=== PATIENT | female | born 1940 | race Caucasian/White ===

== ENCOUNTER 2018-05-13 11:35 | Inpatient (IN) ==
[2018-05-13] MEDS ORDERED: dilTIAZem HCl 5 MG/ML 5 ML VIAL IV STA (12:03)
[2018-05-13] MEDS ORDERED: dilTIAZem HCl 125 MG in DEXTROSE 5% 100 ML IV STA (12:03)
--- NOTE | 2018-05-13 12:14 | Emergency Department Note ---
Entered by Rica Villalpando acting as a scribe for History of Present Illness General Chief complaint: Shortness of Breath/Dyspnea Stated complaint: SOB Time Seen by Provider: 05/13/18 11:58 Source: patient History of Present Illness Onset (ago): day(s) 4 Location: chest Pain Consistency: + other (worsening) Quality: + other (shortness of breath ) Exacerbated By: + movement Associated symptoms: + chest pain and + cough The patient is a 77 year old female who presents to the Emergency Room with complaints of worsening shortness of breath that started 4 days ago. The patient states it is worse with exertion. She also complains of a dry cough that has been ongoing for a month. The patient reports she has also had intermittent chest pain for the past month, but it has not gotten worse since the shortness of breath started. She states she has never been diagnosed with COPD. Home Medications Home Medications Medication Instructions Recorded Confirmed Type albuterol sulfate [ProAir HFA] 2 puff INHALATION Q6H PRN 05/13/18 05/13/18 History aspirin [Aspirin Low Dose] 81 mg PO DAILY 05/13/18 05/13/18 History fluticasone-salmeterol [Advair 1 inh INHALATION BID 05/13/18 05/13/18 History Diskus] fosinopril 40 mg PO DAILY 05/13/18 05/13/18 History hydroxyzine HCl 25 mg PO QID PRN 05/13/18 05/13/18 History ibuprofen 200 mg PO TID PRN 05/13/18 05/13/18 History insulin glargine [Lantus Solostar 30 units SUBCUT QAM 05/13/18 05/13/18 History U-100 Insulin] metformin 1,000 mg PO BID 05/13/18 05/13/18 History sertraline 25 mg PO DAILY 05/13/18 05/13/18 History tramadol 50 mg PO TID PRN 05/13/18 05/13/18 History Allergies Allergy/AdvReac Type Severity Reaction Status Date / Time No Known Allergies Allergy Unverified 05/13/18 11:57 Past Med/Surg History Medical History Pneumonia Bronchitis Hypertension Heart disease Diabetes Social History Current Living Situation: Alone Other Information That Helps Us Care for You: No Feels Safe at Home: Yes Safety Concerns: Feels Safe At This Time Smoking Status: Never smoker Do You Dip or Chew Tobacco: No Second Hand Exposure: No Tobacco Cessation Education Requested by Patient: No Hx Alcohol Use: Yes Alcohol Intake Frequency: holidays/special occasions only Hx Substance Use: No Beliefs That Will Affect Care: None Preferred Language: Romansh Communication Ability: Effective Contact Agent Required: No Review of Systems See HPI for pertinent positives & negatives. and A total of 10 systems reviewed and were otherwise negative Physical Exam Vital Signs Vital Signs - 24 hr 05/13/18 11:36 05/13/18 11:40 05/13/18 11:54 Temperature 37 C Temperature Source Oral Sepsis Recent Fever Within 48 Hours No Sepsis New/Unexplained Change in Mental Status No Sepsis Action Taken by Nursing No Action Required Pulse Rate 141 H 127 H Pulse Rate [Left Finger] Pulse Rhythm Pulse Rhythm [Left Finger] Pulse Strength [Left Finger] Respiratory Rate 20 25 H Respiratory Effort / Characteristics Non-Labored Spontaneous Respiratory Depth Normal Normal Respiratory Pattern Regular Blood Pressure 123/73 127/88 Blood Pressure [Right Arm] Blood Pressure Mean 89 101 Blood Pressure Mean [Right Arm] Blood Pressure Position Blood Pressure Position [Right Arm] Pulse Oximetry 94 94 Oxygen Delivery Method Room Air Oxygen Flow Rate 05/13/18 11:58 05/13/18 12:00 05/13/18 12:01 Temperature Temperature Source Sepsis Recent Fever Within 48 Hours Sepsis New/Unexplained Change in Mental Status Sepsis Action Taken by Nursing Pulse Rate 139 H 142 H 146 H Pulse Rate [Left Finger] Pulse Rhythm Pulse Rhythm [Left Finger] Pulse Strength [Left Finger] Respiratory Rate 22 31 H 26 H Respiratory Effort / Characteristics Respiratory Depth Respiratory Pattern Blood Pressure 136/99 Blood Pressure [Right Arm] Blood Pressure Mean 111 Blood Pressure Mean [Right Arm] Blood Pressure Position Blood Pressure Position [Right Arm] Pulse Oximetry 96 96 98 Oxygen Delivery Method Oxygen Flow Rate 05/13/18 12:06 05/13/18 12:10 05/13/18 12:14 Temperature Temperature Source Sepsis Recent Fever Within 48 Hours Sepsis New/Unexplained Change in Mental Status Sepsis Action Taken by Nursing Pulse Rate 130 H 138 H 106 H Pulse Rate [Left Finger] Pulse Rhythm Irregular Pulse Rhythm [Left Finger] Pulse Strength [Left Finger] Respiratory Rate 18 23 25 H Respiratory Effort / Characteristics Respiratory Depth Respiratory Pattern Blood Pressure 97/62 L Blood Pressure [Right Arm] Blood Pressure Mean 73 Blood Pressure Mean [Right Arm] Blood Pressure Position Blood Pressure Position [Right Arm] Pulse Oximetry 95 92 96 Oxygen Delivery Method Room Air Oxygen Flow Rate 05/13/18 12:17 05/13/18 12:18 05/13/18 12:20 Temperature Temperature Source Sepsis Recent Fever Within 48 Hours Sepsis New/Unexplained Change in Mental Status Sepsis Action Taken by Nursing Pulse Rate 135 H 108 H 108 H Pulse Rate [Left Finger] Pulse Rhythm Pulse Rhythm [Left Finger] Pulse Strength [Left Finger] Respiratory Rate 20 26 H 21 Respiratory Effort / Characteristics Respiratory Depth Respiratory Pattern Blood Pressure 87/69 L Blood Pressure [Right Arm] Blood Pressure Mean 75 Blood Pressure Mean [Right Arm] Blood Pressure Position Blood Pressure Position [Right Arm] Pulse Oximetry 94 95 95 Oxygen Delivery Method Oxygen Flow Rate 05/13/18 12:21 05/13/18 12:22 05/13/18 12:26 Temperature Temperature Source Sepsis Recent Fever Within 48 Hours Sepsis New/Unexplained Change in Mental Status Sepsis Action Taken by Nursing Pulse Rate 104 H 116 H Pulse Rate [Left Finger] 106 H Pulse Rhythm Pulse Rhythm [Left Finger] Regular Pulse Strength [Left Finger] Normal Respiratory Rate 20 20 21 Respiratory Effort / Characteristics Non-Labored Spontaneous Respiratory Depth Normal Respiratory Pattern Regular Blood Pressure 104/69 102/67 Blood Pressure [Right Arm] 87/69 L Blood Pressure Mean 80 78 Blood Pressure Mean [Right Arm] 75 Blood Pressure Position Blood Pressure Position [Right Arm] Sitting Pulse Oximetry 95 95 94 Oxygen Delivery Method Room Air Oxygen Flow Rate 05/13/18 12:30 05/13/18 12:32 05/13/18 12:36 Temperature Temperature Source Sepsis Recent Fever Within 48 Hours Sepsis New/Unexplained Change in Mental Status Sepsis Action Taken by Nursing Pulse Rate 163 H 125 H 130 H Pulse Rate [Left Finger] 137 H Pulse Rhythm Pulse Rhythm [Left Finger] Irregular Pulse Strength [Left Finger] Normal Respiratory Rate 33 H 30 H 23 Respiratory Effort / Characteristics Non-Labored Spontaneous Respiratory Depth Normal Respiratory Pattern Blood Pressure 106/79 138/67 Blood Pressure [Right Arm] 106/79 Blood Pressure Mean 88 90 Blood Pressure Mean [Right Arm] 88 Blood Pressure Position Blood Pressure Position [Right Arm] Sitting Pulse Oximetry 98 97 96 Oxygen Delivery Method Room Air Oxygen Flow Rate 05/13/18 12:40 05/13/18 12:41 05/13/18 12:43 Temperature Temperature Source Sepsis Recent Fever Within 48 Hours Sepsis New/Unexplained Change in Mental Status Sepsis Action Taken by Nursing Pulse Rate 105 H 122 H Pulse Rate [Left Finger] 118 H Pulse Rhythm Pulse Rhythm [Left Finger] Regular Pulse Strength [Left Finger] Normal Respiratory Rate 16 24 20 Respiratory Effort / Characteristics Non-Labored Spontaneous Respiratory Depth Normal Respiratory Pattern Blood Pressure 133/88 Blood Pressure [Right Arm] 133/88 Blood Pressure Mean 103 Blood Pressure Mean [Right Arm] 103 Blood Pressure Position Blood Pressure Position [Right Arm] Sitting Pulse Oximetry 92 91 93 Oxygen Delivery Method Room Air Oxygen Flow Rate 05/13/18 12:46 05/13/18 12:50 05/13/18 12:59 Temperature Temperature Source Sepsis Recent Fever Within 48 Hours Sepsis New/Unexplained Change in Mental Status Sepsis Action Taken by Nursing Pulse Rate 117 H 108 H 104 H Pulse Rate [Left Finger] Pulse Rhythm Pulse Rhythm [Left Finger] Pulse Strength [Left Finger] Respiratory Rate 22 22 23 Respiratory Effort / Characteristics Respiratory Depth Respiratory Pattern Blood Pressure 121/75 116/95 Blood Pressure [Right Arm] Blood Pressure Mean 90 102 Blood Pressure Mean [Right Arm] Blood Pressure Position Blood Pressure Position [Right Arm] Pulse Oximetry 99 96 Oxygen Delivery Method Oxygen Flow Rate 05/13/18 13:00 05/13/18 13:06 05/13/18 13:10 Temperature Temperature Source Sepsis Recent Fever Within 48 Hours Sepsis New/Unexplained Change in Mental Status Sepsis Action Taken by Nursing Pulse Rate 111 H 127 H 115 H Pulse Rate [Left Finger] Pulse Rhythm Pulse Rhythm [Left Finger] Pulse Strength [Left Finger] Respiratory Rate 21 26 H 20 Respiratory Effort / Characteristics Respiratory Depth Respiratory Pattern Blood Pressure 104/41 L Blood Pressure [Right Arm] Blood Pressure Mean 62 Blood Pressure Mean [Right Arm] Blood Pressure Position Blood Pressure Position [Right Arm] Pulse Oximetry 99 97 98 Oxygen Delivery Method Oxygen Flow Rate 05/13/18 13:11 05/13/18 13:16 05/13/18 13:18 Temperature Temperature Source Sepsis Recent Fever Within 48 Hours Sepsis New/Unexplained Change in Mental Status Sepsis Action Taken by Nursing Pulse Rate 116 H 106 H Pulse Rate [Left Finger] Pulse Rhythm Pulse Rhythm [Left Finger] Pulse Strength [Left Finger] Respiratory Rate 19 28 H Respiratory Effort / Characteristics Non-Labored Spontaneous Respiratory Depth Normal Respiratory Pattern Regular Blood Pressure 132/82 121/89 Blood Pressure [Right Arm] Blood Pressure Mean 98 99 Blood Pressure Mean [Right Arm] Blood Pressure Position Blood Pressure Position [Right Arm] Pulse Oximetry 98 98 Oxygen Delivery Method Room Air Oxygen Flow Rate 05/13/18 13:20 05/13/18 13:21 05/13/18 13:26 Temperature Temperature Source Sepsis Recent Fever Within 48 Hours Sepsis New/Unexplained Change in Mental Status Sepsis Action Taken by Nursing Pulse Rate 109 H 120 H 107 H Pulse Rate [Left Finger] Pulse Rhythm Pulse Rhythm [Left Finger] Pulse Strength [Left Finger] Respiratory Rate 24 23 24 Respiratory Effort / Characteristics Respiratory Depth Respiratory Pattern Blood Pressure 120/84 127/82 Blood Pressure [Right Arm] Blood Pressure Mean 96 97 Blood Pressure Mean [Right Arm] Blood Pressure Position Blood Pressure Position [Right Arm] Pulse Oximetry 99 98 96 Oxygen Delivery Method Oxygen Flow Rate 05/13/18 13:30 05/13/18 13:31 05/13/18 13:40 Temperature Temperature Source Sepsis Recent Fever Within 48 Hours Sepsis New/Unexplained Change in Mental Status Sepsis Action Taken by Nursing Pulse Rate 108 H 109 H 109 H Pulse Rate [Left Finger] Pulse Rhythm Pulse Rhythm [Left Finger] Pulse Strength [Left Finger] Respiratory Rate 27 H 26 H 23 Respiratory Effort / Characteristics Respiratory Depth Respiratory Pattern Blood Pressure 112/80 Blood Pressure [Right Arm] Blood Pressure Mean 90 Blood Pressure Mean [Right Arm] Blood Pressure Position Blood Pressure Position [Right Arm] Pulse Oximetry 95 95 95 Oxygen Delivery Method Oxygen Flow Rate 05/13/18 13:50 05/13/18 13:52 05/13/18 13:53 Temperature Temperature Source Sepsis Recent Fever Within 48 Hours Sepsis New/Unexplained Change in Mental Status Sepsis Action Taken by Nursing Pulse Rate 114 H 98 H 106 H Pulse Rate [Left Finger] Pulse Rhythm Pulse Rhythm [Left Finger] Pulse Strength [Left Finger] Respiratory Rate 23 25 H 26 H Respiratory Effort / Characteristics Respiratory Depth Respiratory Pattern Blood Pressure 118/54 L Blood Pressure [Right Arm] Blood Pressure Mean 75 Blood Pressure Mean [Right Arm] Blood Pressure Position Blood Pressure Position [Right Arm] Pulse Oximetry 96 96 96 Oxygen Delivery Method Oxygen Flow Rate 05/13/18 14:00 05/13/18 14:01 05/13/18 14:10 Temperature Temperature Source Sepsis Recent Fever Within 48 Hours Sepsis New/Unexplained Change in Mental Status Sepsis Action Taken by Nursing Pulse Rate 97 H 109 H 89 Pulse Rate [Left Finger] Pulse Rhythm Pulse Rhythm [Left Finger] Pulse Strength [Left Finger] Respiratory Rate 24 18 23 Respiratory Effort / Characteristics Respiratory Depth Respiratory Pattern Blood Pressure 129/68 Blood Pressure [Right Arm] Blood Pressure Mean 88 Blood Pressure Mean [Right Arm] Blood Pressure Position Blood Pressure Position [Right Arm] Pulse Oximetry 97 98 96 Oxygen Delivery Method Oxygen Flow Rate 05/13/18 14:16 05/13/18 14:20 05/13/18 14:30 Temperature Temperature Source Sepsis Recent Fever Within 48 Hours Sepsis New/Unexplained Change in Mental Status Sepsis Action Taken by Nursing Pulse Rate 104 H 100 H 98 H Pulse Rate [Left Finger] Pulse Rhythm Pulse Rhythm [Left Finger] Pulse Strength [Left Finger] Respiratory Rate 23 20 28 H Respiratory Effort / Characteristics Respiratory Depth Respiratory Pattern Blood Pressure 98/69 L 101/74 Blood Pressure [Right Arm] Blood Pressure Mean 78 83 Blood Pressure Mean [Right Arm] Blood Pressure Position Blood Pressure Position [Right Arm] Pulse Oximetry 98 95 99 Oxygen Delivery Method Oxygen Flow Rate 05/13/18 14:31 05/13/18 14:32 05/13/18 14:40 Temperature Temperature Source Sepsis Recent Fever Within 48 Hours Sepsis New/Unexplained Change in Mental Status Sepsis Action Taken by Nursing Pulse Rate 103 H 105 H 99 H Pulse Rate [Left Finger] Pulse Rhythm Pulse Rhythm [Left Finger] Pulse Strength [Left Finger] Respiratory Rate 19 19 21 Respiratory Effort / Characteristics Respiratory Depth Respiratory Pattern Blood Pressure 120/72 Blood Pressure [Right Arm] Blood Pressure Mean 88 Blood Pressure Mean [Right Arm] Blood Pressure Position Blood Pressure Position [Right Arm] Pulse Oximetry 98 98 98 Oxygen Delivery Method Oxygen Flow Rate 05/13/18 15:00 05/13/18 15:05 05/13/18 15:37 Temperature 36.8 C Temperature Source Oral Sepsis Recent Fever Within 48 Hours Sepsis New/Unexplained Change in Mental Status Sepsis Action Taken by Nursing Pulse Rate Pulse Rate [Left Finger] 95 H 95 H Pulse Rhythm Pulse Rhythm [Left Finger] Pulse Strength [Left Finger] Respiratory Rate 24 18 Respiratory Effort / Characteristics Short of Breath SOB on Exertion Non-Labored Spontaneous Respiratory Depth Normal Respiratory Pattern Blood Pressure Blood Pressure [Right Arm] 110/57 L Blood Pressure Mean Blood Pressure Mean [Right Arm] 74 Blood Pressure Position Blood Pressure Position [Right Arm] Pulse Oximetry 97 98 Oxygen Delivery Method Nasal Cannula Nasal Cannula Nasal Cannula Oxygen Flow Rate 2 2 2 05/13/18 16:43 05/13/18 16:50 05/13/18 16:59 Temperature 36.8 C 36.8 C Temperature Source Oral Oral Sepsis Recent Fever Within 48 Hours Sepsis New/Unexplained Change in Mental Status Sepsis Action Taken by Nursing Pulse Rate 84 85 98 H Pulse Rate [Left Finger] Pulse Rhythm Pulse Rhythm [Left Finger] Pulse Strength [Left Finger] Respiratory Rate 20 20 20 Respiratory Effort / Characteristics Respiratory Depth Respiratory Pattern Blood Pressure 99/43 L 105/61 100/62 Blood Pressure [Right Arm] Blood Pressure Mean 61 75 74 Blood Pressure Mean [Right Arm] Blood Pressure Position Lying Blood Pressure Position [Right Arm] Pulse Oximetry 97 95 95 Oxygen Delivery Method Oxygen Flow Rate 2 2 05/13/18 17:14 Temperature 36.8 C Temperature Source Oral Sepsis Recent Fever Within 48 Hours Sepsis New/Unexplained Change in Mental Status Sepsis Action Taken by Nursing Pulse Rate 90 Pulse Rate [Left Finger] Pulse Rhythm Pulse Rhythm [Left Finger] Pulse Strength [Left Finger] Respiratory Rate 20 Respiratory Effort / Characteristics Respiratory Depth Respiratory Pattern Blood Pressure 105/57 L Blood Pressure [Right Arm] Blood Pressure Mean 73 Blood Pressure Mean [Right Arm] Blood Pressure Position Blood Pressure Position [Right Arm] Pulse Oximetry 95 Oxygen Delivery Method Oxygen Flow Rate GENERAL: Patient is in no acute distress. HEENT: No acute trauma, normocephalic atraumatic, mucous membranes moist, no nasal congestion, no scleral icterus. NECK: No stridor, no adenopathy, no meningismus, trachea is midline. LUNGS: Scattered wheezes, breath sounds equal, no respiratory distress, no crackles. HEART: Irregular and tachycardic, no murmurs. ABDOMEN: Soft, nontender, bowel sounds positive, no hernias, no peritonitis. EXTREMITIES: No cyanosis, full range of motion of all the joints without pain or difficulty, no signs for acute trauma. Mild bilateral pedal edema. NEUROLOGIC: Oriented x 3, no acute motor or sensory deficits, no focal weakness. SKIN: No rash, no jaundice, no diaphoresis. RECTAL: Brown stool, hem negative. Course 1158: Past medical records reviewed. The patient was evaluated in room C4, and a complete history and physical examination were performed. 1220: I rechecked the patient and she is feeling okay. Her blood pressure is lower from the medications, I will administer more fluids. 1240: I rechecked the patient and talked with her about her findings. 1255: I reviewed the patient's case with Nithya Singletary Lito PONCE [facility]. She will evaluate the patient for further management. Consultations Consultation #1: I reviewed the patient's [facility] She will evaluate the patient for further management. Time: 12:55 Administered Medications Albuterol (Duoneb) 3 ml NEB Q4H PRN PRN Reason: Dyspnea Stop: 06/12/18 15:04 Last Admin: 05/13/18 15:36 Dose: 3 ml Insulin Aspart (Novolog Flexpen) 0 units SC ACHS MAGGIE; Protocol Stop: 06/12/18 17:29 Last Admin: 05/13/18 17:57 Dose: 7 units Discontinued Medications Diltiazem HCl (Cardizem) 15 mg IV NOW STA Stop: 05/13/18 12:04 Last Admin: 05/13/18 12:10 Dose: 15 mg Diltiazem HCl 125 mg/ Dextrose 125 mls @ 0 mls/hr IV .Q0M STA; Protocol Stop: 05/13/18 12:04 Last Titration: 05/13/18 13:53 Dose: 15 mg/hr, 15 mls/hr Titration: 05/13/18 13:05 Dose: 10 mg/hr, 10 mls/hr Admin: 05/13/18 12:33 Dose: 5 mg/hr, 5 mls/hr Sodium Chloride (Nss) 500 mls @ 999 mls/hr IV .Q31M STA Stop: 05/13/18 12:48 Last Infusion: 05/13/18 12:56 Dose: Admin: 05/13/18 12:23 Dose: 999 mls/hr Magnesium Sulfate/Dextrose (Magnesium Sulfate / D5w) 1 gm in 100 mls @ 100 mls/ hr IV ONE ONE Stop: 05/13/18 13:38 Last Infusion: 05/13/18 14:06 Dose: 0 mls/hr Admin: 05/13/18 13:06 Dose: 100 mls/hr Medical Decision Making Differential Diagnosis Differential includes: rapid A-fib, dysrhythmia, [place], CHF, pneumonia, anemia, electrolyte imbalance, PE. Medical Records Attestation: I reviewed the patient's medical records. Home Medications Current Medication List: was personally reviewed by me Laboratory Data Attestation: I reviewed the patient's lab results. Result diagrams: 05/13/18 11:55 05/13/18 11:55 Lab Results 05/13/18 05/13/18 05/13/18 Range/Units 11:55 11:55 11:55 WBC 9.51 (4.8-10.8) K/uL RBC 3.32 L (4.2-5.4) M/uL Hgb 5.9 L* (12.0-16.0) g/dL Hct 20.9 L* (37-47) % MCV 63.0 L (80-100) fL MCH 17.8 L (25-34) pg MCHC 28.2 L (32-36) g/dL RDW Std Deviation 42.0 (36.4-46.3) fL RDW Coeff of Zaria 18.1 H (11.5-14.5) % Plt Count 429 H (130-400) K/uL MPV 9.6 (7.4-10.4) fL Immature Gran % (Auto) 0.5 % Neut % (Auto) 76.6 % Lymph % (Auto) 11.6 % [place] % (Auto) 10.2 % Eos % (Auto) 0.7 % Baso % (Auto) 0.4 % Immature Gran # (Auto) 0.05 H (0.00-0.02) K/uL Neut # (Auto) 7.28 H (1.4-6.5) K/uL Lymph # (Auto) 1.10 L (1.2-3.4) K/uL [place] # (Auto) 0.97 H (0.11-0.59) K/uL Eos # (Auto) 0.07 (0-0.5) K/uL Baso # (Auto) 0.04 (0-0.2) K/uL Absolute Nucleated RBC 0.05 H (0-0) K/uL Nucleated RBC % (auto) 0.5 % Hypochromasia Present Anisocytosis Present Microcytosis Present PT 11.8 (9.0-12.0) Seconds INR 1.2 H (0.9-1.1) APTT 25.9 (21.0-31.0) Seconds PTT Ratio 1.0 Sodium 137 (136-145) mmol/L Potassium 3.6 (3.5-5.1) mmol/L Chloride 105 (98-107) mmol/L Carbon Dioxide 20 L (21-32) mmol/L Anion Gap 12.0 H (3-11) BUN 23 H (7-18) mg/dl Creatinine 1.11 (0.6-1.2) mg/dl Est Cr Clr Drug Dosing Not Reportable Est GFR ( Amer) 54.7 Est GFR (Non-Af Amer) 47.2 BUN/Creatinine Ratio 20.7 H (10-20) Glucose 260 H (70-99) mg/dl POC Glucose (70-99) Calcium 8.7 (8.5-10.1) mg/dl Magnesium 1.4 L (1.8-2.4) mg/dl Iron (35-150) mcg/dl TIBC (250-450) mcg/dl Ferritin (8-388) ng/ml Total Bilirubin 0.7 (0.2-1) mg/dl AST 23 (15-37) U/L ALT 22 (12-78) U/L Alkaline Phosphatase 89 (45-117) U/L Troponin I 0.017 (0-0.045) ng/ml Total Protein 7.1 (6.4-8.2) gm/dl Albumin 3.3 L (3.4-5.0) gm/dl Globulin 3.8 (2.5-4.0) gm/dl Albumin/Globulin Ratio 0.9 (0.9-2) Vitamin B12 (211-911) pg/ml TSH 1.820 (0.300-4.500) uIu/ml Blood Type Blood Type Recheck Antibody Screen Antibody Identification Antigen Identification Crossmatch 05/13/18 05/13/18 05/13/18 Range/Units 12:58 13:54 15:11 WBC (4.8-10.8) K/uL RBC (4.2-5.4) M/uL Hgb (12.0-16.0) g/dL Hct (37-47) % MCV (80-100) fL MCH (25-34) pg MCHC (32-36) g/dL RDW Std Deviation (36.4-46.3) fL RDW Coeff of Zaria (11.5-14.5) % Plt Count (130-400) K/uL MPV (7.4-10.4) fL Immature Gran % (Auto) % Neut % (Auto) % Lymph % (Auto) % [place] % (Auto) % Eos % (Auto) % Baso % (Auto) % Immature Gran # (Auto) (0.00-0.02) K/uL Neut # (Auto) (1.4-6.5) K/uL Lymph # (Auto) (1.2-3.4) K/uL [place] # (Auto) (0.11-0.59) K/uL Eos # (Auto) (0-0.5) K/uL Baso # (Auto) (0-0.2) K/uL Absolute Nucleated RBC (0-0) K/uL Nucleated RBC % (auto) % Hypochromasia Anisocytosis Microcytosis PT (9.0-12.0) Seconds INR (0.9-1.1) APTT (21.0-31.0) Seconds PTT Ratio Sodium (136-145) mmol/L Potassium (3.5-5.1) mmol/L Chloride (98-107) mmol/L Carbon Dioxide (21-32) mmol/L Anion Gap (3-11) BUN (7-18) mg/dl Creatinine (0.6-1.2) mg/dl Est Cr Clr Drug Dosing Est GFR ( Amer) Est GFR (Non-Af Amer) BUN/Creatinine Ratio (10-20) Glucose (70-99) mg/dl POC Glucose (70-99) Calcium (8.5-10.1) mg/dl Magnesium (1.8-2.4) mg/dl Iron 10 L (35-150) mcg/dl TIBC 348 (250-450) mcg/dl Ferritin 7.6 L (8-388) ng/ml Total Bilirubin (0.2-1) mg/dl AST (15-37) U/L ALT (12-78) U/L Alkaline Phosphatase (45-117) U/L Troponin I (0-0.045) ng/ml Total Protein (6.4-8.2) gm/dl Albumin (3.4-5.0) gm/dl Globulin (2.5-4.0) gm/dl Albumin/Globulin Ratio (0.9-2) Vitamin B12 (211-911) pg/ml TSH (0.300-4.500) uIu/ml Blood Type O Positive Blood Type Recheck O Positive Antibody Screen POSITIVE A Antibody Identification Anti-K Antigen Identification K Antigen - NEGATIVE Crossmatch See Detail 05/13/18 05/13/18 05/13/18 Range/Units 15:11 16:17 16:19 WBC (4.8-10.8) K/uL RBC (4.2-5.4) M/uL Hgb (12.0-16.0) g/dL Hct (37-47) % MCV (80-100) fL MCH (25-34) pg MCHC (32-36) g/dL RDW Std Deviation (36.4-46.3) fL RDW Coeff of Zaria (11.5-14.5) % Plt Count (130-400) K/uL MPV (7.4-10.4) fL Immature Gran % (Auto) % Neut % (Auto) % Lymph % (Auto) % [place] % (Auto) % Eos % (Auto) % Baso % (Auto) % Immature Gran # (Auto) (0.00-0.02) K/uL Neut # (Auto) (1.4-6.5) K/uL Lymph # (Auto) (1.2-3.4) K/uL [place] # (Auto) (0.11-0.59) K/uL Eos # (Auto) (0-0.5) K/uL Baso # (Auto) (0-0.2) K/uL Absolute Nucleated RBC (0-0) K/uL Nucleated RBC % (auto) % Hypochromasia Anisocytosis Microcytosis PT (9.0-12.0) Seconds INR (0.9-1.1) APTT (21.0-31.0) Seconds PTT Ratio Sodium (136-145) mmol/L Potassium (3.5-5.1) mmol/L Chloride (98-107) mmol/L Carbon Dioxide (21-32) mmol/L Anion Gap (3-11) BUN (7-18) mg/dl Creatinine (0.6-1.2) mg/dl Est Cr Clr Drug Dosing Est GFR ( Amer) Est GFR (Non-Af Amer) BUN/Creatinine Ratio (10-20) Glucose (70-99) mg/dl POC Glucose 409 H* 193 H (70-99) Calcium (8.5-10.1) mg/dl Magnesium (1.8-2.4) mg/dl Iron (35-150) mcg/dl TIBC (250-450) mcg/dl Ferritin (8-388) ng/ml Total Bilirubin (0.2-1) mg/dl AST (15-37) U/L ALT (12-78) U/L Alkaline Phosphatase (45-117) U/L Troponin I (0-0.045) ng/ml Total Protein (6.4-8.2) gm/dl Albumin (3.4-5.0) gm/dl Globulin (2.5-4.0) gm/dl Albumin/Globulin Ratio (0.9-2) Vitamin B12 372 (211-911) pg/ml TSH (0.300-4.500) uIu/ml Blood Type Blood Type Recheck Antibody Screen Antibody Identification Antigen Identification Crossmatch 05/13/18 Range/Units 16:21 WBC (4.8-10.8) K/uL RBC (4.2-5.4) M/uL Hgb (12.0-16.0) g/dL Hct (37-47) % MCV (80-100) fL MCH (25-34) pg MCHC (32-36) g/dL RDW Std Deviation (36.4-46.3) fL RDW Coeff of Zaria (11.5-14.5) % Plt Count (130-400) K/uL MPV (7.4-10.4) fL Immature Gran % (Auto) % Neut % (Auto) % Lymph % (Auto) % [place] % (Auto) % Eos % (Auto) % Baso % (Auto) % Immature Gran # (Auto) (0.00-0.02) K/uL Neut # (Auto) (1.4-6.5) K/uL Lymph # (Auto) (1.2-3.4) K/uL [place] # (Auto) (0.11-0.59) K/uL Eos # (Auto) (0-0.5) K/uL Baso # (Auto) (0-0.2) K/uL Absolute Nucleated RBC (0-0) K/uL Nucleated RBC % (auto) % Hypochromasia Anisocytosis Microcytosis PT (9.0-12.0) Seconds INR (0.9-1.1) APTT (21.0-31.0) Seconds PTT Ratio Sodium (136-145) mmol/L Potassium (3.5-5.1) mmol/L Chloride (98-107) mmol/L Carbon Dioxide (21-32) mmol/L Anion Gap (3-11) BUN (7-18) mg/dl Creatinine (0.6-1.2) mg/dl Est Cr Clr Drug Dosing Est GFR ( Amer) Est GFR (Non-Af Amer) BUN/Creatinine Ratio (10-20) Glucose (70-99) mg/dl POC Glucose 193 H (70-99) Calcium (8.5-10.1) mg/dl Magnesium (1.8-2.4) mg/dl Iron (35-150) mcg/dl TIBC (250-450) mcg/dl Ferritin (8-388) ng/ml Total Bilirubin (0.2-1) mg/dl AST (15-37) U/L ALT (12-78) U/L Alkaline Phosphatase (45-117) U/L Troponin I (0-0.045) ng/ml Total Protein (6.4-8.2) gm/dl Albumin (3.4-5.0) gm/dl Globulin (2.5-4.0) gm/dl Albumin/Globulin Ratio (0.9-2) Vitamin B12 (211-911) pg/ml TSH (0.300-4.500) uIu/ml Blood Type Blood Type Recheck Antibody Screen Antibody Identification Antigen Identification Crossmatch Imaging Data Radiologist's Impression: Radiology results as stated below per my review and the radiologist's interpretation: SINGLE VIEW CHEST CLINICAL HISTORY: Generalized weakness. FINDINGS: An AP, portable, upright chest radiograph is obtained. No prior studies are available for comparison at the time of dictation. The examination is degraded by portable technique and patient rotation. The heart is enlarged and there is atherosclerotic calcification of the thoracic aorta. There is prominence of the central pulmonary vessels. A large hiatal hernia is noted. Nonspecific interstitial thickening is likely chronic. There is bibasilar atelectasis. No airspace consolidation or large pleural effusion is identified. No pneumothorax is seen. The skeletal structures are osteopenic. The bony thorax is grossly intact. IMPRESSION: 1. Cardiomegaly with prominence of the central pulmonary vessels. Correlate clinically for evidence of mild congestive failure. 2. No airspace consolidation or large pleural effusion is identified. 3. Large hiatal hernia. Electronically signed by: Nate Ramos M.D. 05/13/2018 12:40 PM ECG Data Attestation: I personally reviewed and interpreted this ECG as follows: Indication: SOB/dyspnea Rate (beats per minute): 141 Rhythm: atrial fibrillation Findings: no PVC and no ST elevation Blood Pressure Blood Pressure Findings: Normal blood pressure Blood Pressure Disposition: further management by hospitalist MDM Narrative There is no leukocytosis. The patient is quite anemic though with a hemoglobin of 5.9. A rectal exam was done, the stool was brown and heme-negative. Platelet count slightly elevated at 429. Renal panel testing shows a low magnesium,. No worrisome coagulopathy. No evidence for hepatitis by our testing. EKG shows A. fib with a rapid rate at about 140, no acute ischemia. Cardiac enzyme testing x1 is not consistent with acute cardiac injury. Chest film does not show pneumonia or worrisome CHF, some mild pulmonary congestion was noted. The patient was aggressively managed given her findings. She had multiple IV sites initiated. She received a bolus of IV diltiazem and was placed on an IV diltiazem drip. This did help control the heart rate but her blood pressure dropped slightly. She received a bolus of IV saline. She was given IV magnesium for the lower magnesium value. She was ordered for 2 units of packed red blood cells. She did sign consent for the blood transfusion. The patient presents with dyspnea. She is wheezing on exam. She is quite anemic. She presents in a rapid A. fib. Hospitalization is warranted. I spoke to the patient and the test case developer. The on-call hospitalist was consulted. The patient is aware of all her findings. Impression & Plan Rapid atrial fibrillation, Shortness of breath, Anemia, Hypomagnesemia Critical Care Time I have personally spent greater than 35 minutes of critical care time in the direct management of this patient. This includes bedside care, interpretation of diagnostic studies, and testing, discussion with consultants, patient, and family members, and other required patient management activities. This 35 minutes is in excess of all separately billable procedures. Critical Care Time: Yes Total Critical Care Time: 35 Discharge Plan Visit Data *Final* Discharge Date/Time: 05/13/18 14:46 Chief Complaint: Shortness of Breath/Dyspnea Stated Complaint: SOB ED Provider: Nate Cabrales Discharge Problem: Rapid atrial fibrillation, Shortness of breath, Anemia, Hypomagnesemia Patient Disposition: Admitted As Inpatient Discharge Instructions Interventions: ED Discharge Assessment Last Done: 05/13/18 14:46 The scribe's documentation has been prepared under my direction and personally reviewed by me in its entirety. I confirm that the note above accurately reflects all work, treatment, procedures, and medical decision making performed by me.
[2018-05-13] MEDS ORDERED: SODIUM CHLORIDE 0.9% 500 ML IV STA (12:18)
[2018-05-13 12:24] LABS: Alanine Aminotransferase 22 U/L (12-78); Albumin Level 3.3 gm/dl (3.4-5.0); Aspartate Aminotransferase 23 U/L (15-37); BUN Creatinine Ratio 20.7 (10-20); Blood Urea Nitrogen 23 mg/dl (7-18); Calcium 8.7 mg/dl (8.5-10.1); Carbon Dioxide 20 mmol/L (21-32); Chloride 105 mmol/L (98-107); Est GFR (African American) 54.7; Est GFR (Non-African American) 47.2; Glucose 260 mg/dl (70-99); INR 1.2 (0.9-1.1); Magnesium 1.4 mg/dl (1.8-2.4); Partial Thromboplastin Time 25.9 Seconds (21.0-31.0); Potassium 3.6 mmol/L (3.5-5.1); Prothrombin Time 11.8 Seconds (9.0-12.0); Sodium 137 mmol/L (136-145)
[2018-05-13 12:31] LABS: Hematocrit (blood only) 20.9 % (37-47); Hemoglobin 5.9 g/dL (12.0-16.0); Mean Corpuscular Hgb Conc 28.2 g/dL (32-36); Mean Platelet Volume 9.6 fL (7.4-10.4); Nucleated RBC # (auto) 0.05 K/uL (0-0); Nucleated RBC % (auto) 0.5 %; Platelet Count 429 K/uL (130-400); RDW Coefficient of Variation 18.1 % (11.5-14.5); Red Blood Count 3.32 M/uL (4.2-5.4); White Blood Count 9.51 K/uL (4.8-10.8)
[2018-05-13 12:35] LABS: Albumin Globulin Ratio 0.9 (0.9-2); Alkaline Phosphatase 89 U/L (45-117); Bilirubin,Total 0.7 mg/dl (0.2-1); Globulin 3.8 gm/dl (2.5-4.0); Total Protein 7.1 gm/dl (6.4-8.2); Troponin I 0.017 ng/ml (0-0.045)
[2018-05-13] MEDS ORDERED: MAGNESIUM SULFATE / D5W 1 GM/100 ML BAG IV ONE (12:39)
--- NOTE | 2018-05-13 12:42 | XRay Report ---
SINGLE VIEW CHEST CLINICAL HISTORY: Generalized weakness. FINDINGS: An AP, portable, upright chest radiograph is obtained. No prior studies are available for c omparison at the time of dictation. The examination is degraded by portable technique and patient rot ation. The heart is enlarged and there is atherosclerotic calcification of the thoracic aorta. There is prominence of the central pulmonary vessels. A large hiatal hernia is noted. Nonspecific intersti tial thickening is likely chronic. There is bibasilar atelectasis. No airspace consolidation or large pleural effusion is identified. No pneumothorax is seen. The skeletal structures are osteopenic. The bony thorax is grossly intact. IMPRESSION: 1. Cardiomegaly with prominence of the central pulmonary vessels. Correlate clinically for evidence o f mild congestive failure. 2. No airspace consolidation or large pleural effusion is identified. 3. Large hiatal hernia. Electronically signed by: Nate Ramos M.D. 05/13/2018 12:40 PM
[2018-05-13 12:43] LABS: Anisocytosis Present; Basophils # (auto) 0.04 K/uL (0-0.2); Basophils % (auto) 0.4 %; Eosinophils # (auto) 0.07 K/uL (0-0.5); Eosinophils % (auto) 0.7 %; Hypochromasia Present; Immature Granulocytes # (auto) 0.05 K/uL (0.00-0.02); Immature Granulocytes % (auto) 0.5 %; Lymphocytes % (auto) 11.6 %; Microcytosis Present; Monocytes # (auto) 0.97 K/uL (0.11-0.59); Monocytes % (auto) 10.2 %; Neutrophils # (auto) 7.28 K/uL (1.4-6.5); Neutrophils % (auto) 76.6 %
--- NOTE | 2018-05-13 14:46 | History & Physical Report ---
Date of Service May 13, 2018 Assessment & Plan (1) Rapid atrial fibrillation: Diltiazem drip, will hold off on heparin drip until we know the source of anemia, cardiology evaluation (2) Shortness of breath: Multifactorial with chronic asthma, atrial fibrillation with a rapid ventricular response and anemia with hemoglobin of 5.9 (3) Anemia: Iron studies, ferritin, TIBC, B12, folic acid, hematology evaluation, guaiac stoolnegative in the ER will continue to guaiac. (4) Hypomagnesemia: We will monitor and replete (5) Hypertension: Currently on a Cardizem drip will hold GAGE inhibitor with parameters (6) Diabetes: Lantus, sliding scale, carb consistent diet Patient is inpatient status likely to be here more than 2 midnights, will get hematology oncology to see the patient as well as cardiology, insulin sliding scale with Lantus and carb consistent diet, guaiac stool, hold metformin, continue sertraline for depression and tramadol for pain control, GAGE inhibitor with parameters, will order DuoNeb as needed. History of Present Illness Chief Complaint: Shortness of breath Primary Care Provider: NO PCP 77-year-old female with past medical history of diabetes, obesity, hypertension , rheumatic fever at age 4, asthma, both pemphigoid and osteoarthritis presents with shortness of breath that started yesterday. She lives by herself but her family says she is going to start living with her son and [id number]. They noticed that she was pale and short of breath last night they brought her in today she was found to have a hemoglobin of 5.9 however she was guaiac negative in the ER. She denies any blood in her stool denies any blood in her urine or any trauma. She said when she sitting around she is fine but when she gets up the least amount of exertion causes her to be short of breath. She was also found to be in atrial fibrillation with rapid ventricular response was started on Cardizem drip in the emergency room. ROS-No Headache, No Visual Changes, No Fever, No Chills, No Neck Pain or Stiffness, No Chest Pain, No Palpitations, positive SOB, positive ABAD, No Cough , No Sputum, No Wheezing, No Abdominal Pain, No Diarrhea, No Hematemesis, No Hemoptysis, No Unexpected Weight Loss, No Flank pain, No Melena, No Hematochezia , No Frequency, No Urgency, No Burning, No Hematuria, No Rashes, No Diaphoresis. Appetite is Normal Physical Exam Gen-AAO x 3, NAD, Afebrile, obese Head-NCAT, EOMI, PERRLA, Anicteric Sclera, No Posterior Pharyngeal Erythema Neck-Supple, No JVD, No Thyromegaly, No Masses, No LAD, No Bruits Lungs-Clear to Auscultation Bilaterally, No Rales, No Rhonchi, No Wheezing, No Crepitus Chest-irregularly irregular, no S4, +S1, +S2, No S3, No Murmurs, No Rubs, No Gallops Abdomen-Soft, Bowel Sounds Present, Non Tender, Non Distended, No Hepatomegaly, No Splenomegaly, No Palpable Masses, No Rebound, No Rigidity, No Guarding Musculoskeletal-Full Range of Motion Bilaterally, No CVAT Extremities-No Cyanosis, No Clubbing, No Edema Nuero-Cranial Nerves II-XII grossly intact, Motor WNL, DTRs WNL, Strength WNL, No Focal Psych-Normal Mood PMH-diabetes, obesity, rheumatic fever, bullous pemphigoid, osteoporosis, asthma , hypertension PSH-hysterectomy, bladder suspension, bilateral great toe bunion surgery, esophageal dilatation, bilateral TKA, lap jona, umbilical hernia repair, tonsil and adenoids been removed, cataract removal. FH-Father at 28 of heart issues, mother of old age, she had a brother and sister both of cancer, she has a healthy son and 2 healthy daughters. 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 Meds reviewed and Reconciled Labs Reviewed Allergies Allergy/AdvReac Type Severity Reaction Status Date / Time No Known Allergies Allergy Unverified 05/13/18 11:57 Home Medications Home Medications Medication Instructions Recorded Confirmed Type albuterol sulfate [ProAir HFA] 2 puff INHALATION Q6H PRN 05/13/18 05/13/18 History aspirin [Aspirin Low Dose] 81 mg PO DAILY 05/13/18 05/13/18 History fluticasone-salmeterol [Advair 1 inh INHALATION BID 05/13/18 05/13/18 History Diskus] fosinopril 40 mg PO DAILY 05/13/18 05/13/18 History hydroxyzine HCl 25 mg PO QID PRN 05/13/18 05/13/18 History ibuprofen 200 mg PO TID PRN 05/13/18 05/13/18 History insulin glargine [Lantus Solostar 30 units SUBCUT QAM 05/13/18 05/13/18 History U-100 Insulin] metformin 1,000 mg PO BID 05/13/18 05/13/18 History sertraline 25 mg PO DAILY 05/13/18 05/13/18 History tramadol 50 mg PO TID PRN 05/13/18 05/13/18 History Past Med/Surg History Medical History Pneumonia Bronchitis Hypertension Heart disease Diabetes Social History Current Living Situation: Alone Other Information That Helps Us Care for You: No Feels Safe at Home: Yes Safety Concerns: Feels Safe At This Time Smoking Status: Never smoker Do You Dip or Chew Tobacco: No Second Hand Exposure: No Tobacco Cessation Education Requested by Patient: No Hx Alcohol Use: Yes Alcohol Intake Frequency: holidays/special occasions only Hx Substance Use: No Beliefs That Will Affect Care: None Preferred Language: Nepali Communication Ability: Effective Communications Equipment Installer Required: No Physical Exam 2 Vital Signs (Past 24 Hours): Last Vital Signs Temp 37 C 05/13/18 11:40 Pulse 98 H 05/13/18 13:52 Resp 25 H 05/13/18 13:52 BP 118/54 L 05/13/18 13:52 Pulse Ox 96 05/13/18 13:52 Results & Data Laboratory Results Allergies No Known Allergies Allergy (Unverified 05/13/18 11:57) CBC 05/13/18 05/13/18 05/13/18 11:55 11:55 11:55 WBC 9.51 RBC 3.32 L Hgb 5.9 L* Hct 20.9 L* MCV 63.0 L MCH 17.8 L MCHC 28.2 L RDW Std Deviation 42.0 RDW Coeff of Zaria 18.1 H Plt Count 429 H MPV 9.6 Immature Gran % (Auto) 0.5 Neut % (Auto) 76.6 Lymph % (Auto) 11.6 Runnels % (Auto) 10.2 Eos % (Auto) 0.7 Baso % (Auto) 0.4 Immature Gran # (Auto) 0.05 H Neut # (Auto) 7.28 H Lymph # (Auto) 1.10 L Runnels # (Auto) 0.97 H Eos # (Auto) 0.07 Baso # (Auto) 0.04 Absolute Nucleated RBC 0.05 H Nucleated RBC % (auto) 0.5 Hypochromasia Present Anisocytosis Present Microcytosis Present PT 11.8 INR 1.2 H APTT 25.9 PTT Ratio 1.0 Sodium 137 Potassium 3.6 Chloride 105 Carbon Dioxide 20 L Anion Gap 12.0 H BUN 23 H Creatinine 1.11 Est Cr Clr Drug Dosing Not Reportable Est GFR ( Amer) 54.7 Est GFR (Non-Af Amer) 47.2 BUN/Creatinine Ratio 20.7 H Glucose 260 H Calcium 8.7 Magnesium 1.4 L Total Bilirubin 0.7 AST 23 ALT 22 Alkaline Phosphatase 89 Troponin I 0.017 Total Protein 7.1 Albumin 3.3 L Globulin 3.8 Albumin/Globulin Ratio 0.9 TSH 1.820 Blood Type Antibody Screen Crossmatch 05/13/18 12:58 WBC RBC Hgb Hct MCV MCH MCHC RDW Std Deviation RDW Coeff of Zaria Plt Count MPV Immature Gran % (Auto) Neut % (Auto) Lymph % (Auto) Runnels % (Auto) Eos % (Auto) Baso % (Auto) Immature Gran # (Auto) Neut # (Auto) Lymph # (Auto) Runnels # (Auto) Eos # (Auto) Baso # (Auto) Absolute Nucleated RBC Nucleated RBC % (auto) Hypochromasia Anisocytosis Microcytosis PT INR APTT PTT Ratio Sodium Potassium Chloride Carbon Dioxide Anion Gap BUN Creatinine Est Cr Clr Drug Dosing Est GFR ( Amer) Est GFR (Non-Af Amer) BUN/Creatinine Ratio Glucose Calcium Magnesium Total Bilirubin AST ALT Alkaline Phosphatase Troponin I Total Protein Albumin Globulin Albumin/Globulin Ratio TSH Blood Type O Positive Antibody Screen POSITIVE A Crossmatch See Detail Chemistry 05/13/18 11:55 Sodium 137 Potassium 3.6 Chloride 105 Carbon Dioxide 20 L Anion Gap 12.0 H BUN 23 H Creatinine 1.11 Glucose 260 H Diagnostic Findings CXR IMPRESSION: 1. Cardiomegaly with prominence of the central pulmonary vessels. Correlate clinically for evidence of mild congestive failure. 2. No airspace consolidation or large pleural effusion is identified. 3. Large hiatal hernia. _ (1) Anemia Anemia type: unspecified type Bone marrow failure anemia type: Chronic kidney disease stage: Folate deficiency anemia type: Hemolytic anemia type: Iron deficiency anemia type: Other causes of anemia: Vitamin B12 deficiency anemia type: Qualified Code(s): D64.9 - Anemia, unspecified
[2018-05-13] MEDS ORDERED: GLUCOSE 40% GEL 15 GM TUBE PO PRN (15:05)
[2018-05-13] MEDS ORDERED: ONDANSETRON INJ 2 MG/ML 2 ML VIAL IV PRN (15:05)
[2018-05-13] MEDS ORDERED: GLUCAGON FOR INJ 1 MG VIAL SQ PRN (15:05)
[2018-05-13] MEDS ORDERED: TRAMADOL HCL 50 MG TABLET PO PRN (15:05)
[2018-05-13] MEDS ORDERED: GLUCOSE 10 TABS/TUBE PO PRN (15:05)
[2018-05-13] MEDS ORDERED: DEXTROSE 50% 50 ML SYRINGE IV PRN (15:05)
[2018-05-13] MEDS ORDERED: ACETAMINOPHEN 325 MG TAB PO PRN (15:05)
[2018-05-13] MEDS ORDERED: PHARMACY GLYCEMIC MGMT CONSULT PRN (15:26)
[2018-05-13] MEDS ORDERED: Nursing to Pharmacy Communication ONE (15:27)
[2018-05-13] MEDS: ALBUT/IPRATROP 3MG/0.5MG NEB 3 ML VIAL NEB PRN (15:36)
[2018-05-13 16:02] LABS: Ferritin 7.6 ng/ml (8-388)
[2018-05-13] MEDS: INSULIN ASPART 100 UNITS/ML 3 ML PEN SC SCH ×2 (17:57→20:15)
[2018-05-13] MEDS: dilTIAZem HCl 125 MG in DEXTROSE 5% 100 ML IV SCH (19:57)
[2018-05-13] MEDS: FLUTICASONE/SALMETEROL 250/50 (ADVAIR) 14 PUFF/1 INHALER INH SCH (20:16)
[2018-05-13] MEDS: MAGNESIUM OXIDE 400 MG TAB PO SCH (20:17)
[2018-05-13] MEDS ORDERED: INSULIN GLARGINE SOLOSTAR 100 UNITS/ML 3 ML PEN SQ SCH (21:00)
[2018-05-13] MEDS ORDERED: PNEUMOCOCCAL POLYSACCHARIDES 25 MCG/0.5 ML VIAL/SYR IM ONE (21:30)
[2018-05-13] MEDS ORDERED: PNEUMOCOCCAL ADMINISTRATION CHARGE ONE (21:30)
[2018-05-14 00:28] LABS: Hemoglobin 7.8 g/dL (12.0-16.0)
[2018-05-14] MEDS: INSULIN ASPART 100 UNITS/ML 3 ML PEN SC SCH ×6 (03:40→21:01)
[2018-05-14 06:47] LABS: Hematocrit (blood only) 25.9 % (37-47); Hemoglobin 7.7 g/dL (12.0-16.0); Mean Corpuscular Hgb Conc 29.7 g/dL (32-36); Mean Corpuscular Volume 68.5 fL (80-100); Mean Platelet Volume 9.6 fL (7.4-10.4); Platelet Count 340 K/uL (130-400); RDW Coefficient of Variation 21.9 % (11.5-14.5); RDW Standard Deviation 53.9 fL (36.4-46.3); Red Blood Count 3.78 M/uL (4.2-5.4); White Blood Count 9.91 K/uL (4.8-10.8)
[2018-05-14 06:59] LABS: Estimated Average Glucose 171 mg/dl
[2018-05-14 07:10] LABS: INR 1.1 (0.9-1.1); Prothrombin Time 11.3 Seconds (9.0-12.0)
[2018-05-14] MEDS: ALBUT/IPRATROP 3MG/0.5MG NEB 3 ML VIAL NEB PRN ×2 (07:32→12:30)
[2018-05-14 07:44] LABS: Calcium 8.7 mg/dl (8.5-10.1); Creatinine Clr Calc Pharmacy 37.2 ml/min; Est GFR (African American) 51.9; Est GFR (Non-African American) 44.7; Magnesium 1.8 mg/dl (1.8-2.4); Potassium 3.5 mmol/L (3.5-5.1)
[2018-05-14] MEDS: MAGNESIUM OXIDE 400 MG TAB PO SCH ×2 (07:59→21:03)
[2018-05-14] MEDS: FLUTICASONE/SALMETEROL 250/50 (ADVAIR) 14 PUFF/1 INHALER INH SCH ×2 (07:59→21:02)
[2018-05-14] MEDS: SERTRALINE HCL 50 MG TABLET PO SCH (07:59)
[2018-05-14] MEDS ORDERED: INSULIN GLARGINE SOLOSTAR 100 UNITS/ML 3 ML PEN SQ SCH ×4 (09:00→21:00)
[2018-05-14] MEDS ORDERED: ASPIRIN 81 MG ECTAB PO SCH (09:00)
[2018-05-14] MEDS: dilTIAZem HCl 125 MG in DEXTROSE 5% 100 ML IV SCH ×2 (09:38→21:39)
[2018-05-14] MEDS ORDERED: FUROSEMIDE 40 MG in SYRINGE 0 ML IV ONE (10:20)
--- NOTE | 2018-05-14 10:28 | Cardiology Consultation ---
Date of Consultation May 14, 2018 Assessment & Plan (1) Rapid atrial fibrillation: The patient's atrial fibrillation is better controlled on the diltiazem drip and after her blood transfusions. I agree not starting anticoagulation until we have a source of bleeding. (2) Shortness of breath: The patient has multifactorial shortness of breath with activity including anemia, atrial fibrillation and heart failure. The patient is currently wheezing and I will give her 40 of Lasix IV now. (3) Anemia: Iron studies, ferritin, TIBC, B12, folic acid, hematology evaluation, guaiac stoolnegative in the ER will continue to guaiac. (4) Hypomagnesemia: We will monitor and replete (5) Hypertension: Currently on a Cardizem drip will hold GAGE inhibitor with parameters (6) Diabetes: Lantus, sliding scale, carb consistent diet Patient is inpatient status likely to be here more than 2 midnights, will get hematology oncology to see the patient as well as cardiology, insulin sliding scale with Lantus and carb consistent diet, guaiac stool, hold metformin, continue sertraline for depression and tramadol for pain control, GAGE inhibitor with parameters, will order DuoNeb as needed. History of Present Illness Reason for Consultation: Heart failure Attending Physician: Luis E Villa MD History of Present Illness This is a pleasant 77-year-old female with no significant cardiac history. She does have a history of rheumatic fever as a child but no serious cardiac sequela. There is a past several weeks to months she has had aggressive shortness of breath. She recently relocated to [place] to be closer to her family. The last 2-3 days she has had severe dyspnea with activity such as walking up steps and presented to the emergency department where she was found to be profoundly anemic with a hemoglobin of 5.6, atrial fibrillation with RVR and heart failure on the basis of diastolic dysfunction. She has been given 2 units of packed red blood cells and feels improved. She denies chest pain. She has had no dizziness or lightheadedness. No evidence of active bleeding. Her last colonoscopy was 10 years ago. Lab is indicating possible iron deficiency anemia. Workup is in progress. Allergies Allergy/AdvReac Type Severity Reaction Status Date / Time No Known Allergies Allergy Unverified 05/13/18 11:57 Home Medications Home Medications Medication Instructions Recorded Confirmed Type albuterol sulfate [ProAir HFA] 2 puff INHALATION Q6H PRN 05/13/18 05/13/18 History aspirin [Aspirin Low Dose] 81 mg PO DAILY 05/13/18 05/13/18 History fluticasone-salmeterol [Advair 1 inh INHALATION BID 05/13/18 05/13/18 History Diskus] fosinopril 40 mg PO DAILY 05/13/18 05/13/18 History hydroxyzine HCl 25 mg PO QID PRN 05/13/18 05/13/18 History ibuprofen 200 mg PO TID PRN 05/13/18 05/13/18 History insulin glargine [Lantus Solostar 30 units SUBCUT QAM 05/13/18 05/13/18 History U-100 Insulin] metformin 1,000 mg PO BID 05/13/18 05/13/18 History sertraline 25 mg PO DAILY 05/13/18 05/13/18 History tramadol 50 mg PO TID PRN 05/13/18 05/13/18 History Patient History Medical History Pneumonia Bronchitis Hypertension Heart disease Diabetes Social History Current Living Situation: Alone Other Information That Helps Us Care for You: No Feels Safe at Home: Yes Safety Concerns: Feels Safe At This Time Smoking Status: Never smoker Do You Dip or Chew Tobacco: No Second Hand Exposure: No Tobacco Cessation Education Requested by Patient: No Hx Alcohol Use: Yes Alcohol Intake Frequency: holidays/special occasions only Hx Substance Use: No Beliefs That Will Affect Care: None Preferred Language: Nicaraguan Communication Ability: Effective Child And Family Therapist Required: No Review of Systems Review of Systems: See HPI for pertinent positives. All other 10 point review of systems are negative. Physical Exam 2 Vital Signs (Past 24 Hours): Last Vital Signs Temp 36.7 C 05/14/18 07:50 Pulse 76 05/14/18 07:50 Resp 20 05/14/18 07:50 BP 103/69 05/14/18 07:50 Pulse Ox 100 05/14/18 07:50 Physical Exam: General: no acute distress and stated age Head: normocephalic, no masses, lesions, tenderness or abnormalities Eyes: conjunctiva are pink and non-injected, sclera clear Neck: supple, no adenopathy, no bruits, normal jugular venous pulse, no hepatojugular reflux Chest: normal shape and normal respiratory effort Lungs: Wheezing and rhonchi throughout lung rodriguez Cardiac Exam: - irregular rate & rhythm, no murmurs gallops or rubs - normal S1 , normal S2 Pulses: 2(+) throughout Abdomen: abdomen soft, non-tender, no abnormal masses and no hepatosplenomegaly Musculoskeletal: no gait disturbance, no joint inflammation, no deforming arthritis Extremities: no edema and no cyanosis Neuro: grossly normal exam Results & Data Laboratory Results Laboratory Results - last 24 hr 05/13/18 05/13/18 05/13/18 11:55 11:55 11:55 WBC 9.51 RBC 3.32 L Hgb 5.9 L* Hct 20.9 L* MCV 63.0 L MCH 17.8 L MCHC 28.2 L RDW Std Deviation 42.0 RDW Coeff of Zaria 18.1 H Plt Count 429 H MPV 9.6 Immature Gran % (Auto) 0.5 Neut % (Auto) 76.6 Lymph % (Auto) 11.6 Fajardo % (Auto) 10.2 Eos % (Auto) 0.7 Baso % (Auto) 0.4 Immature Gran # (Auto) 0.05 H Neut # (Auto) 7.28 H Lymph # (Auto) 1.10 L Fajardo # (Auto) 0.97 H Eos # (Auto) 0.07 Baso # (Auto) 0.04 Absolute Nucleated RBC 0.05 H Nucleated RBC % (auto) 0.5 Hypochromasia Present Anisocytosis Present Microcytosis Present PT 11.8 INR 1.2 H APTT 25.9 PTT Ratio 1.0 Sodium 137 Potassium 3.6 Chloride 105 Carbon Dioxide 20 L Anion Gap 12.0 H BUN 23 H Creatinine 1.11 Est Cr Clr Drug Dosing Not Reportable Est GFR ( Amer) 54.7 Est GFR (Non-Af Amer) 47.2 BUN/Creatinine Ratio 20.7 H Glucose 260 H POC Glucose Estimat Average Glucose Hemoglobin A1c Calcium 8.7 Magnesium 1.4 L Iron TIBC Ferritin Total Bilirubin 0.7 AST 23 ALT 22 Alkaline Phosphatase 89 Troponin I 0.017 Total Protein 7.1 Albumin 3.3 L Globulin 3.8 Albumin/Globulin Ratio 0.9 Vitamin B12 TSH 1.820 Blood Type Blood Type Recheck Antibody Screen Antibody Identification Antigen Identification Crossmatch 05/13/18 05/13/18 05/13/18 12:58 13:54 15:11 WBC RBC Hgb Hct MCV MCH MCHC RDW Std Deviation RDW Coeff of Zaria Plt Count MPV Immature Gran % (Auto) Neut % (Auto) Lymph % (Auto) Fajardo % (Auto) Eos % (Auto) Baso % (Auto) Immature Gran # (Auto) Neut # (Auto) Lymph # (Auto) Fajardo # (Auto) Eos # (Auto) Baso # (Auto) Absolute Nucleated RBC Nucleated RBC % (auto) Hypochromasia Anisocytosis Microcytosis PT INR APTT PTT Ratio Sodium Potassium Chloride Carbon Dioxide Anion Gap BUN Creatinine Est Cr Clr Drug Dosing Est GFR ( Amer) Est GFR (Non-Af Amer) BUN/Creatinine Ratio Glucose POC Glucose Estimat Average Glucose Hemoglobin A1c Calcium Magnesium Iron 10 L TIBC 348 Ferritin 7.6 L Total Bilirubin AST ALT Alkaline Phosphatase Troponin I Total Protein Albumin Globulin Albumin/Globulin Ratio Vitamin B12 TSH Blood Type O Positive Blood Type Recheck O Positive Antibody Screen POSITIVE A Antibody Identification Anti-K Antigen Identification K Antigen - NEGATIVE Crossmatch See Detail 05/13/18 05/13/18 05/13/18 15:11 16:17 16:19 WBC RBC Hgb Hct MCV MCH MCHC RDW Std Deviation RDW Coeff of Zaria Plt Count MPV Immature Gran % (Auto) Neut % (Auto) Lymph % (Auto) Fajardo % (Auto) Eos % (Auto) Baso % (Auto) Immature Gran # (Auto) Neut # (Auto) Lymph # (Auto) Fajardo # (Auto) Eos # (Auto) Baso # (Auto) Absolute Nucleated RBC Nucleated RBC % (auto) Hypochromasia Anisocytosis Microcytosis PT INR APTT PTT Ratio Sodium Potassium Chloride Carbon Dioxide Anion Gap BUN Creatinine Est Cr Clr Drug Dosing Est GFR ( Amer) Est GFR (Non-Af Amer) BUN/Creatinine Ratio Glucose POC Glucose 409 H* 193 H Estimat Average Glucose Hemoglobin A1c Calcium Magnesium Iron TIBC Ferritin Total Bilirubin AST ALT Alkaline Phosphatase Troponin I Total Protein Albumin Globulin Albumin/Globulin Ratio Vitamin B12 372 TSH Blood Type Blood Type Recheck Antibody Screen Antibody Identification Antigen Identification Crossmatch 05/13/18 05/13/18 05/14/18 16:21 20:13 00:02 WBC RBC Hgb Hct MCV MCH MCHC RDW Std Deviation RDW Coeff of Zaria Plt Count MPV Immature Gran % (Auto) Neut % (Auto) Lymph % (Auto) Fajardo % (Auto) Eos % (Auto) Baso % (Auto) Immature Gran # (Auto) Neut # (Auto) Lymph # (Auto) Fajardo # (Auto) Eos # (Auto) Baso # (Auto) Absolute Nucleated RBC Nucleated RBC % (auto) Hypochromasia Anisocytosis Microcytosis PT INR APTT PTT Ratio Sodium Potassium Chloride Carbon Dioxide Anion Gap BUN Creatinine Est Cr Clr Drug Dosing Est GFR ( Amer) Est GFR (Non-Af Amer) BUN/Creatinine Ratio Glucose POC Glucose 193 H 207 H 160 H Estimat Average Glucose Hemoglobin A1c Calcium Magnesium Iron TIBC Ferritin Total Bilirubin AST ALT Alkaline Phosphatase Troponin I Total Protein Albumin Globulin Albumin/Globulin Ratio Vitamin B12 [facility] Blood Type Blood Type Recheck Antibody Screen Antibody Identification Antigen Identification Crossmatch 05/14/18 05/14/18 05/14/18 00:13 04:25 04:28 WBC RBC Hgb 7.8 L Hct 26.0 L MCV MCH MCHC RDW Std Deviation RDW Coeff of Zaria Plt Count MPV Immature Gran % (Auto) Neut % (Auto) Lymph % (Auto) Fajardo % (Auto) Eos % (Auto) Baso % (Auto) Immature Gran # (Auto) Neut # (Auto) Lymph # (Auto) Fajardo # (Auto) Eos # (Auto) Baso # (Auto) Absolute Nucleated RBC Nucleated RBC % (auto) Hypochromasia Anisocytosis Microcytosis PT INR APTT PTT Ratio Sodium Potassium Chloride Carbon Dioxide Anion Gap BUN Creatinine Est Cr Clr Drug Dosing Est GFR ( Amer) Est GFR (Non-Af Amer) BUN/Creatinine Ratio Glucose POC Glucose 69 L* 81 Estimat Average Glucose Hemoglobin A1c Calcium Magnesium Iron TIBC Ferritin Total Bilirubin AST ALT Alkaline Phosphatase Troponin I Total Protein Albumin Globulin Albumin/Globulin Ratio Vitamin B12 TSH Blood Type Blood Type Recheck Antibody Screen Antibody Identification Antigen Identification Crossmatch 05/14/18 05/14/18 05/14/18 06:11 06:12 06:12 WBC 9.91 RBC 3.78 L Hgb 7.7 L Hct 25.9 L MCV 68.5 L D MCH 20.4 L MCHC 29.7 L RDW Std Deviation 53.9 H RDW Coeff of Zaria 21.9 H Plt Count 340 MPV 9.6 Immature Gran % (Auto) Neut % (Auto) Lymph % (Auto) Fajardo % (Auto) Eos % (Auto) Baso % (Auto) Immature Gran # (Auto) Neut # (Auto) Lymph # (Auto) Fajardo # (Auto) Eos # (Auto) Baso # (Auto) Absolute Nucleated RBC Nucleated RBC % (auto) Hypochromasia Anisocytosis Microcytosis PT 11.3 INR 1.1 APTT PTT Ratio Sodium 141 Potassium 3.5 Chloride 108 H Carbon Dioxide 24 Anion Gap 8.0 BUN 27 H Creatinine 1.16 Est Cr Clr Drug Dosing 37.2 Est GFR ( Amer) 51.9 Est GFR (Non-Af Amer) 44.7 BUN/Creatinine Ratio 23.0 H Glucose 119 H POC Glucose Estimat Average Glucose Hemoglobin A1c Calcium 8.7 Magnesium 1.8 Iron TIBC Ferritin Total Bilirubin AST ALT Alkaline Phosphatase Troponin I Total Protein Albumin Globulin Albumin/Globulin Ratio Vitamin B12 TSH Blood Type Blood Type Recheck Antibody Screen Antibody Identification Antigen Identification Crossmatch 05/14/18 05/14/18 06:12 07:25 WBC RBC Hgb Hct MCV MCH MCHC RDW Std Deviation RDW Coeff of Zaria Plt Count MPV Immature Gran % (Auto) Neut % (Auto) Lymph % (Auto) Fajardo % (Auto) Eos % (Auto) Baso % (Auto) Immature Gran # (Auto) Neut # (Auto) Lymph # (Auto) Fajardo # (Auto) Eos # (Auto) Baso # (Auto) Absolute Nucleated RBC Nucleated RBC % (auto) Hypochromasia Anisocytosis Microcytosis PT INR APTT PTT Ratio Sodium Potassium Chloride Carbon Dioxide Anion Gap BUN Creatinine Est Cr Clr Drug Dosing Est GFR ( Amer) Est GFR (Non-Af Amer) BUN/Creatinine Ratio Glucose POC Glucose 127 H Estimat Average Glucose 171 Hemoglobin A1c 7.6 H Calcium Magnesium Iron TIBC Ferritin Total Bilirubin AST ALT Alkaline Phosphatase Troponin I Total Protein Albumin Globulin Albumin/Globulin Ratio Vitamin B12 TSH Blood Type Blood Type Recheck Antibody Screen Antibody Identification Antigen Identification Crossmatch Medications Administered Current Inpatient Medications Acetaminophen (Tylenol) 650 mg PO Q4H PRN PRN Reason: Pain or Fever Stop: 06/12/18 15:04 Albuterol (Duoneb) 3 ml NEB Q4H PRN PRN Reason: Dyspnea Stop: 06/12/18 15:04 Last Admin: 05/14/18 07:32 Dose: 3 ml Aspirin (Ecotrin Ectab) 81 mg PO DAILY MAGGIE Stop: 06/13/18 08:59 Last Admin: 05/14/18 07:59 Dose: 81 mg Dextrose (Dextrose 50%) 25 - 50 ml IV UD PRN; Protocol PRN Reason: Hypoglycemia Protocol Stop: 06/12/18 15:04 Glucagon (Glucagen) 1 mg SQ UD PRN; Protocol PRN Reason: Hypoglycemia Protocol Stop: 06/12/18 15:04 Glucose (Glucose 40%) 15 - 30 gm PO UD PRN; Protocol PRN Reason: Hypoglycemia Protocol Stop: 06/12/18 15:04 Glucose (Dex4 Glucose) 4 - 8 tabs PO UD PRN; Protocol PRN Reason: Hypoglycemia Protocol Stop: 06/12/18 15:04 Hydroxyzine HCl (Vistaril) 25 mg PO QID PRN PRN Reason: Itching Stop: 06/12/18 15:04 Diltiazem HCl 125 mg/ Dextrose 125 mls @ 0 mls/hr IV .Q0M MAGGIE; Protocol Stop: 06/12/18 14:29 Last Admin: 05/14/18 09:38 Dose: 10 mg/hr, 10 mls/hr Insulin Aspart (Novolog Flexpen) 0 units SC ACHS [facility]; Protocol Stop: 06/12/18 17:29 Last Admin: 05/14/18 08:01 Dose: 5 units Insulin Glargine (Lantus Solostar Pen) 24 units SQ QAM MAGGIE Stop: 06/13/18 08:59 Last Admin: 05/14/18 08:00 Dose: 24 units Magnesium Oxide (Mag-Ox) 400 mg PO BID MAGGIE Stop: 06/12/18 20:59 Last Admin: 05/14/18 07:59 Dose: 400 mg Miscellaneous (Carbohydrates For Hypoglycemia) 15 - 30 gm PO UD PRN PRN Reason: Hypoglycemia Treatment Stop: 06/12/18 15:04 Miscellaneous Information (Consult Glycemic Management Pharmacy) 1 ea N/A UD PRN; Protocol PRN Reason: Consult Stop: 06/12/18 15:25 Miscellaneous Information (Consult Glycemic Management Pharmacy) 1 ea N/A NOW STA Stop: 05/14/18 10:26 Ondansetron HCl (Zofran) 4 mg IV Q6H PRN PRN Reason: Nausea Stop: 06/12/18 15:04 Fluticasone/Salmeterol (Advair Diskus 250/50) 1 puffs INH BID MAGGIE Stop: 06/12/18 20:59 Last Admin: 05/14/18 07:59 Dose: 1 puffs Sertraline HCl (Zoloft) 25 mg PO DAILY MAGGIE Stop: 06/13/18 08:59 Last Admin: 05/14/18 07:59 Dose: 25 mg Tramadol HCl (Ultram) 50 mg PO TID PRN PRN Reason: Pain Stop: 06/12/18 15:04 _ (1) Anemia Anemia type: unspecified type Bone marrow failure anemia type: Chronic kidney disease stage: Folate deficiency anemia type: Hemolytic anemia type: Iron deficiency anemia type: Other causes of anemia: Vitamin B12 deficiency anemia type: Qualified Code(s): D64.9 - Anemia, unspecified
[2018-05-14] MEDS ORDERED: PHARMACY GLYCEMIC MGMT CONSULT PRN (10:46)
[2018-05-14] MEDS ORDERED: IRON SUCROSE (VENOFER) 100 MG/5 ML VIAL IV ONE (10:53)
[2018-05-14] MEDS ORDERED: IRON SUCROSE 300 MG in SODIUM CHLORIDE 0.9% 250 ML IV SCH (11:00)
--- NOTE | 2018-05-14 11:14 | Pharmacy Report ---
Glycemic Control Consultation - Date of Service May 14, 2018 - Scope Scope: Glycemic Pharmacist consulted by Dr Garcia on 05/14/18 for glycemic control and to write orders per [facility] inpatient glycemic control protocol - Objective Weight: 85 kg Accuchecks BSG (last 24hrs): 05/13/18 05/13/18 05/13/18 11:55 16:17 16:19 Glucose 260 H POC Glucose 409 H* 193 H 05/13/18 05/13/18 05/14/18 16:21 20:13 00:02 Glucose POC Glucose 193 H 207 H 160 H 05/14/18 05/14/18 05/14/18 04:25 04:28 06:11 Glucose 119 H POC Glucose 69 L* 81 05/14/18 07:25 Glucose POC Glucose 127 H Laboratory Data (last 24hrs): 05/13/18 05/14/18 11:55 06:11 Potassium 3.6 3.5 Carbon Dioxide 20 L 24 Anion Gap 12.0 H 8.0 Creatinine 1.11 1.16 Est Cr Clr Drug Dosing Not Reportable 37.2 HbA1c: Hemoglobin A1c 7.6 % (4.5-5.6) H 05/14/18 06:12 - Recent Pertinent Medications Outpatient Anti-diabetic Regimen: * Lantus 30 units daily plus metformin 1 gm PO BID * A1c = 7.6 % 05/14/18 The patient is currently receiving: * Basal insulin: Lantus 30 units every 24 hours in the morning plus 10 units in the evening if over 180 mg/dL * Correctional Insulin: Novolog Correction per scale ACHS Goal Range: Low 120 mg/dL - High 150 mg/dL Correction Factor: 25 mg/dL/unit * Prandial insulin: Per carb ratio of 1 unit per 9 grams CHO consumed Risk Factors for Insulin Resistance: * IVF: diltiazem infusion * Diet: type 2 diabetic diet - Assessment & Plan Assessment & Plan: ASSESSMENT: * Mr Buckner is a 77 y/o F with a PMH of reasonably controlled type 2 diabetes who presents with anemia and Afib. When admitted, the patient's blood sugars were elevated in the 200s. She received a total of 50 units of insulin (40 units of basal) yesterday. Blood sugar at 0400 was 81 (on first check was 69 mg/ dL; asymptomatic. * For Lantus, the patient only takes basal insulin at home. Since will cover with Novolog, reasonable to reduce dose by 20%. Also wish to reduce today since patient received extra 10 units of Lantus last night. * For Novolog, BSG trended upwards at lunch. Tightened to weight-based stress of 3. * Pt is maintained on oral antidiabetic agents as an outpatient * Oral agents are not recommended for inpatient use d/t drug interactions, changing PO intake, and difficulty titrating for acute hyper/hypoglycemia. ADA recommends re-initiating outpatient oral agents 1-2 days prior to discharge if/ when appropriate if they were held on admission. * Will hold oral agents for admission and utilize SQ basal bolus insulin regimen which is the recommended regimen for inpatient glycemic control. * Will initiate weight based insulin dosing for insulin sangita patient and titrate based on BSG trends. PLAN FOR INPATIENT GLYCEMIC CONTROL: * Holding outpatient oral diabetes medications * Basal insulin * Lantus 24 units SQ x 1 then 24-30 units SQ qAM (24 units if blood sugar under 160 mg/dL; 30 units if blood sugar 160 mg/dL or greater) * Bolus insulin * NovoLog per scale ACHS or Q6hrs while NPO * Goal Range: Low 110 mg/dL - High 140 mg/dL * Correction Factor: 20 mg/dL/unit * Nutritional / Prandial insulin per carb ratio of 1 unit per 7 grams CHO consumed * Please note that the plan above was derived based on current level of insulin resistance and hospital stress. These recommendations are appropriate for inpatient admission only. Plan of care upon discharge will need to be reassessed to avoid potential outpatient hypo/hyperglycemia. Thank you.
[2018-05-14 11:15] LABS: Reticulocyte % 1.4 % (0.5-2.0); Reticulocytes # 0.05 10^6/uL (0.02-0.10)
--- NOTE | 2018-05-14 11:18 | Hospitalist Progress Note ---
Date of Service May 14, 2018 Assessment & Plan (1) Anemia: iron deficiency r/o Upper GI bleed FOBT pending 2 units given additional 1 unit ordered with lasix will give Venofer, may need weekly Protonix 40mg IV q12h (2) Rapid atrial fibrillation: likely secondary to severe anemia echo ordered on Diltiazem drip, rate controlled Dr. Noland consulted (3) Wheezing: possible pulmonary edema from a fib repeat cxr: pulmonary vascular congestion Lasix 40mg IV given possible Asthma exacerbation from URTI repeat CXR: no pneumonia Flu negative Solumedrol q6h Nebs q6h monitor (4) Hypertension: Currently on a Cardizem drip will hold GAGE inhibitor with parameters (5) Diabetes: Pharm glycemic control consulted (6) Discharge planning issues: pending (7) DVT prophylaxis: SCDs only in light of profound anemia, possible GI bled Subjective ff up for a fib, anemia states she feels improved compared to yesterday denies active chest pain, dyspnea, dizziness, palpitaitons, dizziness no abdominal pain , nausea/vomiting no melena/hematochezia denies other symptoms Physical Exam 2 Vital Signs (Past 24 Hours): Last Vital Signs Temp 36.7 C 05/14/18 07:50 Pulse 76 05/14/18 07:50 Resp 20 05/14/18 07:50 BP 103/69 05/14/18 07:50 Pulse Ox 100 05/14/18 07:50 Physical Exam: General- oriented x 3, not in distress, speaks in sentences with no effort or accessory muscle use Head- atraumatic Eyes- PERRL, EOMI, anicteric ENT- oropharynx clear Neck- supple, no JVD, no adenopathy, no thyromegaly; carotids +2/2, no bruits appreciated Lungs-mild wheeze bilaterally Heart- normal rate, irregularly irregular rhythm; no murmur, no gallop, no rub appreciated Abdomen- normal bowel sounds, nondistended, soft, nontender, no masses or hepatosplenomegaly Extremities- trace lower leg edema, no calf tenderness; peripheral pulses intact Neuro- alert, oriented x 3; CN 2-12 grossly intact; motor 5/5 bilaterally; sensation 100% on all extremities; no other gross focal neurologic deficits Skin- warm & dry Results & Data Laboratory Results Laboratory Results - last 24 hr 05/13/18 05/13/18 05/14/18 12:58 20:13 00:02 WBC RBC Hgb Hct MCV MCH MCHC RDW Std Deviation RDW Coeff of Zaria Plt Count MPV Reticulocyte % (Auto) Reticulocyte # PT INR Sodium Potassium Chloride Carbon Dioxide Anion Gap BUN Creatinine Est Cr Clr Drug Dosing Est GFR ( Amer) Est GFR (Non-Af Amer) BUN/Creatinine Ratio Glucose POC Glucose 207 H 160 H Estimat Average Glucose Hemoglobin A1c Calcium Magnesium Transferrin Influenza Type A (PCR) Influenza Type B (PCR) Blood Type O Positive Antibody Screen POSITIVE A Antibody Identification Anti-K Antigen Identification K Antigen - NEGATIVE Crossmatch See Detail 05/14/18 05/14/18 05/14/18 00:13 04:25 04:28 WBC RBC Hgb 7.8 L Hct 26.0 L MCV MCH MCHC RDW Std Deviation RDW Coeff of Zaria Plt Count MPV Reticulocyte % (Auto) Reticulocyte # PT INR Sodium Potassium Chloride Carbon Dioxide Anion Gap BUN Creatinine Est Cr Clr Drug Dosing Est GFR ( Amer) Est GFR (Non-Af Amer) BUN/Creatinine Ratio Glucose POC Glucose 69 L* 81 Estimat Average Glucose Hemoglobin A1c Calcium Magnesium Transferrin Influenza Type A (PCR) Influenza Type B (PCR) Blood Type Antibody Screen Antibody Identification Antigen Identification Crossmatch 05/14/18 05/14/18 05/14/18 06:11 06:11 06:12 WBC 9.91 RBC 3.78 L Hgb 7.7 L Hct 25.9 L MCV 68.5 L D MCH 20.4 L MCHC 29.7 L RDW Std Deviation 53.9 H RDW Coeff of Zaria 21.9 H Plt Count 340 MPV 9.6 Reticulocyte % (Auto) Reticulocyte # PT INR Sodium 141 Potassium 3.5 Chloride 108 H Carbon Dioxide 24 Anion Gap 8.0 BUN 27 H Creatinine 1.16 Est Cr Clr Drug Dosing 37.2 Est GFR ( Amer) 51.9 Est GFR (Non-Af Amer) 44.7 BUN/Creatinine Ratio 23.0 H Glucose 119 H POC Glucose Estimat Average Glucose Hemoglobin A1c Calcium 8.7 Magnesium 1.8 Transferrin 277 Influenza Type A (PCR) Influenza Type B (PCR) Blood Type Antibody Screen Antibody Identification Antigen Identification Crossmatch 05/14/18 05/14/18 05/14/18 06:12 06:12 06:12 WBC RBC Hgb Hct MCV MCH MCHC RDW Std Deviation RDW Coeff of Zaria Plt Count MPV Reticulocyte % (Auto) 1.4 Reticulocyte # 0.05 PT 11.3 INR 1.1 Sodium Potassium Chloride Carbon Dioxide Anion Gap BUN Creatinine Est Cr Clr Drug Dosing Est GFR ( Amer) Est GFR (Non-Af Amer) BUN/Creatinine Ratio Glucose POC Glucose Estimat Average Glucose 171 Hemoglobin A1c 7.6 H Calcium Magnesium Transferrin Influenza Type A (PCR) Influenza Type B (PCR) Blood Type Antibody Screen Antibody Identification Antigen Identification Crossmatch 05/14/18 05/14/18 05/14/18 07:25 11:50 15:25 WBC RBC Hgb Hct MCV MCH MCHC RDW Std Deviation RDW Coeff of Zaria Plt Count MPV Reticulocyte % (Auto) Reticulocyte # PT INR Sodium Potassium Chloride Carbon Dioxide Anion Gap BUN Creatinine Est Cr Clr Drug Dosing Est GFR ( Amer) Est GFR (Non-Af Amer) BUN/Creatinine Ratio Glucose POC Glucose 127 H 274 H Estimat Average Glucose Hemoglobin A1c Calcium Magnesium Transferrin Influenza Type A (PCR) Neg for Influ A Influenza Type B (PCR) Neg for Influ B Blood Type Antibody Screen Antibody Identification Antigen Identification Crossmatch 05/14/18 16:31 WBC RBC Hgb Hct MCV MCH MCHC RDW Std Deviation RDW Coeff of Zaria Plt Count MPV Reticulocyte % (Auto) Reticulocyte # PT INR Sodium Potassium Chloride Carbon Dioxide Anion Gap BUN Creatinine Est Cr Clr Drug Dosing Est GFR ( Amer) Est GFR (Non-Af Amer) BUN/Creatinine Ratio Glucose POC Glucose 72 Estimat Average Glucose Hemoglobin A1c Calcium Magnesium Transferrin Influenza Type A (PCR) Influenza Type B (PCR) Blood Type Antibody Screen Antibody Identification Antigen Identification Crossmatch _ (1) Anemia Anemia type: unspecified type Bone marrow failure anemia type: Chronic kidney disease stage: Folate deficiency anemia type: Hemolytic anemia type: Iron deficiency anemia type: Other causes of anemia: Vitamin B12 deficiency anemia type: Qualified Code(s): D64.9 - Anemia, unspecified
[2018-05-14] MEDS: PANTOprazole 40 MG in SYRINGE 0 ML IV SCH ×2 (11:54→21:02)
[2018-05-14] MEDS ORDERED: XOPENEX/ATROVENT 1.25mg/0.5MG NEB COMBO NEB STA (14:13)
[2018-05-14] MEDS ORDERED: LEVALBUTEROL 1.25MG/0.5ML NEB INH STA (14:21)
[2018-05-14] MEDS ORDERED: IPRATROPIUM BROMIDE NEB SOLN 0.02% 2.5 ML VIAL INH STA (14:21)
[2018-05-14] MEDS ORDERED: methylPREDNISolone 60 MG in SYRINGE 0 ML IV ONE (15:00)
--- NOTE | 2018-05-14 15:11 | XRay Report ---
XR chest 1V portable CLINICAL HISTORY: Respiratory difficulty COMPARISON STUDY: 05/13/2018 FINDINGS: The heart remains enlarged. There is a retrocardiac mass consistent with a hiatal hernia. T here is stable interstitial thickening. There is no lobar consolidation. There are no large pleural e ffusions.[ IMPRESSION: 1. Stable findings 2. Persistent cardiomegaly and moderate to large hiatal hernia 3. Persistent interstitial thickening, likely secondary to mild pulmonary vascular congestion Electronically signed by: El Damon M.D. 05/14/2018 3:10 PM
[2018-05-14] MEDS: LEVALBUTEROL HCL 0.63 MG/3 ML NEB NEB SCH ×3 (16:00→22:55)
[2018-05-14] MEDS: IPRATROPIUM BROMIDE NEB SOLN 0.02% 2.5 ML VIAL INH SCH ×3 (16:00→22:55)
--- NOTE | 2018-05-14 16:30 | Oncology Consultation ---
Date of Consultation May 14, 2018 Assessment & Plan (1) Anemia: 77-year-old the female: Hematological diagnosis: - Iron deficiency anemia with hemoglobin level around 5.9 g/dL with microcytosis, normal white blood cell count, had a slightly elevated platelet count but repeat platelet count is in normal range. - Received 2 units of PRBC, hemoglobin level improved to around 7.8 g/dL. - Earlier in the day I spoke with the hospitalist, would like to give her intravenous iron in the form of Venofer at 300 mg x 1 dose while she is in the hospital. - Would like to have GI consultation. She has hiatal hernia, she takes NSAID for the simple treatment of back pain. - Now started her on pentaprozole. - B12 level is close to the lower limit of normal. Will repeat B12 level as an outpatient. Planning for outpatient intravenous iron therapy to correct the iron storage. Thanks for the consultation. Curt Lilly MD Hem/Onc History of Present Illness Attending Physician: Luis E Villa MD 77-year-old the female, who has few comorbid conditions like diabetes mellitus, obesity, hypertension, history of rheumatic fever at the age of 4, asthma, non- smoker, osteoarthritis, noticed to have progressive shortness of breath, came to the ER, found to hemoglobin level 5.9 g/dL, she denied any obvious bleeding from any sites. She received 2 units of PRBC, improvement of the shortness of breath noted. When she was seen in the ER, stool quack was reported to be negative. Also found to have atrial fibrillation with rapid ventricular response, started on Cardizam treatment in the emergency room. Now started her on any anticoagulant treatment in the presence of significant anemia at this time. His son was also at bedside when I saw her, he says that the April 2015 she had evidence of anemia, received blood transfusion support. She says that she has hiatal hernia, she is not on any specific treatment at home like PPI or H2 hiwot treatment. She says that about a year back she had endoscopic checkup with some esophageal stretching. I do not have those records for the review. Also says that last colonoscopy was done about over 10 years back. Says that she had seen some black color stool few months back but not lately. She is not on any oral iron replacement therapy. She does, chronic back pain, she takes NSAID for the simple treatment, she did not specified about what medication that she takes it on a regular basis. Allergies Allergy/AdvReac Type Severity Reaction Status Date / Time No Known Allergies Allergy Unverified 05/13/18 11:57 Home Medications Home Medications Medication Instructions Recorded Confirmed Type albuterol sulfate [ProAir HFA] 2 puff INHALATION Q6H PRN 05/13/18 05/13/18 History aspirin [Aspirin Low Dose] 81 mg PO DAILY 05/13/18 05/13/18 History fluticasone-salmeterol [Advair 1 inh INHALATION BID 05/13/18 05/13/18 History Diskus] fosinopril 40 mg PO DAILY 05/13/18 05/13/18 History hydroxyzine HCl 25 mg PO QID PRN 05/13/18 05/13/18 History ibuprofen 200 mg PO TID PRN 05/13/18 05/13/18 History insulin glargine [Lantus Solostar 30 units SUBCUT QAM 05/13/18 05/13/18 History U-100 Insulin] metformin 1,000 mg PO BID 05/13/18 05/13/18 History sertraline 25 mg PO DAILY 05/13/18 05/13/18 History tramadol 50 mg PO TID PRN 05/13/18 05/13/18 History Patient History Medical History Pneumonia Bronchitis Hypertension Heart disease Diabetes Social History Current Living Situation: Alone Other Information That Helps Us Care for You: No Feels Safe at Home: Yes Safety Concerns: Feels Safe At This Time Smoking Status: Never smoker Do You Dip or Chew Tobacco: No Second Hand Exposure: No Tobacco Cessation Education Requested by Patient: No Hx Alcohol Use: Yes Alcohol Intake Frequency: holidays/special occasions only Hx Substance Use: No Beliefs That Will Affect Care: None Preferred Language: Italian Communication Ability: Effective Business Info Consultant Required: No Review of Systems GENERAL: No recent change in weight, feeling weak and tired, no fever, sweats or chills. SKIN: No skin rash, no bruising. HEAD: No increasing/new headache, no dizziness. EYES: No recent change in the vision, no diplopia, EARS: No earache ,no tinnitus, NOSE: No epistaxis, No nasal discharge or stuffiness, MOUTH: No sores, no dysphagia, no hoarseness of voice, NECK: No lumps, No swelling in thyroid area. No stiffness. PULMONARY: No cough, shortness of breath on minimal exertion present, no hemoptysis, no chest pain, No wheezing. CARDIOVASCULAR: No anginal chest pain, no PND, no orthopnea. No palpitation, no leg edema. No syncope. GASTRIINTESTINAL: upper abdominal discomfort present, some nausea present, vomited few times in the past. No diarrhea, No constipation. No blood in stool or black tarry stools at this time. No abdominal distention. UROLOGIC: No burning urination. No hematuria. MUSCULOSKELETAL: chronic back pain present, she takes NSAID for the symptomatic treatment.. HEMATOLOGIC: No anemia, no bleeding disorder, No bruising. No history of blood transfusion. NEUROLOGIC: No seizures, no focal weakness, no speech difficulty, No memory disturbances. No tingling or numbness of the extremities. PSYCHRIATRIC: No depression. Some more anxiety present. No psychosis. Physical Exam 2 Vital Signs (Past 24 Hours): Last Vital Signs Temp 36.6 C 05/14/18 16:00 Pulse 112 H 05/14/18 16:00 Resp 20 05/14/18 16:00 BP 124/83 05/14/18 16:00 Pulse Ox 96 05/14/18 16:00 On exam: - Alert and oriented x3, well built slightly obese woman, some more mild expeditious, she is receiving nasal cannula supplemental oxygen. - HEENT: no icterus, pallor noted, Throat: Normal. - Neck: No palpable cervical lymphadenopathy. - Chest: clear to auscultation. - Abdomen: soft, nontender, no hepatomegaly, no splenomegaly. - No focal neuro deficit. - Extremities: no finger clubbing, no leg edema. Results & Data Laboratory Results Blood workup done on 05/13/2018 (on admission) - WBC 9500, H&H of 5.9/20.9, MCV 63, Platelet count of 429,000 - After 2 units of PRBC, hemoglobin level increased to around 7.7 g/dL. Platelet count 240,000 - Normal PT and PTT. - BUN/creatinine: 20/1.1 - Normal liver function test. Vitamin B12 > 372 RBC folate > Pending. Ferritin level > 7.6 serum iron 10, TIBC 348, Diagnostic Findings Chest x-ray done on 05/13/2017: - Cardiomegaly - Large hiatal hernia. - No consolidation or large pleural effusion noted. _ (1) Anemia Anemia type: unspecified type Bone marrow failure anemia type: Chronic kidney disease stage: Folate deficiency anemia type: Hemolytic anemia type: Iron deficiency anemia type: Other causes of anemia: Vitamin B12 deficiency anemia type: Qualified Code(s): D64.9 - Anemia, unspecified
[2018-05-14 16:32] LABS: Influenza A virus by PCR Neg for Influ A (Neg); Influenza B virus by PCR Neg for Influ B (Neg)
[2018-05-14] MEDS ORDERED: XOPENEX/ATROVENT 0.63mg/0.5MG NEB COMBO NEB SCH (18:00)
[2018-05-14] MEDS ORDERED: FUROSEMIDE 20 MG in SYRINGE 0 ML IV SCH (18:15)
[2018-05-14 19:34] LABS: Appearance Urine Cloudy (Clear); Bacteria Urine Automated Negative (Negative); Bilirubin Urine Negative (Negative); Color Urine Yellow; Glucose Urine UA Negative (Negative); Ketones Urine Negative (Negative); Leukocyte Esterase Urine Negative (Negative); Nitrite Urine Negative (Negative); Protein Urine Negative (Negative); Specific Gravity Urine 1.011 (1.000-1.030); Urobilinogen Urine Negative (Negative)
[2018-05-14] MEDS: methylPREDNISolone 40 MG in SYRINGE 0 ML IV SCH (21:02)
[2018-05-15 00:35] LABS: Hematocrit (blood only) 29.9 % (37-47); Hemoglobin 9.2 g/dL (12.0-16.0)
[2018-05-15] MEDS ORDERED: INSULIN ASPART 100 UNITS/ML 3 ML PEN SC SCH ×2 (02:00→18:00)
[2018-05-15] MEDS: IPRATROPIUM BROMIDE NEB SOLN 0.02% 2.5 ML VIAL INH SCH ×6 (03:06→23:08)
[2018-05-15] MEDS: LEVALBUTEROL HCL 0.63 MG/3 ML NEB NEB SCH ×6 (03:06→23:07)
[2018-05-15] MEDS: dilTIAZem HCl 125 MG in DEXTROSE 5% 100 ML IV SCH ×5 (06:16→09:45)
[2018-05-15] MEDS: methylPREDNISolone 40 MG in SYRINGE 0 ML IV SCH ×3 (06:16→21:03)
[2018-05-15 07:31] LABS: Basophils # (auto) 0.01 K/uL (0-0.2); Basophils % (auto) 0.1 %; Hematocrit (blood only) 29.9 % (37-47); Hemoglobin 9.3 g/dL (12.0-16.0); Immature Granulocytes # (auto) 0.12 K/uL (0.00-0.02); Immature Granulocytes % (auto) 0.9 %; Lymphocytes # (auto) 0.93 K/uL (1.2-3.4); Mean Corpuscular Hgb Conc 31.1 g/dL (32-36); Mean Corpuscular Volume 69.5 fL (80-100); Mean Platelet Volume 9.7 fL (7.4-10.4); Monocytes # (auto) 0.31 K/uL (0.11-0.59); Monocytes % (auto) 2.3 %; Neutrophils # (auto) 11.99 K/uL (1.4-6.5); Neutrophils % (auto) 89.7 %; Nucleated RBC # (auto) 0.13 K/uL (0-0); Platelet Count 334 K/uL (130-400); RDW Standard Deviation 57.3 fL (36.4-46.3); White Blood Count 13.36 K/uL (4.8-10.8)
[2018-05-15] MEDS: PANTOprazole 40 MG in SYRINGE 0 ML IV SCH ×2 (07:43→21:02)
[2018-05-15] MEDS: FLUTICASONE/SALMETEROL 250/50 (ADVAIR) 14 PUFF/1 INHALER INH SCH ×2 (07:43→20:36)
[2018-05-15] MEDS: MAGNESIUM OXIDE 400 MG TAB PO SCH ×2 (07:44→20:44)
[2018-05-15] MEDS: SERTRALINE HCL 50 MG TABLET PO SCH (07:44)
[2018-05-15] MEDS: INSULIN ASPART 100 UNITS/ML 3 ML PEN SC SCH ×4 (07:49→20:58)
[2018-05-15 07:58] LABS: BUN Creatinine Ratio 18.6 (10-20); Calcium 8.7 mg/dl (8.5-10.1); Creatinine Clr Calc Pharmacy 29.3 ml/min; Est GFR (African American) 39.3; Est GFR (Non-African American) 33.9; Potassium 3.8 mmol/L (3.5-5.1)
[2018-05-15 08:19] LABS: Anisocytosis Present; Hypochromasia Present; Polychromasia 1+; Rouleaux 1+
[2018-05-15] MEDS: INSULIN GLARGINE SOLOSTAR 100 UNITS/ML 3 ML PEN SQ SCH ×2 (08:41→20:59)
[2018-05-15] MEDS ORDERED: XOPENEX/ATROVENT 1.25mg/0.5MG NEB COMBO NEB PRN (08:47)
[2018-05-15] MEDS ORDERED: LEVALBUTEROL 1.25MG/0.5ML NEB INH PRN (09:00)
[2018-05-15] MEDS ORDERED: INSULIN GLARGINE SOLOSTAR 100 UNITS/ML 3 ML PEN SQ SCH ×3 (09:00→11:30)
[2018-05-15] MEDS ORDERED: IPRATROPIUM BROMIDE NEB SOLN 0.02% 2.5 ML VIAL INH PRN (09:00)
--- NOTE | 2018-05-15 09:27 | XRay Report ---
XR chest 1V portable HISTORY: Short of breath. Congestive heart failure. Follow-up. COMPARISON: Chest 05/14/2018. FINDINGS: The heart remains mildly enlarged. No pneumothorax. Retrocardiac density consistent with a hiatus hernia remains unchanged. Left basilar linear densities favor atelectasis. This is also unchan ged. Mild central pulmonary vascular congestion without overt edema. No large pleural effusions. IMPRESSION: 1. No change compared to the prior study. 2. Mild central pulmonary vascular congestion without overt edema. Electronically signed by: Derek Whitley M.D. 05/15/2018 9:25 AM
[2018-05-15] MEDS ORDERED: methylPREDNISolone 80 MG in SYRINGE 0 ML IV STA (09:33)
[2018-05-15] MEDS ORDERED: methylPREDNISolone 60 MG in SYRINGE 0 ML IV SCH (09:44)
[2018-05-15] MEDS: LEVALBUTEROL 1.25MG/0.5ML NEB INH PRN (09:50)
--- NOTE | 2018-05-15 09:50 | Hospitalist Progress Note ---
Date of Service May 15, 2018 Assessment & Plan (1) Anemia: iron deficiency r/o Upper GI bleed: on ASA, Ibuprofen, (+) hiatal hernia FOBT pending 3 units pRBC given Hg improved from 5.9 to 9.3 no melena/hematochezia noted givenVenofer 300mg IV, may need weekly as per Dr. Lilly- [employer] Protonix 40mg IV q12h, consult GI once stable from cardio/respiratory standpoint for EGD (2) Rapid atrial fibrillation: likely secondary to severe anemia echo noted, (+) diastolic dysfunction on Diltiazem drip, rate controlled Dr. Noland consulted, appreciate the recommendations (3) Wheezing: possible Asthma exacerbation from URTI wheezing recurred this morning repeat CXR 05/15/18: no overt pulmomary edema Flu negative additiona Solumedrol 80mg IV give Solumedrol increased to 40mg q6h Nebs q4h monitor Lasix IV given yesterday, crea increased to 1.4 today hold off on Lasix, ,monitor response to Solumedrol (4) Hypertension: Currently on a Cardizem drip will hold GAGE inhibitor with parameters (5) Diabetes: on Solumedrol Pharm glycemic control consulted (6) Discharge planning issues: pending patient recently moved to [place] to live with her son will need to establish with local PCP (7) DVT prophylaxis: SCDs only in light of profound anemia, possible GI bled Subjective ff up for anemia, a fib seen resting in bed, on 3 L NC noted to have wheezing again this morning states she has mild dyspnea, occasional dry cough no chest pain , palpitations no abdominal pain, nausea, melena/hematochezia denies other symptoms Physical Exam 2 Vital Signs (Past 24 Hours): Last Vital Signs Temp 36.8 C 05/15/18 07:59 Pulse 89 05/15/18 07:59 Resp 22 05/15/18 07:59 BP 118/69 05/15/18 07:59 Pulse Ox 99 05/15/18 07:59 Physical Exam: General- oriented x 3, not in distress, speaks in sentences with no effort or accessory muscle use Eyes- anicteric Neck- no JVD Lungs- (+) moderate wheeze bilaterally, no rales/rhonchi Heart- normal rate, irregularly irregular rhythm; no murmurs Abdomen- normal bowel sounds, nondistended, soft, nontender Extremities- no pretibial edema, no calf tenderness Neuro- alert, oriented x 3; no gross focal neurologic deficits Skin- warm & dry Results & Data Laboratory Results Laboratory Results - last 24 hr 05/13/18 05/14/18 05/14/18 12:58 06:11 06:12 WBC RBC Hgb Hct MCV MCH MCHC RDW Std Deviation RDW Coeff of Zaria Plt Count MPV Immature Gran % (Auto) Neut % (Auto) Lymph % (Auto) [place] % (Auto) Eos % (Auto) Baso % (Auto) Reticulocyte % (Auto) 1.4 Immature Gran # (Auto) Neut # (Auto) Lymph # (Auto) Karnes # (Auto) Eos # (Auto) Baso # (Auto) Reticulocyte # 0.05 Absolute Nucleated RBC Nucleated RBC % (auto) Polychromasia Hypochromasia Anisocytosis Rouleaux Sodium Potassium Chloride Carbon Dioxide Anion Gap BUN Creatinine Est Cr Clr Drug Dosing Est GFR ( Amer) Est GFR (Non-Af Amer) BUN/Creatinine Ratio Glucose POC Glucose Calcium Transferrin 277 Folate Urine Color Urine Appearance Urine pH Ur Specific [place] Urine Protein Urine Glucose (UA) Urine Ketones Urine Blood Urine Nitrite Urine Bilirubin Urine Urobilinogen Ur Leukocyte Esterase Urine WBC (Auto) Urine RBC (Auto) U Hyaline Cast (Auto) U Epithel Cells (Auto) Urine Bacteria (Auto) Influenza Type A (PCR) Influenza Type B (PCR) Blood Type O Positive Antibody Screen POSITIVE A Antibody Identification Anti-K Antigen Identification K Antigen - NEGATIVE Crossmatch See Detail 05/14/18 05/14/18 05/14/18 11:50 15:25 16:31 WBC RBC Hgb Hct MCV MCH MCHC RDW Std Deviation RDW Coeff of Zaria Plt Count MPV Immature Gran % (Auto) Neut % (Auto) Lymph % (Auto) Karn[place] % (Auto) Eos % (Auto) Baso % (Auto) Reticulocyte % (Auto) Immature Gran # (Auto) Neut # (Auto) Lymph # (Auto) Karnes # (Auto) Eos # (Auto) Baso # (Auto) Reticulocyte # Absolute Nucleated RBC Nucleated RBC % (auto) Polychromasia Hypochromasia Anisocytosis Rouleaux Sodium Potassium Chloride Carbon Dioxide Anion Gap BUN Creatinine Est Cr Clr Drug Dosing Est GFR ( Amer) Est GFR (Non-Af Amer) BUN/Creatinine Ratio Glucose POC Glucose 274 H 72 Calcium Transferrin Folate Urine Color Urine Appearance Urine pH Ur Specific [place] Urine Protein Urine Glucose (UA) Urine Ketones Urine Blood Urine Nitrite Urine Bilirubin Urine Urobilinogen Ur Leukocyte Esterase Urine WBC (Auto) Urine RBC (Auto) U Hyaline Cast (Auto) U Epithel Cells (Auto) Urine Bacteria (Auto) Influenza Type A (PCR) Neg for Influ A Influenza Type B (PCR) Neg for Influ B Blood Type Antibody Screen Antibody Identification Antigen Identification Crossmatch 05/14/18 05/14/18 05/15/18 19:00 20:36 00:09 WBC RBC Hgb 9.2 L Hct 29.9 L MCV MCH MCHC RDW Std Deviation RDW Coeff of Zaria Plt Count MPV Immature Gran % (Auto) Neut % (Auto) Lymph % (Auto) Karnes % (Auto) Eos % (Auto) Baso % (Auto) Reticulocyte % (Auto) Immature Gran # (Auto) Neut # (Auto) Lymph # (Auto) Karnes # (Auto) Eos # (Auto) Baso # (Auto) Reticulocyte # Absolute Nucleated RBC Nucleated RBC % (auto) Polychromasia Hypochromasia Anisocytosis Rouleaux Sodium Potassium Chloride Carbon Dioxide Anion Gap BUN Creatinine Est Cr Clr Drug Dosing Est GFR ( Amer) Est GFR (Non-Af Amer) BUN/Creatinine Ratio Glucose POC Glucose 190 H Calcium Transferrin Folate Urine Color Yellow Urine Appearance Cloudy H Urine pH 5.0 Ur Specific [place] 1.011 Urine Protein Negative Urine Glucose (UA) Negative Urine Ketones Negative Urine Blood Negative Urine Nitrite Negative Urine Bilirubin Negative Urine Urobilinogen Negative Ur Leukocyte Esterase Negative Urine WBC (Auto) 1-5 Urine RBC (Auto) 0-4 U Hyaline Cast (Auto) 1-5 U Epithel Cells (Auto) 10-20 H Urine Bacteria (Auto) Negative Influenza Type A (PCR) Influenza Type B (PCR) Blood Type Antibody Screen Antibody Identification Antigen Identification Crossmatch 05/15/18 05/15/18 05/15/18 01:45 07:19 07:19 WBC 13.36 H RBC 4.30 Hgb 9.3 L Hct 29.9 L MCV 69.5 L MCH 21.6 L MCHC 31.1 L RDW Std Deviation 57.3 H RDW Coeff of Zaria 23.0 H Plt Count 334 MPV 9.7 Immature Gran % (Auto) 0.9 Neut % (Auto) 89.7 Lymph % (Auto) 7.0 Karnes % (Auto) 2.3 Eos % (Auto) 0.0 Baso % (Auto) 0.1 Reticulocyte % (Auto) Immature Gran # (Auto) 0.12 H Neut # (Auto) 11.99 H Lymph # (Auto) 0.93 L Karnes # (Auto) 0.31 Eos # (Auto) 0.00 Baso # (Auto) 0.01 Reticulocyte # Absolute Nucleated RBC 0.13 H Nucleated RBC % (auto) 1.0 Polychromasia 1+ Hypochromasia Present Anisocytosis Present Rouleaux 1+ Sodium Potassium Chloride Carbon Dioxide Anion Gap BUN Creatinine Est Cr Clr Drug Dosing Est GFR ( Amer) Est GFR (Non-Af Amer) BUN/Creatinine Ratio Glucose POC Glucose 265 H Calcium Transferrin Folate 20.66 Urine Color Urine Appearance Urine pH Ur Specific [place] Urine Protein Urine Glucose (UA) Urine Ketones Urine Blood Urine Nitrite Urine Bilirubin Urine Urobilinogen Ur Leukocyte Esterase Urine WBC (Auto) Urine RBC (Auto) U Hyaline Cast (Auto) U Epithel Cells (Auto) Urine Bacteria (Auto) Influenza Type A (PCR) Influenza Type B (PCR) Blood Type Antibody Screen Antibody Identification Antigen Identification Crossmatch 05/15/18 05/15/18 07:19 07:23 WBC RBC Hgb Hct MCV MCH MCHC RDW Std Deviation RDW Coeff of Zaria Plt Count MPV Immature Gran % (Auto) Neut % (Auto) Lymph % (Auto) Karn[place] % (Auto) Eos % (Auto) Baso % (Auto) Reticulocyte % (Auto) Immature Gran # (Auto) Neut # (Auto) Lymph # (Auto) Karnes # (Auto) Eos # (Auto) Baso # (Auto) Reticulocyte # Absolute Nucleated RBC Nucleated RBC % (auto) Polychromasia Hypochromasia Anisocytosis Rouleaux Sodium 135 L Potassium 3.8 Chloride 103 Carbon Dioxide 22 Anion Gap 10.0 BUN 27 H Creatinine 1.46 H D Est Cr Clr Drug Dosing 29.3 Est GFR ( Amer) 39.3 Est GFR (Non-Af Amer) 33.9 BUN/Creatinine Ratio 18.6 Glucose 261 H POC Glucose 271 H Calcium 8.7 Transferrin Folate Urine Color Urine Appearance Urine pH Ur Specific [place] Urine Protein Urine Glucose (UA) Urine Ketones Urine Blood Urine Nitrite Urine Bilirubin Urine Urobilinogen Ur Leukocyte Esterase Urine WBC (Auto) Urine RBC (Auto) U Hyaline Cast (Auto) U Epithel Cells (Auto) Urine Bacteria (Auto) Influenza Type A (PCR) Influenza Type B (PCR) Blood Type Antibody Screen Antibody Identification Antigen Identification Crossmatch _ (1) Anemia Anemia type: unspecified type Bone marrow failure anemia type: Chronic kidney disease stage: Folate deficiency anemia type: Hemolytic anemia type: Iron deficiency anemia type: Other causes of anemia: Vitamin B12 deficiency anemia type: Qualified Code(s): D64.9 - Anemia, unspecified
--- NOTE | 2018-05-15 11:28 | Cardiology Progress Note ---
Date of Service May 15, 2018 Assessment & Plan (1) Rapid atrial fibrillation: I am going to try to switch the patient to oral diltiazem discontinue her IV infusion. She may require intermittent bolus of IV diltiazem until we adjust her oral dose. I do not believe a beta-hiwot is a good choice for her because of the history of asthma. Also, I am going to hold off on anticoagulation until we have a better idea of where her source of bleeding is from. (2) Shortness of breath: The patient has multifactorial shortness of breath with activity including anemia, atrial fibrillation and heart failure. I think the patient needs additional diuretics and I will give her 40 mg IV again today. "All that wheezes is not asthma" (3) Anemia: Iron studies, ferritin, TIBC, B12, folic acid, hematology evaluation, guaiac stoolnegative in the ER will continue to guaiac. GI consult is pending. (4) Hypomagnesemia: We will monitor and replete (5) Hypertension: Would consider restarting her home antihypertensives. (6) Diabetes: Lantus, sliding scale, carb consistent diet Patient is inpatient status likely to be here more than 2 midnights, will get hematology oncology to see the patient as well as cardiology, insulin sliding scale with Lantus and carb consistent diet, guaiac stool, hold metformin, continue sertraline for depression and tramadol for pain control, GAGE inhibitor with parameters, will order DuoNeb as needed. Subjective This is a 77-year-old female who presented profoundly anemic due to an iron deficiency anemia. She has been transfused and is hemodynamically stable. She was given additional diuretics yesterday which have improved her shortness of breath. I think she had a high output heart failure. And diuretic should be continued. She was diagnosed approximately 3 years ago with asthma and started on Spiriva. She is currently on high-dose steroids and bronchodilators. She remains in atrial fibrillation with heart rates in the 90s. Physical Exam 2 Vital Signs (Past 24 Hours): Last Vital Signs Temp 36.8 C 05/15/18 07:59 Pulse 112 H 05/15/18 09:51 Resp 20 05/15/18 09:51 BP 118/69 05/15/18 07:59 Pulse Ox 95 05/15/18 09:51 Physical Exam: General: no acute distress and stated age Head: normocephalic, no masses, lesions, tenderness or abnormalities Eyes: conjunctiva are pink and non-injected, sclera clear Neck: supple, no adenopathy, no bruits, normal jugular venous pulse, no hepatojugular reflux Chest: normal shape and normal respiratory effort Lungs: clear to auscultation and percussion Cardiac Exam: - irregular rate & rhythm, no murmurs gallops or rubs - normal S1 , normal S2 Pulses: 2(+) throughout Abdomen: abdomen soft, non-tender, no abnormal masses and no hepatosplenomegaly Musculoskeletal: no gait disturbance, no joint inflammation, no deforming arthritis Extremities: no edema and no cyanosis Neuro: grossly normal exam Results & Data Laboratory Results Laboratory Results - last 24 hr 05/13/18 05/14/18 05/14/18 12:58 06:11 11:50 WBC RBC Hgb Hct MCV MCH MCHC RDW Std Deviation RDW Coeff of Zaria Plt Count MPV Immature Gran % (Auto) Neut % (Auto) Lymph % (Auto) [place] % (Auto) Eos % (Auto) Baso % (Auto) Immature Gran # (Auto) Neut # (Auto) Lymph # (Auto) [place] # (Auto) Eos # (Auto) Baso # (Auto) Absolute Nucleated RBC Nucleated RBC % (auto) Polychromasia Hypochromasia Anisocytosis Rouleaux Sodium Potassium Chloride Carbon Dioxide Anion Gap BUN Creatinine Est Cr Clr Drug Dosing Est GFR ( Amer) Est GFR (Non-Af Amer) BUN/Creatinine Ratio Glucose POC Glucose 274 H Calcium Transferrin 277 Folate Urine Color Urine Appearance Urine pH Ur Specific [place] Urine Protein Urine Glucose (UA) Urine Ketones Urine Blood Urine Nitrite Urine Bilirubin Urine Urobilinogen Ur Leukocyte Esterase Urine WBC (Auto) Urine RBC (Auto) U Hyaline Cast (Auto) U Epithel Cells (Auto) Urine Bacteria (Auto) Influenza Type A (PCR) Influenza Type B (PCR) Blood Type O Positive Antibody Screen POSITIVE A Antibody Identification Anti-K Antigen Identification K Antigen - NEGATIVE Crossmatch See Detail 05/14/18 05/14/18 05/14/18 15:25 16:31 19:00 WBC RBC Hgb Hct MCV MCH MCHC RDW Std Deviation RDW Coeff of Zaria Plt Count MPV Immature Gran % (Auto) Neut % (Auto) Lymph % (Auto) [place] % (Auto) Eos % (Auto) Baso % (Auto) Immature Gran # (Auto) Neut # (Auto) Lymph # (Auto) [place] # (Auto) Eos # (Auto) Baso # (Auto) Absolute Nucleated RBC Nucleated RBC % (auto) Polychromasia Hypochromasia Anisocytosis Rouleaux Sodium Potassium Chloride Carbon Dioxide Anion Gap BUN Creatinine Est Cr Clr Drug Dosing Est GFR ( Amer) Est GFR (Non-Af Amer) BUN/Creatinine Ratio Glucose POC Glucose 72 Calcium Transferrin Folate Urine Color Yellow Urine Appearance Cloudy H Urine pH 5.0 Ur Specific [place] 1.011 Urine Protein Negative Urine Glucose (UA) Negative Urine Ketones Negative Urine Blood Negative Urine Nitrite Negative Urine Bilirubin Negative Urine Urobilinogen Negative Ur Leukocyte Esterase Negative Urine WBC (Auto) 1-5 Urine RBC (Auto) 0-4 U Hyaline Cast (Auto) 1-5 U Epithel Cells (Auto) 10-20 H Urine Bacteria (Auto) Negative Influenza Type A (PCR) Neg for Influ A Influenza Type B (PCR) Neg for Influ B Blood Type Antibody Screen Antibody Identification Antigen Identification Crossmatch 05/14/18 05/15/18 05/15/18 20:36 00:09 01:45 WBC RBC Hgb 9.2 L Hct 29.9 L MCV MCH MCHC RDW Std Deviation RDW Coeff of Zaria Plt Count MPV Immature Gran % (Auto) Neut % (Auto) Lymph % (Auto) [place] % (Auto) Eos % (Auto) Baso % (Auto) Immature Gran # (Auto) Neut # (Auto) Lymph # (Auto) [place] # (Auto) Eos # (Auto) Baso # (Auto) Absolute Nucleated RBC Nucleated RBC % (auto) Polychromasia Hypochromasia Anisocytosis Rouleaux Sodium Potassium Chloride Carbon Dioxide Anion Gap BUN Creatinine Est Cr Clr Drug Dosing Est GFR ( Amer) Est GFR (Non-Af Amer) BUN/Creatinine Ratio Glucose POC Glucose 190 H 265 H Calcium Transferrin Folate Urine Color Urine Appearance Urine pH Ur Specific [place] Urine Protein Urine Glucose (UA) Urine Ketones Urine Blood Urine Nitrite Urine Bilirubin Urine Urobilinogen Ur Leukocyte Esterase Urine WBC (Auto) Urine RBC (Auto) U Hyaline Cast (Auto) U Epithel Cells (Auto) Urine Bacteria (Auto) Influenza Type A (PCR) Influenza Type B (PCR) Blood Type Antibody Screen Antibody Identification Antigen Identification Crossmatch 05/15/18 05/15/18 05/15/18 07:19 07:19 07:19 WBC 13.36 H RBC 4.30 Hgb 9.3 L Hct 29.9 L MCV 69.5 L MCH 21.6 L MCHC 31.1 L RDW Std Deviation 57.3 H RDW Coeff of Zaria 23.0 H Plt Count 334 MPV 9.7 Immature Gran % (Auto) 0.9 Neut % (Auto) 89.7 Lymph % (Auto) 7.0 [place] % (Auto) 2.3 Eos % (Auto) 0.0 Baso % (Auto) 0.1 Immature Gran # (Auto) 0.12 H Neut # (Auto) 11.99 H Lymph # (Auto) 0.93 L [place] # (Auto) 0.31 Eos # (Auto) 0.00 Baso # (Auto) 0.01 Absolute Nucleated RBC 0.13 H Nucleated RBC % (auto) 1.0 Polychromasia 1+ Hypochromasia Present Anisocytosis Present Rouleaux 1+ Sodium 135 L Potassium 3.8 Chloride 103 Carbon Dioxide 22 Anion Gap 10.0 BUN 27 H Creatinine 1.46 H D Est Cr Clr Drug Dosing 29.3 Est GFR ( Amer) 39.3 Est GFR (Non-Af Amer) 33.9 BUN/Creatinine Ratio 18.6 Glucose 261 H POC Glucose Calcium 8.7 Transferrin Folate 20.66 Urine Color Urine Appearance Urine pH Ur Specific [place] Urine Protein Urine Glucose (UA) Urine Ketones Urine Blood Urine Nitrite Urine Bilirubin Urine Urobilinogen Ur Leukocyte Esterase Urine WBC (Auto) Urine RBC (Auto) U Hyaline Cast (Auto) U Epithel Cells (Auto) Urine Bacteria (Auto) Influenza Type A (PCR) Influenza Type B (PCR) Blood Type Antibody Screen Antibody Identification Antigen Identification Crossmatch 05/15/18 07:23 WBC RBC Hgb Hct MCV MCH MCHC RDW Std Deviation RDW Coeff of Zaria Plt Count MPV Immature Gran % (Auto) Neut % (Auto) Lymph % (Auto) [place] % (Auto) Eos % (Auto) Baso % (Auto) Immature Gran # (Auto) Neut # (Auto) Lymph # (Auto) [place] # (Auto) Eos # (Auto) Baso # (Auto) Absolute Nucleated RBC Nucleated RBC % (auto) Polychromasia Hypochromasia Anisocytosis Rouleaux Sodium Potassium Chloride Carbon Dioxide Anion Gap BUN Creatinine Est Cr Clr Drug Dosing Est GFR ( Amer) Est GFR (Non-Af Amer) BUN/Creatinine Ratio Glucose POC Glucose 271 H Calcium Transferrin Folate Urine Color Urine Appearance Urine pH Ur Specific [place] Urine Protein Urine Glucose (UA) Urine Ketones Urine Blood Urine Nitrite Urine Bilirubin Urine Urobilinogen Ur Leukocyte Esterase Urine WBC (Auto) Urine RBC (Auto) U Hyaline Cast (Auto) U Epithel Cells (Auto) Urine Bacteria (Auto) Influenza Type A (PCR) Influenza Type B (PCR) Blood Type Antibody Screen Antibody Identification Antigen Identification Crossmatch Medications Administered Current Inpatient Medications Acetaminophen (Tylenol) 650 mg PO Q4H PRN PRN Reason: Pain or Fever Stop: 06/12/18 15:04 Albuterol (Duoneb) 3 ml NEB Q4H PRN PRN Reason: Dyspnea Stop: 06/12/18 15:04 Last Admin: 05/14/18 12:30 Dose: 3 ml Aspirin (Ecotrin Ectab) 81 mg PO DAILY [facility] Stop: 06/13/18 08:59 Last Admin: 05/14/18 07:59 Dose: 81 mg Dextrose (Dextrose 50%) 25 - 50 ml IV UD PRN; Protocol PRN Reason: Hypoglycemia Protocol Stop: 06/12/18 15:04 Glucagon (Glucagen) 1 mg SQ UD PRN; Protocol PRN Reason: Hypoglycemia Protocol Stop: 06/12/18 15:04 Glucose (Glucose 40%) 15 - 30 gm PO UD PRN; Protocol PRN Reason: Hypoglycemia Protocol Stop: 06/12/18 15:04 Glucose (Dex4 Glucose) 4 - 8 tabs PO UD PRN; Protocol PRN Reason: Hypoglycemia Protocol Stop: 06/12/18 15:04 Hydroxyzine HCl (Vistaril) 25 mg PO QID PRN PRN Reason: Itching Stop: 06/12/18 15:04 Last Admin: 05/15/18 07:44 Dose: 25 mg Diltiazem HCl 125 mg/ Dextrose 125 mls @ 15 mls/hr IV .Q8H20M [facility]; Protocol Stop: 06/12/18 14:29 Last Admin: 05/15/18 09:45 Dose: Not Given Pantoprazole Sodium 40 mg/ (Syringe) 10 mls @ 5 mls/min IV BID [facility] Stop: 06/13/18 11:29 Last Admin: 05/15/18 07:43 Dose: 5 mls/min Methylprednisolone 40 mg/ (Syringe) 0.64 mls @ 1.5 mls/min IV Q6H [facility] Stop: 06/14/18 15:59 Insulin Aspart (Novolog Flexpen) 0 units SC ACHS [facility]; Protocol Stop: 06/12/18 17:29 Last Admin: 05/15/18 07:49 Dose: 21 units Insulin Aspart (Novolog Flexpen) 0 units SC TODAY@0000,0400 [facility]; Protocol Stop: 05/16/18 04:01 Insulin Glargine (Lantus Solostar Pen) 0 units SQ BID [facility]; Protocol Stop: 06/14/18 08:59 Last Admin: 05/15/18 08:41 Dose: 30 units Ipratropium [place] (Atrovent 0.02% 0.5mg/2.5ml) 0.5 mg INH Q4R [facility] Stop: 06/13/18 15:59 Last Admin: 05/15/18 07:02 Dose: 0.5 mg Ipratropium [place] (Atrovent 0.02% 0.5mg/2.5ml) 0.5 mg INH Q4H PRN PRN Reason: SOB/WHEEZING Stop: 06/14/18 08:59 Levalbuterol HCl (Xopenex 0.63 Mg/3 Ml Neb) 0.63 mg NEB Q4R [facility] Stop: 06/13/18 15:59 Last Admin: 05/15/18 07:02 Dose: 0.63 mg Levalbuterol HCl (Xopenex 1.25mg/0.5ml Neb) 1.25 mg INH Q2H PRN PRN Reason: SOB/WHEEZING Stop: 06/14/18 08:59 Last Admin: 05/15/18 09:50 Dose: 1.25 mg Magnesium Oxide (Mag-Ox) 400 mg PO BID [facility] Stop: 06/12/18 20:59 Last Admin: 05/15/18 07:44 Dose: 400 mg Miscellaneous (Carbohydrates For Hypoglycemia) 15 - 30 gm PO UD PRN PRN Reason: Hypoglycemia Treatment Stop: 06/12/18 15:04 Miscellaneous Information (Consult Glycemic Management Pharmacy) 1 ea N/A UD PRN; Protocol PRN Reason: Consult Stop: 06/12/18 15:25 Ondansetron HCl (Zofran) 4 mg IV Q6H PRN PRN Reason: Nausea Stop: 06/12/18 15:04 Fluticasone/Salmeterol (Advair Diskus 250/50) 1 puffs INH BID [facility] Stop: 06/12/18 20:59 Last Admin: 05/15/18 07:43 Dose: 1 puffs Sertraline HCl (Zoloft) 25 mg PO DAILY [facility] Stop: 06/13/18 08:59 Last Admin: 05/15/18 07:44 Dose: 25 mg Tramadol HCl (Ultram) 50 mg PO TID PRN PRN Reason: Pain Stop: 06/12/18 15:04 _ (1) Anemia Anemia type: unspecified type Bone marrow failure anemia type: Chronic kidney disease stage: Folate deficiency anemia type: Hemolytic anemia type: Iron deficiency anemia type: Other causes of anemia: Vitamin B12 deficiency anemia type: Qualified Code(s): D64.9 - Anemia, unspecified
[2018-05-15] MEDS ORDERED: FUROSEMIDE 40 MG in SYRINGE 0 ML IV ONE (11:35)
[2018-05-15] MEDS ORDERED: FUROSEMIDE 40 MG/4 ML VIAL IV ONE (11:48)
[2018-05-15] MEDS ORDERED: INSULIN HUMAN REGULAR PER UNIT 8 UNITS in SYRINGE 7.92 ML IV SCH (12:15)
--- NOTE | 2018-05-15 13:17 | Pharmacy Report ---
Pharmacy Glycemic Short Note 2 - Date of Service May 15, 2018 - Glycemic Short BSG Results (Last 24 hours): 05/14/18 05/14/18 05/15/18 16:31 20:36 01:45 Glucose POC Glucose 72 190 H 265 H 05/15/18 05/15/18 05/15/18 07:19 07:23 11:49 Glucose 261 H POC Glucose 271 H 414 H* OUTPATIENT ANTIDIABETIC REGIMEN: * Lantus 30 units SQ Q AM * Metformin 1gm PO BID * A1c = 7.6% 05/14/18 ASSESSMENT: * 77 yo female admit for anemia, a fib w/ RVR and URTI symptoms aggravating asthma * Glycemic control deteriorated precipitously with the addition of IV steroids yesterday * Fasting BSG elevated this AM (271) with 34 units of Lantus on board. Planned to give additional Lantus w/ lunch to catchup on deficit. Will also add HS Lantus dosing (will be BID rather than AM only to allow for ease of titration with changing steroid doses) * CF and CR may need to be made more aggressive as pree-lunch BSG climbed >400. * Severe hyperglycemia will be treated with IV insulin bolus, additional Lantus , and Novolog correction. Will repeat BSG 1 hr after Novolog and if no improvement consult provider to recommend insulin drip. PLAN FOR INPATIENT GLYCEMIC CONTROL: * Hold outpatient oral diabetes medications * Basal insulin (increase dose) * Lantus 30 units SQ this AM * Give additional 15 units with lunch * HS dose per scale: 10 units if less than 180, 20 units if 180 or greater * Bolus insulin * NovoLog per scale ACHS or Q6hrs while NPO; also check at 0000 + 0400 given difficulty controlling BSGs thus far * Goal Range: Low 110mg/dL - High 140 mg/dL * Correction Factor: 12 mg/dL/unit * Nutritional / Prandial insulin per carb ratio of 1 unit per 4 grams CHO consumed * Begin insulin drip per moderate stress protocol, goal range 120-180, if BSGs not less than 250 by dinner-time
[2018-05-15] MEDS: dilTIAZem HCl 60 MG TAB PO SCH ×2 (13:36→20:37)
[2018-05-15] MEDS ORDERED: MICONAZOLE NITRATE POWDER 43 GM EXT PRN (16:20)
--- NOTE | 2018-05-15 16:21 | Hematology/Oncology Prog Note ---
Date of Service May 15, 2018 Assessment & Plan (1) Anemia: 77-year-old the female, A case of iron deficiency anemia with the hemoglobin level of 5.9 which is significant microcytosis, has hiatal hernia, she was taking NSAID for the symptom treatment of back pain, may be the cause of upper GI bleed causing iron deficiency in her case, received 3 units of PRBC, also received 1 dose of Venofer yesterday, also has worsening pulmonary symptoms, she is on oxygen treatment, also required BiPAP earlier today, I saw her bedside, she is sitting comfortably, few family members were also at bedside, no nausea or vomiting, no new bleeding from any sites, she is receiving IV methylprednisolone, also receiving IV pentaprozole. I reviewed her blood workup done today: - WBC 13,300 (leukocytosis related the steroid treatment) - H&H of 9.3/29.9, MCV 69.5, Platelet count of 334,000.- BUN/creatinine: 27/ 1.4. - Folic acid > 20.6. She will have GI endoscopic evaluation once she is better from the cardiac and pulmonary point of view. I would consider for intravenous iron therapy as an outpatient. They would like to have it done at [facility] [place]. Will follow-up. Curt Lilly MD Hem/Onc Physical Exam 2 Vital Signs (Past 24 Hours): Last Vital Signs Temp 36.8 C 05/15/18 16:16 Pulse 94 H 05/15/18 16:16 Resp 16 05/15/18 16:16 BP 101/64 05/15/18 16:16 Pulse Ox 95 05/15/18 16:16 _ (1) Anemia Anemia type: unspecified type Bone marrow failure anemia type: Chronic kidney disease stage: Folate deficiency anemia type: Hemolytic anemia type: Iron deficiency anemia type: Other causes of anemia: Vitamin B12 deficiency anemia type: Qualified Code(s): D64.9 - Anemia, unspecified
[2018-05-15] MEDS ORDERED: MODERATE STRESS LEVEL ONE (17:26)
[2018-05-15] MEDS ORDERED: INSULIN PROTOCOL GOAL RANGE ONE (17:26)
--- NOTE | 2018-05-15 17:27 | Hospitalist Progress Note ---
Date of Service May 15, 2018 Assessment & Plan (1) Anemia: iron deficiency r/o Upper GI bleed: on ASA, Ibuprofen, (+) hiatal hernia FOBT pending 3 units pRBC given Hg improved from 5.9 to 9.3 no melena/hematochezia noted givenVenofer 300mg IV, may need weekly as per Dr. Lilly- Manager Radiation Protonix 40mg IV q12h, consult GI once stable from cardio/respiratory standpoint for EGD (2) Rapid atrial fibrillation: likely secondary to severe anemia echo noted, (+) diastolic dysfunction on Diltiazem drip, rate controlled Dr. Noland consulted, appreciate the recommendations (3) Wheezing: possible Asthma exacerbation from URTI wheezing recurred this morning repeat CXR 05/15/18: no overt pulmomary edema Flu negative additiona Solumedrol 80mg IV give Solumedrol increased to 40mg q6h Nebs q4h monitor Lasix IV given yesterday, crea increased to 1.4 today hold off on Lasix, ,monitor response to Solumedrol (4) Hypertension: Currently on a Cardizem drip will hold GAGE inhibitor with parameters (5) Diabetes: on Solumedrol Pharm glycemic control consulted (6) Discharge planning issues: pending patient recently moved to [place] to live with her son will need to establish with local PCP (7) DVT prophylaxis: SCDs only in light of profound anemia, possible GI bled Subjective ff up for anemia, a fib noted to denies other symptoms Physical Exam 2 Vital Signs (Past 24 Hours): Last Vital Signs Temp 36.8 C 05/15/18 16:16 Pulse 94 H 05/15/18 16:16 Resp 16 05/15/18 16:16 BP 101/64 05/15/18 16:16 Pulse Ox 95 05/15/18 16:16 _ (1) Anemia Anemia type: unspecified type Bone marrow failure anemia type: Chronic kidney disease stage: Folate deficiency anemia type: Hemolytic anemia type: Iron deficiency anemia type: Other causes of anemia: Vitamin B12 deficiency anemia type: Qualified Code(s): D64.9 - Anemia, unspecified
[2018-05-15] MEDS ORDERED: INSULIN REGULAR 250 UNITS in SODIUM CHLORIDE 0.9% 247.5 ML IV SCH (18:15)
[2018-05-15] MEDS ORDERED: INSULIN HUMAN REGULAR IV BOLUS 2 UNITS in SYRINGE 0 ML IV ONE (18:15)
[2018-05-16] MEDS: INSULIN ASPART 100 UNITS/ML 3 ML PEN SC SCH ×6 (00:20→20:17)
[2018-05-16] MEDS: LEVALBUTEROL HCL 0.63 MG/3 ML NEB NEB SCH ×4 (03:36→23:26)
[2018-05-16] MEDS: IPRATROPIUM BROMIDE NEB SOLN 0.02% 2.5 ML VIAL INH SCH ×5 (03:36→23:26)
[2018-05-16] MEDS: methylPREDNISolone 40 MG in SYRINGE 0 ML IV SCH ×3 (04:22→23:33)
[2018-05-16] MEDS: MAGNESIUM OXIDE 400 MG TAB PO SCH ×2 (08:45→20:11)
[2018-05-16] MEDS: FLUTICASONE/SALMETEROL 250/50 (ADVAIR) 14 PUFF/1 INHALER INH SCH ×2 (08:45→20:11)
[2018-05-16] MEDS: dilTIAZem HCl 60 MG TAB PO SCH ×3 (08:45→20:11)
[2018-05-16] MEDS: SERTRALINE HCL 50 MG TABLET PO SCH (08:45)
[2018-05-16] MEDS: PANTOprazole 40 MG in SYRINGE 0 ML IV SCH ×2 (08:46→20:08)
[2018-05-16] MEDS ORDERED: INSULIN GLARGINE SOLOSTAR 100 UNITS/ML 3 ML PEN SQ SCH (09:00)
[2018-05-16 09:14] LABS: BUN Creatinine Ratio 26.2 (10-20); Est GFR (African American) 29.3; Est GFR (Non-African American) 25.3; Potassium 3.9 mmol/L (3.5-5.1)
[2018-05-16] MEDS ORDERED: SODIUM CHLORIDE 0.9% 1000ML 1,000 ML IV SCH (09:45)
[2018-05-16] MEDS: LEVALBUTEROL 1.25MG/0.5ML NEB INH PRN ×2 (10:47→19:51)
[2018-05-16] MEDS ORDERED: INSULIN HUMAN REGULAR PER UNIT 8 UNITS in SYRINGE 7.92 ML IV SCH (12:15)
--- NOTE | 2018-05-16 12:58 | Cardiology Progress Note ---
Date of Service May 16, 2018 Assessment & Plan (1) Rapid atrial fibrillation: I would continue the oral diltiazem. Her heart rates on telemetry are between 90 and low 100s. I would not recommend anticoagulation until the GI service has seen her. (2) Shortness of breath: Patient still has some wheezing but overall there has been improvement. (3) Anemia: Blood counts have improved. (4) Hypomagnesemia: We will monitor and replete (5) Hypertension: Would consider restarting her home antihypertensives. (6) Diabetes: Lantus, sliding scale, carb consistent diet Patient is inpatient status likely to be here more than 2 midnights, will get hematology oncology to see the patient as well as cardiology, insulin sliding scale with Lantus and carb consistent diet, guaiac stool, hold metformin, continue sertraline for depression and tramadol for pain control, GAGE inhibitor with parameters, will order DuoNeb as needed. Subjective The patient seems to be doing better each day. She has no new complaints. Her heart rates are controlled on the oral diltiazem. Her blood counts are up. It may be a good time to have the GI service see her for possible endoscopy. Physical Exam 2 Vital Signs (Past 24 Hours): Last Vital Signs Temp 36.9 C 05/16/18 12:19 Pulse 78 05/16/18 12:19 Resp 16 05/16/18 12:19 BP 122/60 05/16/18 12:19 Pulse Ox 99 05/16/18 12:19 Physical Exam: General: no acute distress and stated age Head: normocephalic, no masses, lesions, tenderness or abnormalities Eyes: conjunctiva are pink and non-injected, sclera clear Neck: supple, no adenopathy, no bruits, normal jugular venous pulse, no hepatojugular reflux Chest: normal shape and normal respiratory effort Lungs: clear to auscultation and percussion Cardiac Exam: - irregular rate & rhythm, no murmurs gallops or rubs - normal S1 , normal S2 Pulses: 2(+) throughout Abdomen: abdomen soft, non-tender, no abnormal masses and no hepatosplenomegaly Musculoskeletal: no gait disturbance, no joint inflammation, no deforming arthritis Extremities: no edema and no cyanosis Neuro: grossly normal exam Results & Data Laboratory Results Laboratory Results - last 24 hr 01/10/2405/15/18 05/15/18 15:11 13:35 16:30 Sodium Potassium Chloride Carbon Dioxide Anion Gap BUN Creatinine Est Cr Clr Drug Dosing Est GFR ( Amer) Est GFR (Non-Af Amer) BUN/Creatinine Ratio Glucose POC Glucose 321 H 285 H Calcium RBC Folate >1000 05/15/18 05/16/18 05/16/18 20:33 00:14 00:16 Sodium Potassium Chloride Carbon Dioxide Anion Gap BUN Creatinine Est Cr Clr Drug Dosing Est GFR ( Amer) Est GFR (Non-Af Amer) BUN/Creatinine Ratio Glucose POC Glucose 229 H 69 L* 73 Calcium RBC Folate 05/16/18 05/16/18 05/16/18 03:09 07:31 08:43 Sodium 136 Potassium 3.9 Chloride 103 Carbon Dioxide 23 Anion Gap 10.0 BUN 49 H D Creatinine 1.86 H D Est Cr Clr Drug Dosing 23.0 Est GFR ( Amer) 29.3 Est GFR (Non-Af Amer) 25.3 BUN/Creatinine Ratio 26.2 H Glucose 132 H POC Glucose 105 H 146 H Calcium 9.0 RBC Folate 05/16/18 11:34 Sodium Potassium Chloride Carbon Dioxide Anion Gap BUN Creatinine Est Cr Clr Drug Dosing Est GFR ( Amer) Est GFR (Non-Af Amer) BUN/Creatinine Ratio Glucose POC Glucose 346 H Calcium RBC Folate Medications Administered Current Inpatient Medications Acetaminophen (Tylenol) 650 mg PO Q4H PRN PRN Reason: Pain or Fever Stop: 06/12/18 15:04 Albuterol (Duoneb) 3 ml NEB Q4H PRN PRN Reason: Dyspnea Stop: 06/12/18 15:04 Last Admin: 05/14/18 12:30 Dose: 3 ml Aspirin (Ecotrin Ectab) 81 mg PO DAILY [facility] Stop: 06/13/18 08:59 Last Admin: 05/14/18 07:59 Dose: 81 mg Dextrose (Dextrose 50%) 25 - 50 ml IV UD PRN; Protocol PRN Reason: Hypoglycemia Protocol Stop: 06/12/18 15:04 Diltiazem HCl (Cardizem) 60 mg PO TID [facility] Stop: 06/14/18 13:59 Last Admin: 05/16/18 08:45 Dose: 60 mg Glucagon (Glucagen) 1 mg SQ UD PRN; Protocol PRN Reason: Hypoglycemia Protocol Stop: 06/12/18 15:04 Glucose (Glucose 40%) 15 - 30 gm PO UD PRN; Protocol PRN Reason: Hypoglycemia Protocol Stop: 06/12/18 15:04 Glucose (Dex4 Glucose) 4 - 8 tabs PO UD PRN; Protocol PRN Reason: Hypoglycemia Protocol Stop: 06/12/18 15:04 Hydroxyzine HCl (Vistaril) 25 mg PO QID PRN PRN Reason: Itching Stop: 06/12/18 15:04 Last Admin: 05/15/18 07:44 Dose: 25 mg Pantoprazole Sodium 40 mg/ (Syringe) 10 mls @ 5 mls/min IV BID [facility] Stop: 06/13/18 11:29 Last Admin: 05/16/18 08:46 Dose: 5 mls/min Insulin Human Regular 8 units/ (Syringe) 8 mls @ 16 mls/min IV TODAY@1215 [facility] Stop: 06/15/18 12:14 Last Admin: 05/16/18 12:40 Dose: 16 mls/min Insulin Aspart (Novolog Flexpen) 0 units SC ACHS [facility]; Protocol Stop: 06/12/18 17:29 Last Admin: 05/16/18 12:41 Dose: 22 units Insulin Glargine (Lantus Solostar Pen) 25 units SQ BID [facility]; Protocol Stop: 06/15/18 08:59 Last Admin: 05/16/18 09:13 Dose: 25 units Ipratropium [place] (Atrovent 0.02% 0.5mg/2.5ml) 0.5 mg INH Q4H PRN PRN Reason: SOB/WHEEZING Stop: 06/14/18 08:59 Ipratropium [place] (Atrovent 0.02% 0.5mg/2.5ml) 0.5 mg INH Q8R [facility] Stop: 06/15/18 15:59 Levalbuterol HCl (Xopenex 1.25mg/0.5ml Neb) 1.25 mg INH Q2H PRN PRN Reason: SOB/WHEEZING Stop: 06/14/18 08:59 Last Admin: 05/16/18 10:47 Dose: 1.25 mg Levalbuterol HCl (Xopenex 0.63 Mg/3 Ml Neb) 0.63 mg NEB Q8R [facility] Stop: 06/15/18 15:59 Magnesium Oxide (Mag-Ox) 400 mg PO BID [facility] Stop: 06/12/18 20:59 Last Admin: 05/16/18 08:45 Dose: 400 mg Miconazole Nitrate (Desenex) 1 appln EXT PRN PRN PRN Reason: prn Stop: 06/14/18 16:19 Miscellaneous (Carbohydrates For Hypoglycemia) 15 - 30 gm PO UD PRN PRN Reason: Hypoglycemia Treatment Stop: 06/12/18 15:04 Miscellaneous Information (Consult Glycemic Management Pharmacy) 1 ea N/A UD PRN; Protocol PRN Reason: Consult Stop: 06/12/18 15:25 Ondansetron HCl (Zofran) 4 mg IV Q6H PRN PRN Reason: Nausea Stop: 06/12/18 15:04 Prednisone (Prednisone) 40 mg PO DAILY [facility] Stop: 06/16/18 08:59 Fluticasone/Salmeterol (Advair Diskus 250/50) 1 puffs INH BID [facility] Stop: 06/12/18 20:59 Last Admin: 05/16/18 08:45 Dose: 1 puffs Sertraline HCl (Zoloft) 25 mg PO DAILY [facility] Stop: 06/13/18 08:59 Last Admin: 05/16/18 08:45 Dose: 25 mg Tramadol HCl (Ultram) 50 mg PO TID PRN PRN Reason: Pain Stop: 06/12/18 15:04 _ (1) Anemia Anemia type: unspecified type Bone marrow failure anemia type: Chronic kidney disease stage: Folate deficiency anemia type: Hemolytic anemia type: Iron deficiency anemia type: Other causes of anemia: Vitamin B12 deficiency anemia type: Qualified Code(s): D64.9 - Anemia, unspecified
--- NOTE | 2018-05-16 13:15 | Pharmacy Report ---
Pharmacy Glycemic Short Note 2 - Date of Service May 16, 2018 - Glycemic Short BSG Results (Last 24 hours): 05/15/18 05/15/18 05/15/18 13:35 16:30 20:33 Glucose POC Glucose 321 H 285 H 229 H 05/16/18 05/16/18 05/16/18 00:14 00:16 03:09 Glucose POC Glucose 69 L* 73 105 H 05/16/18 05/16/18 05/16/18 07:31 08:43 11:34 Glucose 132 H POC Glucose 146 H 346 H OUTPATIENT ANTIDIABETIC REGIMEN: * Lantus 30 units SQ Q AM * Metformin 1gm PO BID * A1c = 7.6% 05/14/18 ASSESSMENT: 05/16/18 * BSGs climbed to 414 yesterday at lunch time but did drop with the changes to SQ regimen made yesterday * Mild hypoglycemia seen last night as BSG dropped to 69 * Pt was going to be initiated on IV insulin infusion last evening however this was dc'd due to concerns of fluid overload and same SQ regimen resumed * New changes this AM: Steroid dose reduced greatly (Solu-medrol 40mg IV Q 6 hrs --> Prednisone 40mg daily) - insulin sensitivity should improve in next 24 hrs * Pt is VERY sensitive to carb intake and needs an aggressive carb ratio. Will adjust carb ratio only slightly given reduced steroid dose * Pt is basal heavy at this time given yesterday's doses needed to quickly gain control. Will hold HS Lantus dosing as BSGs may fall quickly with steroid change. Will resume home Lantus dose tomorrow AM. 05/15/18 * 77 yo female admit for anemia, a fib w/ RVR and URTI symptoms aggravating asthma * Glycemic control deteriorated precipitously with the addition of IV steroids yesterday * Fasting BSG elevated this AM (271) with 34 units of Lantus on board. Planned to give additional Lantus w/ lunch to catchup on deficit. Will also add HS Lantus dosing (will be BID rather than AM only to allow for ease of titration with changing steroid doses) * CF and CR may need to be made more aggressive as pree-lunch BSG climbed >400. * Severe hyperglycemia will be treated with IV insulin bolus, additional Lantus , and Novolog correction. Will repeat BSG 1 hr after Novolog and if no improvement consult provider to recommend insulin drip. PLAN FOR INPATIENT GLYCEMIC CONTROL: * Hold outpatient oral diabetes medications * Basal insulin * Lantus 30 units SQ Q AM (home dose) * Bolus insulin * NovoLog per scale ACHS or Q6hrs while NPO; also check at 0000 + 0400 to screen for hyper- / hypo- glycemia * Goal Range: Low 110mg/dL - High 140 mg/dL * Correction Factor: 20 mg/dL/unit * Nutritional / Prandial insulin per carb ratio of 1 unit per 4 grams CHO consumed Discharge recommendations: * May resume home medication regimen, A1c 7.6 near goal for age / comorbidities
--- NOTE | 2018-05-16 14:08 | Gastrointestinal Consultation ---
Date of Consultation May 16, 2018 Assessment & Plan (1) Rapid atrial fibrillation: Present on Admission?: Yes (2) Iron deficiency anemia: Pt is a 77 y/o female currently admitted for asthma exacerbation and new Afib; also found to have iron deficiency anemia during her workup. Hx of GERD, hiatal hernia and hx of esophagitis per her report but no PUD or colorectal ca. She was on low dose Ibuprofen 200mg daily for low back pain but no tobacco or ETOH products. She denies overt s/s of GI bleed, stool was heme negative in ED. Abd exam benign otherwise. Previous EGD and colonoscopies at [facility] per pt - we don;t have records but she denies PUD, celiac, colorectal polyps or malignancy. - Would check celiac ab panel - Monitor H/H and transfuse prn - Continue Protonix 40mg BID - Discussed case w Dr. Zapata - will defer endoscopic workup (EGD/ colonoscopy) until pt's respiratory status is improved and her Afib is controlled. Please re-call GI once she's stable before her DC so we can re- evaluate her to decide timing of her EGD/Colonoscopy workup. - F/U w Heme/Onc upon DC for possible continuation of iron infusion. Present on Admission?: Yes Supervising Physician Co-Signing Physician Notes I have performed a history and physical examination of this patient and reviewed the electronic medical record. Specifically, on physical examination there is no abdominal tenderness or sign of active bleeding. I have discussed the case with ROSARIO Nguyễn. The above note reflects my findings, conclusions, and recommendations. Brad Zapata MD History of Present Illness Reason for Consultation: Iron deficiency anemia ; GERD Requesting Physician: Dr. Sammy Jacobsen ; Dr. Randal Noland Attending Physician: Dr. Brad Zapata History of Present Illness Pt is a 77 y/o female w PMHx of DM II, obesity, HTN, asthma, rheumatic fever, OA who presented to ED 05/13/18 for c/o SOB. Upon evaluation she was noted to have asthma exacerbation and new Afib, previously on Diltiazem gtt but now transitioned to PO form. HR currently still fluctuates between 90s-130s. She was also noted to have microcytic anemia w Hgb 5 on admission. She's been given 3U PRBC and Venofer infusion x 1 dose, now H/H improved to 9/29.9. In her workup , FA and B12 levels are normal. Iron and ferritin levels are low. Stool tested negative for occult blood. Pt has a known large hiatal hernia but for the most part been quite asymptomatic from it. Denies dysphagia, odynophagia, CP, or abd pain, heartburn/ reflux symptoms. She does take an antiacid at home but not sure what's the name. She denies any N/V, or dark/tarry stools, rectal bleeding. She reported hx of EGD and Colonoscopies at [facility] - told at one point had hx of esophagitis but denies hx of PUD or celiac disease. Denies hx of colon polyps or colorectal ca. Denies family hx of GI malignancies, IBD, or autoimmune disorders as well. She doesn't have underlying kidney disease, Cr normal on admission but now up to 1.8 She admits to be taking Ibuprofen 200mg daily along w her Tramadol for low back pain. Denies ETOH or tobacco products. Allergies Allergy/AdvReac Type Severity Reaction Status Date / Time No Known Allergies Allergy Unverified 05/13/18 11:57 Home Medications Home Medications Medication Instructions Recorded Confirmed Type albuterol sulfate [ProAir HFA] 2 puff INHALATION Q6H PRN 05/13/18 05/13/18 History aspirin [Aspirin Low Dose] 81 mg PO DAILY 05/13/18 05/13/18 History fluticasone-salmeterol [Advair 1 inh INHALATION BID 05/13/18 05/13/18 History Diskus] fosinopril 40 mg PO DAILY 05/13/18 05/13/18 History hydroxyzine HCl 25 mg PO QID PRN 05/13/18 05/13/18 History ibuprofen 200 mg PO TID PRN 05/13/18 05/13/18 History insulin glargine [Lantus Solostar 30 units SUBCUT QAM 05/13/18 05/13/18 History U-100 Insulin] metformin 1,000 mg PO BID 05/13/18 05/13/18 History sertraline 25 mg PO DAILY 05/13/18 05/13/18 History tramadol 50 mg PO TID PRN 05/13/18 05/13/18 History Patient History Medical History Pneumonia Bronchitis Hypertension Heart disease Diabetes Social History marital status: / Current Living Situation: Alone Other Information That Helps Us Care for You: No Feels Safe at Home: Yes Safety Concerns: Feels Safe At This Time Smoking Status: Never smoker Do You Dip or Chew Tobacco: No Second Hand Exposure: No Tobacco Cessation Education Requested by Patient: No Hx Alcohol Use: Yes Alcohol Intake Frequency: holidays/special occasions only Hx Substance Use: No Beliefs That Will Affect Care: None Communication Ability: Effective Review of Systems Constitutional: as per Subjective / HPI Respiratory: + cough and + dyspnea on exertion Cardiovascular: as per Subjective / HPI; no chest pain Gastrointestinal: as per Subjective / HPI Physical Exam 2 Vital Signs (Past 24 Hours): Last Vital Signs Temp 36.9 C 05/16/18 12:19 Pulse 78 05/16/18 12:19 Resp 16 05/16/18 12:19 BP 122/60 05/16/18 12:19 Pulse Ox 99 05/16/18 12:19 Constitutional: WD/WN, vitals as above well groomed, cooperative and comfortable Eyes: PERRL, conjunctivae normal, anicteric sclerae ENMT: external ear and nose normal, oropharynx normal Respiratory: + labored breathing Auscultation: + diminished lung sounds and + wheezes Cardiovascular: Heart Sounds: no murmur Extremities: no edema irregular rate and rhythm Gastrointestinal (Abdomen): normal bowel sounds, soft, nontender, no hepatosplenomegaly Skin: no rashes, warm and dry no jaundice Neurologic: Motor/Sensory: no asterixis Psychiatric: A+Ox3, euthymic affect Lymphatic: no lymphedema Results & Data Laboratory Results Laboratory Results - last 72 hr 05/13/18 05/13/18 05/13/18 12:58 13:54 15:11 WBC RBC Hgb Hct MCV MCH MCHC RDW Std Deviation RDW Coeff of Zaria Plt Count MPV Immature Gran % (Auto) Neut % (Auto) Lymph % (Auto) [place] % (Auto) Eos % (Auto) Baso % (Auto) Reticulocyte % (Auto) Immature Gran # (Auto) Neut # (Auto) Lymph # (Auto) [place] # (Auto) Eos # (Auto) Baso # (Auto) Reticulocyte # Absolute Nucleated RBC Nucleated RBC % (auto) Polychromasia Hypochromasia Anisocytosis Rouleaux PT INR Sodium Potassium Chloride Carbon Dioxide Anion Gap BUN Creatinine Est Cr Clr Drug Dosing Est GFR ( Amer) Est GFR (Non-Af Amer) BUN/Creatinine Ratio Glucose POC Glucose Estimat Average Glucose Hemoglobin A1c Calcium Magnesium Iron 10 L TIBC 348 Transferrin Ferritin 7.6 L Vitamin B12 Folate RBC Folate Urine Color Urine Appearance Urine pH Ur Specific [place] Urine Protein Urine Glucose (UA) Urine Ketones Urine Blood Urine Nitrite Urine Bilirubin Urine Urobilinogen Ur Leukocyte Esterase Urine WBC (Auto) Urine RBC (Auto) U Hyaline Cast (Auto) U Epithel Cells (Auto) Urine Bacteria (Auto) Influenza Type A (PCR) Influenza Type B (PCR) Blood Type O Positive Blood Type Recheck O Positive Antibody Screen POSITIVE A Antibody Identification Anti-K Antigen Identification K Antigen - NEGATIVE Crossmatch See Detail 05/13/18 05/13/18 05/13/18 15:11 15:11 16:17 WBC RBC Hgb Hct MCV MCH MCHC RDW Std Deviation RDW Coeff of Zaria Plt Count MPV Immature Gran % (Auto) Neut % (Auto) Lymph % (Auto) [place] % (Auto) Eos % (Auto) Baso % (Auto) Reticulocyte % (Auto) Immature Gran # (Auto) Neut # (Auto) Lymph # (Auto) [place] # (Auto) Eos # (Auto) Baso # (Auto) Reticulocyte # Absolute Nucleated RBC Nucleated RBC % (auto) Polychromasia Hypochromasia Anisocytosis Rouleaux PT INR Sodium Potassium Chloride Carbon Dioxide Anion Gap BUN Creatinine Est Cr Clr Drug Dosing Est GFR ( Amer) Est GFR (Non-Af Amer) BUN/Creatinine Ratio Glucose POC Glucose 409 H* Estimat Average Glucose Hemoglobin A1c Calcium Magnesium Iron TIBC Transferrin Ferritin Vitamin B12 372 Folate RBC Folate >1000 Urine Color Urine Appearance Urine pH Ur Specific [place] Urine Protein Urine Glucose (UA) Urine Ketones Urine Blood Urine Nitrite Urine Bilirubin Urine Urobilinogen Ur Leukocyte Esterase Urine WBC (Auto) Urine RBC (Auto) U Hyaline Cast (Auto) U Epithel Cells (Auto) Urine Bacteria (Auto) Influenza Type A (PCR) Influenza Type B (PCR) Blood Type Blood Type Recheck Antibody Screen Antibody Identification Antigen Identification Crossmatch 05/13/18 05/13/18 05/13/18 16:19 16:21 20:13 WBC RBC Hgb Hct MCV MCH MCHC RDW Std Deviation RDW Coeff of Zaria Plt Count MPV Immature Gran % (Auto) Neut % (Auto) Lymph % (Auto) [place] % (Auto) Eos % (Auto) Baso % (Auto) Reticulocyte % (Auto) Immature Gran # (Auto) Neut # (Auto) Lymph # (Auto) [place] # (Auto) Eos # (Auto) Baso # (Auto) Reticulocyte # Absolute Nucleated RBC Nucleated RBC % (auto) Polychromasia Hypochromasia Anisocytosis Rouleaux PT INR Sodium Potassium Chloride Carbon Dioxide Anion Gap BUN Creatinine Est Cr Clr Drug Dosing Est GFR ( Amer) Est GFR (Non-Af Amer) BUN/Creatinine Ratio Glucose POC Glucose 193 H 193 H 207 H Estimat Average Glucose Hemoglobin A1c Calcium Magnesium Iron TIBC Transferrin Ferritin Vitamin B12 Folate RBC Folate Urine Color Urine Appearance Urine pH Ur Specific [place] Urine Protein Urine Glucose (UA) Urine Ketones Urine Blood Urine Nitrite Urine Bilirubin Urine Urobilinogen Ur Leukocyte Esterase Urine WBC (Auto) Urine RBC (Auto) U Hyaline Cast (Auto) U Epithel Cells (Auto) Urine Bacteria (Auto) Influenza Type A (PCR) Influenza Type B (PCR) Blood Type Blood Type Recheck Antibody Screen Antibody Identification Antigen Identification Crossmatch 05/14/18 05/14/18 05/14/18 00:02 00:13 04:25 WBC RBC Hgb 7.8 L Hct 26.0 L MCV MCH MCHC RDW Std Deviation RDW Coeff of Zaria Plt Count MPV Immature Gran % (Auto) Neut % (Auto) Lymph % (Auto) [place] % (Auto) Eos % (Auto) Baso % (Auto) Reticulocyte % (Auto) Immature Gran # (Auto) Neut # (Auto) Lymph # (Auto) [place] # (Auto) Eos # (Auto) Baso # (Auto) Reticulocyte # Absolute Nucleated RBC Nucleated RBC % (auto) Polychromasia Hypochromasia Anisocytosis Rouleaux PT INR Sodium Potassium Chloride Carbon Dioxide Anion Gap BUN Creatinine Est Cr Clr Drug Dosing Est GFR ( Amer) Est GFR (Non-Af Amer) BUN/Creatinine Ratio Glucose POC Glucose 160 H 69 L* Estimat Average Glucose Hemoglobin A1c Calcium Magnesium Iron TIBC Transferrin Ferritin Vitamin B12 Folate RBC Folate Urine Color Urine Appearance Urine pH Ur Specific [place] Urine Protein Urine Glucose (UA) Urine Ketones Urine Blood Urine Nitrite Urine Bilirubin Urine Urobilinogen Ur Leukocyte Esterase Urine WBC (Auto) Urine RBC (Auto) U Hyaline Cast (Auto) U Epithel Cells (Auto) Urine Bacteria (Auto) Influenza Type A (PCR) Influenza Type B (PCR) Blood Type Blood Type Recheck Antibody Screen Antibody Identification Antigen Identification Crossmatch 05/14/18 05/14/18 05/14/18 04:28 06:11 06:11 WBC RBC Hgb Hct MCV MCH MCHC RDW Std Deviation RDW Coeff of Zaria Plt Count MPV Immature Gran % (Auto) Neut % (Auto) Lymph % (Auto) [place] % (Auto) Eos % (Auto) Baso % (Auto) Reticulocyte % (Auto) Immature Gran # (Auto) Neut # (Auto) Lymph # (Auto) [place] # (Auto) Eos # (Auto) Baso # (Auto) Reticulocyte # Absolute Nucleated RBC Nucleated RBC % (auto) Polychromasia Hypochromasia Anisocytosis Rouleaux PT INR Sodium 141 Potassium 3.5 Chloride 108 H Carbon Dioxide 24 Anion Gap 8.0 BUN 27 H Creatinine 1.16 Est Cr Clr Drug Dosing 37.2 Est GFR ( Amer) 51.9 Est GFR (Non-Af Amer) 44.7 BUN/Creatinine Ratio 23.0 H Glucose 119 H POC Glucose 81 Estimat Average Glucose Hemoglobin A1c Calcium 8.7 Magnesium 1.8 Iron TIBC Transferrin 277 Ferritin Vitamin B12 Folate RBC Folate Urine Color Urine Appearance Urine pH Ur Specific [place] Urine Protein Urine Glucose (UA) Urine Ketones Urine Blood Urine Nitrite Urine Bilirubin Urine Urobilinogen Ur Leukocyte Esterase Urine WBC (Auto) Urine RBC (Auto) U Hyaline Cast (Auto) U Epithel Cells (Auto) Urine Bacteria (Auto) Influenza Type A (PCR) Influenza Type B (PCR) Blood Type Blood Type Recheck Antibody Screen Antibody Identification Antigen Identification Crossmatch 05/14/18 05/14/18 05/14/18 06:12 06:12 06:12 WBC 9.91 RBC 3.78 L Hgb 7.7 L Hct 25.9 L MCV 68.5 L D MCH 20.4 L MCHC 29.7 L RDW Std Deviation 53.9 H RDW Coeff of Zaria 21.9 H Plt Count 340 MPV 9.6 Immature Gran % (Auto) Neut % (Auto) Lymph % (Auto) [place] % (Auto) Eos % (Auto) Baso % (Auto) Reticulocyte % (Auto) Immature Gran # (Auto) Neut # (Auto) Lymph # (Auto) [place] # (Auto) Eos # (Auto) Baso # (Auto) Reticulocyte # Absolute Nucleated RBC Nucleated RBC % (auto) Polychromasia Hypochromasia Anisocytosis Rouleaux PT 11.3 INR 1.1 Sodium Potassium Chloride Carbon Dioxide Anion Gap BUN Creatinine Est Cr Clr Drug Dosing Est GFR ( Amer) Est GFR (Non-Af Amer) BUN/Creatinine Ratio Glucose POC Glucose Estimat Average Glucose 171 Hemoglobin A1c 7.6 H Calcium Magnesium Iron TIBC Transferrin Ferritin Vitamin B12 Folate RBC Folate Urine Color Urine Appearance Urine pH Ur Specific [place] Urine Protein Urine Glucose (UA) Urine Ketones Urine Blood Urine Nitrite Urine Bilirubin Urine Urobilinogen Ur Leukocyte Esterase Urine WBC (Auto) Urine RBC (Auto) U Hyaline Cast (Auto) U Epithel Cells (Auto) Urine Bacteria (Auto) Influenza Type A (PCR) Influenza Type B (PCR) Blood Type Blood Type Recheck Antibody Screen Antibody Identification Antigen Identification Crossmatch 05/14/18 05/14/18 05/14/18 06:12 07:25 11:50 WBC RBC Hgb Hct MCV MCH MCHC RDW Std Deviation RDW Coeff of Zaria Plt Count MPV Immature Gran % (Auto) Neut % (Auto) Lymph % (Auto) [place] % (Auto) Eos % (Auto) Baso % (Auto) Reticulocyte % (Auto) 1.4 Immature Gran # (Auto) Neut # (Auto) Lymph # (Auto) [place] # (Auto) Eos # (Auto) Baso # (Auto) Reticulocyte # 0.05 Absolute Nucleated RBC Nucleated RBC % (auto) Polychromasia Hypochromasia Anisocytosis Rouleaux PT INR Sodium Potassium Chloride Carbon Dioxide Anion Gap BUN Creatinine Est Cr Clr Drug Dosing Est GFR ( Amer) Est GFR (Non-Af Amer) BUN/Creatinine Ratio Glucose POC Glucose 127 H 274 H Estimat Average Glucose Hemoglobin A1c Calcium Magnesium Iron TIBC Transferrin Ferritin Vitamin B12 Folate RBC Folate Urine Color Urine Appearance Urine pH Ur Specific [place] Urine Protein Urine Glucose (UA) Urine Ketones Urine Blood Urine Nitrite Urine Bilirubin Urine Urobilinogen Ur Leukocyte Esterase Urine WBC (Auto) Urine RBC (Auto) U Hyaline Cast (Auto) U Epithel Cells (Auto) Urine Bacteria (Auto) Influenza Type A (PCR) Influenza Type B (PCR) Blood Type Blood Type Recheck Antibody Screen Antibody Identification Antigen Identification Crossmatch 05/14/18 05/14/18 05/14/18 15:25 16:31 19:00 WBC RBC Hgb Hct MCV MCH MCHC RDW Std Deviation RDW Coeff of Zaria Plt Count MPV Immature Gran % (Auto) Neut % (Auto) Lymph % (Auto) [place] % (Auto) Eos % (Auto) Baso % (Auto) Reticulocyte % (Auto) Immature Gran # (Auto) Neut # (Auto) Lymph # (Auto) [place] # (Auto) Eos # (Auto) Baso # (Auto) Reticulocyte # Absolute Nucleated RBC Nucleated RBC % (auto) Polychromasia Hypochromasia Anisocytosis Rouleaux PT INR Sodium Potassium Chloride Carbon Dioxide Anion Gap BUN Creatinine Est Cr Clr Drug Dosing Est GFR ( Amer) Est GFR (Non-Af Amer) BUN/Creatinine Ratio Glucose POC Glucose 72 Estimat Average Glucose Hemoglobin A1c Calcium Magnesium Iron TIBC Transferrin Ferritin Vitamin B12 Folate RBC Folate Urine Color Yellow Urine Appearance Cloudy H Urine pH 5.0 Ur Specific [place] 1.011 Urine Protein Negative Urine Glucose (UA) Negative Urine Ketones Negative Urine Blood Negative Urine Nitrite Negative Urine Bilirubin Negative Urine Urobilinogen Negative Ur Leukocyte Esterase Negative Urine WBC (Auto) 1-5 Urine RBC (Auto) 0-4 U Hyaline Cast (Auto) 1-5 U Epithel Cells (Auto) 10-20 H Urine Bacteria (Auto) Negative Influenza Type A (PCR) Neg for Influ A Influenza Type B (PCR) Neg for Influ B Blood Type Blood Type Recheck Antibody Screen Antibody Identification Antigen Identification Crossmatch 05/14/18 05/15/18 05/15/18 20:36 00:09 01:45 WBC RBC Hgb 9.2 L Hct 29.9 L MCV MCH MCHC RDW Std Deviation RDW Coeff of Zaria Plt Count MPV Immature Gran % (Auto) Neut % (Auto) Lymph % (Auto) [place] % (Auto) Eos % (Auto) Baso % (Auto) Reticulocyte % (Auto) Immature Gran # (Auto) Neut # (Auto) Lymph # (Auto) [place] # (Auto) Eos # (Auto) Baso # (Auto) Reticulocyte # Absolute Nucleated RBC Nucleated RBC % (auto) Polychromasia Hypochromasia Anisocytosis Rouleaux PT INR Sodium Potassium Chloride Carbon Dioxide Anion Gap BUN Creatinine Est Cr Clr Drug Dosing Est GFR ( Amer) Est GFR (Non-Af Amer) BUN/Creatinine Ratio Glucose POC Glucose 190 H 265 H Estimat Average Glucose Hemoglobin A1c Calcium Magnesium Iron TIBC Transferrin Ferritin Vitamin B12 Folate RBC Folate Urine Color Urine Appearance Urine pH Ur Specific [place] Urine Protein Urine Glucose (UA) Urine Ketones Urine Blood Urine Nitrite Urine Bilirubin Urine Urobilinogen Ur Leukocyte Esterase Urine WBC (Auto) Urine RBC (Auto) U Hyaline Cast (Auto) U Epithel Cells (Auto) Urine Bacteria (Auto) Influenza Type A (PCR) Influenza Type B (PCR) Blood Type Blood Type Recheck Antibody Screen Antibody Identification Antigen Identification Crossmatch 05/15/18 05/15/18 05/15/18 07:19 07:19 07:19 WBC 13.36 H RBC 4.30 Hgb 9.3 L Hct 29.9 L MCV 69.5 L MCH 21.6 L MCHC 31.1 L RDW Std Deviation 57.3 H RDW Coeff of Zaria 23.0 H Plt Count 334 MPV 9.7 Immature Gran % (Auto) 0.9 Neut % (Auto) 89.7 Lymph % (Auto) 7.0 [place] % (Auto) 2.3 Eos % (Auto) 0.0 Baso % (Auto) 0.1 Reticulocyte % (Auto) Immature Gran # (Auto) 0.12 H Neut # (Auto) 11.99 H Lymph # (Auto) 0.93 L [place] # (Auto) 0.31 Eos # (Auto) 0.00 Baso # (Auto) 0.01 Reticulocyte # Absolute Nucleated RBC 0.13 H Nucleated RBC % (auto) 1.0 Polychromasia 1+ Hypochromasia Present Anisocytosis Present Rouleaux 1+ PT INR Sodium 135 L Potassium 3.8 Chloride 103 Carbon Dioxide 22 Anion Gap 10.0 BUN 27 H Creatinine 1.46 H D Est Cr Clr Drug Dosing 29.3 Est GFR ( Amer) 39.3 Est GFR (Non-Af Amer) 33.9 BUN/Creatinine Ratio 18.6 Glucose 261 H POC Glucose Estimat Average Glucose Hemoglobin A1c Calcium 8.7 Magnesium Iron TIBC Transferrin Ferritin Vitamin B12 Folate 20.66 RBC Folate Urine Color Urine Appearance Urine pH Ur Specific [place] Urine Protein Urine Glucose (UA) Urine Ketones Urine Blood Urine Nitrite Urine Bilirubin Urine Urobilinogen Ur Leukocyte Esterase Urine WBC (Auto) Urine RBC (Auto) U Hyaline Cast (Auto) U Epithel Cells (Auto) Urine Bacteria (Auto) Influenza Type A (PCR) Influenza Type B (PCR) Blood Type Blood Type Recheck Antibody Screen Antibody Identification Antigen Identification Crossmatch 05/15/18 05/15/18 05/15/18 07:23 11:49 13:35 WBC RBC Hgb Hct MCV MCH MCHC RDW Std Deviation RDW Coeff of Zaria Plt Count MPV Immature Gran % (Auto) Neut % (Auto) Lymph % (Auto) [place] % (Auto) Eos % (Auto) Baso % (Auto) Reticulocyte % (Auto) Immature Gran # (Auto) Neut # (Auto) Lymph # (Auto) [place] # (Auto) Eos # (Auto) Baso # (Auto) Reticulocyte # Absolute Nucleated RBC Nucleated RBC % (auto) Polychromasia Hypochromasia Anisocytosis Rouleaux PT INR Sodium Potassium Chloride Carbon Dioxide Anion Gap BUN Creatinine Est Cr Clr Drug Dosing Est GFR ( Amer) Est GFR (Non-Af Amer) BUN/Creatinine Ratio Glucose POC Glucose 271 H 414 H* 321 H Estimat Average Glucose Hemoglobin A1c Calcium Magnesium Iron TIBC Transferrin Ferritin Vitamin B12 Folate RBC Folate Urine Color Urine Appearance Urine pH Ur Specific [place] Urine Protein Urine Glucose (UA) Urine Ketones Urine Blood Urine Nitrite Urine Bilirubin Urine Urobilinogen Ur Leukocyte Esterase Urine WBC (Auto) Urine RBC (Auto) U Hyaline Cast (Auto) U Epithel Cells (Auto) Urine Bacteria (Auto) Influenza Type A (PCR) Influenza Type B (PCR) Blood Type Blood Type Recheck Antibody Screen Antibody Identification Antigen Identification Crossmatch 05/15/18 05/15/18 05/16/18 16:30 20:33 00:14 WBC RBC Hgb Hct MCV MCH MCHC RDW Std Deviation RDW Coeff of Zaria Plt Count MPV Immature Gran % (Auto) Neut % (Auto) Lymph % (Auto) [place] % (Auto) Eos % (Auto) Baso % (Auto) Reticulocyte % (Auto) Immature Gran # (Auto) Neut # (Auto) Lymph # (Auto) [place] # (Auto) Eos # (Auto) Baso # (Auto) Reticulocyte # Absolute Nucleated RBC Nucleated RBC % (auto) Polychromasia Hypochromasia Anisocytosis Rouleaux PT INR Sodium Potassium Chloride Carbon Dioxide Anion Gap BUN Creatinine Est Cr Clr Drug Dosing Est GFR ( Amer) Est GFR (Non-Af Amer) BUN/Creatinine Ratio Glucose POC Glucose 285 H 229 H 69 L* Estimat Average Glucose Hemoglobin A1c Calcium Magnesium Iron TIBC Transferrin Ferritin Vitamin B12 Folate RBC Folate Urine Color Urine Appearance Urine pH Ur Specific [place] Urine Protein Urine Glucose (UA) Urine Ketones Urine Blood Urine Nitrite Urine Bilirubin Urine Urobilinogen Ur Leukocyte Esterase Urine WBC (Auto) Urine RBC (Auto) U Hyaline Cast (Auto) U Epithel Cells (Auto) Urine Bacteria (Auto) Influenza Type A (PCR) Influenza Type B (PCR) Blood Type Blood Type Recheck Antibody Screen Antibody Identification Antigen Identification Crossmatch 05/16/18 05/16/18 05/16/18 00:16 03:09 07:31 WBC RBC Hgb Hct MCV MCH MCHC RDW Std Deviation RDW Coeff of Zaria Plt Count MPV Immature Gran % (Auto) Neut % (Auto) Lymph % (Auto) [place] % (Auto) Eos % (Auto) Baso % (Auto) Reticulocyte % (Auto) Immature Gran # (Auto) Neut # (Auto) Lymph # (Auto) [place] # (Auto) Eos # (Auto) Baso # (Auto) Reticulocyte # Absolute Nucleated RBC Nucleated RBC % (auto) Polychromasia Hypochromasia Anisocytosis Rouleaux PT INR Sodium Potassium Chloride Carbon Dioxide Anion Gap BUN Creatinine Est Cr Clr Drug Dosing Est GFR ( Amer) Est GFR (Non-Af Amer) BUN/Creatinine Ratio Glucose POC Glucose 73 105 H 146 H Estimat Average Glucose Hemoglobin A1c Calcium Magnesium Iron TIBC Transferrin Ferritin Vitamin B12 Folate RBC Folate Urine Color Urine Appearance Urine pH Ur Specific [place] Urine Protein Urine Glucose (UA) Urine Ketones Urine Blood Urine Nitrite Urine Bilirubin Urine Urobilinogen Ur Leukocyte Esterase Urine WBC (Auto) Urine RBC (Auto) U Hyaline Cast (Auto) U Epithel Cells (Auto) Urine Bacteria (Auto) Influenza Type A (PCR) Influenza Type B (PCR) Blood Type Blood Type Recheck Antibody Screen Antibody Identification Antigen Identification Crossmatch 05/16/18 05/16/18 08:43 11:34 WBC RBC Hgb Hct MCV MCH MCHC RDW Std Deviation RDW Coeff of Zaria Plt Count MPV Immature Gran % (Auto) Neut % (Auto) Lymph % (Auto) [place] % (Auto) Eos % (Auto) Baso % (Auto) Reticulocyte % (Auto) Immature Gran # (Auto) Neut # (Auto) Lymph # (Auto) [place] # (Auto) Eos # (Auto) Baso # (Auto) Reticulocyte # Absolute Nucleated RBC Nucleated RBC % (auto) Polychromasia Hypochromasia Anisocytosis Rouleaux PT INR Sodium 136 Potassium 3.9 Chloride 103 Carbon Dioxide 23 Anion Gap 10.0 BUN 49 H D Creatinine 1.86 H D Est Cr Clr Drug Dosing 23.0 Est GFR ( Amer) 29.3 Est GFR (Non-Af Amer) 25.3 BUN/Creatinine Ratio 26.2 H Glucose 132 H POC Glucose 346 H Estimat Average Glucose Hemoglobin A1c Calcium 9.0 Magnesium Iron TIBC Transferrin Ferritin Vitamin B12 Folate RBC Folate Urine Color Urine Appearance Urine pH Ur Specific [place] Urine Protein Urine Glucose (UA) Urine Ketones Urine Blood Urine Nitrite Urine Bilirubin Urine Urobilinogen Ur Leukocyte Esterase Urine WBC (Auto) Urine RBC (Auto) U Hyaline Cast (Auto) U Epithel Cells (Auto) Urine Bacteria (Auto) Influenza Type A (PCR) Influenza Type B (PCR) Blood Type Blood Type Recheck Antibody Screen Antibody Identification Antigen Identification Crossmatch
[2018-05-16] MEDS ORDERED: COUGH DROP (SUGAR FREE) LOZ 24 LOZ/1 BOX BUCCAL ONE (16:49)
--- NOTE | 2018-05-16 20:48 | Hospitalist Progress Note ---
Date of Service May 16, 2018 Assessment & Plan (1) Anemia: Pt is a 77 y/o female currently admitted for asthma exacerbation and new Afib; also found to have iron deficiency anemia during her workup. Hx of GERD, hiatal hernia and hx of esophagitis per her report but no PUD or colorectal ca. She was on low dose Ibuprofen 200mg daily for low back pain but no tobacco or ETOH products. She denies overt s/s of GI bleed, stool was heme negative in ED. Abd exam benign otherwise. Previous EGD and colonoscopies at [facility] per patient -Presented on this admission with Hgb 5.9 and after 3 unit of PRBC on this admission the Hgb has remained stable -Patient has received Venofer 300mg IV for iron deficiency and while there is support for iron deficiency anemia, given the initial low Hgb, have requested that Gastroenterology consider endoscopy and/or colonoscopy -Gastroenterology service has deferred this at this time while preferring for more stability for respiratory perspective and heart rate and rhythm control -It is of the hospitalist opinion that patient is close to the respiratory stability and heart rate is better controlled although patient is still in atrial fibrillation -without Gastroenterology evaluation via endoscopy/colonoscopy, Cardiology service has been able to determine whether patient benefits from anticoagulation in context of stroke risk prevention from the atrial fibrillation -will continue to discuss with gastroenterology service -will give daily ferrous iron for iron deficiency (2) Rapid atrial fibrillation: likely secondary to severe anemia echo noted, (+) diastolic dysfunction was initially on Diltiazem drip and has been transitioned to oral Diltiazem Patient remains in atrial fibrillation. Heart rate is controlled Possible urinary tract infection Urine culture with E.coli, will give ceftriaxone (3) Wheezing: possible Asthma exacerbation from URTI repeat CXR 05/15/18: no overt pulmomary edema Flu negative wheezing has resolved and transitioning from IV solumedrol to oral prednisone will begin de-esclating frequency of nebulizer treatments nebulizer prescription will be needed when outpatient (4) Hypertension: oral diltiazem blood pressure controlled without home GAGE inhibitor (5) Diabetes: Diabetes Mellitus Type II and controlled on roasterman use of insulin hold home metformin Pharmacy glycemic control adjusting insulin (6) Discharge planning issues: will need establishment of outpatient doctors in [facility] (7) DVT prophylaxis: SCDs Subjective Patient remains in atrial fibrillation. Heart rate is controlled. Patient does not have wheezing today. Denies worsening shortness of breath. Denies chest pain or palpitations. Denies lightheadedness. Denies abdominal pain. Denies gross bleeding from orifices Physical Exam 2 Vital Signs (Past 24 Hours): Last Vital Signs Temp 37.2 C 05/16/18 18:52 Pulse 85 05/16/18 19:52 Resp 20 05/16/18 19:52 BP 110/66 05/16/18 18:52 Pulse Ox 93 05/16/18 19:52 Constitutional: WD/WN, vitals as above Eyes: PERRL, conjunctivae normal, anicteric sclerae ENMT: external ear and nose normal, oropharynx normal Neck: trachea midline, no thyromegaly Respiratory: normal respiratory effort, lungs clear to auscultation Cardiovascular: Rate/Rhythm: regular rate (rate controlled, remains in atrial fibrillation) Gastrointestinal (Abdomen): normal bowel sounds, soft, nontender, no hepatosplenomegaly Musculoskeletal: no cyanosis or clubbing, extremities motor strength 5/5 Head/Neck/Chest: normocephalic and head atraumatic Neurologic: PERRL, EOMI, accommodation nl, no face palsy, no dysarthria CN' s II-XI intact bilaterally Psychiatric: A+Ox3, euthymic affect _ (1) Anemia Anemia type: unspecified type Bone marrow failure anemia type: Chronic kidney disease stage: Folate deficiency anemia type: Hemolytic anemia type: Iron deficiency anemia type: Other causes of anemia: Vitamin B12 deficiency anemia type: Qualified Code(s): D64.9 - Anemia, unspecified
[2018-05-16] MEDS: cefTRIAXone SODIUM 1,000 MG in DEXTROSE 5% 50 ML IV SCH (20:50)
--- NOTE | 2018-05-16 22:47 | Pulmonary Consultation ---
Date of Consultation May 16, 2018 Assessment & Plan (1) Rapid atrial fibrillation: Impression: 1. Although the patient presented with rapid A. fib, a significant component of COPD with exacerbation cannot be ignored. Patient is non-smoker lifetime but she has significant secondhand exposure to smoking. 2. The patient has not had pulmonary function test in the past to confirm her diagnosis. 3. History of diabetes. Plan: 1. I will start the patient on IV steroids instead of prednisone. She is symptomatic at the time when I interviewed her. Solu-Medrol 40 mg IV every 6 hours. 2. Continue bronchodilators. 3. Glucose control as the patient is diabetic. 4. Obtain a CAT scan of the chest as part of evaluation of newly diagnosed COPD. 5. The patient will need pulmonary function test. 6. Management of A. fib as you are doing. Thank you, will follow. History of Present Illness Reason for Consultation: COPD exacerbation. Requesting Physician: Dr. Villa Attending Physician: Sammy Jacobsen MD History of Present Illness Dear Dr. Villa: Thank you for your kind referral of Mrs. Buckner to pulmonary service. This is 77-year-old female with a history of COPD, although never smoked cigarettes but she lived with her for 60 years who is from COPD, who was active smoker, presented to the hospital with increasing shortness of breath, the patient was evaluated for A. fib and RVR, the patient also was found to have anemia as well. Patient was admitted to the hospital and treated accordingly. I was asked to evaluate the patient due to increased shortness of breath. The patient has been controlled with diltiazem, and underwent an echocardiogram which revealed normal ejection fraction, no comment on pulmonary artery pressure. The patient denies any nausea or vomiting, no chest pain, she has shortness of breath with ambulation, did not have any abdominal pain, no change in bowel movements or urine habits, she has swelling in her lower extremities. When I interviewed her, she was having shortness of breath using accessory muscles as well and she has been tolerating oxygen well but she has cough without ability to raise her sputum. Past medical history was mentioned for A. fib, history of bronchitis in the past , congestive heart failure, although the echo seems to be acceptable. History of diabetes. Family history does not contribute to her current illness. As mentioned above, the patient is non-smoker lifetime. But she has significant secondhand exposure to smoking via her for 60 years. No industrial exposure. Allergies Allergy/AdvReac Type Severity Reaction Status Date / Time No Known Allergies Allergy Unverified 05/13/18 11:57 Home Medications Home Medications Medication Instructions Recorded Confirmed Type albuterol sulfate [ProAir HFA] 2 puff INHALATION Q6H PRN 05/13/18 05/13/18 History aspirin [Aspirin Low Dose] 81 mg PO DAILY 05/13/18 05/13/18 History fluticasone-salmeterol [Advair 1 inh INHALATION BID 05/13/18 05/13/18 History Diskus] fosinopril 40 mg PO DAILY 05/13/18 05/13/18 History hydroxyzine HCl 25 mg PO QID PRN 05/13/18 05/13/18 History ibuprofen 200 mg PO TID PRN 05/13/18 05/13/18 History insulin glargine [Lantus Solostar 30 units SUBCUT QAM 05/13/18 05/13/18 History U-100 Insulin] metformin 1,000 mg PO BID 05/13/18 05/13/18 History sertraline 25 mg PO DAILY 05/13/18 05/13/18 History tramadol 50 mg PO TID PRN 05/13/18 05/13/18 History Patient History Medical History Pneumonia Bronchitis Hypertension Heart disease Diabetes Social History marital status: / Current Living Situation: Alone Other Information That Helps Us Care for You: No Feels Safe at Home: Yes Safety Concerns: Feels Safe At This Time Smoking Status: Never smoker Do You Dip or Chew Tobacco: No Second Hand Exposure: No Tobacco Cessation Education Requested by Patient: No Hx Alcohol Use: Yes Alcohol Intake Frequency: holidays/special occasions only Hx Substance Use: No Beliefs That Will Affect Care: None Communication Ability: Effective Review of Systems Review of systems including 14 systems as mentioned above. Physical Exam 2 Vital Signs (Past 24 Hours): Last Vital Signs Temp 37.2 C 05/16/18 18:52 Pulse 85 05/16/18 19:52 Resp 20 05/16/18 19:52 BP 110/66 05/16/18 18:52 Pulse Ox 93 05/16/18 19:52 Physical Exam: Vital signs are stable, O2 saturation 93% on 3 L, S1-S2 regular rate and rhythm, bilateral diffuse wheezing, abdomen is benign, trace edema in the periphery. Neurologically she is intact. Results & Data Laboratory Results Labs were noted for CO2 of 23 and BUN/creatinine 49 and 1.8. Anemia is corrected, her WBC 13. Diagnostic Findings Chest x-ray consistent with cardiomegaly, difficult to assess the lung parenchyma due to small lung volume.
[2018-05-17] MEDS: INSULIN ASPART 100 UNITS/ML 3 ML PEN SC SCH ×6 (00:19→20:27)
[2018-05-17] MEDS: methylPREDNISolone 40 MG in SYRINGE 0 ML IV SCH ×2 (05:24→12:06)
[2018-05-17 06:47] LABS: Basophils # (auto) 0.01 K/uL (0-0.2); Hematocrit (blood only) 32.9 % (37-47); Hemoglobin 9.9 g/dL (12.0-16.0); Immature Granulocytes # (auto) 0.19 K/uL (0.00-0.02); Immature Granulocytes % (auto) 0.9 %; Lymphocytes # (auto) 0.73 K/uL (1.2-3.4); Lymphocytes % (auto) 3.4 %; Mean Corpuscular Hgb Conc 30.1 g/dL (32-36); Mean Corpuscular Volume 72.1 fL (80-100); Mean Platelet Volume 9.8 fL (7.4-10.4); Monocytes # (auto) 0.62 K/uL (0.11-0.59); Monocytes % (auto) 2.9 %; Neutrophils # (auto) 19.91 K/uL (1.4-6.5); Neutrophils % (auto) 92.8 %; Nucleated RBC # (auto) 0.04 K/uL (0-0); Nucleated RBC % (auto) 0.2 %; Platelet Count 412 K/uL (130-400); RDW Coefficient of Variation 24.8 % (11.5-14.5); RDW Standard Deviation 60.9 fL (36.4-46.3); Red Blood Count 4.56 M/uL (4.2-5.4); White Blood Count 21.46 K/uL (4.8-10.8)
[2018-05-17] MEDS: LEVALBUTEROL HCL 0.63 MG/3 ML NEB NEB SCH ×3 (07:12→23:38)
[2018-05-17] MEDS: IPRATROPIUM BROMIDE NEB SOLN 0.02% 2.5 ML VIAL INH SCH ×3 (07:12→23:38)
[2018-05-17 07:21] LABS: Anisocytosis Present; Hypochromasia Present; Microcytosis Present; Target Cells 1+
[2018-05-17 07:26] LABS: BUN Creatinine Ratio 36.9 (10-20); Calcium 8.9 mg/dl (8.5-10.1); Creatinine Clr Calc Pharmacy 28.2 ml/min; Est GFR (African American) 37.4; Est GFR (Non-African American) 32.3; Magnesium 2.7 mg/dl (1.8-2.4); Potassium 4.1 mmol/L (3.5-5.1)
--- NOTE | 2018-05-17 08:28 | Cardiology Progress Note ---
Date of Service May 17, 2018 Assessment & Plan (1) Rapid atrial fibrillation: I would continue the oral diltiazem. Her heart rates on telemetry are between 90 and low 100s. I would not recommend anticoagulation until the GI service has seen her. (2) Anemia: Blood counts have improved. (3) Hypertension: Home antihypertensives. (4) Diabetes: Lantus, sliding scale, carb consistent diet Per internal medicine (5) Asthma attacks lasting more than 24 hours: Pulmonary consult appreciated. Subjective Patient is feeling improvement. Heart rates are controlled with diltiazem. Pulmonary consult is appreciated. GI consult is also appreciated. Physical Exam 2 Vital Signs (Past 24 Hours): Last Vital Signs Temp 36.9 C 05/17/18 07:00 Pulse 82 05/17/18 07:09 Resp 20 05/17/18 07:09 BP 106/66 05/17/18 07:00 Pulse Ox 98 05/17/18 07:09 Physical Exam: General: no acute distress and stated age Head: normocephalic, no masses, lesions, tenderness or abnormalities Eyes: conjunctiva are pink and non-injected, sclera clear Neck: supple, no adenopathy, no bruits, normal jugular venous pulse, no hepatojugular reflux Chest: normal shape and normal respiratory effort Lungs: clear to auscultation and percussion Cardiac Exam: - irregular rate & rhythm, no murmurs gallops or rubs - normal S1 , normal S2 Pulses: 2(+) throughout Abdomen: abdomen soft, non-tender, no abnormal masses and no hepatosplenomegaly Musculoskeletal: no gait disturbance, no joint inflammation, no deforming arthritis Extremities: no edema and no cyanosis Neuro: grossly normal exam Results & Data Laboratory Results Laboratory Results - last 24 hr 05/13/18 05/16/18 05/16/18 12:58 08:43 11:34 WBC RBC Hgb Hct MCV MCH MCHC RDW Std Deviation RDW Coeff of Zaria Plt Count MPV Immature Gran % (Auto) Neut % (Auto) Lymph % (Auto) [place] % (Auto) Eos % (Auto) Baso % (Auto) Immature Gran # (Auto) Neut # (Auto) Lymph # (Auto) [place] # (Auto) Eos # (Auto) Baso # (Auto) Absolute Nucleated RBC Nucleated RBC % (auto) Hypochromasia Anisocytosis Microcytosis Target Cells Sodium 136 Potassium 3.9 Chloride 103 Carbon Dioxide 23 Anion Gap 10.0 BUN 49 H D Creatinine 1.86 H D Est Cr Clr Drug Dosing 23.0 Est GFR ( Amer) 29.3 Est GFR (Non-Af Amer) 25.3 BUN/Creatinine Ratio 26.2 H Glucose 132 H POC Glucose 346 H Calcium 9.0 Magnesium Crossmatch See Detail 05/16/18 05/16/18 05/16/18 16:23 20:12 23:38 WBC RBC Hgb Hct MCV MCH MCHC RDW Std Deviation RDW Coeff of Zaria Plt Count MPV Immature Gran % (Auto) Neut % (Auto) Lymph % (Auto) [place] % (Auto) Eos % (Auto) Baso % (Auto) Immature Gran # (Auto) Neut # (Auto) Lymph # (Auto) [place] # (Auto) Eos # (Auto) Baso # (Auto) Absolute Nucleated RBC Nucleated RBC % (auto) Hypochromasia Anisocytosis Microcytosis Target Cells Sodium Potassium Chloride Carbon Dioxide Anion Gap BUN Creatinine Est Cr Clr Drug Dosing Est GFR ( Amer) Est GFR (Non-Af Amer) BUN/Creatinine Ratio Glucose POC Glucose 180 H 139 H 99 Calcium Magnesium Crossmatch 05/17/18 05/17/18 05/17/18 03:48 06:07 06:07 WBC 21.46 H RBC 4.56 Hgb 9.9 L Hct 32.9 L MCV 72.1 L MCH 21.7 L MCHC 30.1 L RDW Std Deviation 60.9 H RDW Coeff of Zaria 24.8 H Plt Count 412 H MPV 9.8 Immature Gran % (Auto) 0.9 Neut % (Auto) 92.8 Lymph % (Auto) 3.4 [place] % (Auto) 2.9 Eos % (Auto) 0.0 Baso % (Auto) 0.0 Immature Gran # (Auto) 0.19 H Neut # (Auto) 19.91 H Lymph # (Auto) 0.73 L [place] # (Auto) 0.62 H Eos # (Auto) 0.00 Baso # (Auto) 0.01 Absolute Nucleated RBC 0.04 H Nucleated RBC % (auto) 0.2 Hypochromasia Present Anisocytosis Present Microcytosis Present Target Cells 1+ Sodium 137 Potassium 4.1 Chloride 105 Carbon Dioxide 26 Anion Gap 6.0 BUN 56 H Creatinine 1.52 H D Est Cr Clr Drug Dosing 28.2 Est GFR ( Amer) 37.4 Est GFR (Non-Af Amer) 32.3 BUN/Creatinine Ratio 36.9 H Glucose 144 H POC Glucose 119 H Calcium 8.9 Magnesium 2.7 H Crossmatch 05/17/18 07:25 WBC RBC Hgb Hct MCV MCH MCHC RDW Std Deviation RDW Coeff of Zaria Plt Count MPV Immature Gran % (Auto) Neut % (Auto) Lymph % (Auto) [place] % (Auto) Eos % (Auto) Baso % (Auto) Immature Gran # (Auto) Neut # (Auto) Lymph # (Auto) [place] # (Auto) Eos # (Auto) Baso # (Auto) Absolute Nucleated RBC Nucleated RBC % (auto) Hypochromasia Anisocytosis Microcytosis Target Cells Sodium Potassium Chloride Carbon Dioxide Anion Gap BUN Creatinine Est Cr Clr Drug Dosing Est GFR ( Amer) Est GFR (Non-Af Amer) BUN/Creatinine Ratio Glucose POC Glucose 186 H Calcium Magnesium Crossmatch Medications Administered Current Inpatient Medications Acetaminophen (Tylenol) 650 mg PO Q4H PRN PRN Reason: Pain or Fever Stop: 06/12/18 15:04 Albuterol (Duoneb) 3 ml NEB Q4H PRN PRN Reason: Dyspnea Stop: 06/12/18 15:04 Last Admin: 05/14/18 12:30 Dose: 3 ml Aspirin (Ecotrin Ectab) 81 mg PO DAILY MAGGIE Stop: 06/13/18 08:59 Last Admin: 05/14/18 07:59 Dose: 81 mg Dextrose (Dextrose 50%) 25 - 50 ml IV UD PRN; Protocol PRN Reason: Hypoglycemia Protocol Stop: 06/12/18 15:04 Diltiazem HCl (Cardizem) 60 mg PO TID MAGGIE Stop: 06/14/18 13:59 Last Admin: 05/16/18 20:11 Dose: 60 mg Ferrous Sulfate (Feosol) 325 mg PO QAM MAGGIE Stop: 06/16/18 08:59 Glucagon (Glucagen) 1 mg SQ UD PRN; Protocol PRN Reason: Hypoglycemia Protocol Stop: 06/12/18 15:04 Glucose (Glucose 40%) 15 - 30 gm PO UD PRN; Protocol PRN Reason: Hypoglycemia Protocol Stop: 06/12/18 15:04 Glucose (Dex4 Glucose) 4 - 8 tabs PO UD PRN; Protocol PRN Reason: Hypoglycemia Protocol Stop: 06/12/18 15:04 Hydroxyzine HCl (Vistaril) 25 mg PO QID PRN PRN Reason: Itching Stop: 06/12/18 15:04 Last Admin: 05/15/18 07:44 Dose: 25 mg Pantoprazole Sodium 40 mg/ (Syringe) 10 mls @ 5 mls/min IV BID [facility] Stop: 06/13/18 11:29 Last Admin: 05/16/18 20:08 Dose: 5 mls/min Ceftriaxone Sodium 1,000 mg/ (Dextrose) 50 mls @ 100 mls/hr IV Q24H MAGGIE; Protocol Stop: 05/21/18 20:59 Last Infusion: 05/16/18 21:26 Dose: Infused Methylprednisolone 40 mg/ (Syringe) 0.64 mls @ 1.5 mls/min IV Q6H [facility] Stop: 06/15/18 22:59 Last Admin: 05/17/18 05:24 Dose: 1.5 mls/min Insulin Aspart (Novolog Flexpen) 0 units SC ACHS [facility]; Protocol Stop: 06/12/18 17:29 Last Admin: 05/16/18 20:17 Dose: 3 units Insulin Glargine (Lantus Solostar Pen) 30 units SQ QAM MAGGIE; Protocol Stop: 06/16/18 08:59 Ipratropium [place] (Atrovent 0.02% 0.5mg/2.5ml) 0.5 mg INH Q4H PRN PRN Reason: SOB/WHEEZING Stop: 06/14/18 08:59 Ipratropium [place] (Atrovent 0.02% 0.5mg/2.5ml) 0.5 mg INH Q8R MAGGIE Stop: 06/15/18 15:59 Last Admin: 05/17/18 07:12 Dose: 0.5 mg Levalbuterol HCl (Xopenex 1.25mg/0.5ml Neb) 1.25 mg INH Q2H PRN PRN Reason: SOB/WHEEZING Stop: 06/14/18 08:59 Last Admin: 05/16/18 19:51 Dose: 1.25 mg Levalbuterol HCl (Xopenex 0.63 Mg/3 Ml Neb) 0.63 mg NEB Q8R [facility] Stop: 06/15/18 15:59 Last Admin: 05/17/18 07:12 Dose: 0.63 mg Magnesium Oxide (Mag-Ox) 400 mg PO BID [facility] Stop: 06/12/18 20:59 Last Admin: 05/16/18 20:11 Dose: 400 mg Miconazole Nitrate (Desenex) 1 appln EXT PRN PRN PRN Reason: prn Stop: 06/14/18 16:19 Miscellaneous (Carbohydrates For Hypoglycemia) 15 - 30 gm PO UD PRN PRN Reason: Hypoglycemia Treatment Stop: 06/12/18 15:04 Miscellaneous Information (Consult Glycemic Management Pharmacy) 1 ea N/A UD PRN; Protocol PRN Reason: Consult Stop: 06/12/18 15:25 Ondansetron HCl (Zofran) 4 mg IV Q6H PRN PRN Reason: Nausea Stop: 06/12/18 15:04 Fluticasone/Salmeterol (Advair Diskus 250/50) 1 puffs INH BID [facility] Stop: 06/12/18 20:59 Last Admin: 05/16/18 20:11 Dose: 1 puffs Sertraline HCl (Zoloft) 25 mg PO DAILY [facility] Stop: 06/13/18 08:59 Last Admin: 05/16/18 08:45 Dose: 25 mg Tramadol HCl (Ultram) 50 mg PO TID PRN PRN Reason: Pain Stop: 06/12/18 15:04 _ (1) Anemia Anemia type: unspecified type Bone marrow failure anemia type: Chronic kidney disease stage: Folate deficiency anemia type: Hemolytic anemia type: Iron deficiency anemia type: Other causes of anemia: Vitamin B12 deficiency anemia type: Qualified Code(s): D64.9 - Anemia, unspecified
[2018-05-17] MEDS: PANTOprazole 40 MG in SYRINGE 0 ML IV SCH ×2 (08:45→20:13)
[2018-05-17] MEDS: SERTRALINE HCL 50 MG TABLET PO SCH (08:46)
[2018-05-17] MEDS: FERROUS SULFATE 325 MG TAB PO SCH (08:46)
[2018-05-17] MEDS: MAGNESIUM OXIDE 400 MG TAB PO SCH ×2 (08:46→20:14)
[2018-05-17] MEDS: dilTIAZem HCl 60 MG TAB PO SCH ×3 (08:46→20:14)
[2018-05-17] MEDS: FLUTICASONE/SALMETEROL 250/50 (ADVAIR) 14 PUFF/1 INHALER INH SCH ×2 (08:46→20:14)
[2018-05-17] MEDS: INSULIN GLARGINE SOLOSTAR 100 UNITS/ML 3 ML PEN SQ SCH (08:47)
[2018-05-17] MEDS ORDERED: predniSONE 20 MG TAB PO SCH (09:00)
--- NOTE | 2018-05-17 12:12 | Pharmacy Report ---
Pharmacy Glycemic Short Note 2 - Date of Service May 17, 2018 - Glycemic Short BSG Results (Last 24 hours): 05/16/18 05/16/18 05/16/18 16:23 20:12 23:38 Glucose POC Glucose 180 H 139 H 99 05/17/18 05/17/18 05/17/18 03:48 06:07 07:25 Glucose 144 H POC Glucose 119 H 186 H 05/17/18 05/17/18 11:35 11:35 Glucose POC Glucose 352 H* 329 H OUTPATIENT ANTIDIABETIC REGIMEN: * Lantus 30 units SQ Q AM * Metformin 1gm PO BID * A1c = 7.6% 05/14/18 ASSESSMENT: 05/17/18 * IV solu-medrol restarted last night at 40mg IV Q6H for COPD exacerbation * Blood sugars high from steroid induced hyerglycemia, will tighten CR and CF * Blood sugars consistently rising from breakfast to lunch, otherwise close to goal * Basal at home dose, will continue at this time PLAN FOR INPATIENT GLYCEMIC CONTROL: * Hold outpatient oral diabetes medications * Basal insulin * Lantus 30 units SQ Q AM (home dose) * Bolus insulin * NovoLog per scale ACHS or Q6hrs while NPO; also check at 0000 + 0400 to ATC steroids * Goal Range: Low 110mg/dL - High 140 mg/dL * TIGHTEN: Correction Factor: 15 mg/dL/unit * TIGHTEN: Nutritional / Prandial insulin per carb ratio of 1 unit per 3 grams CHO consumed Discharge recommendations: * May resume home medication regimen, A1c 7.6 near goal for age / comorbidities
--- NOTE | 2018-05-17 16:43 | Hospitalist Progress Note ---
Date of Service May 17, 2018 Assessment & Plan (1) Anemia: Pt is a 77 y/o female currently admitted for asthma exacerbation and new Afib; also found to have iron deficiency anemia during her workup. Hx of GERD, hiatal hernia and hx of esophagitis per her report but no PUD or colorectal ca. She was on low dose Ibuprofen 200mg daily for low back pain but no tobacco or ETOH products. She denies overt s/s of GI bleed, stool was heme negative in ED. Abd exam benign otherwise. Previous EGD and colonoscopies at [facility] per patient -Presented on this admission with Hgb 5.9 and after 3 unit of PRBC on this admission the Hgb has remained stable -Patient has received Venofer 300mg IV for iron deficiency and while there is support for iron deficiency anemia, given the initial low Hgb, have requested that Gastroenterology consider endoscopy and/or colonoscopy -Gastroenterology service has deferred this at this time while preferring for more stability for respiratory perspective and heart rate and rhythm control; Have discussed with gastroenterology service and was informed to revisit this question once patient is a respiratory baseline -without Gastroenterology evaluation via endoscopy/colonoscopy, Cardiology service has been unable to determine whether patient benefits from anticoagulation in context of stroke risk prevention from the atrial fibrillation -give daily ferrous iron for iron deficiency (2) Rapid atrial fibrillation: likely secondary to severe anemia echo noted, (+) diastolic dysfunction was initially on Diltiazem drip and has been transitioned to oral Diltiazem, continue oral Diltiazem Patient remains in atrial fibrillation. Heart rate is controlled Possible urinary tract infection admission Urine culture with E.coli, started ceftriaxone daily since 05/16/18 and to continue (3) Wheezing: Asthma exacerbation repeat CXR 05/15/18: no overt pulmomary edema Flu negative patient was resumed on IV solumedrol by pulmonary service on 05/16/18 and again will switch to oral prednisone after re-examining patient and re-discussing with pulmonary service on 05/17/18 the steroids are inducing leukocytosis continue nebulizer treatments as prn will attempt to wean off oxygen will request 2 step test to assess any need for oxygen with exertion (4) Hypertension: oral diltiazem blood pressure controlled without home GAGE inhibitor (5) Diabetes: Diabetes Mellitus Type II and controlled on halfway use of insulin hold home metformin Pharmacy glycemic control adjusting insulin (6) Discharge planning issues: will need establishment of outpatient doctors in [facility] (7) DVT prophylaxis: SCDs Subjective Patient remains in atrial fibrillation. Heart rate is controlled. Patient does not have wheezing today. Denies worsening shortness of breath. However remains on nasal cannula oxygen Denies chest pain or palpitations. Denies lightheadedness. Denies abdominal pain. Denies gross bleeding from orifices Physical Exam 2 Vital Signs (Past 24 Hours): Last Vital Signs Temp 36.6 C 05/17/18 15:41 Pulse 101 H 05/17/18 15:41 Resp 20 05/17/18 15:41 BP 116/59 L 05/17/18 15:41 Pulse Ox 99 05/17/18 15:41 Constitutional: WD/WN, vitals as above Eyes: PERRL, conjunctivae normal, anicteric sclerae ENMT: external ear and nose normal, oropharynx normal Neck: trachea midline, no thyromegaly Respiratory: normal respiratory effort, lungs clear to auscultation Cardiovascular: Rate/Rhythm: regular rate (rate controlled, remains in atrial fibrillation) Gastrointestinal (Abdomen): normal bowel sounds, soft, nontender, no hepatosplenomegaly Musculoskeletal: no cyanosis or clubbing, extremities motor strength 5/5 Head/Neck/Chest: normocephalic and head atraumatic Neurologic: PERRL, EOMI, accommodation nl, no face palsy, no dysarthria CN' s II-XI intact bilaterally Psychiatric: A+Ox3, euthymic affect _ (1) Anemia Anemia type: unspecified type Bone marrow failure anemia type: Chronic kidney disease stage: Folate deficiency anemia type: Hemolytic anemia type: Iron deficiency anemia type: Other causes of anemia: Vitamin B12 deficiency anemia type: Qualified Code(s): D64.9 - Anemia, unspecified
--- NOTE | 2018-05-17 17:47 | Pulmonology Progress Note ---
Date of Service May 17, 2018 Assessment & Plan (1) Rapid atrial fibrillation: Impression: 1. Although the patient presented with rapid A. fib, a significant component of COPD with exacerbation cannot be ignored. Patient is non-smoker lifetime but she has significant secondhand exposure to smoking. 2. The patient has not had pulmonary function test in the past to confirm her diagnosis. 3. History of diabetes. Plan: 1. Given the improvement, agree with changing the steroids back again to prednisone p.o. 2. Continue bronchodilators. 3. Glucose control as the patient is diabetic. 4. Obtain a CAT scan of the chest as part of evaluation of newly diagnosed COPD. 5. The patient will need pulmonary function test. 6. Management of A. fib as you are doing. 7. Disposition plan per Dr. Jacobsen. Thank you, will follow as needed. Subjective The patient is feeling better, denies any increased shortness of breath, appears somewhat anxious, but her respiratory status improved she is sitting in the chair eating her lunch when I interviewed her. Physical Exam 2 Vital Signs (Past 24 Hours): Last Vital Signs Temp 36.6 C 05/17/18 15:41 Pulse 101 H 05/17/18 15:41 Resp 20 05/17/18 15:41 BP 116/59 L 05/17/18 15:41 Pulse Ox 99 05/17/18 15:41 Physical Exam: No fever, vital signs are stable, O2 saturation is 99% on 2 L. S1-S2 regular rate and rhythm, rhonchi bilaterally, abdomen is benign, trace edema in the periphery. Results & Data Laboratory Results Labs showed elevated white count due to steroids, BUN/creatinine has been stable. Diagnostic Findings No new imaging.
[2018-05-17] MEDS: predniSONE 20 MG TAB PO SCH (17:57)
[2018-05-17] MEDS: cefTRIAXone SODIUM 1,000 MG in DEXTROSE 5% 50 ML IV SCH (20:13)
[2018-05-18 06:15] LABS: Basophils # (auto) 0.01 K/uL (0-0.2); Basophils % (auto) 0.1 %; Hematocrit (blood only) 35.8 % (37-47); Hemoglobin 10.9 g/dL (12.0-16.0); Immature Granulocytes # (auto) 0.11 K/uL (0.00-0.02); Immature Granulocytes % (auto) 0.6 %; Lymphocytes # (auto) 0.97 K/uL (1.2-3.4); Lymphocytes % (auto) 5.2 %; Mean Corpuscular Hgb Conc 30.4 g/dL (32-36); Mean Corpuscular Volume 72.5 fL (80-100); Mean Platelet Volume 9.4 fL (7.4-10.4); Monocytes % (auto) 2.1 %; Neutrophils # (auto) 17.14 K/uL (1.4-6.5); Platelet Count 427 K/uL (130-400); RDW Coefficient of Variation 25.5 % (11.5-14.5); Red Blood Count 4.94 M/uL (4.2-5.4); White Blood Count 18.63 K/uL (4.8-10.8)
[2018-05-18 06:43] LABS: Anisocytosis Present; Hypochromasia Present; Poikilocytosis Present; Polychromasia 1+
[2018-05-18 06:47] LABS: BUN Creatinine Ratio 41.8 (10-20); Calcium 9.2 mg/dl (8.5-10.1); Creatinine Clr Calc Pharmacy 34.2 ml/min; Est GFR (African American) 47.4; Est GFR (Non-African American) 40.9; Potassium 3.9 mmol/L (3.5-5.1)
[2018-05-18] MEDS: LEVALBUTEROL HCL 0.63 MG/3 ML NEB NEB SCH (07:42)
[2018-05-18] MEDS: IPRATROPIUM BROMIDE NEB SOLN 0.02% 2.5 ML VIAL INH SCH (07:43)
[2018-05-18] MEDS: dilTIAZem HCl 60 MG TAB PO SCH ×3 (07:58→21:25)
[2018-05-18] MEDS: PANTOprazole 40 MG in SYRINGE 0 ML IV SCH ×2 (07:58→21:28)
[2018-05-18] MEDS: MAGNESIUM OXIDE 400 MG TAB PO SCH ×2 (07:59→21:26)
[2018-05-18] MEDS: SERTRALINE HCL 50 MG TABLET PO SCH (07:59)
[2018-05-18] MEDS: predniSONE 20 MG TAB PO SCH (08:00)
[2018-05-18] MEDS: INSULIN GLARGINE SOLOSTAR 100 UNITS/ML 3 ML PEN SQ SCH (08:00)
[2018-05-18] MEDS: FERROUS SULFATE 325 MG TAB PO SCH (08:01)
[2018-05-18] MEDS: INSULIN ASPART 100 UNITS/ML 3 ML PEN SC SCH ×5 (08:02→21:35)
[2018-05-18] MEDS: FLUTICASONE/SALMETEROL 250/50 (ADVAIR) 14 PUFF/1 INHALER INH SCH ×2 (08:04→21:24)
[2018-05-18] MEDS ORDERED: predniSONE 20 MG TAB PO SCH (09:00)
--- NOTE | 2018-05-18 09:25 | Cardiology Progress Note ---
Date of Service May 18, 2018 Assessment & Plan (1) Rapid atrial fibrillation: I would continue the oral diltiazem. Her heart rates on telemetry are between 90 and low 100s. I would not recommend anticoagulation until the GI service has seen her. (2) Anemia: Blood counts have improved. (3) Hypertension: Home antihypertensives. (4) Diabetes: Lantus, sliding scale, carb consistent diet Per internal medicine (5) Asthma attacks lasting more than 24 hours: Pulmonary consult appreciated. Subjective Patient is feeling improvement. Heart rates are controlled with diltiazem. Pulmonary consult is appreciated. GI consult is also appreciated. Physical Exam 2 Vital Signs (Past 24 Hours): Last Vital Signs Temp 36.4 C L 05/18/18 07:02 Pulse 113 H 05/18/18 07:02 Resp 16 05/18/18 07:02 BP 103/81 05/18/18 07:02 Pulse Ox 95 05/18/18 07:02 Physical Exam: General: no acute distress and stated age Head: normocephalic, no masses, lesions, tenderness or abnormalities Eyes: conjunctiva are pink and non-injected, sclera clear Neck: supple, no adenopathy, no bruits, normal jugular venous pulse, no hepatojugular reflux Chest: normal shape and normal respiratory effort Lungs: clear to auscultation and percussion Cardiac Exam: - irregular rate & rhythm, no murmurs gallops or rubs - normal S1 , normal S2 Pulses: 2(+) throughout Abdomen: abdomen soft, non-tender, no abnormal masses and no hepatosplenomegaly Musculoskeletal: no gait disturbance, no joint inflammation, no deforming arthritis Extremities: no edema and no cyanosis Neuro: grossly normal exam Results & Data Laboratory Results Laboratory Results - last 24 hr 05/17/18 05/17/18 05/17/18 11:35 11:35 16:35 WBC RBC Hgb Hct MCV MCH MCHC RDW Std Deviation RDW Coeff of Zaria Plt Count MPV Immature Gran % (Auto) Neut % (Auto) Lymph % (Auto) [place] % (Auto) Eos % (Auto) Baso % (Auto) Immature Gran # (Auto) Neut # (Auto) Lymph # (Auto) [place] # (Auto) Eos # (Auto) Baso # (Auto) Polychromasia Hypochromasia Poikilocytosis Anisocytosis Sodium Potassium Chloride Carbon Dioxide Anion Gap BUN Creatinine Est Cr Clr Drug Dosing Est GFR ( Amer) Est GFR (Non-Af Amer) BUN/Creatinine Ratio Glucose POC Glucose 352 H* 329 H 220 H Calcium 05/17/18 05/18/18 05/18/18 20:24 05:40 05:40 WBC 18.63 H RBC 4.94 Hgb 10.9 L Hct 35.8 L MCV 72.5 L MCH 22.1 L MCHC 30.4 L RDW Std Deviation 63.0 H RDW Coeff of Zaria 25.5 H Plt Count 427 H MPV 9.4 Immature Gran % (Auto) 0.6 Neut % (Auto) 92.0 Lymph % (Auto) 5.2 [place] % (Auto) 2.1 Eos % (Auto) 0.0 Baso % (Auto) 0.1 Immature Gran # (Auto) 0.11 H Neut # (Auto) 17.14 H Lymph # (Auto) 0.97 L [place] # (Auto) 0.40 Eos # (Auto) 0.00 Baso # (Auto) 0.01 Polychromasia 1+ Hypochromasia Present Poikilocytosis Present Anisocytosis Present Sodium 137 Potassium 3.9 Chloride 107 Carbon Dioxide 25 Anion Gap 5.0 BUN 52 H Creatinine 1.25 H Est Cr Clr Drug Dosing 34.2 Est GFR ( Amer) 47.4 Est GFR (Non-Af Amer) 40.9 BUN/Creatinine Ratio 41.8 H Glucose 73 POC Glucose 112 H Calcium 9.2 05/18/18 07:52 WBC RBC Hgb Hct MCV MCH MCHC RDW Std Deviation RDW Coeff of Zaria Plt Count MPV Immature Gran % (Auto) Neut % (Auto) Lymph % (Auto) [place] % (Auto) Eos % (Auto) Baso % (Auto) Immature Gran # (Auto) Neut # (Auto) Lymph # (Auto) [place] # (Auto) Eos # (Auto) Baso # (Auto) Polychromasia Hypochromasia Poikilocytosis Anisocytosis Sodium Potassium Chloride Carbon Dioxide Anion Gap BUN Creatinine Est Cr Clr Drug Dosing Est GFR ( Amer) Est GFR (Non-Af Amer) BUN/Creatinine Ratio Glucose POC Glucose 91 Calcium Medications Administered Current Inpatient Medications Acetaminophen (Tylenol) 650 mg PO Q4H PRN PRN Reason: Pain or Fever Stop: 06/12/18 15:04 Albuterol (Duoneb) 3 ml NEB Q4H PRN PRN Reason: Dyspnea Stop: 06/12/18 15:04 Last Admin: 05/14/18 12:30 Dose: 3 ml Aspirin (Ecotrin Ectab) 81 mg PO DAILY [facility] Stop: 06/13/18 08:59 Last Admin: 05/14/18 07:59 Dose: 81 mg Dextrose (Dextrose 50%) 25 - 50 ml IV UD PRN; Protocol PRN Reason: Hypoglycemia Protocol Stop: 06/12/18 15:04 Diltiazem HCl (Cardizem) 60 mg PO TID [facility] Stop: 06/14/18 13:59 Last Admin: 05/18/18 07:58 Dose: 60 mg Ferrous Sulfate (Feosol) 325 mg PO QAM [facility] Stop: 06/16/18 08:59 Last Admin: 05/18/18 08:01 Dose: 325 mg Glucagon (Glucagen) 1 mg SQ UD PRN; Protocol PRN Reason: Hypoglycemia Protocol Stop: 06/12/18 15:04 Glucose (Glucose 40%) 15 - 30 gm PO UD PRN; Protocol PRN Reason: Hypoglycemia Protocol Stop: 06/12/18 15:04 Glucose (Dex4 Glucose) 4 - 8 tabs PO UD PRN; Protocol PRN Reason: Hypoglycemia Protocol Stop: 06/12/18 15:04 Hydroxyzine HCl (Vistaril) 25 mg PO QID PRN PRN Reason: Itching Stop: 06/12/18 15:04 Last Admin: 05/15/18 07:44 Dose: 25 mg Pantoprazole Sodium 40 mg/ (Syringe) 10 mls @ 5 mls/min IV BID [facility] Stop: 06/13/18 11:29 Last Admin: 05/18/18 07:58 Dose: 5 mls/min Ceftriaxone Sodium 1,000 mg/ (Dextrose) 50 mls @ 100 mls/hr IV Q24H [facility]; Protocol Stop: 05/21/18 20:59 Last Infusion: 05/17/18 21:02 Dose: Infused Insulin Aspart (Novolog Flexpen) 0 units SC ACHS [facility]; Protocol Stop: 06/12/18 17:29 Last Admin: 05/18/18 08:02 Dose: 13 units Insulin Glargine (Lantus Solostar Pen) 30 units SQ QAM [facility]; Protocol Stop: 06/16/18 08:59 Last Admin: 05/18/18 08:00 Dose: 30 units Ipratropium [place] (Atrovent 0.02% 0.5mg/2.5ml) 0.5 mg INH Q4H PRN PRN Reason: SOB/WHEEZING Stop: 06/14/18 08:59 Ipratropium [place] (Atrovent 0.02% 0.5mg/2.5ml) 0.5 mg INH Q8R [facility] Stop: 06/15/18 15:59 Last Admin: 05/18/18 07:43 Dose: 0.5 mg Levalbuterol HCl (Xopenex 1.25mg/0.5ml Neb) 1.25 mg INH Q2H PRN PRN Reason: SOB/WHEEZING Stop: 06/14/18 08:59 Last Admin: 05/16/18 19:51 Dose: 1.25 mg Levalbuterol HCl (Xopenex 0.63 Mg/3 Ml Neb) 0.63 mg NEB Q8R [facility] Stop: 06/15/18 15:59 Last Admin: 05/18/18 07:42 Dose: 0.63 mg Magnesium Oxide (Mag-Ox) 400 mg PO BID [facility] Stop: 06/12/18 20:59 Last Admin: 05/18/18 07:59 Dose: 400 mg Miconazole Nitrate (Desenex) 1 appln EXT PRN PRN PRN Reason: prn Stop: 06/14/18 16:19 Miscellaneous (Carbohydrates For Hypoglycemia) 15 - 30 gm PO UD PRN PRN Reason: Hypoglycemia Treatment Stop: 06/12/18 15:04 Miscellaneous Information (Consult Glycemic Management Pharmacy) 1 ea N/A UD PRN; Protocol PRN Reason: Consult Stop: 06/12/18 15:25 Ondansetron HCl (Zofran) 4 mg IV Q6H PRN PRN Reason: Nausea Stop: 06/12/18 15:04 Prednisone (Prednisone) 40 mg PO DAILY [facility] Stop: 06/16/18 17:29 Last Admin: 05/18/18 08:00 Dose: 40 mg Fluticasone/Salmeterol (Advair Diskus 250/50) 1 puffs INH BID [facility] Stop: 06/12/18 20:59 Last Admin: 05/18/18 08:04 Dose: 1 puffs Sertraline HCl (Zoloft) 25 mg PO DAILY [facility] Stop: 06/13/18 08:59 Last Admin: 05/18/18 07:59 Dose: 25 mg Tramadol HCl (Ultram) 50 mg PO TID PRN PRN Reason: Pain Stop: 06/12/18 15:04 _ (1) Anemia Anemia type: unspecified type Bone marrow failure anemia type: Chronic kidney disease stage: Folate deficiency anemia type: Hemolytic anemia type: Iron deficiency anemia type: Other causes of anemia: Vitamin B12 deficiency anemia type: Qualified Code(s): D64.9 - Anemia, unspecified
--- NOTE | 2018-05-18 11:06 | Gastroenterology Progress Note ---
Date of Service May 18, 2018 Assessment & Plan (1) Rapid atrial fibrillation: (2) Iron deficiency anemia: Pt is a 77 y/o female currently admitted for asthma/COPD exacerbation and new Afib; also found to have iron deficiency anemia during her workup. Hx of GERD, hiatal hernia and hx of esophagitis per her report but no PUD or colorectal ca. She was on low dose Ibuprofen 200mg daily for low back pain but no tobacco or ETOH products. She denies overt s/s of GI bleed, stool was heme negative in ED. Abd exam benign otherwise. Celiac panel pending. Cardiac and pulmonary status are better now. Will plan for EGD/Colonoscopy evaluation on Sunday 05/[address] Smith. Bowel prep ordered to start Monday. Pls keep her on CL diet on Monday, NPO after midnight for endoscopic procedures on Monday. Supervising Physician Co-Signing Physician Notes I have seen and evaluated the patient. She is a poor candidate for outpatient endoscopy given her comorbid conditions. Dr. Joel plan to arrange upper endoscopy and colonoscopy once the patient's respiratory and cardiac status improved. It appears that the patient is slowly improving during the admission and will make arrangements for endoscopic evaluation on Monday. The bowel preparation has been written for Monday evening. Please call with any questions or concerns during the weekend. Coverage to resume on Monday. Subjective Pt up in chair, appears comfortable. She is off O2 per NC. Now on RA and O2 sat 95%. HR fluctuates in 90s-low 100s. She denies SOB but still having productive cough, denies any CP, abd pain, n/v. Physical Exam 2 Vital Signs (Past 24 Hours): Last Vital Signs Temp 36.4 C L 05/18/18 07:02 Pulse 113 H 05/18/18 07:02 Resp 16 05/18/18 07:02 BP 103/81 05/18/18 07:02 Pulse Ox 95 05/18/18 07:02 Constitutional: WD/WN, vitals as above well groomed, cooperative and comfortable Eyes: PERRL, conjunctivae normal, anicteric sclerae ENMT: external ear and nose normal, oropharynx normal Respiratory: no respiratory distress Auscultation: + diminished lung sounds and + wheezes (fine scattered ) Cardiovascular: Heart Sounds: no murmur Extremities: no edema Irregular beats Gastrointestinal (Abdomen): normal bowel sounds, soft, nontender, no hepatosplenomegaly Skin: no rashes, warm and dry no jaundice Neurologic: Motor/Sensory: no asterixis Psychiatric: A+Ox3, euthymic affect Lymphatic: no lymphedema
--- NOTE | 2018-05-18 14:05 | Pharmacy Report ---
Pharmacy Glycemic Short Note 2 - Date of Service May 18, 2018 - Glycemic Short BSG Results (Last 24 hours): 05/17/18 05/17/18 05/18/18 16:35 20:24 05:40 Glucose 73 POC Glucose 220 H 112 H 05/18/18 05/18/18 07:52 11:45 Glucose POC Glucose 91 202 H OUTPATIENT ANTIDIABETIC REGIMEN: * Lantus 30 units SQ Q AM * Metformin 1gm PO BID * A1c = 7.6% 05/14/18 ASSESSMENT: 05/18/18 * Patient transitioned to PO prednisone last night. * Blood sugar dropped overnight from 112 to 73mg/dl this morning, patient was given carb coverage with bedtime snack, will remove carb coverage at bedtime to prevent hypoglycemia. * Patient's worst blood sugars are prior to lunch, so I will keep a tight CF and CR with breakfast, and loosen at other times for tapering steroids. * Patient NPO after midnight starting on Monday, and only clears on Monday for endoscopy on Monday - may need to decrease Lantus dose at that time, for now continue Lantus. 05/17/18 * IV solu-medrol restarted last night at 40mg IV Q6H for COPD exacerbation * Blood sugars high from steroid induced hyerglycemia, will tighten CR and CF * Blood sugars consistently rising from breakfast to lunch, otherwise close to goal * Basal at home dose, will continue at this time PLAN FOR INPATIENT GLYCEMIC CONTROL: * Hold outpatient oral diabetes medications * Basal insulin * Lantus 30 units SQ Q AM (home dose) * Bolus insulin * NovoLog per scale ACHS or Q6hrs while NPO * Goal Range: Low 110mg/dL - High 140 mg/dL * CHANGE: Correction Factor: 15 mg/dL/unit - at breakfast; 20mg/dL/unit at all other times * CHANGE: Nutritional / Prandial insulin per carb ratio of 1 unit per 3 grams CHO consumed at breakfast Nutritional / Prandial insulin per carb ratio of 1 unit per 5 grams CHO consumed at lunch and dinner Discharge recommendations: * May resume home medication regimen, A1c 7.6 near goal for age / comorbidities
--- NOTE | 2018-05-18 18:42 | Hospitalist Progress Note ---
Date of Service May 18, 2018 Assessment & Plan (1) Anemia: Pt is a 77 y/o female currently admitted for asthma exacerbation and new Afib; also found to have iron deficiency anemia during her workup. Hx of GERD, hiatal hernia and hx of esophagitis per her report but no PUD or colorectal ca. She was on low dose Ibuprofen 200mg daily for low back pain but no tobacco or ETOH products. She denies overt s/s of GI bleed, stool was heme negative in ED. Abd exam benign otherwise. Previous EGD and colonoscopies at [facility] per patient -Presented on this admission with Hgb 5.9 and after 3 unit of PRBC on this admission the Hgb has remained stable -Patient has received Venofer 300mg IV for iron deficiency and while there is support for iron deficiency anemia, given the initial low Hgb -give daily ferrous iron for iron deficiency -without Gastroenterology evaluation via endoscopy/colonoscopy, Cardiology service has been unable to determine whether patient benefits from anticoagulation in context of stroke risk prevention from the atrial fibrillation -Gastronenterology service will plan for EGD/Colonoscopy evaluation on Monday by Dr. Smith. Bowel prep ordered to start Monday. Pls keep her on CL diet on Monday, NPO after midnight for endoscopic procedures on Monday. (2) Rapid atrial fibrillation: likely secondary to severe anemia echo noted, (+) diastolic dysfunction was initially on Diltiazem drip and has been transitioned to oral Diltiazem, continue oral Diltiazem Patient remains in atrial fibrillation. Heart rate is controlled Possible urinary tract infection admission Urine culture with E.coli, started ceftriaxone daily since 05/16/18 and to continue for now will re-send UA (3) Wheezing: Asthma exacerbation repeat CXR 05/15/18: no overt pulmomary edema Flu negative patient was resumed on IV solumedrol by pulmonary service on 05/16/18 and again will switch to oral prednisone after re-examining patient and re-discussing with pulmonary service on 05/17/18 the steroids are inducing leukocytosis continue nebulizer treatments as prn breathing now on room air (4) Hypertension: oral diltiazem blood pressure controlled without home GAGE inhibitor (5) Diabetes: Diabetes Mellitus Type II and controlled on skilled nursing use of insulin hold home metformin Pharmacy glycemic control adjusting insulin (6) Discharge planning issues: will need establishment of outpatient doctors in [facility] (7) DVT prophylaxis: SCDs Subjective Patient remains in atrial fibrillation. Heart rate is controlled. Patient does not have wheezing today. Denies worsening shortness of breath. However remains on nasal cannula oxygen Denies chest pain or palpitations. Denies lightheadedness. Denies abdominal pain. Denies gross bleeding from orifices Physical Exam 2 Vital Signs (Past 24 Hours): Last Vital Signs Temp 36.5 C 05/18/18 15:12 Pulse 99 H 05/18/18 15:12 Resp 18 05/18/18 15:12 BP 132/70 05/18/18 15:12 Pulse Ox 96 05/18/18 15:12 Constitutional: WD/WN, vitals as above Eyes: PERRL, conjunctivae normal, anicteric sclerae ENMT: external ear and nose normal, oropharynx normal Neck: trachea midline, no thyromegaly Respiratory: normal respiratory effort, lungs clear to auscultation Cardiovascular: Rate/Rhythm: regular rate (rate controlled, remains in atrial fibrillation) Gastrointestinal (Abdomen): normal bowel sounds, soft, nontender, no hepatosplenomegaly Musculoskeletal: no cyanosis or clubbing, extremities motor strength 5/5 Head/Neck/Chest: normocephalic and head atraumatic Neurologic: PERRL, EOMI, accommodation nl, no face palsy, no dysarthria CN' s II-XI intact bilaterally Psychiatric: A+Ox3, euthymic affect _ (1) Anemia Anemia type: unspecified type Bone marrow failure anemia type: Chronic kidney disease stage: Folate deficiency anemia type: Hemolytic anemia type: Iron deficiency anemia type: Other causes of anemia: Vitamin B12 deficiency anemia type: Qualified Code(s): D64.9 - Anemia, unspecified
[2018-05-18] MEDS: cefTRIAXone SODIUM 1,000 MG in DEXTROSE 5% 50 ML IV SCH (21:35)
[2018-05-18 22:39] LABS: Appearance Urine Clear (Clear); Bacteria Urine Automated Negative (Negative); Bilirubin Urine Negative (Negative); Color Urine Yellow; Epithelial Cell Urine Auto >30 /lpf (0-5); Glucose Urine UA Negative (Negative); Ketones Urine Negative (Negative); Leukocyte Esterase Urine Trace (Negative); Nitrite Urine Negative (Negative); Protein Urine Negative (Negative); Specific Gravity Urine 1.022 (1.000-1.030); Urobilinogen Urine Negative (Negative)
[2018-05-19] MEDS: predniSONE 20 MG TAB PO SCH (09:10)
[2018-05-19] MEDS: PANTOprazole 40 MG in SYRINGE 0 ML IV SCH ×2 (09:11→20:49)
[2018-05-19] MEDS: dilTIAZem HCl 60 MG TAB PO SCH ×3 (09:11→20:49)
[2018-05-19] MEDS: FERROUS SULFATE 325 MG TAB PO SCH (09:11)
[2018-05-19] MEDS: SERTRALINE HCL 50 MG TABLET PO SCH (09:11)
[2018-05-19] MEDS: MAGNESIUM OXIDE 400 MG TAB PO SCH ×2 (09:12→20:49)
[2018-05-19] MEDS: INSULIN ASPART 100 UNITS/ML 3 ML PEN SC SCH ×4 (09:13→20:50)
[2018-05-19] MEDS: INSULIN GLARGINE SOLOSTAR 100 UNITS/ML 3 ML PEN SQ SCH (09:14)
[2018-05-19] MEDS: FLUTICASONE/SALMETEROL 250/50 (ADVAIR) 14 PUFF/1 INHALER INH SCH ×2 (09:15→20:49)
--- NOTE | 2018-05-19 14:40 | Pharmacy Report ---
Pharmacy Glycemic Short Note 2 - Date of Service May 19, 2018 - Glycemic Short BSG Results (Last 24 hours): 05/18/18 05/18/18 05/19/18 16:22 20:27 07:31 POC Glucose 93 87 114 H 05/19/18 11:32 POC Glucose 145 H OUTPATIENT ANTIDIABETIC REGIMEN: * Lantus 30 units SQ Q AM * Metformin 1gm PO BID * A1c = 7.6% 05/14/18 ASSESSMENT: 05/19/18 * Ms. Buckner received a total of 65 units of insulin yesterday (30 units of basal and 35 units of bolus) * Dinner and HS BSG were below goal yesterday (93, 87 mg/dL), therefore I will loosen carb coverage with lunch and dinner * Fasting BSG is at goal. Continue home dose of Lantus. * Patient remains on prednisone 40 mg po daily. 05/18/18 * Patient transitioned to PO prednisone last night. * Blood sugar dropped overnight from 112 to 73mg/dl this morning, patient was given carb coverage with bedtime snack, will remove carb coverage at bedtime to prevent hypoglycemia. * Patient's worst blood sugars are prior to lunch, so I will keep a tight CF and CR with breakfast, and loosen at other times for tapering steroids. * Patient NPO after midnight starting on Monday, and only clears on Monday for endoscopy on Monday - may need to decrease Lantus dose at that time, for now continue Lantus. 05/17/18 * IV solu-medrol restarted last night at 40mg IV Q6H for COPD exacerbation * Blood sugars high from steroid induced hyerglycemia, will tighten CR and CF * Blood sugars consistently rising from breakfast to lunch, otherwise close to goal * Basal at home dose, will continue at this time PLAN FOR INPATIENT GLYCEMIC CONTROL: * Hold outpatient oral diabetes medications * Basal insulin - no change * Lantus 30 units SQ Q AM (home dose) * Bolus insulin * NovoLog per scale ACHS or Q6hrs while NPO * Goal Range: Low 110mg/dL - High 140 mg/dL * Correction Factor: 15 mg/dL/unit - at breakfast; 20mg/dL/unit at all other times Nutritional / Prandial insulin per carb ratio of 1 unit per 3 grams CHO consumed at breakfast Loosen -Nutritional / Prandial insulin per carb ratio of 1 unit per 6 grams CHO consumed at lunch and dinner Discharge recommendations: * May resume home medication regimen, A1c 7.6 near goal for age / comorbidities
--- NOTE | 2018-05-19 14:46 | Cardiology Progress Note ---
Date of Service May 19, 2018 Assessment & Plan (1) Rapid atrial fibrillation: I would continue the oral diltiazem. Her heart rates on telemetry are between 90 and low 100s. I would not recommend anticoagulation until the GI service has seen her. (2) Anemia: Blood counts have improved. (3) Hypertension: Home antihypertensives. (4) Diabetes: Lantus, sliding scale, carb consistent diet Per internal medicine (5) Asthma attacks lasting more than 24 hours: Pulmonary consult appreciated. Subjective Patient is feeling improvement. Heart rates are controlled with diltiazem. Pulmonary consult is appreciated. GI consult is also appreciated. Physical Exam 2 Vital Signs (Past 24 Hours): Last Vital Signs Temp 37.0 C 05/19/18 11:55 Pulse 94 H 05/19/18 11:55 Resp 19 05/19/18 11:55 BP 133/92 05/19/18 11:55 Pulse Ox 97 05/19/18 11:55 Physical Exam: General: no acute distress and stated age Head: normocephalic, no masses, lesions, tenderness or abnormalities Eyes: conjunctiva are pink and non-injected, sclera clear Neck: supple, no adenopathy, no bruits, normal jugular venous pulse, no hepatojugular reflux Chest: normal shape and normal respiratory effort Lungs: clear to auscultation and percussion Cardiac Exam: - irregular rate & rhythm, no murmurs gallops or rubs - normal S1 , normal S2 Pulses: 2(+) throughout Abdomen: abdomen soft, non-tender, no abnormal masses and no hepatosplenomegaly Musculoskeletal: no gait disturbance, no joint inflammation, no deforming arthritis Extremities: no edema and no cyanosis Neuro: grossly normal exam Results & Data Laboratory Results Laboratory Results - last 24 hr 05/18/18 05/18/18 05/18/18 16:22 20:27 22:15 POC Glucose 93 87 Urine Color Yellow Urine Appearance Clear Urine pH 5.0 Ur Specific [place] 1.022 Urine Protein Negative Urine Glucose (UA) Negative Urine Ketones Negative Urine Blood Trace H Urine Nitrite Negative Urine Bilirubin Negative Urine Urobilinogen Negative Ur Leukocyte Esterase Trace H Urine WBC (Auto) 5-10 H Urine RBC (Auto) 0-4 U Hyaline Cast (Auto) 1-5 U Epithel Cells (Auto) >30 H Urine Bacteria (Auto) Negative 05/19/18 05/19/18 07:31 11:32 POC Glucose 114 H 145 H Urine Color Urine Appearance Urine pH Ur Specific [place] Urine Protein Urine Glucose (UA) Urine Ketones Urine Blood Urine Nitrite Urine Bilirubin Urine Urobilinogen Ur Leukocyte Esterase Urine WBC (Auto) Urine RBC (Auto) U Hyaline Cast (Auto) U Epithel Cells (Auto) Urine Bacteria (Auto) Medications Administered Current Inpatient Medications Acetaminophen (Tylenol) 650 mg PO Q4H PRN PRN Reason: Pain or Fever Stop: 06/12/18 15:04 Albuterol (Duoneb) 3 ml NEB Q4H PRN PRN Reason: Dyspnea Stop: 06/12/18 15:04 Last Admin: 05/14/18 12:30 Dose: 3 ml Aspirin (Ecotrin Ectab) 81 mg PO DAILY [facility] Stop: 06/13/18 08:59 Last Admin: 05/14/18 07:59 Dose: 81 mg Dextrose (Dextrose 50%) 25 - 50 ml IV UD PRN; Protocol PRN Reason: Hypoglycemia Protocol Stop: 06/12/18 15:04 Diltiazem HCl (Cardizem) 60 mg PO TID [facility] Stop: 06/14/18 13:59 Last Admin: 05/19/18 09:11 Dose: 60 mg Ferrous Sulfate (Feosol) 325 mg PO QAM [facility] Stop: 06/16/18 08:59 Last Admin: 05/19/18 09:11 Dose: 325 mg Glucagon (Glucagen) 1 mg SQ UD PRN; Protocol PRN Reason: Hypoglycemia Protocol Stop: 06/12/18 15:04 Glucose (Glucose 40%) 15 - 30 gm PO UD PRN; Protocol PRN Reason: Hypoglycemia Protocol Stop: 06/12/18 15:04 Glucose (Dex4 Glucose) 4 - 8 tabs PO UD PRN; Protocol PRN Reason: Hypoglycemia Protocol Stop: 06/12/18 15:04 Hydroxyzine HCl (Vistaril) 25 mg PO QID PRN PRN Reason: Itching Stop: 06/12/18 15:04 Last Admin: 05/15/18 07:44 Dose: 25 mg Pantoprazole Sodium 40 mg/ (Syringe) 10 mls @ 5 mls/min IV BID [facility] Stop: 06/13/18 11:29 Last Admin: 05/19/18 09:11 Dose: 5 mls/min Ceftriaxone Sodium 1,000 mg/ (Dextrose) 50 mls @ 100 mls/hr IV Q24H [facility]; Protocol Stop: 05/21/18 20:59 Last Infusion: 05/18/18 22:22 Dose: Infused Insulin Aspart (Novolog Flexpen) 0 units SC DAILY@0730 [facility]; Protocol Stop: 06/18/18 07:29 Last Admin: 05/19/18 09:13 Dose: 13 units Insulin Aspart (Novolog Flexpen) 0 units SC DAILY@1130,1630 [facility]; Protocol Stop: 06/17/18 12:29 Last Admin: 05/19/18 12:48 Dose: 10 units Insulin Aspart (Novolog Flexpen) 0 units SC HS [facility]; Protocol Stop: 06/17/18 20:59 Last Admin: 05/18/18 21:35 Dose: Not Given Insulin Glargine (Lantus Solostar Pen) 30 units SQ QAM [facility]; Protocol Stop: 06/16/18 08:59 Last Admin: 05/19/18 09:14 Dose: 30 units Ipratropium [place] (Atrovent 0.02% 0.5mg/2.5ml) 0.5 mg INH Q4H PRN PRN Reason: SOB/WHEEZING Stop: 06/14/18 08:59 Levalbuterol HCl (Xopenex 1.25mg/0.5ml Neb) 1.25 mg INH Q2H PRN PRN Reason: SOB/WHEEZING Stop: 06/14/18 08:59 Last Admin: 05/16/18 19:51 Dose: 1.25 mg Magnesium Oxide (Mag-Ox) 400 mg PO BID [facility] Stop: 06/12/18 20:59 Last Admin: 05/19/18 09:12 Dose: 400 mg Miconazole Nitrate (Desenex) 1 appln EXT PRN PRN PRN Reason: prn Stop: 06/14/18 16:19 Miscellaneous (Carbohydrates For Hypoglycemia) 15 - 30 gm PO UD PRN PRN Reason: Hypoglycemia Treatment Stop: 06/12/18 15:04 Miscellaneous Information (Consult Glycemic Management Pharmacy) 1 ea N/A UD PRN; Protocol PRN Reason: Consult Stop: 06/12/18 15:25 Ondansetron HCl (Zofran) 4 mg IV Q6H PRN PRN Reason: Nausea Stop: 06/12/18 15:04 Polyethylene Glycol/Electrolytes (Golytely) 16 dose PO 1700 [facility] Stop: 05/20/18 23:59 Prednisone (Prednisone) 40 mg PO DAILY [facility] Stop: 06/16/18 17:29 Last Admin: 05/19/18 09:10 Dose: 40 mg Fluticasone/Salmeterol (Advair Diskus 250/50) 1 puffs INH BID [facility] Stop: 06/12/18 20:59 Last Admin: 05/19/18 09:15 Dose: 1 puffs Sertraline HCl (Zoloft) 25 mg PO DAILY [facility] Stop: 06/13/18 08:59 Last Admin: 05/19/18 09:11 Dose: 25 mg Tramadol HCl (Ultram) 50 mg PO TID PRN PRN Reason: Pain Stop: 06/12/18 15:04 _ (1) Anemia Anemia type: unspecified type Bone marrow failure anemia type: Chronic kidney disease stage: Folate deficiency anemia type: Hemolytic anemia type: Iron deficiency anemia type: Other causes of anemia: Vitamin B12 deficiency anemia type: Qualified Code(s): D64.9 - Anemia, unspecified
--- NOTE | 2018-05-19 18:28 | Hospitalist Progress Note ---
Date of Service May 19, 2018 Assessment & Plan (1) Anemia: Pt is a 77 y/o female currently admitted for asthma exacerbation and new Afib; also found to have iron deficiency anemia during her workup. Hx of GERD, hiatal hernia and hx of esophagitis per her report but no PUD or colorectal ca. She was on low dose Ibuprofen 200mg daily for low back pain but no tobacco or ETOH products. She denies overt s/s of GI bleed, stool was heme negative in ED. Abd exam benign otherwise. Previous EGD and colonoscopies at [facility] per patient -Presented on this admission with Hgb 5.9 and after 3 unit of PRBC on this admission the Hgb has remained stable -Patient has received Venofer 300mg IV for iron deficiency and while there is support for iron deficiency anemia, given the initial low Hgb -give daily ferrous iron for iron deficiency -without Gastroenterology evaluation via endoscopy/colonoscopy, Cardiology service has been unable to determine whether patient benefits from anticoagulation in context of stroke risk prevention from the atrial fibrillation -Hgb appears to be stable since the blood transfusion -Gastronenterology service will plan for EGD/Colonoscopy evaluation on Monday by Dr. Smith. Bowel prep ordered to start Monday05/20/18. Pls keep her on CL diet on Monday, NPO after midnight for endoscopic procedures on Monday (2) Rapid atrial fibrillation: likely secondary to severe anemia echo noted, (+) diastolic dysfunction was initially on Diltiazem drip and has been transitioned to oral Diltiazem, continue oral Diltiazem Patient remains in atrial fibrillation. Heart rate is controlled Possible urinary tract infection admission Urine culture with E.coli, started ceftriaxone daily since 05/16/18 and to continue for now awaiting repeat UA (3) Wheezing: Asthma exacerbation repeat CXR 05/15/18: no overt pulmomary edema Flu negative patient was resumed on IV solumedrol by pulmonary service on 05/16/18 and again will switch to oral prednisone after re-examining patient and re-discussing with pulmonary service on 05/17/18 continue nebulizer treatments as prn breathing now on room air, stop the prednisone on 05/19/18 (4) Hypertension: oral diltiazem blood pressure controlled without home GAGE inhibitor (5) Diabetes: Diabetes Mellitus Type II and controlled on senior living use of insulin hold home metformin Pharmacy glycemic control adjusting insulin (6) Discharge planning issues: will need establishment of outpatient doctors in [facility] Referral placed to [facility] as per window caser based on patient's PT/ OT performance (7) DVT prophylaxis: SCDs Subjective Patient remains in atrial fibrillation. Heart rate is controlled. Patient does not have wheezing today. Denies worsening shortness of breath. Denies chest pain or palpitations. Denies lightheadedness. Denies abdominal pain. Denies gross bleeding from orifices breathing on room air Physical Exam 2 Vital Signs (Past 24 Hours): Last Vital Signs Temp 36.9 C 05/19/18 15:11 Pulse 103 H 05/19/18 15:11 Resp 22 05/19/18 15:11 BP 150/87 H 05/19/18 15:11 Pulse Ox 95 05/19/18 15:11 Constitutional: WD/WN, vitals as above Eyes: PERRL, conjunctivae normal, anicteric sclerae ENMT: external ear and nose normal, oropharynx normal Neck: trachea midline, no thyromegaly Respiratory: normal respiratory effort, lungs clear to auscultation Cardiovascular: Rate/Rhythm: regular rate (rate controlled, remains in atrial fibrillation) Gastrointestinal (Abdomen): normal bowel sounds, soft, nontender, no hepatosplenomegaly Musculoskeletal: no cyanosis or clubbing, extremities motor strength 5/5 Head/Neck/Chest: normocephalic and head atraumatic Neurologic: PERRL, EOMI, accommodation nl, no face palsy, no dysarthria CN' s II-XI intact bilaterally Psychiatric: A+Ox3, euthymic affect _ (1) Anemia Anemia type: unspecified type Bone marrow failure anemia type: Chronic kidney disease stage: Folate deficiency anemia type: Hemolytic anemia type: Iron deficiency anemia type: Other causes of anemia: Vitamin B12 deficiency anemia type: Qualified Code(s): D64.9 - Anemia, unspecified
[2018-05-19] MEDS: cefTRIAXone SODIUM 1,000 MG in DEXTROSE 5% 50 ML IV SCH (20:48)
[2018-05-19 22:37] LABS: Appearance Urine Clear (Clear); Bilirubin Urine Negative (Negative); Color Urine Yellow; Glucose Urine UA 2+ (Negative); Ketones Urine Negative (Negative); Leukocyte Esterase Urine Negative (Negative); Nitrite Urine Negative (Negative); Protein Urine Negative (Negative); Specific Gravity Urine 1.022 (1.000-1.030); Urobilinogen Urine Negative (Negative)
--- NOTE | 2018-05-20 07:16 | Gastroenterology Progress Note ---
Date of Service May 20, 2018 Assessment & Plan (1) Iron deficiency anemia: Patient presented with multiple's problems to include anemia. My partner Dr. page had suggested further evaluation with upper endoscopy and colonoscopy once her cardiac and respiratory status improved. It appears that she is much improved and can likely undergo the procedures tomorrow as scheduled. The bowel preparation has been ordered by Ms. Ornelas Monday afternoon. Recommendations Liquid diet today Bowel preparation as written Upper endoscopy and colonoscopy scheduled for tomorrow Subjective The patient notes that she continues to feel more improved each day. She no longer has shortness of breath or coughing today. She is scheduled for upper endoscopy and colonoscopy tomorrow depending on her tolerance of the bowel preparation this evening. Constitutional: no sweats Respiratory: + snoring; no dyspnea, no hemoptysis and no wheezing Cardiovascular: no chest pain with activity Physical Exam 2 Vital Signs (Past 24 Hours): Last Vital Signs Temp 36.7 C 05/20/18 07:07 Pulse 72 05/20/18 07:07 Resp 15 05/20/18 07:07 BP 155/70 H 05/20/18 07:07 Pulse Ox 96 05/20/18 07:07 Eyes: PERRL, conjunctivae normal, anicteric sclerae Neck: trachea midline, no thyromegaly Respiratory: normal respiratory effort; no respiratory distress, no labored breathing and does not use accessory muscles Auscultation: no crackles Cardiovascular: Rate/Rhythm: regular rate; + abnormal rhythm Heart Sounds: + murmur Gastrointestinal (Abdomen): normal bowel sounds, soft, nontender, no hepatosplenomegaly Results & Data Laboratory Results Laboratory Results - last 24 hr 05/19/18 05/19/18 05/19/18 07:31 11:32 16:30 POC Glucose 114 H 145 H 200 H Urine Color Urine Appearance Urine pH Ur Specific [place] Urine Protein Urine Glucose (UA) Urine Ketones Urine Blood Urine Nitrite Urine Bilirubin Urine Urobilinogen Ur Leukocyte Esterase 05/19/18 05/19/18 20:00 22:30 POC Glucose 271 H Urine Color Yellow Urine Appearance Clear Urine pH 5.0 Ur Specific [place] 1.022 Urine Protein Negative Urine Glucose (UA) 2+ H Urine Ketones Negative Urine Blood Negative Urine Nitrite Negative Urine Bilirubin Negative Urine Urobilinogen Negative Ur Leukocyte Esterase Negative
[2018-05-20 08:03] LABS: Hematocrit (blood only) 36.5 % (37-47); Hemoglobin 10.9 g/dL (12.0-16.0); Mean Corpuscular Hgb Conc 29.9 g/dL (32-36); Mean Corpuscular Volume 73.6 fL (80-100); Mean Platelet Volume 9.3 fL (7.4-10.4); Platelet Count 363 K/uL (130-400); RDW Coefficient of Variation 26.5 % (11.5-14.5); RDW Standard Deviation 68.3 fL (36.4-46.3); Red Blood Count 4.96 M/uL (4.2-5.4); White Blood Count 12.39 K/uL (4.8-10.8)
[2018-05-20] MEDS: FLUTICASONE/SALMETEROL 250/50 (ADVAIR) 14 PUFF/1 INHALER INH SCH ×2 (08:20→20:40)
[2018-05-20] MEDS: PANTOprazole 40 MG in SYRINGE 0 ML IV SCH ×2 (08:20→20:20)
[2018-05-20] MEDS: dilTIAZem HCl 60 MG TAB PO SCH ×3 (08:20→20:20)
[2018-05-20] MEDS: INSULIN GLARGINE SOLOSTAR 100 UNITS/ML 3 ML PEN SQ SCH (08:21)
[2018-05-20] MEDS: MAGNESIUM OXIDE 400 MG TAB PO SCH ×2 (08:21→20:20)
[2018-05-20] MEDS: SERTRALINE HCL 50 MG TABLET PO SCH (08:21)
[2018-05-20] MEDS: FERROUS SULFATE 325 MG TAB PO SCH (08:21)
[2018-05-20] MEDS: INSULIN ASPART 100 UNITS/ML 3 ML PEN SC SCH ×4 (08:22→20:47)
[2018-05-20 08:41] LABS: Anisocytosis Present; Basophils # (auto) 0.01 K/uL (0-0.2); Basophils % (auto) 0.1 %; Eosinophils # (auto) 0.03 K/uL (0-0.5); Eosinophils % (auto) 0.2 %; Hypochromasia Present; Immature Granulocytes # (auto) 0.13 K/uL (0.00-0.02); Lymphocytes # (auto) 1.68 K/uL (1.2-3.4); Lymphocytes % (auto) 13.6 %; Monocytes # (auto) 1.91 K/uL (0.11-0.59); Monocytes % (auto) 15.4 %; Neutrophils # (auto) 8.63 K/uL (1.4-6.5); Neutrophils % (auto) 69.7 %
--- NOTE | 2018-05-20 11:01 | Pharmacy Report ---
Pharmacy Glycemic Short Note 2 - Date of Service May 20, 2018 - Glycemic Short BSG Results (Last 24 hours): 05/19/18 05/19/18 05/19/18 11:32 16:30 20:00 POC Glucose 145 H 200 H 271 H 05/20/18 07:28 POC Glucose 94 OUTPATIENT ANTIDIABETIC REGIMEN: * Lantus 30 units SQ Q AM * Metformin 1gm PO BID * A1c = 7.6% 05/14/18 ASSESSMENT: 05/20/17 * Ms. Buckner received a total of 73 units of insulin yesterday (30 units of basal and 45 units of bolus) with decent BSG control. Dinner and HS BSGs were elevated likely due to once daily prednisone, which has since been discontinued. * Patient will be NPO at midnight for endoscopy on 05/21. I will decrease Lantus dose for 05/21 AM by ~30% * Novolog parameters will be loosened since patient will no longer experience steroid induced hyperglycemia 05/19/18 * Ms. Buckner received a total of 65 units of insulin yesterday (30 units of basal and 35 units of bolus) * Dinner and HS BSG were below goal yesterday (93, 87 mg/dL), therefore I will loosen carb coverage with lunch and dinner * Fasting BSG is at goal. Continue home dose of Lantus. * Patient remains on prednisone 40 mg po daily. 05/18/18 * Patient transitioned to PO prednisone last night. * Blood sugar dropped overnight from 112 to 73mg/dl this morning, patient was given carb coverage with bedtime snack, will remove carb coverage at bedtime to prevent hypoglycemia. * Patient's worst blood sugars are prior to lunch, so I will keep a tight CF and CR with breakfast, and loosen at other times for tapering steroids. * Patient NPO after midnight starting on Monday, and only clears on Monday for endoscopy on Monday - may need to decrease Lantus dose at that time, for now continue Lantus. PLAN FOR INPATIENT GLYCEMIC CONTROL: * Hold outpatient oral diabetes medications * Basal insulin - decrease for 05/21 am * Lantus 20 units SQ Q AM * Bolus insulin - loosen * NovoLog per scale ACHS or Q6hrs while NPO * Goal Range: Low 110mg/dL - High 140 mg/dL * Correction Factor: 20 mg/dL/unit * Nutritional / Prandial insulin per carb ratio of 1 unit per 7 grams CHO consumed at breakfast Discharge recommendations: * May resume home medication regimen, A1c 7.6 near goal for age / comorbidities
[2018-05-20] MEDS: CARBOHYDRATES FOR HYPOGLYCEMIA PO PRN ×2 (11:33→20:28)
--- NOTE | 2018-05-20 12:56 | Cardiology Progress Note ---
Date of Service May 20, 2018 Assessment & Plan (1) Rapid atrial fibrillation: I would continue the oral diltiazem. Her heart rates on telemetry are between 90 and low 100s. For EGD tomorrow. She will need to be started on anticoagulation when she is cleared by the GI service. (2) Anemia: Blood counts have improved. (3) Hypertension: Home antihypertensives. (4) Diabetes: Lantus, sliding scale, carb consistent diet Per internal medicine (5) Asthma attacks lasting more than 24 hours: Pulmonary consult appreciated. Subjective Patient is feeling improvement. Heart rates are controlled with diltiazem. Pulmonary consult is appreciated. GI consult is also appreciated. Physical Exam 2 Vital Signs (Past 24 Hours): Last Vital Signs Temp 36.5 C 05/20/18 11:50 Pulse 99 H 05/20/18 11:50 Resp 19 05/20/18 11:50 BP 159/82 H 05/20/18 11:50 Pulse Ox 99 05/20/18 11:50 Physical Exam: General: no acute distress and stated age Head: normocephalic, no masses, lesions, tenderness or abnormalities Eyes: conjunctiva are pink and non-injected, sclera clear Neck: supple, no adenopathy, no bruits, normal jugular venous pulse, no hepatojugular reflux Chest: normal shape and normal respiratory effort Lungs: clear to auscultation and percussion Cardiac Exam: - irregular rate & rhythm, no murmurs gallops or rubs - normal S1 , normal S2 Pulses: 2(+) throughout Abdomen: abdomen soft, non-tender, no abnormal masses and no hepatosplenomegaly Musculoskeletal: no gait disturbance, no joint inflammation, no deforming arthritis Extremities: no edema and no cyanosis Neuro: grossly normal exam Results & Data Laboratory Results Laboratory Results - last 24 hr 05/19/18 05/19/18 05/19/18 16:30 20:00 22:30 WBC RBC Hgb Hct MCV MCH MCHC RDW Std Deviation RDW Coeff of Zaria Plt Count MPV Immature Gran % (Auto) Neut % (Auto) Lymph % (Auto) [place] % (Auto) Eos % (Auto) Baso % (Auto) Immature Gran # (Auto) Neut # (Auto) Lymph # (Auto) [place] # (Auto) Eos # (Auto) Baso # (Auto) Hypochromasia Anisocytosis POC Glucose 200 H 271 H Urine Color Yellow Urine Appearance Clear Urine pH 5.0 Ur Specific [place] 1.022 Urine Protein Negative Urine Glucose (UA) 2+ H Urine Ketones Negative Urine Blood Negative Urine Nitrite Negative Urine Bilirubin Negative Urine Urobilinogen Negative Ur Leukocyte Esterase Negative 05/20/18 05/20/18 05/20/18 07:28 07:39 11:28 WBC 12.39 H RBC 4.96 Hgb 10.9 L Hct 36.5 L MCV 73.6 L MCH 22.0 L MCHC 29.9 L RDW Std Deviation 68.3 H RDW Coeff of Zaria 26.5 H Plt Count 363 MPV 9.3 Immature Gran % (Auto) 1.0 Neut % (Auto) 69.7 Lymph % (Auto) 13.6 [place] % (Auto) 15.4 Eos % (Auto) 0.2 Baso % (Auto) 0.1 Immature Gran # (Auto) 0.13 H Neut # (Auto) 8.63 H Lymph # (Auto) 1.68 [place] # (Auto) 1.91 H Eos # (Auto) 0.03 Baso # (Auto) 0.01 Hypochromasia Present Anisocytosis Present POC Glucose 94 56 L* Urine Color Urine Appearance Urine pH Ur Specific [place] Urine Protein Urine Glucose (UA) Urine Ketones Urine Blood Urine Nitrite Urine Bilirubin Urine Urobilinogen Ur Leukocyte Esterase 05/20/18 11:48 WBC RBC Hgb Hct MCV MCH MCHC RDW Std Deviation RDW Coeff of Zaria Plt Count MPV Immature Gran % (Auto) Neut % (Auto) Lymph % (Auto) [place] % (Auto) Eos % (Auto) Baso % (Auto) Immature Gran # (Auto) Neut # (Auto) Lymph # (Auto) [place] # (Auto) Eos # (Auto) Baso # (Auto) Hypochromasia Anisocytosis POC Glucose 90 Urine Color Urine Appearance Urine pH Ur Specific [place] Urine Protein Urine Glucose (UA) Urine Ketones Urine Blood Urine Nitrite Urine Bilirubin Urine Urobilinogen Ur Leukocyte Esterase Medications Administered Current Inpatient Medications Acetaminophen (Tylenol) 650 mg PO Q4H PRN PRN Reason: Pain or Fever Stop: 06/12/18 15:04 Albuterol (Duoneb) 3 ml NEB Q4H PRN PRN Reason: Dyspnea Stop: 06/12/18 15:04 Last Admin: 05/14/18 12:30 Dose: 3 ml Aspirin (Ecotrin Ectab) 81 mg PO DAILY [facility] Stop: 06/13/18 08:59 Last Admin: 05/14/18 07:59 Dose: 81 mg Dextrose (Dextrose 50%) 25 - 50 ml IV UD PRN; Protocol PRN Reason: Hypoglycemia Protocol Stop: 06/12/18 15:04 Diltiazem HCl (Cardizem) 60 mg PO TID [facility] Stop: 06/14/18 13:59 Last Admin: 05/20/18 08:20 Dose: 60 mg Ferrous Sulfate (Feosol) 325 mg PO QAM [facility] Stop: 06/16/18 08:59 Last Admin: 05/20/18 08:21 Dose: 325 mg Glucagon (Glucagen) 1 mg SQ UD PRN; Protocol PRN Reason: Hypoglycemia Protocol Stop: 06/12/18 15:04 Glucose (Glucose 40%) 15 - 30 gm PO UD PRN; Protocol PRN Reason: Hypoglycemia Protocol Stop: 06/12/18 15:04 Glucose (Dex4 Glucose) 4 - 8 tabs PO UD PRN; Protocol PRN Reason: Hypoglycemia Protocol Stop: 06/12/18 15:04 Hydroxyzine HCl (Vistaril) 25 mg PO QID PRN PRN Reason: Itching Stop: 06/12/18 15:04 Last Admin: 05/15/18 07:44 Dose: 25 mg Pantoprazole Sodium 40 mg/ (Syringe) 10 mls @ 5 mls/min IV BID [facility] Stop: 06/13/18 11:29 Last Admin: 05/20/18 08:20 Dose: 5 mls/min Insulin Aspart (Novolog Flexpen) 0 units SC ACHS [facility]; Protocol Stop: 06/19/18 11:29 Last Admin: 05/20/18 11:33 Dose: Not Given Insulin Glargine (Lantus Solostar Pen) 30 units SQ QAM [facility]; Protocol Stop: 06/16/18 08:59 Last Admin: 05/20/18 08:21 Dose: 30 units Insulin Glargine (Lantus Solostar Pen) 20 units SQ QAM [facility]; Protocol Stop: 05/21/18 12:00 Ipratropium [place] (Atrovent 0.02% 0.5mg/2.5ml) 0.5 mg INH Q4H PRN PRN Reason: SOB/WHEEZING Stop: 06/14/18 08:59 Levalbuterol HCl (Xopenex 1.25mg/0.5ml Neb) 1.25 mg INH Q2H PRN PRN Reason: SOB/WHEEZING Stop: 06/14/18 08:59 Last Admin: 05/16/18 19:51 Dose: 1.25 mg Magnesium Oxide (Mag-Ox) 400 mg PO BID [facility] Stop: 06/12/18 20:59 Last Admin: 05/20/18 08:21 Dose: 400 mg Miconazole Nitrate (Desenex) 1 appln EXT PRN PRN PRN Reason: prn Stop: 06/14/18 16:19 Miscellaneous (Carbohydrates For Hypoglycemia) 15 - 30 gm PO UD PRN PRN Reason: Hypoglycemia Treatment Stop: 06/12/18 15:04 Last Admin: 05/20/18 11:33 Dose: 15 gm Miscellaneous Information (Consult Glycemic Management Pharmacy) 1 ea N/A UD PRN; Protocol PRN Reason: Consult Stop: 06/12/18 15:25 Ondansetron HCl (Zofran) 4 mg IV Q6H PRN PRN Reason: Nausea Stop: 06/12/18 15:04 Polyethylene Glycol/Electrolytes (Golytely) 16 dose PO 1700 [facility] Stop: 05/20/18 23:59 Fluticasone/Salmeterol (Advair Diskus 250/50) 1 puffs INH BID [facility] Stop: 06/12/18 20:59 Last Admin: 05/20/18 08:20 Dose: 1 puffs Sertraline HCl (Zoloft) 25 mg PO DAILY [facility] Stop: 06/13/18 08:59 Last Admin: 05/20/18 08:21 Dose: 25 mg Tramadol HCl (Ultram) 50 mg PO TID PRN PRN Reason: Pain Stop: 06/12/18 15:04 _ (1) Anemia Anemia type: unspecified type Bone marrow failure anemia type: Chronic kidney disease stage: Folate deficiency anemia type: Hemolytic anemia type: Iron deficiency anemia type: Other causes of anemia: Vitamin B12 deficiency anemia type: Qualified Code(s): D64.9 - Anemia, unspecified
--- NOTE | 2018-05-20 16:02 | Hospitalist Progress Note ---
Date of Service May 20, 2018 Assessment & Plan (1) Anemia: Pt is a 77 y/o female currently admitted for asthma exacerbation and new Afib; also found to have iron deficiency anemia during her workup. Hx of GERD, hiatal hernia and hx of esophagitis per her report but no PUD or colorectal ca. She was on low dose Ibuprofen 200mg daily for low back pain but no tobacco or ETOH products. She denies overt s/s of GI bleed, stool was heme negative in ED. Abd exam benign otherwise. Previous EGD and colonoscopies at [facility] per patient -Presented on this admission with Hgb 5.9 and after 3 unit of PRBC on this admission the Hgb has remained stable -Patient has received Venofer 300mg IV for iron deficiency and while there is support for iron deficiency anemia, given the initial low Hgb -give daily ferrous iron for iron deficiency -without Gastroenterology evaluation via endoscopy/colonoscopy, Cardiology service has been unable to determine whether patient benefits from anticoagulation in context of stroke risk prevention from the atrial fibrillation -Hgb appears to be stable since the blood transfusion -Gastronenterology service will plan for EGD/Colonoscopy evaluation on Monday by Dr. Smith. Bowel prep ordered to start Monday05/20/18. Pls keep her on CL diet on Monday, NPO after midnight for endoscopic procedures on Monday (2) Rapid atrial fibrillation: likely secondary to severe anemia echo noted, (+) diastolic dysfunction was initially on Diltiazem drip and has been transitioned to oral Diltiazem, continue oral Diltiazem Patient remains in atrial fibrillation. Heart rate is controlled Possible urinary tract infection admission Urine culture with E.coli, started ceftriaxone daily on 05/16/18 repeat UA on 05/19/18 is negative and ceftriaxone stopped on 05/20/18 (3) Wheezing: Asthma exacerbation has resolved repeat CXR 05/15/18: no overt pulmomary edema Flu negative patient was resumed on IV solumedrol by pulmonary service on 05/16/18 and again will switch to oral prednisone after re-examining patient and re-discussing with pulmonary service on 05/17/18 continue nebulizer treatments as prn breathing now on room air, stop the prednisone on 05/19/18 (4) Hypertension: oral diltiazem blood pressure controlled without home GAGE inhibitor (5) Diabetes: 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 Heart rate is controlled. Patient does not have wheezing today. Denies worsening shortness of breath. Denies chest pain or palpitations. Denies lightheadedness. Denies abdominal pain. Denies gross bleeding from orifices breathing on room air Physical Exam 2 Vital Signs (Past 24 Hours): Last Vital Signs Temp 36.6 C 05/20/18 14:58 Pulse 89 05/20/18 14:58 Resp 19 05/20/18 14:58 BP 106/80 05/20/18 14:58 Pulse Ox 96 05/20/18 14:58 Constitutional: WD/WN, vitals as above Eyes: PERRL, conjunctivae normal, anicteric sclerae ENMT: external ear and nose normal, oropharynx normal Neck: trachea midline, no thyromegaly Respiratory: normal respiratory effort, lungs clear to auscultation Cardiovascular: Rate/Rhythm: regular rate (rate controlled, remains in atrial fibrillation) Gastrointestinal (Abdomen): normal bowel sounds, soft, nontender, no hepatosplenomegaly Musculoskeletal: no cyanosis or clubbing, extremities motor strength 5/5 Head/Neck/Chest: normocephalic and head atraumatic Neurologic: PERRL, EOMI, accommodation nl, no face palsy, no dysarthria CN' s II-XI intact bilaterally Psychiatric: A+Ox3, euthymic affect _ (1) Anemia Anemia type: unspecified type Bone marrow failure anemia type: Chronic kidney disease stage: Folate deficiency anemia type: Hemolytic anemia type: Iron deficiency anemia type: Other causes of anemia: Vitamin B12 deficiency anemia type: Qualified Code(s): D64.9 - Anemia, unspecified
--- NOTE | 2018-05-20 16:09 | Pharmacy Report ---
Pharmacy Glycemic Sign Off Nt - Date of Service May 20, 2018 - Assessment & Plan ASSESSMENT: * Pharmacy was consulted by Dr Garcia on 05/13/18 for glycemic control and to write orders per [facility] inpatient glycemic control protocol. * Major changes made by pharmacy to antidiabetic regimen include: * Escalation of Lantus and tightening of Novolog with steroids * Subsequent lessening of Lantus and Novolog * Patient has been receiving/requiring ~70 units of insulin per day for adequate glycemic control * BSGs ranging 90- 200 mg/dl * Provider has requested to manage insulin himself therefore pharmacy will sign off. Blood sugars should be better managed as steroids have been discontinued. * Please see recommendations for outpatient antidiabetic regimen below. * Pharmacy is signing off of glycemic consult and will no longer be making adjustments to inpatient regimen. Please feel free to re-consult if needed. Thank you. DISCHARGE RECOMMENDATIONS: * A1c 7.6 % on 05/14/18 * This A1C is reasonable in a 77 y/o F therefore it is reasonable to continue home regimen upon discharge.
[2018-05-20] MEDS ORDERED: LAVAGE SOLUTION 4000ML PO SCH (17:00)
[2018-05-21] MEDS ORDERED: INSULIN GLARGINE SOLOSTAR 100 UNITS/ML 3 ML PEN SQ SCH (09:00)
[2018-05-21] MEDS: INSULIN ASPART 100 UNITS/ML 3 ML PEN SC SCH ×4 (09:01→21:15)
--- NOTE | 2018-05-21 09:01 | Gastroenterology Progress Note ---
Date of Service May 21, 2018 Assessment & Plan (1) Iron deficiency anemia: 1. We will repeat the prep today and reschedule EGD and colonoscopy for tomorrow. 2. Clear liquids p.o. today 3. Further recommendations to follow endoscopy tomorrow. Present on Admission?: Yes Supervising Physician Co-Signing Physician Notes I have personally seen and examined the patient with ROSARIO Hartman. Her note reflects my exam and findings. I agree with her impression and plan. Unclear source of anemia and concerning for low grade chronic GI bleeding. Kulwinder Smith M.D. Subjective Ms. Buckner is a 77 yr old female who was admitted for shortness of breath, weakness was found to be in A. fib with RVR as well as having a hemoglobin of 5.9 she denies gross GI bleeding and occult stool was negative. Now that cardio and respiratory issues have been stabilized, plan is for EGD and colonoscopy for anemia. She has been n.p.o. and has prepped, however she has not had an adequate response from the prep. She continues with soft to loose bowel movements this morning. Hb on arrival 5.9, received 3 units of RBCs, Hb today 10.4 She is hemodynamically stable, no gross GI bleeding. At home, she is on ASA 81mg daily which has been continued. She has not been started on any anticoagulants. Constitutional: + weakness (resolved); no fever, no sweats, no body aches and no malaise Respiratory: + dyspnea (Resolved); no cough, no chest congestion, no pain on inspiration and no wheezing Cardiovascular: no chest pain, no palpitations and no edema Gastrointestinal: no abdominal pain, no bloating, no nausea, no hematemesis and no change in stools Genitourinary (Female): no dysuria and no hematuria Musculoskeletal: no back pain, no neck pain and no myalgia Integumentary: no rash, no lesions, no wounds and no pruritus Neurologic: no falls, no tremor(s) and no syncope Psychiatric: no depression, no irritability and no anxiety Endocrine: + fatigue (Resolved); no cold intolerance, no heat intolerance and no flushing Physical Exam 2 Vital Signs (Past 24 Hours): Last Vital Signs Temp 36.5 C 05/21/18 07:22 Pulse 51 L 05/21/18 07:22 Resp 18 05/21/18 07:22 BP 132/74 05/21/18 07:22 Pulse Ox 93 05/21/18 07:22 Constitutional: well developed, + ill appearing, + thin and cooperative Eyes: PERRL, conjunctivae normal, anicteric sclerae Respiratory: normal respiratory effort, lungs clear to auscultation normal respiratory effort and able to speak in complete sentences; no respiratory distress, no labored breathing, does not use accessory muscles and no cough Cardiovascular: RRR, no murmur, no edema Gastrointestinal (Abdomen): normal bowel sounds, soft, nontender, no hepatosplenomegaly Inspection/Auscultation: abdomen normal to inspection and normal bowel sounds; abdomen not distended and no abdominal edema Percussion/ Palpation: + abdomen tender (Mild diffuse adbdominal msk tenderness. No signs of acute abdomen.) and abdomen soft; no guarding and abdomen not rigid Skin: no rashes, warm and dry normal turgor and + pallor Neurologic: PERRL, EOMI, accommodation nl, no face palsy, no dysarthria awake; not confused Psychiatric: A+Ox3, euthymic affect Orientation: alert, oriented x 3 and cooperative Results & Data Laboratory Results On arrival hemoglobin was 5.9, she has received 3 units of red blood cells, hemoglobin today is 10.9. INR 1.1 Iron 10, MCV 63 TTG is pending
--- NOTE | 2018-05-21 09:35 | Cardiology Progress Note ---
Date of Service May 21, 2018 Assessment & Plan (1) Rapid atrial fibrillation: I would continue the oral diltiazem. Her heart rates on telemetry are between 90 and low 100s. She was not prepped well enough for her GI procedures today and will have them completed tomorrow. She will need to be started on anticoagulation when she is cleared by the GI service. (2) Anemia: Blood counts have improved. (3) Hypertension: Home antihypertensives. (4) Diabetes: Lantus, sliding scale, carb consistent diet Per internal medicine (5) Asthma attacks lasting more than 24 hours: Pulmonary consult appreciated. Subjective Patient is feeling improvement. Heart rates are controlled with diltiazem. Pulmonary consult is appreciated. GI consult is also appreciated. Physical Exam 2 Vital Signs (Past 24 Hours): Last Vital Signs Temp 36.5 C 05/21/18 07:22 Pulse 51 L 05/21/18 07:22 Resp 18 05/21/18 07:22 BP 132/74 05/21/18 07:22 Pulse Ox 93 05/21/18 07:22 Physical Exam: General: no acute distress and stated age Head: normocephalic, no masses, lesions, tenderness or abnormalities Eyes: conjunctiva are pink and non-injected, sclera clear Neck: supple, no adenopathy, no bruits, normal jugular venous pulse, no hepatojugular reflux Chest: normal shape and normal respiratory effort Lungs: clear to auscultation and percussion Cardiac Exam: - irregular rate & rhythm, no murmurs gallops or rubs - normal S1 , normal S2 Pulses: 2(+) throughout Abdomen: abdomen soft, non-tender, no abnormal masses and no hepatosplenomegaly Musculoskeletal: no gait disturbance, no joint inflammation, no deforming arthritis Extremities: no edema and no cyanosis Neuro: grossly normal exam Results & Data Laboratory Results Laboratory Results - last 24 hr 05/20/18 05/20/18 05/20/18 07:28 11:28 11:48 POC Glucose 94 56 L* 90 05/20/18 05/20/18 05/20/18 16:17 20:28 20:43 POC Glucose 95 54 L* 82 05/21/18 05/21/18 05/21/18 00:16 03:34 07:19 POC Glucose 96 76 56 L* 05/21/18 08:10 POC Glucose 109 H Medications Administered Current Inpatient Medications Acetaminophen (Tylenol) 650 mg PO Q4H PRN PRN Reason: Pain or Fever Stop: 06/12/18 15:04 Albuterol (Duoneb) 3 ml NEB Q4H PRN PRN Reason: Dyspnea Stop: 06/12/18 15:04 Last Admin: 05/14/18 12:30 Dose: 3 ml Aspirin (Ecotrin Ectab) 81 mg PO DAILY [facility] Stop: 06/13/18 08:59 Last Admin: 05/14/18 07:59 Dose: 81 mg Dextrose (Dextrose 50%) 25 - 50 ml IV UD PRN; Protocol PRN Reason: Hypoglycemia Protocol Stop: 06/12/18 15:04 Last Admin: 05/21/18 07:30 Dose: 25 ml Diltiazem HCl (Cardizem) 60 mg PO TID [facility] Stop: 06/14/18 13:59 Last Admin: 05/20/18 20:20 Dose: 60 mg Ferrous Sulfate (Feosol) 325 mg PO QAM [facility] Stop: 06/16/18 08:59 Last Admin: 05/20/18 08:21 Dose: 325 mg Glucagon (Glucagen) 1 mg SQ UD PRN; Protocol PRN Reason: Hypoglycemia Protocol Stop: 06/12/18 15:04 Glucose (Glucose 40%) 15 - 30 gm PO UD PRN; Protocol PRN Reason: Hypoglycemia Protocol Stop: 06/12/18 15:04 Glucose (Dex4 Glucose) 4 - 8 tabs PO UD PRN; Protocol PRN Reason: Hypoglycemia Protocol Stop: 06/12/18 15:04 Hydroxyzine HCl (Vistaril) 25 mg PO QID PRN PRN Reason: Itching Stop: 06/12/18 15:04 Last Admin: 05/15/18 07:44 Dose: 25 mg Pantoprazole Sodium 40 mg/ (Syringe) 10 mls @ 5 mls/min IV BID [facility] Stop: 06/13/18 11:29 Last Admin: 05/20/18 20:20 Dose: 5 mls/min Insulin Aspart (Novolog Flexpen) 0 units SC ACHS MAGGIE; Protocol Stop: 06/19/18 11:29 Last Admin: 05/21/18 09:01 Dose: Not Given Ipratropium Weare (Atrovent 0.02% 0.5mg/2.5ml) 0.5 mg INH Q4H PRN PRN Reason: SOB/WHEEZING Stop: 06/14/18 08:59 Levalbuterol HCl (Xopenex 1.25mg/0.5ml Neb) 1.25 mg INH Q2H PRN PRN Reason: SOB/WHEEZING Stop: 06/14/18 08:59 Last Admin: 05/16/18 19:51 Dose: 1.25 mg Magnesium Oxide (Mag-Ox) 400 mg PO BID MAGGIE Stop: 06/12/18 20:59 Last Admin: 05/20/18 20:20 Dose: 400 mg Miconazole Nitrate (Desenex) 1 appln EXT PRN PRN PRN Reason: prn Stop: 06/14/18 16:19 Miscellaneous (Carbohydrates For Hypoglycemia) 15 - 30 gm PO UD PRN PRN Reason: Hypoglycemia Treatment Stop: 06/12/18 15:04 Last Admin: 05/20/18 20:28 Dose: 15 gm Ondansetron HCl (Zofran) 4 mg IV Q6H PRN PRN Reason: Nausea Stop: 06/12/18 15:04 Fluticasone/Salmeterol (Advair Diskus 250/50) 1 puffs INH BID [facility] Stop: 06/12/18 20:59 Last Admin: 05/20/18 20:40 Dose: 1 puffs Sertraline HCl (Zoloft) 25 mg PO DAILY [facility] Stop: 06/13/18 08:59 Last Admin: 05/20/18 08:21 Dose: 25 mg Tramadol HCl (Ultram) 50 mg PO TID PRN PRN Reason: Pain Stop: 06/12/18 15:04 _ (1) Anemia Anemia type: unspecified type Bone marrow failure anemia type: Chronic kidney disease stage: Folate deficiency anemia type: Hemolytic anemia type: Iron deficiency anemia type: Other causes of anemia: Vitamin B12 deficiency anemia type: Qualified Code(s): D64.9 - Anemia, unspecified
[2018-05-21] MEDS: FLUTICASONE/SALMETEROL 250/50 (ADVAIR) 14 PUFF/1 INHALER INH SCH ×2 (09:40→20:45)
[2018-05-21] MEDS: SERTRALINE HCL 50 MG TABLET PO SCH (09:41)
[2018-05-21] MEDS: dilTIAZem HCl 60 MG TAB PO SCH ×3 (09:41→20:45)
[2018-05-21] MEDS: FERROUS SULFATE 325 MG TAB PO SCH (09:41)
[2018-05-21] MEDS: MAGNESIUM OXIDE 400 MG TAB PO SCH ×2 (09:41→20:45)
[2018-05-21] MEDS: PANTOprazole 40 MG in SYRINGE 0 ML IV SCH ×2 (09:41→20:45)
[2018-05-21] MEDS ORDERED: LAVAGE SOLUTION 4000ML PO SCH (10:30)
--- NOTE | 2018-05-21 17:21 | Hematology/Oncology Prog Note ---
Date of Service May 21, 2018 Assessment & Plan (1) Anemia: 77-year-old female, A case of iron deficiency anemia with hemoglobin level around 5.9 g/dL with a significant microcytosis, hiatal hernia, she was taking NSAID for the back pain , received 3 units of PRBC and the 1 dose of Venofer on 05/14/2018, significant improvement of policy symptoms noted, nowadays she is off the oxygen treatment, she was scheduled for endoscopic evaluation but because of inadequate depression , it is already scheduled for tomorrow morning. 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 I would like to give another dose of intravenous iron the form Venofer at 300 mg before she goes home. Physical Exam 2 Vital Signs (Past 24 Hours): Last Vital Signs Temp 36.8 C 05/21/18 15:24 Pulse 57 L 05/21/18 15:24 Resp 18 05/21/18 15:24 BP 136/88 05/21/18 15:24 Pulse Ox 97 05/21/18 15:24 _ (1) Anemia Anemia type: unspecified type Bone marrow failure anemia type: Chronic kidney disease stage: Folate deficiency anemia type: Hemolytic anemia type: Iron deficiency anemia type: Other causes of anemia: Vitamin B12 deficiency anemia type: Qualified Code(s): D64.9 - Anemia, unspecified
[2018-05-21] MEDS ORDERED: IRON SUCROSE (VENOFER) 100 MG/5 ML VIAL IV SCH (17:30)
[2018-05-21] MEDS ORDERED: IRON SUCROSE 300 MG in SODIUM CHLORIDE 0.9% 250 ML IV SCH (18:00)
--- NOTE | 2018-05-21 19:13 | Hospitalist Progress Note ---
Date of Service May 21, 2018 Assessment & Plan (1) Anemia: Pt is a 77 y/o female currently admitted for asthma exacerbation and new Afib; also found to have iron deficiency anemia during her workup. Hx of GERD, hiatal hernia and hx of esophagitis per her report but no PUD or colorectal ca. She was on low dose Ibuprofen 200mg daily for low back pain but no tobacco or ETOH products. She denies overt s/s of GI bleed, stool was heme negative in ED. Abd exam benign otherwise. Previous EGD and colonoscopies at [facility] per patient -Presented on this admission with Hgb 5.9 and after 3 unit of PRBC on this admission the Hgb has remained stable -Patient has received Venofer 300mg IV for iron deficiency and while there is support for iron deficiency anemia, given the initial low Hgb -give daily ferrous iron for iron deficiency -without Gastroenterology evaluation via endoscopy/colonoscopy, Cardiology service has been unable to determine whether patient benefits from anticoagulation in context of stroke risk prevention from the atrial fibrillation -Hgb appears to be stable since the blood transfusion -Gastronenterology service has to re-schedule EGD/Colonoscopy evaluation for Monday05/22/[address] Smith due to inadequate bowel prep -hematology consult recommending additional Venofer before patient leaves the hospital (2) Rapid atrial fibrillation: likely secondary to severe anemia echo noted, (+) diastolic dysfunction was initially on Diltiazem drip and has been transitioned to oral Diltiazem, continue oral Diltiazem Patient remains in atrial fibrillation. Heart rate is controlled Possible urinary tract infection admission Urine culture with E.coli, started ceftriaxone daily on 05/16/18 repeat UA on 05/19/18 is negative and ceftriaxone stopped on 05/20/18 (3) Wheezing: Asthma exacerbation has resolved repeat CXR 05/15/18: no overt pulmomary edema Flu negative patient was resumed on IV solumedrol by pulmonary service on 05/16/18 and again will switch to oral prednisone after re-examining patient and re-discussing with pulmonary service on 05/17/18 continue nebulizer treatments as prn breathing now on room air, stopped the prednisone on 05/19/18 (4) Hypertension: oral diltiazem blood pressure controlled without home GAGE inhibitor (5) Diabetes: Diabetes Mellitus Type II 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 hold home metformin Pharmacy glycemic control adjusting insulin previously 05/20/18 and 05/21/18 episode of hypoglycemias likely because of intermittent liquid diet versus NPO for planned colonoscopy/endoscopy, continue to hold the Lantus until scoping is completed or if hyperglycemic (6) Discharge planning issues: will need establishment of outpatient doctors in [facility] Referral placed to [facility] as per case management social worker based on patient's PT/ OT performance; as per the [facility] Liaison, patient is accepted when medically stable (7) DVT prophylaxis: SCDs Subjective Patient remains in atrial fibrillation. Heart rate is controlled. Patient does not have wheezing today. Denies worsening shortness of breath. Denies chest pain or palpitations. Denies lightheadedness. Denies abdominal pain. Denies gross bleeding from orifices breathing on room air Physical Exam 2 Vital Signs (Past 24 Hours): Last Vital Signs Temp 36.8 C 05/21/18 15:24 Pulse 57 L 05/21/18 15:24 Resp 18 05/21/18 15:24 BP 136/88 05/21/18 15:24 Pulse Ox 97 05/21/18 15:24 Constitutional: WD/WN, vitals as above Eyes: PERRL, conjunctivae normal, anicteric sclerae EOM intact bilaterally ENMT: external ear and nose normal, oropharynx normal Neck: trachea midline, no thyromegaly Respiratory: normal respiratory effort, lungs clear to auscultation Cardiovascular: Rate/Rhythm: regular rhythm (irregular rhythm) Gastrointestinal (Abdomen): normal bowel sounds, soft, nontender, no hepatosplenomegaly Musculoskeletal: no cyanosis or clubbing, extremities motor strength 5/5 Head/Neck/Chest: normocephalic and head atraumatic Neurologic: PERRL, EOMI, accommodation nl, no face palsy, no dysarthria CN' s II-XI intact bilaterally Psychiatric: A+Ox3, euthymic affect _ (1) Anemia Anemia type: unspecified type Bone marrow failure anemia type: Chronic kidney disease stage: Folate deficiency anemia type: Hemolytic anemia type: Iron deficiency anemia type: Other causes of anemia: Vitamin B12 deficiency anemia type: Qualified Code(s): D64.9 - Anemia, unspecified
[2018-05-22] MEDS: FERROUS SULFATE 325 MG TAB PO SCH (07:14)
[2018-05-22] MEDS: MAGNESIUM OXIDE 400 MG TAB PO SCH (07:14)
[2018-05-22] MEDS: SERTRALINE HCL 50 MG TABLET PO SCH (07:14)
[2018-05-22] MEDS: dilTIAZem HCl 60 MG TAB PO SCH ×2 (07:14→14:17)
[2018-05-22] MEDS: FLUTICASONE/SALMETEROL 250/50 (ADVAIR) 14 PUFF/1 INHALER INH SCH (07:15)
[2018-05-22] MEDS: INSULIN ASPART 100 UNITS/ML 3 ML PEN SC SCH ×3 (08:37→17:20)
[2018-05-22] MEDS: PANTOprazole 40 MG in SYRINGE 0 ML IV SCH (08:38)
--- NOTE | 2018-05-22 10:22 | Anesthesiology Consultation ---
Date of Service May 22, 2018 Assessment & Plan (1) Encounter for pre-operative examination: Chart Review Chart Review: Acceptable Risk for Surgery and Patient NOT seen in Pre Admission Testing Consults Requested Pt has been seen and evaluated by automobile contract clerk and put on diltiazem for her new onset AFib with RVR. HR has been in the low 100s. ASA ASA4 Proposed Anesthesia Anesthesia Type: MAC Risk / Benefits Reviewed With: PT / POA / Parent / Guardian, Accepts Plan and Informed Consent Obtained NPO Date Last Intake of Fluids: 05/22/18 Time Last Intake of Fluids: 00:01 Date Last Intake of Solids: 05/22/18 Time Last Intake of Solids: 16:00 History Surgery Operation Date: 05/22/18 11:45 Proposed Procedures p Colonoscopy EGD Dr Luis Smith Height/Weight Height: 1.5 m Weight: 85.2 kg Allergies Allergy/AdvReac Type Severity Reaction Status Date / Time No Known Allergies Allergy Unverified 05/13/18 11:57 Medications Home Medications Medication Instructions Recorded Confirmed Last Taken albuterol sulfate [ProAir HFA] 2 puff INHALATION Q6H PRN 05/13/18 05/13/18 Unknown aspirin [Aspirin Low Dose] 81 mg PO DAILY 05/13/18 05/13/18 05/13/18 fluticasone-salmeterol [Advair 1 inh INHALATION BID 05/13/18 05/13/18 05/13/18 Diskus] fosinopril 40 mg PO DAILY 05/13/18 05/13/18 05/13/18 hydroxyzine HCl 25 mg PO QID PRN 05/13/18 05/13/18 Unknown ibuprofen 200 mg PO TID PRN 05/13/18 05/13/18 Unknown insulin glargine [Lantus Solostar 30 units SUBCUT QAM 05/13/18 05/13/18 05/13/18 U-100 Insulin] metformin 1,000 mg PO BID 05/13/18 05/13/18 05/13/18 sertraline 25 mg PO DAILY 05/13/18 05/13/18 05/13/18 tramadol 50 mg PO TID PRN 05/13/18 05/13/18 Unknown Active Medications Generic Name Dose Route Start Last Admin Trade Name Freq PRN Reason Stop Dose Admin Albuterol 3 ml 05/13/18 15:05 05/14/18 12:30 Duoneb NEB 06/12/18 15:04 3 ml Q4H PRN Administration Dyspnea Aspirin 81 mg 05/14/18 09:00 05/14/18 07:59 Ecotrin Ectab PO 06/13/18 08:59 81 mg DAILY MAGGIE Administration Dextrose 25 - 50 ml 05/13/18 15:05 05/21/18 07:30 Dextrose 50% IV 06/12/18 15:04 25 ml UD PRN Administration Hypoglycemia Protocol Protocol Diltiazem HCl 60 mg 05/15/18 14:00 05/22/18 07:14 Cardizem PO 06/14/18 13:59 60 mg TID MAGGIE Administration Ferrous Sulfate 325 mg 05/17/18 09:00 05/22/18 07:14 Feosol PO 06/16/18 08:59 325 mg QAM MAGGIE Administration Hydroxyzine HCl 25 mg 05/13/18 15:05 05/15/18 07:44 Vistaril PO 06/12/18 15:04 25 mg QID PRN Administration Itching Pantoprazole Sodium 40 mg/ 10 mls @ 5 mls/min 05/14/18 11:30 05/22/18 08:38 Syringe IV 06/13/18 11:29 5 mls/min BID MAGGIE Administration Insulin Aspart 0 units 05/20/18 11:30 05/22/18 08:37 Novolog Flexpen SC 06/19/18 11:29 Not Given ACHS MAGGIE Protocol Levalbuterol HCl 1.25 mg 05/15/18 09:44 05/16/18 19:51 Xopenex 1.25mg/0.5ml Neb INH 06/14/18 08:59 1.25 mg Q2H PRN Administration SOB/WHEEZING Magnesium Oxide 400 mg 05/13/18 21:00 05/22/18 07:14 Mag-Ox PO 06/12/18 20:59 400 mg BID MAGGIE Administration Miscellaneous 15 - 30 gm 05/13/18 15:05 05/20/18 20:28 Carbohydrates For Hypoglycemia PO 06/12/18 15:04 15 gm UD PRN Administration Hypoglycemia Treatment Fluticasone/Salmeterol 1 puffs 05/13/18 21:00 05/22/18 07:15 Advair Diskus 250/50 INH 06/12/18 20:59 1 puffs BID MAGGIE Administration Sertraline HCl 25 mg 05/14/18 09:00 05/22/18 07:14 Zoloft PO 06/13/18 08:59 25 mg DAILY MAGGIE Administration Beta Nichol Beta Nichol Taken Within 24 Hours: No Past Medical History Medical History Pneumonia Bronchitis Hypertension Heart disease Diabetes Anemia Hgb 5.6 on admission s/p 3units PRBCs. Stable last hgb 10.9 Asthma No h/o hospitalization or intubation Atrial fibrillation Rheumatic fever Past Surgical History Surgical History H/O esophagogastroduodenoscopy Hx of total knee arthroplasty Bilateral S/P cholecystectomy S/P hysterectomy S/P lumbar laminectomy S/P tonsillectomy Past Anesthesia History No Hx of Anesthesia Complications and No Family Hx of Anesthesia Complications History of PONV No Motion Sickness Screening History of Motion Sickness: No Social History Smoking Status: Never smoker Do You Dip or Chew Tobacco: No Hx Alcohol Use: Yes alcohol intake frequency: holidays/special occasions only Hx Substance Use: No Exercise / Class Metabolic Activity III < 4 Walking/Shop/Light housework Physical Exam Vital Signs Last Vital Signs Temp 37.2 C 05/22/18 10:59 Pulse 107 H 05/22/18 10:59 Resp 20 05/22/18 10:59 BP 162/101 H 05/22/18 10:59 Pulse Ox 94 05/22/18 10:59 ENMT Mouth: + edentulous and + small oral opening; no TMJ abnormality and no TMJ clicking Thyromental Distance: < 3.5 Finger Breadths Mallampati Class: III Neck normal visual inspection and + thick neck; neck extension not limited Cardiovascular Rate/Rhythm: + abnormal rate and + abnormal rhythm (Irregularly irregular) Testing Electrocardiogram Date: 05/13/18 Findings: + AFIB @ (141 with RVR) Chest X-Ray Date: 05/15/17 Mild over pumonary vascular congestion without overt edema Echocardiogram Date: 05/14/18 EF: 55-60% LV Function: normal RWMA: + none Other Findings: + LVH (Mild) Moderate AV sclerosis without Laboratory Results 05/20/18 07:39 05/18/18 05:40 Blood Type O Positive 05/13/18 12:58 Antibody Screen POSITIVE A 05/13/18 12:58 PT 11.3 Seconds (9.0-12.0) 05/14/18 06:12 INR 1.1 (0.9-1.1) 05/14/18 06:12 APTT 25.9 Seconds (21.0-31.0) 05/13/18 11:55 Hemoglobin A1c 7.6 % (4.5-5.6) H 05/14/18 06:12 Urine Color Yellow 05/19/18 22:30 Urine Appearance Clear (Clear) 05/19/18 22:30 Urine pH 5.0 (4.5-7.5) 05/19/18 22:30 Ur Specific [place] 1.022 (1.000-1.030) 05/19/18 22:30 Urine Protein Negative (Negative) 05/19/18 22:30 Urine Glucose (UA) 2+ (Negative) H 05/19/18 22:30 Urine Ketones Negative (Negative) 05/19/18 22:30 Urine Nitrite Negative (Negative) 05/19/18 22:30 Ur Leukocyte Esterase Negative (Negative) 05/19/18 22:30 Urine WBC (Auto) 5-10 /hpf (0-5) H 05/18/18 22:15 Urine RBC (Auto) 0-4 /hpf (0-4) 05/18/18 22:15 U Hyaline Cast (Auto) 1-5 /lpf (0-5) 05/18/18 22:15 U Epithel Cells (Auto) >30 /lpf (0-5) H 05/18/18 22:15 Urine Bacteria (Auto) Negative (Negative) 05/18/18 22:15 05/15/18 10:10 Urine Culture - Final Urine,Indwelling Cath Escherichia coli 05/22/18 05/22/18 05/22/18 08:10 04:07 00:05 POC Glucose 98 76 72
[2018-05-22] MEDS ORDERED: LIDOCAINE HCL 2% 2 ML VIAL/AMP(20MG/ML) INFIL ONE (11:51)
[2018-05-22] MEDS ORDERED: PROPOFOL IV EMULSION 10 MG/ML 20 ML VIAL IV ONE (11:51)
--- NOTE | 2018-05-22 11:56 | History & Physical Report ---
Date of Service May 22, 2018 Assessment & Plan (1) GI bleeding: stable for EGD/ [facility] History of Present Illness Chief Complaint: anemia and chronic GI bleeding Primary Care Provider: NO PCP pt with chronic anemia for EGD/[place] Allergies Allergy/AdvReac Type Severity Reaction Status Date / Time No Known Allergies Allergy Unverified 05/13/18 11:57 Home Medications Home Medications Medication Instructions Recorded Confirmed Type albuterol sulfate [ProAir HFA] 2 puff INHALATION Q6H PRN 05/13/18 05/13/18 History aspirin [Aspirin Low Dose] 81 mg PO DAILY 05/13/18 05/13/18 History fluticasone-salmeterol [Advair 1 inh INHALATION BID 05/13/18 05/13/18 History Diskus] fosinopril 40 mg PO DAILY 05/13/18 05/13/18 History hydroxyzine HCl 25 mg PO QID PRN 05/13/18 05/13/18 History ibuprofen 200 mg PO TID PRN 05/13/18 05/13/18 History insulin glargine [Lantus Solostar 30 units SUBCUT QAM 05/13/18 05/13/18 History U-100 Insulin] metformin 1,000 mg PO BID 05/13/18 05/13/18 History sertraline 25 mg PO DAILY 05/13/18 05/13/18 History tramadol 50 mg PO TID PRN 05/13/18 05/13/18 History Past Med/Surg History Medical History Pneumonia Bronchitis Hypertension Heart disease Diabetes Anemia Hgb 5.6 on admission s/p 3units PRBCs. Stable last hgb 10.9 Asthma No h/o hospitalization or intubation Atrial fibrillation Rheumatic fever Surgical History H/O esophagogastroduodenoscopy Hx of total knee arthroplasty Bilateral S/P cholecystectomy S/P hysterectomy S/P lumbar laminectomy S/P tonsillectomy Social History marital status: / Current Living Situation: Alone Other Information That Helps Us Care for You: No Feels Safe at Home: Yes Safety Concerns: Feels Safe At This Time Smoking Status: Never smoker Do You Dip or Chew Tobacco: No Hx Alcohol Use: Yes Alcohol Intake Frequency: holidays/special occasions only Hx Substance Use: No Beliefs That Will Affect Care: None Communication Ability: Effective Physical Exam 2 Vital Signs (Past 24 Hours): Last Vital Signs Temp 37.2 C 05/22/18 10:59 Pulse 107 H 05/22/18 10:59 Resp 20 05/22/18 10:59 BP 162/101 H 05/22/18 10:59 Pulse Ox 94 05/22/18 10:59 Constitutional: WD/WN, vitals as above Respiratory: normal respiratory effort, lungs clear to auscultation Cardiovascular: RRR, no murmur, no edema Gastrointestinal (Abdomen): normal bowel sounds, soft, nontender, no hepatosplenomegaly
--- NOTE | 2018-05-22 13:06 | GI REPORT ---
Patient Name: Jen Buckner Procedure Date: 05/22/2018 11:55 AM Date of : 1940 Admit Type: Inpatient Age: 77 Gender: Female Attending MD: Kulwinder Smith MD Procedure: Upper GI endoscopy Providers: Kulwinder Smith MD Referring MD: Sammy Jacobsen M.d. Indications: Suspected upper gastrointestinal bleeding in patient with chronic blood loss Medicines: See the Anesthesia note for documentation of the administered medications Complications: No immediate complications. Estimated Blood Loss: Estimated blood loss: none. Procedure: Pre-Anesthesia Assessment: - Prior to the procedure, a History and Physical was performed, and patient medications, allergies and sensitivities were reviewed. The patient's tolerance of previous anesthesia was reviewed. - The risks and benefits of the procedure and the sedation options and risks were discussed with the patient. All questions were answered and informed consent was obtained. - Patient identification and proposed procedure were verified prior to the procedure by the physician and the nurse. The procedure was verified in the pre-procedure area. - Pre-procedure physical examination revealed no contraindications to sedation. - After reviewing the risks and benefits, the patient was deemed in satisfactory condition to undergo the procedure. After obtaining informed consent, the endoscope was passed under direct vision. Throughout the procedure, the patient's blood pressure, pulse, and oxygen saturations were monitored continuously. The scope was introduced through the mouth, and advanced to the third part of duodenum. The upper GI endoscopy was accomplished without difficulty. The patient tolerated the procedure well. Findings: The esophagus was normal. A small hiatal hernia was present. The examined duodenum was normal. The cardia and gastric fundus were normal on retroflexion. Impression: - Normal esophagus. - Small hiatal hernia. - Normal examined duodenum. - No specimens collected. - No bleeding seen. Recommendation: - Perform a colonoscopy today. Kulwinder Smith M.D. Kulwinder Smith MD 05/22/2018 1:05:35 PM This report has been signed electronically. Note Initiated On: 05/22/2018 11:55 AM Number of Addenda: 0 I attest to the content of the Intraoperative Record and orders documented therein, exceptions below {[id number]}
--- NOTE | 2018-05-22 13:08 | GI REPORT ---
Patient Name: Jen Buckner Procedure Date: 05/22/2018 11:54 AM Date of : 1940 Admit Type: Inpatient Age: 77 Gender: Female Attending MD: Kulwinder Smith MD Procedure: Colonoscopy Providers: Kulwinder Smith MD Referring MD: Sammy Jacobsen M.d. Indications: Iron deficiency anemia secondary to chronic blood loss Medicines: See the Anesthesia note for documentation of the administered medications Complications: No immediate complications. Estimated Blood Loss: Estimated blood loss: none. Procedure: Pre-Anesthesia Assessment: - See the other procedure note for documentation of the pre-procedure assessment. After I obtained informed consent, the scope was passed under direct vision. Throughout the procedure, the patient's blood pressure, pulse, and oxygen saturations were monitored continuously. The Scope was introduced through the anus and advanced to the cecum, identified by appendiceal orifice and ileocecal valve. The colonoscopy was performed without difficulty. The patient tolerated the procedure well. The quality of the bowel preparation was fair. Findings: The perianal and digital rectal examinations were normal. Multiple small and large-mouthed diverticula were found in the entire colon. The exam was otherwise without abnormality on direct and retroflexion views. Impression: - Preparation of the colon was fair. - Diverticulosis in the entire examined colon. - The examination was otherwise normal on direct and retroflexion views. - No specimens collected. - No bleeding seen. Recommendation: - Return patient to [facility] for ongoing care. Kulwinder Smith M.D. Kulwinder Smith MD 05/22/2018 1:07:51 PM This report has been signed electronically. Note Initiated On: 05/22/2018 11:54 AM Number of Addenda: 0 I attest to the content of the Intraoperative Record and orders documented therein, exceptions below {[id number]}
--- NOTE | 2018-05-22 13:16 | Anesthesiology Progress Note ---
Date of Service May 22, 2018 Anesthesia Post Procedure Vital Signs Vital Signs: Temp Pulse Pulse Pulse Resp BP BP 05/22/18 13:04 96 H 18 106/80 05/22/18 12:50 102 H 20 119/76 05/22/18 12:35 87 25 H 91/65 L 05/22/18 10:59 37.2 C 107 H 20 162/101 H 05/22/18 08:00 87 05/22/18 07:04 36.7 C 56 L 18 145/70 H 05/22/18 04:04 36.6 C 84 15 109/68 05/22/18 00:03 36.5 C 78 20 128/61 05/21/18 23:23 87 05/21/18 19:24 36.9 C 77 18 151/75 H 05/21/18 15:24 36.8 C 57 L 18 136/88 Pulse Ox 05/22/18 13:04 93 05/22/18 12:50 98 05/22/18 12:35 95 05/22/18 10:59 94 05/22/18 08:00 05/22/18 07:04 91 05/22/18 04:04 91 05/22/18 00:03 93 05/21/18 23:23 05/21/18 19:24 94 05/21/18 15:24 97 Notes Mental Status: alert / awake / arousable Patient Amnestic to Procedure: Yes Nausea / Vomiting: adequately controlled Pain: adequately controlled Airway Patency, RR, SpO2: stable & adequate BP & HR: stable & adequate Hydration State: stable & adequate Anesthetic Complications: no major complications apparent
[2018-05-22] MEDS ORDERED: IRON SUCROSE (VENOFER) 100 MG/5 ML VIAL IV ONE (13:26)
[2018-05-22] MEDS ORDERED: IRON SUCROSE 300 MG in SODIUM CHLORIDE 0.9% 250 ML IV ONE (14:00)
[2018-05-22] MEDS ORDERED: ALBUTEROL 0.5% NEB SOLN 2.5 MG/0.5 ML VIAL NEB PRN (14:08)
--- NOTE | 2018-05-22 14:18 | Cardiology Progress Note ---
Date of Service May 22, 2018 Assessment & Plan (1) Rapid atrial fibrillation: Okay with discharge and outpatient follow-up. You can start the patient on warfarin and have her follow-up with the coag clinic. (2) Anemia: Blood counts have improved. (3) Hypertension: Home antihypertensives. (4) Diabetes: Lantus, sliding scale, carb consistent diet Per internal medicine (5) Asthma attacks lasting more than 24 hours: Pulmonary consult appreciated. Subjective Patient had an EGD and colonoscopy this morning without evidence of bleeding activity. She has no complaints today. Physical Exam 2 Vital Signs (Past 24 Hours): Last Vital Signs Temp 37.2 C 05/22/18 10:59 Pulse 96 H 05/22/18 13:04 Resp 18 05/22/18 13:04 BP 106/80 05/22/18 13:04 Pulse Ox 93 05/22/18 13:04 Physical Exam: General: no acute distress and stated age Head: normocephalic, no masses, lesions, tenderness or abnormalities Eyes: conjunctiva are pink and non-injected, sclera clear Neck: supple, no adenopathy, no bruits, normal jugular venous pulse, no hepatojugular reflux Chest: normal shape and normal respiratory effort Lungs: clear to auscultation and percussion Cardiac Exam: - irregular rate & rhythm, no murmurs gallops or rubs - normal S1 , normal S2 Pulses: 2(+) throughout Abdomen: abdomen soft, non-tender, no abnormal masses and no hepatosplenomegaly Musculoskeletal: no gait disturbance, no joint inflammation, no deforming arthritis Extremities: no edema and no cyanosis Neuro: grossly normal exam _ (1) Anemia Anemia type: unspecified type Bone marrow failure anemia type: Chronic kidney disease stage: Folate deficiency anemia type: Hemolytic anemia type: Iron deficiency anemia type: Other causes of anemia: Vitamin B12 deficiency anemia type: Qualified Code(s): D64.9 - Anemia, unspecified
--- NOTE | 2018-05-22 15:13 | Hospitalist Progress Note ---
Date of Service May 22, 2018 Assessment & Plan (1) Anemia: Pt is a 77 y/o female currently admitted for asthma exacerbation and new Afib; also found to have iron deficiency anemia during her workup. Hx of GERD, hiatal hernia and hx of esophagitis per her report but no PUD or colorectal ca. She was on low dose Ibuprofen 200mg daily for low back pain but no tobacco or ETOH products. She denies overt s/s of GI bleed, stool was heme negative in ED. Abd exam benign otherwise. -Presented on this admission with Hgb 5.9 and after 3 unit of PRBC on this admission the Hgb has remained stable -Patient has received Venofer 300mg IV for iron deficiency and while there is support for iron deficiency anemia, given the initial low Hgb -give daily ferrous iron for iron deficiency -without Gastroenterology evaluation via endoscopy/colonoscopy, Cardiology service has been unable to determine whether patient benefits from anticoagulation in context of stroke risk prevention from the atrial fibrillation -Hgb appears to be stable since the blood transfusion -Gastronenterology service has to re-schedule EGD/Colonoscopy evaluation for Monday05/22/[address] Smith due to inadequate bowel prep -the colonoscopy/endoscopy has been completed on 05/22/18 and no source of bleeding identified. Discussed with cardiology that warfarin can be started for atrial fibrillation anticoagulation -hematology consult recommending additional Venofer before patient leaves the hospital and 300 mg IV Venofer given on 05/22/18 (2) Rapid atrial fibrillation: likely secondary to severe anemia echo noted, (+) diastolic dysfunction was initially on Diltiazem drip and has been transitioned to oral Diltiazem, continue oral Diltiazem Patient remains in atrial fibrillation. Heart rate is controlled 05/22/18 warfarin can be started for atrial firbillation anticoagulation Possible urinary tract infection admission Urine culture with E.coli, started ceftriaxone daily on 05/16/18 repeat UA on 05/19/18 is negative and ceftriaxone stopped on 05/20/18 (3) Wheezing: Asthma exacerbation has resolved repeat CXR 05/15/18: no overt pulmomary edema Flu negative patient was resumed on IV solumedrol by pulmonary service on 05/16/18 and again will switch to oral prednisone after re-examining patient and re-discussing with pulmonary service on 05/17/18 continue nebulizer treatments as prn breathing now on room air, stopped the prednisone on 05/19/18 patient has prescription for nebuilzer machine which she will bring to [facility] and prescriptions for nebulizer treatments (4) Hypertension: oral diltiazem blood pressure controlled during much of the hospital stay without home GAGE inhibitor (5) Diabetes: Diabetes Mellitus Type II and controlled on snf use of insulin hold home metformin Pharmacy glycemic control adjusting insulin previously 05/20/18 and 05/21/18 episode of hypoglycemias likely because of intermittent liquid diet versus NPO for planned colonoscopy/endoscopy, continue to hold the Lantus until scoping is completed or if hyperglycemic 05/22/18 can continue mary dose metformin and insulin after hospital discharge as the colonoscopy/endoscopy has been completed (6) Discharge planning issues: Discharge to [facility] 05/28/2018 3:00 PM Provider Jolanta Becerra MD Department General Internal Medicine [facility] 06/01/2018 9:00 AM Provider Randal Noland DO Department Cardiology, [facility] Appointment line will call patient's son to set up appointment with Dr. Lilly in [facility] in [facility] and also with anticoagulation clinic to follow the INR while on coumadin Patient should have INR checked in 3 days when at [facility] to monitor the INR Discharge diagnosis Atrial Fibrillation with RVR, Asthma with acute exacerbation greater than 24 hours, symptomatic anemia (likely due to iron deficiency), Type 2 diabetes mellitus on terminal carman current use of insulin, hypertension Referral placed to [facility] as per outpatient case manager based on patient's PT/ OT performance; as per the [facility] Liaison, patient is accepted when medically stable (7) DVT prophylaxis: SCDs while inpatient Subjective Patient still in atrial fibrillation returns from endoscopy and colonoscopy without any source of bleeding identified patient feeling well. denies chest pain or abdominal pain or shortness of breath receiving IV Venofer Physical Exam 2 Vital Signs (Past 24 Hours): Last Vital Signs Temp 37.1 C 05/22/18 14:20 Pulse 83 05/22/18 14:20 Resp 18 05/22/18 14:20 BP 167/96 H 05/22/18 14:20 Pulse Ox 96 05/22/18 14:20 Constitutional: WD/WN, vitals as above Eyes: PERRL, conjunctivae normal, anicteric sclerae EOM intact bilaterally ENMT: external ear and nose normal, oropharynx normal Neck: trachea midline, no thyromegaly Respiratory: normal respiratory effort, lungs clear to auscultation Cardiovascular: Rate/Rhythm: regular rate (rate controlled, remains in atrial fibrillation) and regular rhythm (irregular rhythm) Gastrointestinal (Abdomen): normal bowel sounds, soft, nontender, no hepatosplenomegaly Musculoskeletal: no cyanosis or clubbing, extremities motor strength 5/5 Head/Neck/Chest: normocephalic and head atraumatic Neurologic: PERRL, EOMI, accommodation nl, no face palsy, no dysarthria CN' s II-XI intact bilaterally Psychiatric: A+Ox3, euthymic affect _ (1) Anemia Anemia type: unspecified type Bone marrow failure anemia type: Chronic kidney disease stage: Folate deficiency anemia type: Hemolytic anemia type: Iron deficiency anemia type: Other causes of anemia: Vitamin B12 deficiency anemia type: Qualified Code(s): D64.9 - Anemia, unspecified
--- NOTE | 2018-05-22 15:24 | Discharge Summary ---
Date of Service May 22, 2018 Admission HPI Per Admitting Provider Chief Complaint: Shortness of breath Primary Care Provider: NO PCP 77-year-old female with past medical history of diabetes, obesity, hypertension , rheumatic fever at age 4, asthma, both pemphigoid and osteoarthritis presents with shortness of breath that started yesterday. She lives by herself but her family says she is going to start living with her son and [id number]. They noticed that she was pale and short of breath last night they brought her in today she was found to have a hemoglobin of 5.9 however she was guaiac negative in the ER. She denies any blood in her stool denies any blood in her urine or any trauma. She said when she sitting around she is fine but when she gets up the least amount of exertion causes her to be short of breath. She was also found to be in atrial fibrillation with rapid ventricular response was started on Cardizem drip in the emergency room. ROS-No Headache, No Visual Changes, No Fever, No Chills, No Neck Pain or Stiffness, No Chest Pain, No Palpitations, positive SOB, positive ABAD, No Cough , No Sputum, No Wheezing, No Abdominal Pain, No Diarrhea, No Hematemesis, No Hemoptysis, No Unexpected Weight Loss, No Flank pain, No Melena, No Hematochezia , No Frequency, No Urgency, No Burning, No Hematuria, No Rashes, No Diaphoresis. Appetite is Normal Admission Exam Per Admitting Provider Physical Exam Gen-AAO x 3, NAD, Afebrile, obese Head-NCAT, EOMI, PERRLA, Anicteric Sclera, No Posterior Pharyngeal Erythema Neck-Supple, No JVD, No Thyromegaly, No Masses, No LAD, No Bruits Lungs-Clear to Auscultation Bilaterally, No Rales, No Rhonchi, No Wheezing, No Crepitus Chest-irregularly irregular, no S4, +S1, +S2, No S3, No Murmurs, No Rubs, No Gallops Abdomen-Soft, Bowel Sounds Present, Non Tender, Non Distended, No Hepatomegaly, No Splenomegaly, No Palpable Masses, No Rebound, No Rigidity, No Guarding Musculoskeletal-Full Range of Motion Bilaterally, No CVAT Extremities-No Cyanosis, No Clubbing, No Edema Nuero-Cranial Nerves II-XII grossly intact, Motor WNL, DTRs WNL, Strength WNL, No Focal Psych-Normal Mood Principal Diagnosis Atrial Fibrillation with RVR, Asthma with acute exacerbation greater than 24 hours, symptomatic anemia (likely due to iron deficiency), 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, hypertension Discharge Exam Constitutional WD/WN, vitals as above Eyes PERRL, conjunctivae normal, anicteric sclerae EOM intact bilaterally ENMT external ear and nose normal, oropharynx normal Neck trachea midline, no thyromegaly Respiratory normal respiratory effort, lungs clear to auscultation Cardiovascular Rate/Rhythm: regular rate (rate controlled, remains in atrial fibrillation) Gastrointestinal (Abdomen) normal bowel sounds, soft, nontender, no hepatosplenomegaly Musculoskeletal no cyanosis or clubbing, extremities motor strength 5/5 Head/Neck/Chest: normocephalic and head atraumatic Neurologic PERRL, EOMI, accommodation nl, no face palsy, no dysarthria CN's II-XI intact bilaterally Psychiatric A+Ox3, euthymic affect Discharge Data Allergies Allergy/AdvReac Type Severity Reaction Status Date / Time No Known Allergies Allergy Unverified 05/13/18 11:57 Consultations 05/13/18 13:32 ED Decision to Admit Stat 05/13/18 15:05 Consult Cardiology Routine Consult Hematology Routine 05/14/18 09:25 HIM [Consult Health Information Management] Routine 05/15/18 12:07 Consult Pulmonology Routine 05/16/18 09:33 Consult Gastroenterology Routine 05/16/18 12:58 Consult Gastroenterology Routine Procedures Performed Operation Date: 05/22/18 11:45 Actual Procedures p Esophagogastroduodenoscopy - Kulwinder Smith s Colonoscopy - Kulwinder Smith [facility] (1) Anemia: Pt is a 77 y/o female currently admitted for asthma exacerbation and new Afib; also found to have iron deficiency anemia during her workup. Hx of GERD, hiatal hernia and hx of esophagitis per her report but no PUD or colorectal ca. She was on low dose Ibuprofen 200mg daily for low back pain but no tobacco or ETOH products. She denies overt s/s of GI bleed, stool was heme negative in ED. Abd exam benign otherwise. -Presented on this admission with Hgb 5.9 and after 3 unit of PRBC on this admission the Hgb has remained stable -Patient has received Venofer 300mg IV for iron deficiency and while there is support for iron deficiency anemia, given the initial low Hgb -give daily ferrous iron for iron deficiency -without Gastroenterology evaluation via endoscopy/colonoscopy, Cardiology service has been unable to determine whether patient benefits from anticoagulation in context of stroke risk prevention from the atrial fibrillation -Hgb appears to be stable since the blood transfusion -Gastronenterology service has to re-schedule EGD/Colonoscopy evaluation for Monday05/22/[address] Smith due to inadequate bowel prep -the colonoscopy/endoscopy has been completed on 05/22/18 and no source of bleeding identified. Discussed with cardiology that warfarin can be started for atrial fibrillation anticoagulation -hematology consult recommending additional Venofer before patient leaves the hospital and 300 mg IV Venofer given on 05/22/18 (2) Rapid atrial fibrillation: likely secondary to severe anemia echo noted, (+) diastolic dysfunction was initially on Diltiazem drip and has been transitioned to oral Diltiazem, continue oral Diltiazem Patient remains in atrial fibrillation. Heart rate is controlled 05/22/18 warfarin can be started for atrial firbillation anticoagulation Possible urinary tract infection admission Urine culture with E.coli, started ceftriaxone daily on 05/16/18 repeat UA on 05/19/18 is negative and ceftriaxone stopped on 05/20/18 (3) Wheezing: Asthma exacerbation has resolved repeat CXR 05/15/18: no overt pulmomary edema Flu negative patient was resumed on IV solumedrol by pulmonary service on 05/16/18 and again will switch to oral prednisone after re-examining patient and re-discussing with pulmonary service on 05/17/18 continue nebulizer treatments as prn breathing now on room air, stopped the prednisone on 05/19/18 patient has prescription for nebuilzer machine which she will bring to [facility] and prescriptions for nebulizer treatments (4) Hypertension: oral diltiazem blood pressure controlled during much of the hospital stay without home GAGE inhibitor (5) Diabetes: Diabetes Mellitus Type II and controlled on retirement use of insulin hold home metformin Pharmacy glycemic control adjusting insulin previously 05/20/18 and 05/21/18 episode of hypoglycemias likely because of intermittent liquid diet versus NPO for planned colonoscopy/endoscopy, continue to hold the Lantus until scoping is completed or if hyperglycemic 05/22/18 can continue mary dose metformin and insulin after hospital discharge as the colonoscopy/endoscopy has been completed (6) Discharge planning issues: Discharge to [facility] 05/28/2018 3:00 PM Provider Jolanta Becerra MD Department General Internal Medicine [facility] 06/01/2018 9:00 AM Provider Randal Noland DO Department Cardiology, [facility] Appointment line will call patient's son to set up appointment with Dr. 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, hypertension Referral placed to [facility] as per clinical case manager based on patient's PT/ OT performance; as per the [facility] Liaison, patient is accepted when medically stable (7) DVT prophylaxis: SCDs while inpatient Total Time Total Time Spent Total Time Spent (In Minutes): 40 minutes Total Time Includes: Examination of the Patient, Discharge Planning and Medication Reconciliation Discharge Plan Discharge Items Patient Disposition: Transfer Inpatient Rehab Fac Reason For Visit: ANEMIA,AFIB Discharge Diagnosis: Atrial Fibrillation with RVR, Asthma with acute excerbation greater than 24 hours, symptomatic anemia (likely due to iron deficiency), Type 2 diabetes mellitus on retirement current use of insulin, hypertension Condition: Good Discharge Goals: Improve disease control Activity: Resume your previous activity Non-emergency contact: Primary Care Provider Call non-emergency contact if: you have any medication questions Diet: Carb Consistent or DM2 Addtl Provider Instructions: Discharge to [facility] 05/28/2018 3:00 PM Provider Jolanta Becerra MD Department General Internal Medicine [facility] 06/01/2018 9:00 AM Provider Randal Noland DO Department Cardiology, [facility] Appointment line will call patient's son to set up appointment with Dr. Lilly in [facility] in [facility] and also with anticoagulation clinic to follow the INR while on coumadin Patient should have INR checked in 3 days when at [facility] to monitor the INR Prescriptions: New warfarin [Coumadin] 5 mg Tablet 5 mg PO DAILY@1600 30 Days Qty: 30 RF: 0 ferrous sulfate 325 mg (65 mg iron) Tablet,Delayed Release (Dr/Ec) 325 mg PO QAM 30 Days Qty: 30 RF: 0 diltiazem HCl 60 mg Tablet 60 mg PO TID 30 Days Qty: 90 RF: 0 albuterol sulfate 2.5 mg/0.5 mL Solution For Nebulization 2.5 mg NEB Q6R PRN (Reason: shortness of breath or wheezing) 30 Days Qty: 120 RF: 0 Continue fluticasone-salmeterol [Advair Diskus] 250-50 mcg/dose Blister With Device 1 inh INHALATION BID RF: 0 aspirin [Aspirin Low Dose] 81 mg Tablet,Delayed Release (Dr/Ec) 81 mg PO DAILY RF: 0 hydroxyzine HCl 25 mg tablet 25 mg PO QID PRN (Reason: Itching) RF: 0 albuterol sulfate [ProAir HFA] 90 mcg/actuation Hfa Aerosol Inhaler 2 puff INHALATION Q6H PRN (Reason: Shortness Of Breath) RF: 0 metformin 500 mg tablet extended release 24 hr 1,000 mg PO BID RF: 0 sertraline 50 mg tablet 25 mg PO DAILY RF: 0 insulin glargine [Lantus Solostar U-100 Insulin] 100 unit/mL (3 mL) insulin pen 30 units subcut QAM RF: 0 Discontinued tramadol 50 mg tablet 50 mg PO TID PRN (Reason: Pain) RF: 0 fosinopril 40 mg Tablet 40 mg PO DAILY RF: 0 ibuprofen 200 mg Tablet 200 mg PO TID PRN (Reason: Pain) RF: 0 Stand-Alone Forms: [facility] Discharge Orders: Discharge Order (Routine); Ordered 05/22/18 Ordered By: Sammy Jacobsen Skilled Items Patient informed of condition?: Yes DNR: No Discharge Level of Care: Acute rehab Communicable Disease: No Discharge Prognosis: Stable Admission Data Admit Date/Time: 05/13/18 14:18 Attending Provider: Sammy Jacobsen Admit Provider: Sammy Garcia Primary Care Provider: PCP,NO Other Providers: Sammy Garcia ; Braden Waller ; John Paul Lilly ; Pa Roldan ; Leo Stringer ; Randal Noland ; Amos Melchor ; Madeleine Mascorro ; Zahida Dent ; [place] ; Curt Lilly ; Iesha Sapp ; Brad Snell ; Fidel Quintero ; Michelle Will ; Nate Motley ; Danae Avendano ; Speedy Prabhakar ; Jennifer Nelson ; Daniela Sierra ; Reginaldo Vazquez ; Asya Kwok ; Braden Herr ; Homero Silverio ; Polly Millard ; Clarisa Bailey ; Deangelo Coleman ; Aishwarya Rojas ; Domo Walsh ; Que Mistry ; Delphine Herzog ; Brad Zapata ; Kulwinder Smith ; Ashlyn Oswald ; Reema Quesada ; Carlene Ornelas ; Allegra Barajas ; Larry Thomason Service: Telemetry
[2018-05-22] MEDS ORDERED: WARFARIN SOD 5 MG TAB PO SCH (16:00)
[2018-05-23 16:52] LABS: IgA Serum 254 mg/dL (81-463); Tis Trans IgA 1 U/mL (<4)
== END 2018-05-22 19:00 | DRG 309 ==
LOC: ED 11:35 → 2S 14:18 → SUATTDRO 14:18 → 2S 14:46
DX: B96.20 Unspecified Escherichia coli [E. coli] as the cause of diseases classified elsewhere; Z79.84 Long term (current) use of oral hypoglycemic drugs; D64.9 Anemia, unspecified; N39.0 Urinary tract infection, site not specified; J45.901 Unspecified asthma with (acute) exacerbation; E83.42 Hypomagnesemia; Z90.710 Acquired absence of both cervix and uterus; Z68.37 Body mass index [BMI] 37.0-37.9, adult; F32.9 Major depressive disorder, single episode, unspecified; I48.91 Unspecified atrial fibrillation; I11.0 Hypertensive heart disease with heart failure; N17.9 Acute kidney failure, unspecified; K92.2 Gastrointestinal hemorrhage, unspecified; Z79.82 Long term (current) use of aspirin; K44.9 Diaphragmatic hernia without obstruction or gangrene; J44.1 Chronic obstructive pulmonary disease with (acute) exacerbation; Z87.01 Personal history of pneumonia (recurrent); Z98.49 Cataract extraction status, unspecified eye; E11.9 Type 2 diabetes mellitus without complications

== ENCOUNTER 2022-10-21 04:23 | Inpatient (IN) ==
[2022-10-21 04:54] LABS: iSTAT Creatinine 0.7 mg/dl (0.6-1.3); iSTAT Hemoglobin 8.8 g/dl (12.0-16.0); iSTAT Ionized Calcium 1.21 mmol/l (1.12-1.32); iSTAT Potassium 4.9 mmol/L (3.3-5.0)
[2022-10-21] MEDS ORDERED: PANTOprazole 40 MG in SYRINGE 0 ML IV ONE (04:56)
--- NOTE | 2022-10-21 04:56 | Emergency Department Note ---
Impression & Plan GI bleeding, Anemia, Atrial fibrillation with rapid ventricular response ED Provider Note ED Provider Note NAME: CLAUDIA MARKHAM AGE:82 SEX: Female : 1940 ARRIVES VIA: EMS INFORMANT: Patient, EMS ED PROVIDER(s): Joy Childers DO CHIEF COMPLAINT: GI bleed HPI: This is an 82-year-old female brought in by EMS from a local facility where she has been rehabbing following a recent stroke due to concern for GI bleed. Patient states she had had loose stools for a couple days and thought they looked darker. She states she has had difficulty making it to the bathroom and she needs to have a bowel movement. She states tonight when staff went to change her they noticed dark blood additionally in her adult diaper. She denies abdominal pain, fevers, chills, nausea, vomiting, dizziness. Patient does have a history of atrial fibrillation, however is currently only on aspirin according to group home notes and was not due to restart Eliquis until October 25. Patient with left-sided hemiplegia following recent stroke as well as difficulty swallowing and speaking. Patient does have a feeding tube additionally. Patient denies any prior history of GERD, PUD, IBD, or prior GI bleeding. [facility] records also show heparin SQ DVT prophylaxis dosing. PAST MEDICAL HISTORY:See Below PAST SURGICAL HISTORY:See Below FAMILY HISTORY:See Below SOCIAL HISTORY:See Below HOME MEDICATIONS:See Below ALLERGIES:See Below VITALS:See Below PHYSICAL EXAMINATION: GENERAL: alert, well appearing, well nourished, no distress, non-toxic EYE EXAM: normal conjunctiva, PERRL and EOM's grossly intact OROPHARYNX: no exudate, no erythema, lips, buccal mucosa, and tongue normal and mucous membranes are moist NECK: supple, no nuchal rigidity, no adenopathy, non-tender LUNGS: Clear to auscultation. Normal chest wall mechanics, no w/r/r HEART: no murmurs, S1 normal and S2 normal ABDOMEN: abdomen soft, non-tender, normo-active bowel sounds, no masses, no rebound or guarding. Feeding tube noted, no bleeding, erythema, or drainage from the stoma BACK: Back is symmetrical on inspection and there is no deformity, no midline tenderness, no CVA tenderness. SKIN: no rashes, petechiae, orbruising UPPER EXTREMITIES: upper extremities are grossly normal. FROM on RUE, hemiplegia and left upper extremity, compressive glove noted to left hand, nml pulses b/l. LOWER EXTREMITIES: No pitting edema. FROM RLE, hemiplegia to the left lower extremity, nml pulses b/l. NEURO EXAM: Normal sensorium, cranial nerves II-XII grossly intact, normal speech, facial droop noted,nogross weakness of arms, no gross weakness of legs. Gross sensation intact. No ataxia. Vital Signs: reviewed and remarkable Differential Diagnosis: PUD, AVM, diverticular bleed, polyp, mass, colitis, mesenteric ischemia, inflammatory bowel disease, perforation, as well as others were concern MEDICAL DECISION MAKING: This is an 82-year-old female brought in by EMS due to concern for GI bleed. Patient afebrile and vital signs stable although she was noted to have A-fib with RVR. Patient does have a prior documented history of A-fib. Patient is on aspirin currently, no other anticoagulation. Labs drawn and sent, IV established, EKG performed at bedside and interpreted by me and patient placed on telemetry. Patient had no other systemic symptoms and no abdominal pain, but did have obvious GI bleed with dark stools and maroon appearing blood mixed in. Clots also noted. Patient does take an iron supplementation. She denies any prior history of peptic ulcer disease. Patient started on gentle IV fluid hydration, type and screen added to her labs, and she was sent for CT imaging. While patient was initially noted to have significant anemia upon review of additional paperwork patient has been anemic over the last several weeks, with a last hemoglobin of slightly greater than 8. Patient did have recurrent episode of a large amount of bloody stool here again and a repeat H&H was ordered. Case discussed with hospitalist for additional inpatient management. He was in agreement with transfusion of 1 unit of packed red cells after patient's recurrent episode of a large amount of GI bleed despite pending H&H. Consent form signed at bedside after discussion between patient and myself. Patient's tachycardia had initially improved. Patient then began to complain of some slight shortness of breath, chest x-ray did not reveal any acute pathology. Patient was given IV magnesium additionally for repletion. Consultation(s): 0715: Discussed with Dr. Villa. ER Treatment Provided: See below 0702: Pt with recurrent episode of bloody BM. VS stable. Denies abd pain. Repeat H/H ordered. 0724: Blood consent signed at bedside. Diagnostics Interpreted By Me: -ECG: Atrial fibrillation at 121, normal axis, normal intervals, nonspecific ST/T wave changes -Cardiac Monitoring: An order was placed for continuous cardiac monitoring. The monitor shows a rate of 105 with atrial fibrillation rhythm. -Laboratory studies: As stated above and show below. -Imaging studies: X-ray Chest: A single view study of the chest was reviewed and was negative for focal infiltrate, effusion, pulmonary edema, or wide mediastinum. CM noted. Triage Nursing Note Reviewed Prior/Outside Records Reviewed -accompanying group home records Critical Care: Critical care of 42 min performed to assess and manage high likelihood of life- threatening GI bleed and anemia, involving labs and imaging performed with assessment to evaluate GI bleed diagnosis with frequent reassessment. This time includes bedside time, treatment discussions with patient/family/consultants, documentation time and excludes procedure time. Past Med/Surg History Medical History Anemia Hgb 5.6 on admission s/p 3units PRBCs. Stable last hgb 10.9 Asthma No h/o hospitalization or intubation Atrial fibrillation Bronchitis Diabetes Heart disease Hypertension Pneumonia Rheumatic fever Surgical History H/O esophagogastroduodenoscopy Hx of total knee arthroplasty Bilateral S/P cholecystectomy S/P hysterectomy S/P lumbar laminectomy S/P tonsillectomy Family History Mother Diabetes Brother Diabetes Sister Lung cancer Denies family history of Ovarian cancer Prostate cancer Myocardial infarction Breast cancer Colorectal cancer Social History Smoking Status: Never smoker Second Hand Exposure: No; Do You Dip or Chew Tobacco: No; Hx Alcohol Use: No Hx Substance Use: No Preferred Language: Czech Communication Ability: Effective 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 Beliefs That Will Affect Care: None marital status: / Current Living Situation: Rehab Feels Safe at Home: Yes Safety Concerns: Feels Safe At This Time Seatbelt Use: always Assistive Devices: None Allergies Allergies Allergy/AdvReac Type Severity Reaction Status Date / Time No Known Allergies Allergy Unverified 12/03/18 10:47 Home Meds Home Medications Medication Instructions Recorded Confirmed ferrous sulfate 325 mg (65 mg 325 mg PO BID 11/13/18 10/21/22 iron) tablet insulin glargine 100 unit/mL (3 30 units subcut QAM 12/03/18 10/21/22 mL) subcutaneous pen acetaminophen 325 mg tablet 650 mg PO Q4H PRN Pain 10/21/22 10/21/22 aspirin 81 mg chewable tablet 81 mg PO DAILY 10/21/22 10/21/22 atorvastatin 40 mg tablet 40 mg PO PM 10/21/22 10/21/22 bisacodyl 10 mg rectal suppository 10 mg IA DAILY PRN Constipation 10/21/22 10/21/22 dextrose 15 gram/32 mL oral gel 15 g PO DAILY PRN Hypoglycemia 10/21/22 10/21/22 packet diltiazem HCl 30 mg tablet 30 mg PO QID 10/21/22 10/21/22 docusate sodium 50 mg/5 mL oral 100 mg PO BID PRN Constipation 10/21/22 10/21/22 liquid fluticasone furoate 100 1 inh inhalation DAILY 10/21/22 10/21/22 mcg-vilanterol 25 mcg/dose inhalation powder (Breo Ellipta) heparin (bovine) 5,000 unit/mL See Rx Instructions .Route .COMPLEX 10/21/22 10/21/22 injection solution insulin regular human 100 unit/mL 1 sliding scale dose subcut 10/21/22 10/21/22 injection solution (Humulin R USEASDIRECTD Regular U-100 Insulin) lansoprazole 15 mg delayed 15 mg PO QAM 10/21/22 10/21/22 release,disintegrating tablet magnesium hydroxide 2,400 mg/10 mL 30 ml PO DAILY PRN Constipation 10/21/22 10/21/22 oral suspension (Milk Of Magnesia Concentrated) ondansetron 4 mg disintegrating 4 mg PO Q4H PRN nausea or vomiting 10/21/22 10/21/22 tablet polyethylene glycol 3350 17 gram 17 g feeding tube DAILY PRN 10/21/22 10/21/22 oral powder packet (Miralax) Constipation sennosides 8.6 mg-docusate sodium 1 tab-cap PO DAILY 10/21/22 10/21/22 50 mg tablet (Senokot-S) sitagliptin phosphate 100 mg 100 mg PO DAILY 10/21/22 10/21/22 tablet (Januvia) sodium phosphates 19 gram-7 118 ml IA DAILY PRN Constipation 10/21/22 10/21/22 gram/118 mL enema (Fleet Enema) Previous Rx's Medication Instructions Recorded blood-glucose meter (FreeStyle #1 ea 10/09/18 [place] Lite kit) Pen needles for Insuline Glargine #30 ea 12/03/18 sertraline 50 mg tablet 50 mg PO DAILY #30 tabs 12/03/18 blood sugar diagnostic (FreeStyle #100 ea 12/17/18 Lite Strips) albuterol sulfate 90 mcg/actuation 2 puff inhalation Q6H PRN 02/14/19 aerosol inhaler (ProAir HFA) Shortness Of Breath #18 grams Results & Data (ED) Vital Signs Vital Signs - 24 hr 10/21/22 05:30 10/21/22 05:33 10/21/22 07:00 Pulse Rate 96 H Pulse Rate [Apical] 97 H 91 H Pulse Rhythm [Apical] Irregular Pulse Strength [Apical] Normal Respiratory Rate 14 16 Respiratory Effort / Characteristics Non-Labored Spontaneous Non-Labored Spontaneous Respiratory Depth Normal Normal Respiratory Pattern Regular Regular Blood Pressure [Right Arm] 112/63 119/68 Blood Pressure Mean [Right Arm] 79 85 Blood Pressure Position [Right Arm] Lying Pulse Oximetry 97 100 Oxygen Delivery Method Nasal Cannula Nasal Cannula Oxygen Flow Rate 2 2 10/21/22 08:02 Pulse Rate Pulse Rate [Apical] 103 H Pulse Rhythm [Apical] Irregular Pulse Strength [Apical] Normal Respiratory Rate 16 Respiratory Effort / Characteristics Non-Labored Spontaneous Respiratory Depth Normal Respiratory Pattern Regular Blood Pressure [Right Arm] 132/66 Blood Pressure Mean [Right Arm] 88 Blood Pressure Position [Right Arm] Lying Pulse Oximetry 100 Oxygen Delivery Method Nasal Cannula Oxygen Flow Rate 2 Laboratory Data 10/21/22 04:30 10/21/22 04:30 Lab Results 10/21/22 10/21/22 10/21/22 Range/Units 04:30 04:30 04:41 WBC 12.11 H (4.8-10.8) K/ul RBC 3.91 L (4.20-5.40) M/uL Hgb 7.7 L (12.0-16.0) g/dl POC Hgb 8.8 L (12.0-16.0) g/dl Hct 26.7 L (37.0-47.0) % POC Hct 26 L (37-47) % MCV 68.3 L (80.0-100.0) fL MCH 19.7 L (25.0-34.0) pg MCHC 28.8 L (32.0-36.0) g/dL RDW Std Deviation 64.0 H (36.4-46.3) fL RDW Coeff of Zaria 28.0 H (11.5-14.5) % Plt Count 446 H (130-400) K/uL MPV 10.1 (9.4-12.4) fL Absolute Nucleated RBC 0.02 (0-0.12) K/uL Nucleated RBC % (auto) 0.2 % Neutrophils % (Manual) 74 % Lymphocytes % (Manual) 14 % Monocytes % (Manual) 10 % Eosinophils % (Manual) 1 % Myelocytes % (Man) 1 % Neutrophils # (Manual) 8.96 H (1.40-6.50) K/uL Total Absolute Neuts 8.96 H (1.4-6.5) K/uL Lymphocytes # (Manual) 1.70 (1.2-3.4) K/uL Total Abs Lymphocytes 1.70 (1.2-3.4) K/uL Monocytes # (Manual) 1.21 H (0.11-0.59) K/uL Eosinophils # (Manual) 0.12 (0-0.50) K/uL Myelocytes # (Manual) 0.12 H (0-0) K/uL Polychromasia 2+ Poikilocytosis Present Anisocytosis Present Microcytosis Present PT (9.0-12.0) Seconds INR (0.9-1.1) POC Sodium 136 (135-144) mmol/L Sodium 136 (136-145) mmol/L POC Potassium 4.9 (3.3-5.0) mmol/L Potassium 4.9 (3.5-5.1) mmol/L POC Chloride 97 L (101-112) mmol/L Chloride 100 (98-107) mmol/L Carbon Dioxide 31 (21-32) mmol/L POC Total CO2 30 (24-31) mmol/L Anion Gap 5 (3-11) POC Anion Gap 15.0 L (16-25) mmol/L POC BUN 32 H (7-18) mg/dl BUN 27 H (6-23) mg/dl Creatinine 0.67 (0.6-1.2) mg/dl POC Creatinine 0.7 (0.6-1.3) mg/dl Est Cr Clr Drug Dosing 54.2 ml/min Est GFR ( Amer) 93.6 ml/min Est GFR (Non-Af Amer) 80.7 ml/min BUN/Creatinine Ratio 40.3 H (10-20) Glucose 220 H (70-99(Fasting)) mg/dl POC Glucose (other) 220 H (70-99) mg/dl Estimat Average Glucose mg/dl Hemoglobin A1c (4.5-5.6) % Calcium 9.1 (8.6-10.3) mg/dl POC Ioniz Calcium Jose 1.21 (1.12-1.32) mmol/l Magnesium 1.6 L (1.7-2.4) mg/dl Total Bilirubin 0.3 (0.2-1.0) mg/dl AST 32 (13-39) U/L ALT 12 (7-52) U/L Alkaline Phosphatase 98 (34-104) U/L Total Protein 5.7 L (6.0-8.3) gm/dl Albumin 2.7 L (3.4-5.0) gm/dl Globulin 3.0 (2.5-4.0) gm/dl Albumin/Globulin Ratio 0.9 (0.9-2) Lipase 39 (11-82) U/L SARS-CoV-2, RNA, NAAT (NEGATIVE) Blood Type Antibody Screen Antibody Identification Antibody ID Comment Crossmatch 10/21/22 10/21/22 10/21/22 Range/Units 04:45 04:50 05:36 WBC (4.8-10.8) K/ul RBC (4.20-5.40) M/uL Hgb (12.0-16.0) g/dl POC Hgb (12.0-16.0) g/dl Hct (37.0-47.0) % POC Hct (37-47) % MCV (80.0-100.0) fL MCH (25.0-34.0) pg MCHC (32.0-36.0) g/dL RDW Std Deviation (36.4-46.3) fL RDW Coeff of Zaria (11.5-14.5) % Plt Count (130-400) K/uL MPV (9.4-12.4) fL Absolute Nucleated RBC (0-0.12) K/uL Nucleated RBC % (auto) % Neutrophils % (Manual) % Lymphocytes % (Manual) % Monocytes % (Manual) % Eosinophils % (Manual) % Myelocytes % (Man) % Neutrophils # (Manual) (1.40-6.50) K/uL Total Absolute Neuts (1.4-6.5) K/uL Lymphocytes # (Manual) (1.2-3.4) K/uL Total Abs Lymphocytes (1.2-3.4) K/uL Monocytes # (Manual) (0.11-0.59) K/uL Eosinophils # (Manual) (0-0.50) K/uL Myelocytes # (Manual) (0-0) K/uL Polychromasia Poikilocytosis Anisocytosis Microcytosis PT 10.8 (9.0-12.0) Seconds INR 1.0 (0.9-1.1) POC Sodium (135-144) mmol/L Sodium (136-145) mmol/L POC Potassium (3.3-5.0) mmol/L Potassium (3.5-5.1) mmol/L POC Chloride (101-112) mmol/L Chloride (98-107) mmol/L Carbon Dioxide (21-32) mmol/L POC Total CO2 (24-31) mmol/L Anion Gap (3-11) POC Anion Gap (16-25) mmol/L POC BUN (7-18) mg/dl BUN (6-23) mg/dl Creatinine (0.6-1.2) mg/dl POC Creatinine (0.6-1.3) mg/dl Est Cr Clr Drug Dosing ml/min Est GFR ( Amer) ml/min Est GFR (Non-Af Amer) ml/min BUN/Creatinine Ratio (10-20) Glucose (70-99(Fasting)) mg/dl POC Glucose (other) (70-99) mg/dl Estimat Average Glucose mg/dl Hemoglobin A1c (4.5-5.6) % Calcium (8.6-10.3) mg/dl POC Ioniz Calcium Jose (1.12-1.32) mmol/l Magnesium (1.7-2.4) mg/dl Total Bilirubin (0.2-1.0) mg/dl AST (13-39) U/L ALT (7-52) U/L Alkaline Phosphatase (34-104) U/L Total Protein (6.0-8.3) gm/dl Albumin (3.4-5.0) gm/dl Globulin (2.5-4.0) gm/dl Albumin/Globulin Ratio (0.9-2) Lipase (11-82) U/L SARS-CoV-2, RNA, NAAT NEGATIVE (NEGATIVE) Blood Type O Positive Antibody Screen POSITIVE A Antibody Identification Anti-K Antibody ID Comment Crossmatch See Detail 10/21/22 10/21/22 Range/Units 07:51 07:51 WBC (4.8-10.8) K/ul RBC (4.20-5.40) M/uL Hgb 6.3 L* (12.0-16.0) g/dl POC Hgb (12.0-16.0) g/dl Hct 21.7 L (37.0-47.0) % POC Hct (37-47) % MCV (80.0-100.0) fL MCH (25.0-34.0) pg MCHC (32.0-36.0) g/dL RDW Std Deviation (36.4-46.3) fL RDW Coeff of Zaria (11.5-14.5) % Plt Count (130-400) K/uL MPV (9.4-12.4) fL Absolute Nucleated RBC (0-0.12) K/uL Nucleated RBC % (auto) % Neutrophils % (Manual) % Lymphocytes % (Manual) % Monocytes % (Manual) % Eosinophils % (Manual) % Myelocytes % (Man) % Neutrophils # (Manual) (1.40-6.50) K/uL Total Absolute Neuts (1.4-6.5) K/uL Lymphocytes # (Manual) (1.2-3.4) K/uL Total Abs Lymphocytes (1.2-3.4) K/uL Monocytes # (Manual) (0.11-0.59) K/uL Eosinophils # (Manual) (0-0.50) K/uL Myelocytes # (Manual) (0-0) K/uL Polychromasia Poikilocytosis Anisocytosis Microcytosis PT (9.0-12.0) Seconds INR (0.9-1.1) POC Sodium (135-144) mmol/L Sodium (136-145) mmol/L POC Potassium (3.3-5.0) mmol/L Potassium (3.5-5.1) mmol/L POC Chloride (101-112) mmol/L Chloride (98-107) mmol/L Carbon Dioxide (21-32) mmol/L POC Total CO2 (24-31) mmol/L Anion Gap (3-11) POC Anion Gap (16-25) mmol/L POC BUN (7-18) mg/dl BUN (6-23) mg/dl Creatinine (0.6-1.2) mg/dl POC Creatinine (0.6-1.3) mg/dl Est Cr Clr Drug Dosing ml/min Est GFR ( Amer) ml/min Est GFR (Non-Af Amer) ml/min BUN/Creatinine Ratio (10-20) Glucose (70-99(Fasting)) mg/dl POC Glucose (other) (70-99) mg/dl Estimat Average Glucose 243 mg/dl Hemoglobin A1c 10.1 H (4.5-5.6) % Calcium (8.6-10.3) mg/dl POC Ioniz Calcium Jose (1.12-1.32) mmol/l Magnesium (1.7-2.4) mg/dl Total Bilirubin (0.2-1.0) mg/dl AST (13-39) U/L ALT (7-52) U/L Alkaline Phosphatase (34-104) U/L Total Protein (6.0-8.3) gm/dl Albumin (3.4-5.0) gm/dl Globulin (2.5-4.0) gm/dl Albumin/Globulin Ratio (0.9-2) Lipase (11-82) U/L SARS-CoV-2, RNA, NAAT (NEGATIVE) Blood Type Antibody Screen Antibody Identification Antibody ID Comment Crossmatch Administered Medications Morphine Sulfate (Morphine Sulfate 4 Mg/Ml 1 Ml Carp\Vial) 4 mg IV Q15M PRN PRN Reason: Pain Stop: 11/05/22 00:19 Last Admin: 10/22/22 03:15 Dose: 4 mg Documented By: GUANAKO Ondansetron HCl (Ondansetron Inj 2 Mg/Ml 2 Ml Vial) 4 mg IV Q6H PRN PRN Reason: Nausea Stop: 11/20/22 08:11 Last Admin: 10/21/22 21:20 Dose: 4 mg Documented By: GUANAKO Discontinued Medications Acetaminophen (Acetaminophen 1000 Mg/100 Ml Iv) Confirm Administered Dose 1,000 mg IV .STK-MED ONE Stop: 10/21/22 08:59 Last Admin: 10/21/22 09:00 Dose: 1,000 mg Documented By: MATHEW Sodium Chloride (Nss 1000ml) 1,000 mls @ 125 mls/hr IV .Q8H MAGGIE Stop: 11/20/22 04:44 Last Admin: 10/21/22 14:08 Dose: Not Given Documented By: Infusion: 10/21/22 08:15 Dose: 0 mls/hr Documented By: Admin: 10/21/22 05:00 Dose: 125 mls/hr Documented By: RAQUEL Pantoprazole Sodium 40 mg/ (Syringe) 10 mls @ 5 mls/min IV NOW ONE Stop: 10/21/22 04:57 Last Admin: 10/21/22 05:24 Dose: 5 mls/min Documented By: RAQUEL Magnesium Sulfate/Dextrose (Magnesium Sulfate / D5w) 1 gm in 100 mls @ 100 mls/hr IV NOW STA Stop: 10/21/22 08:01 Last Infusion: 10/21/22 08:08 Dose: 0 mls/hr Documented By: Admin: 10/21/22 07:08 Dose: 100 mls/hr Documented By: REGGIE Pantoprazole Sodium 80 mg/ (Dextrose) 120 mls @ 400 mls/hr IV NOW STA Stop: 10/21/22 11:12 Last Infusion: 10/21/22 12:15 Dose: 0 mls/hr Documented By: Admin: 10/21/22 11:24 Dose: 400 mls/hr Documented By: MATHEW Pantoprazole Sodium 40 mg/ (Dextrose) 100 mls @ 20 mls/hr IV Q5H MAGGIE Stop: 11/20/22 11:14 Last Infusion: 10/22/22 04:23 Dose: 0 mg/hr, 0 mls/hr Documented By: Admin: 10/21/22 20:25 Dose: 8 mg/hr, 20 mls/hr Documented By: Infusion: 10/21/22 20:25 Dose: 8 mg/hr, 20 mls/hr Documented By: Admin: 10/21/22 16:17 Dose: 8 mg/hr, 20 mls/hr Documented By: Infusion: 10/21/22 16:17 Dose: 8 mg/hr, 20 mls/hr Documented By: Admin: 10/21/22 11:24 Dose: 8 mg/hr, 20 mls/hr Documented By: ANAT Acetaminophen (Ofirmev) 1,000 mg in 100 mls @ 400 mls/hr IV Q8H PRN PRN Reason: Pain Stop: 10/24/22 11:53 Last Infusion: 10/21/22 18:04 Dose: 0 mls/hr Documented By: Admin: 10/21/22 17:47 Dose: 400 mls/hr Documented By: CB Sodium Chloride (Nss 1000ml) 1,000 mls @ 80 mls/hr IV .[id number] MAGGIE Stop: 11/20/22 11:53 Last Infusion: 10/22/22 04:23 Dose: 0 mls/hr Documented By: Admin: 10/21/22 13:15 Dose: 80 mls/hr Documented By: CB Sodium Chloride (Nss 1000ml) 1,000 mls @ 999 mls/hr IV .Q1H1M ONE Stop: 10/21/22 16:57 Last Infusion: 10/21/22 17:14 Dose: 0 mls/hr Documented By: Admin: 10/21/22 16:03 Dose: 999 mls/hr Documented By: CB Ceftriaxone Sodium 2,000 mg/ (Dextrose) 70 mls @ 100 mls/hr IV Q24H MAGGIE; Protocol Stop: 10/31/22 19:59 Last Admin: 10/21/22 20:27 Dose: Not Given Documented By: LLP Metronidazole (Flagyl) 500 mg in 100 mls @ 100 mls/hr IV Q8H MAGGIE; Protocol Stop: 10/31/22 19:59 Last Admin: 10/21/22 20:29 Dose: Not Given Documented By: GUANAKO Insulin Aspart (Insulin Aspart Per Unit Charge) 0 units SC ACHS [facility] Stop: 11/20/22 11:53 Last Admin: 10/21/22 17:13 Dose: Not Given Documented By: TYLOR Co-signed By: [id number] Admin: 10/21/22 13:16 Dose: 3 units Documented By: TYLOR Co-signed By: VELIA Insulin Aspart (Insulin Aspart Per Unit Charge) 0 units SC Q6 [facility] Stop: 11/20/22 17:59 Last Admin: 10/22/22 00:45 Dose: Not Given Documented By: GUANAKO Co-signed By: YASSINE Admin: 10/21/22 18:01 Dose: 2 units Documented By: TYLOR Co-signed By: CORINNE Insulin Glargine (Lantus Per Unit Charge) 7 units SQ BID [facility]IE Stop: 11/20/22 20:59 Last Admin: 10/21/22 20:48 Dose: 7 units Documented By: GUANAKO Co-signed By: GABRIELE Ioversol (Optiray 320 100ml) 95 ml IV ONCE ONE Stop: 10/21/22 05:22 Last Admin: 10/21/22 05:21 Dose: 95 ml Documented By: JANAY Metoprolol Tartrate (Metoprolol Tartrate 1 Mg/Ml Vial) 5 mg IV NOW STA Stop: 10/21/22 11:55 Last Admin: 10/21/22 13:16 Dose: 5 mg Documented By: TYLOR Metoprolol Tartrate (Metoprolol Tartrate 1 Mg/Ml Vial) 5 mg IV Q6 [facility] Stop: 11/20/22 17:59 Last Admin: 10/21/22 18:05 Dose: Not Given Documented By: TYLOR Morphine Sulfate (Morphine Sulfate 2 Mg/Ml Carp) 2 mg IV Q6H PRN PRN Reason: Pain Stop: 11/04/22 14:46 Last Admin: 10/21/22 21:08 Dose: 2 mg Documented By: Admin: 10/21/22 14:57 Dose: 2 mg Documented By: TYLOR Imaging Data Radiologist's Impression: Abdomen/Pelvis CT 10/21/22 04:[address] WITH IV CONTRAST CT DOSE: 1201.67 mGy.cm HISTORY: Acute onset abdominal pain with GI bleed Gi bleed TECHNIQUE: Multiaxial CT images of the abdomen and pelvis were performed follo wing the IV administration of 95 cc of Optiray, A dose lowering technique was utilized adhering to the principles of ALARA. COMPARISON STUDY: None. FINDINGS: Cardiomegaly with extensive coronary artery calcifications. Study is degraded by respiratory motion artifact. Trace right and small left pleural effusions. Mild subsegmental bibasilar atelectasis. No pneumatosis or pneumoperitoneum. Unremarkable spleen, moderately atrophic pancreas and adrenal glands. Cholecystectomy. Unremarkable liver with ill-defined 2.4 cm area of decreased attenuation within the jose hepatis, possibly focal fatty infiltration. Patent portal vein. Cortical thinning of the kidneys without hydronephrosis. Delayed phase of postcontrast imaging demonstrates no definite filling defects in the opacified renal collecting systems. There are a few subcentimeter renal hypodensities which are too small to characterize, favoring cysts. Contrast noted within the dependent urinary bladder lumen. Atherosclerosis of the aorta and branch vessels. No lymphadenopathy. Large hiatal hernia with distal esophageal wall thickening. A gastrostomy tube appears to be in [employer] positioning. Mild adjacent stranding. Moderate fecal retention. Nonspecific circumferential rectal wall thickening with adjacent inflammatory stranding and trace free pelvic fluid. Extensive colonic diverticulosis without acute diverticulitis. Appendix is not definitively seen. Small fat filled umbilical hernia with diastases of 2.6 cm. No acute fracture identified. Severe degeneration of the pubic symphysis with coarse calcifications. Mixed attenuating soft tissue attenuating structure within the right inguinal tissues measures 5 cm. Hardware of the left proximal femur. Mild AVN of the right femoral head. IMPRESSION: 1. Nonspecific mild wall thickening of the rectum with adjacent inflammatory stranding and trace free pelvic fluid. Findings suggestive of a nonspecific proctitis however could be further evaluated with colonoscopy. 2. Colonic diverticulosis. 3. No bowel obstruction or pneumoperitoneum. 4. Large hiatal hernia. 5. Indeterminate 5 cm soft tissue attenuating structure within the right inguinal tissues, possibly postsurgical. Correlate with physical exam findings and surgical history. ACT 112: Negative or not required by law. The above report was generated using voice recognition software. It may contain grammatical, syntax or spelling errors. Electronically signed by: Hilario Boyd M.D. 10/21/2022 7:02 AM Discharge Plan Visit Data Chief Complaint: GI Bleed Stated Complaint: gi bleed ED Provider: Joy Childers Discharge Problem: GI bleeding, Anemia, Atrial fibrillation with rapid ventricular response Patient Disposition: Admitted As Inpatient Discharge Instructions Interventions: ED Discharge Assessment Last Done: 10/21/22 11:14
[2022-10-21] MEDS: SODIUM CHLORIDE 0.9% 1000ML 1,000 ML IV SCH ×2 (05:00→14:08)
[2022-10-21 05:17] LABS: Albumin Globulin Ratio 0.9 (0.9-2); Albumin Level 2.7 gm/dl (3.4-5.0); BUN Creatinine Ratio 40.3 (10-20); Bilirubin,Total 0.3 mg/dl (0.2-1.0); Calcium 9.1 mg/dl (8.6-10.3); Creatinine Clr Calc Pharmacy 54.2 ml/min; Est GFR (African American) 93.6 ml/min; Est GFR (Non-African American) 80.7 ml/min; Magnesium 1.6 mg/dl (1.7-2.4); Potassium 4.9 mmol/L (3.5-5.1); Total Protein 5.7 gm/dl (6.0-8.3)
[2022-10-21] MEDS ORDERED: OPTIRAY 320 100ml IV ONE (05:21)
[2022-10-21 05:44] LABS: Prothrombin Time 10.8 Seconds (9.0-12.0)
[2022-10-21 05:51] LABS: Hematocrit (blood only) 26.7 % (37.0-47.0); Hemoglobin 7.7 g/dl (12.0-16.0); Mean Corpuscular Hemoglobin 19.7 pg (25.0-34.0); Mean Corpuscular Hgb Conc 28.8 g/dL (32.0-36.0); Mean Corpuscular Volume 68.3 fL (80.0-100.0); Mean Platelet Volume 10.1 fL (9.4-12.4); Nucleated RBC # (auto) 0.02 K/uL (0-0.12); Nucleated RBC % (auto) 0.2 %; Platelet Count 446 K/uL (130-400); Red Blood Count 3.91 M/uL (4.20-5.40); White Blood Count 12.11 K/ul (4.8-10.8)
[2022-10-21 05:53] LABS: ANC (manual) 8.96 K/uL (1.4-6.5); Anisocytosis Present; Eosinophils # (manual) 0.12 K/uL (0-0.50); Eosinophils % (manual) 1 %; Lymphocytes % (manual) 14 %; Microcytosis Present; Monocytes # (manual) 1.21 K/uL (0.11-0.59); Monocytes % (manual) 10 %; Myelocytes # (manual) 0.12 K/uL (0-0); Myelocytes % (manual) 1 %; Neutrophils # (manual) 8.96 K/uL (1.40-6.50); Neutrophils % (manual) 74 %; Poikilocytosis Present; Polychromasia 2+
[2022-10-21] MEDS ORDERED: MAGNESIUM SULFATE / D5W 1 GM/100 ML BAG IV STA (07:02)
--- NOTE | 2022-10-21 07:04 | CT Scan Report ---
ABDOMEN AND PELVIS CT WITH IV CONTRAST CT DOSE: 1201.67 mGy.cm HISTORY: Acute onset abdominal pain with GI bleed Gi bleed TECHNIQUE: Multiaxial CT images of the abdomen and pelvis were performed following the IV administrat ion of 95 cc of Optiray, A dose lowering technique was utilized adhering to the principles of ALARA. COMPARISON STUDY: None. FINDINGS: Cardiomegaly with extensive coronary artery calcifications. Study is degraded by respirator y motion artifact. Trace right and small left pleural effusions. Mild subsegmental bibasilar atelecta sis. No pneumatosis or pneumoperitoneum. Unremarkable spleen, moderately atrophic pancreas and adrena l glands. Cholecystectomy. Unremarkable liver with ill-defined 2.4 cm area of decreased attenuation w ithin the jose hepatis, possibly focal fatty infiltration. Patent portal vein. Cortical thinning of the kidneys without hydronephrosis. Delayed phase of postcontrast imaging demons trates no definite filling defects in the opacified renal collecting systems. There are a few subcent imeter renal hypodensities which are too small to characterize, favoring cysts. Contrast noted within the dependent urinary bladder lumen. Atherosclerosis of the aorta and branch vessels. No lymphadenop athy. Large hiatal hernia with distal esophageal wall thickening. A gastrostomy tube appears to be in [employer] positioning. Mild adjacent stranding. Moderate fecal retention. Nonspecific circumferential r ectal wall thickening with adjacent inflammatory stranding and trace free pelvic fluid. Extensive col onic diverticulosis without acute diverticulitis. Appendix is not definitively seen. Small fat filled umbilical hernia with diastases of 2.6 cm. No acute fracture identified. Severe degeneration of the pubic symphysis with coarse calcifications. Mixed attenuating soft tissue attenuating structure withi n the right inguinal tissues measures 5 cm. Hardware of the left proximal femur. Mild AVN of the right femoral head. IMPRESSION: 1. Nonspecific mild wall thickening of the rectum with adjacent inflammatory stranding and trace free pelvic fluid. Findings suggestive of a nonspecific proctitis however could be further evaluated with colonoscopy. 2. Colonic diverticulosis. 3. No bowel obstruction or pneumoperitoneum. 4. Large hiatal hernia. 5. Indeterminate 5 cm soft tissue attenuating structure within the right inguinal tissues, possibly p ostsurgical. Correlate with physical exam findings and surgical history. ACT 112: Negative or not required by law. The above report was generated using voice recognition software. It may contain grammatical, syntax o r spelling errors. Electronically signed by: Hilario Boyd M.D. 10/21/2022 7:02 AM
[2022-10-21] MEDS ORDERED: SODIUM CHLORIDE 0.9% 250 ML IV PRN (07:14)
[2022-10-21] MEDS ORDERED: ONDANSETRON INJ 2 MG/ML 2 ML VIAL IV PRN (08:12)
[2022-10-21 08:30] LABS: Hematocrit (blood only) 21.7 % (37.0-47.0); Hemoglobin 6.3 g/dl (12.0-16.0)
[2022-10-21] MEDS ORDERED: ACETAMINOPHEN 1,000 MG/100 ML VIAL IV STA (08:54)
[2022-10-21] MEDS ORDERED: ACETAMINOPHEN 1000 MG/100 ML IV IV ONE (08:58)
--- NOTE | 2022-10-21 09:01 | XRay Report ---
XR chest 1V portable HISTORY: 82 years-old Female sob acute shortness breath COMPARISON: 05/15/2018 TECHNIQUE: AP view of the chest. FINDINGS: Cardiomegaly. Atherosclerosis of the aorta. Hiatal hernia. Small left pleural effusion. Mild subsegme ntal bibasilar atelectasis versus scarring. No pneumothorax or overt pulmonary edema. Degenerative ch anges of the shoulders and spine. Cholecystectomy. IMPRESSION: 1. Cardiomegaly without pulmonary edema. 2. Small left pleural effusion. 3. Hiatal hernia. ACT 112: Negative or not required by law. The above report was generated using voice recognition software. It may contain grammatical, syntax o r spelling errors. Electronically signed by: Hilario Boyd M.D. 10/21/2022 9:00 AM
--- NOTE | 2022-10-21 09:05 | History & Physical Report ---
Date of Service October 21, 2022 Assessment & Plan (1) Anemia: (2) GI bleeding: (3) Rapid atrial fibrillation: (4) Diabetes: (5) Acute right MCA stroke: (6) S/P percutaneous endoscopic gastrostomy (PEG) tube placement: Plan 82yoF with PMhx of recent R MCA stroke, atrial fibrillation, DMII, asthma/COPD, iron Deficiency anemia, OA, Hx of rheumatic fever and with current PEG tube who was admitted with an acute GI bleed. Bloody Stools/Acute GI Bleed/Acute Blood loss anemia Pt was recently discharged from [facility] on October 14 where she was treated for an acute R MCA stroke. Per son who was called, she was transfused blood there as well for hgb under 7. He states that the bleed could not be found. Discharge records show she was discharged to [facility] on heparin for anticoagulation. However, was on aspirin only at [facility]. Bloody stools were noted at [facility] and in the ED. Most recent H/H of 6.3/21.7 CT abd/pelvis with noted nonspecific proctitis, no acute diverticulitis. Transfuse pRBCs as needed, monitor H/H PPI drip, NPO, GI consult. Atrial fibrillation On PO diltiazem at home, will hold oral meds IV metoprolol scheduled a6h, can escalate for control as needed R MCA stroke Discussion with son about her baseline Pt oriented only to self when examined Stable, residual left sided weakness DMII Was not controlled at the last admission at [facility] ISS with basal glargine while hospitalized PEG Tube in place Has been receiving Nutren 1.5 liq 55ml/hr continuous with transition to bolus tube feeds 250ml five times a day via PEG. Per son has also been receiving pureed food and thickened water Asthma/COPD On inhalers Iron Deficiency Anemia currently with acute blood loss anemia OA Pt states that she has "pain all over" Requesting pain medications IV tylenol ordered to start CODE STATUS: discussed with son, Pt is DNR, does not want to be on a ventilator but would like short term intubation if needed. Diet: NPO with IV fluids, consider holding fluids while being transfused DVT prophylaxis: None in setting of GI bleed Dispo: PCU/tele History of Present Illness Chief Complaint: Bloody stools Primary Care Provider: [facility] 82yoF with PMhx of recent R MCA stroke, atrial fibrillation, DMII, asthma/COPD, iron Deficiency anemia, OA, Hx of rheumatic fever and with current PEG tube who was admitted with an acute GI bleed. Pt was oriented to self only. Stated that she was in [place] (son states that is a town near where she lives) and did not know the year, stated the month was May. Per son who was called, was recently discharged from [facility] on October 14 where she was treated for an acute R MCA stroke. She was transfused blood there as well for hgb under 7. He states that the bleed could not be found. Discharge records show she was discharged to [facility] on heparin for anticoagulation. However, was on aspirin only at [facility]. Bloody stools were noted at [facility] and she was brought in to the ED where it was noted as well. Allergies Allergy/AdvReac Type Severity Reaction Status Date / Time No Known Allergies Allergy Unverified 12/03/18 10:47 Home Medications Medication Instructions Recorded Confirmed Type blood-glucose meter (FreeStyle #1 ea 10/09/18 12/03/18 Rx [place] Lite kit) ferrous sulfate 325 mg (65 mg 325 mg PO BID 11/13/18 10/21/22 History iron) tablet Pen needles for Insuline Glargine #30 ea 12/03/18 12/03/18 Rx insulin glargine 100 unit/mL (3 30 units subcut QAM 12/03/18 10/21/22 History mL) subcutaneous pen sertraline 50 mg tablet 50 mg PO DAILY #30 tabs 12/03/18 10/21/22 Rx blood sugar diagnostic (FreeStyle #100 ea 12/17/18 Rx Lite Strips) albuterol sulfate 90 mcg/actuation 2 puff inhalation Q6H PRN 02/14/19 10/21/22 Rx aerosol inhaler (ProAir HFA) Shortness Of Breath #18 grams acetaminophen 325 mg tablet 650 mg PO Q4H PRN Pain 10/21/22 10/21/22 History apixaban 2.5 mg tablet (Eliquis) 2.5 mg PO BID 10/21/22 10/21/22 History aspirin 81 mg chewable tablet 81 mg PO DAILY 10/21/22 10/21/22 History atorvastatin 40 mg tablet 40 mg PO PM 10/21/22 10/21/22 History bisacodyl 10 mg rectal suppository 10 mg HI DAILY PRN Constipation 10/21/22 10/21/22 History dextrose 15 gram/32 mL oral gel 15 g PO DAILY PRN Hypoglycemia 10/21/22 10/21/22 History packet diltiazem HCl 30 mg tablet 30 mg PO QID 10/21/22 10/21/22 History docusate sodium 50 mg/5 mL oral 100 mg PO BID PRN Constipation 10/21/22 10/21/22 History liquid fluticasone furoate 100 1 inh inhalation DAILY 10/21/22 10/21/22 History mcg-vilanterol 25 mcg/dose inhalation powder (Breo Ellipta) heparin (bovine) 5,000 unit/mL See Rx Instructions .Route .COMPLEX 10/21/22 10/21/22 History injection solution insulin regular human 100 unit/mL 1 sliding scale dose subcut 10/21/22 10/21/22 History injection solution (Humulin R USEASDIRECTD Regular U-100 Insulin) lansoprazole 15 mg delayed 15 mg PO QAM 10/21/22 10/21/22 History release,disintegrating tablet magnesium hydroxide 2,400 mg/10 mL 30 ml PO DAILY PRN Constipation 10/21/22 10/21/22 History oral suspension (Milk Of Magnesia Concentrated) ondansetron 4 mg disintegrating 4 mg PO Q4H PRN nausea or vomiting 10/21/22 10/21/22 History tablet polyethylene glycol 3350 17 gram 17 g feeding tube DAILY PRN 10/21/22 10/21/22 History oral powder packet (Miralax) Constipation sennosides 8.6 mg-docusate sodium 1 tab-cap PO DAILY 10/21/22 10/21/22 History 50 mg tablet (Senokot-S) sitagliptin phosphate 100 mg 100 mg PO DAILY 10/21/22 10/21/22 History tablet (Januvia) sodium phosphates 19 gram-7 118 ml HI DAILY PRN Constipation 10/21/22 10/21/22 History gram/118 mL enema (Fleet Enema) Past Med/Surg History Medical History Anemia Hgb 5.6 on admission s/p 3units PRBCs. Stable last hgb 10.9 Asthma No h/o hospitalization or intubation Atrial fibrillation Bronchitis Diabetes Heart disease Hypertension Pneumonia Rheumatic fever Surgical History H/O esophagogastroduodenoscopy Hx of total knee arthroplasty Bilateral S/P cholecystectomy S/P hysterectomy S/P lumbar laminectomy S/P tonsillectomy Family History Mother Diabetes Brother Diabetes Sister Lung cancer Denies family history of Ovarian cancer Prostate cancer Myocardial infarction Breast cancer Colorectal cancer Social History Smoking Status: Never smoker Second Hand Exposure: No; Do You Dip or Chew Tobacco: No; Hx Alcohol Use: Yes Hx Substance Use: No Preferred Language: Tamazight Communication Ability: Effective Director Of Hemophilia Required: No Beliefs That Will Affect Care: None marital status: / Current Living Situation: Alone Feels Safe at Home: Yes Seatbelt Use: always Assistive Devices: None Review of Systems Review of Systems: Unobtainable due to cognitive status Physical Exam Physical Exam: General: Alert, orientedx1. No acute distress Skin: No noted rashes or bruises Neuro: Left sided motor deficits HEENT: NC/AT CV: Irregular rate and rhythm Resp: Breath sounds clear bilaterally, no increased effort of breathing. Abdomen: Soft, diffusely tender, nondistended. Extremities: No edema in lower extremities bilaterally. Results & Data Results & Data Vital Signs (Past 12 Hours) Vital Signs Temp Pulse Pulse Resp BP BP Pulse Ox 10/21/22 05:33 96 H 10/21/22 05:30 97 H 14 112/63 97 10/21/22 04:24 36.9 C 114 H 20 131/60 94 O2 Del Method O2 Flow Rate 10/21/22 05:33 10/21/22 05:30 Nasal Cannula 2 10/21/22 04:24 Room Air Diagnostic Findings Abdomen/Pelvis CT 10/21/22 04:[address] WITH IV CONTRAST CT DOSE: 1201.67 mGy.cm HISTORY: Acute onset abdominal pain with GI bleed Gi bleed TECHNIQUE: Multiaxial CT images of the abdomen and pelvis were performed following the IV administration of 95 cc of Optiray, A dose lowering technique was utilized adhering to the principles of ALARA. COMPARISON STUDY: None. FINDINGS: Cardiomegaly with extensive coronary artery calcifications. Study is degraded by respiratory motion artifact. Trace right and small left pleural effusions. Mild subsegmental bibasilar atelectasis. No pneumatosis or pneumoperitoneum. Unremarkable spleen, moderately atrophic pancreas and adrenal glands. Cholecystectomy. Unremarkable liver with ill-defined 2.4 cm area of decreased attenuation within the jose hepatis, possibly focal fatty infiltration. Patent portal vein. Cortical thinning of the kidneys without hydronephrosis. Delayed phase of postc ontrast imaging demonstrates no definite filling defects in the opacified renal collecting systems. There are a few subcentimeter renal hypodensities which are too small to characterize, favoring cysts. Contrast noted within the dependent urinary bladder lumen. Atherosclerosis of the aorta and branch vessels. No lymphadenopathy. Large hiatal hernia with distal esophageal wall thickening. A gastrostomy tube appears to be in [employer] positioning. Mild adjacent stranding. Moderate fecal retention. Nonspecific circumferential rectal wall thickening with adjacent inflammatory stranding and trace free pelvic fluid. Extensive colonic diverticulosis without acute diverticulitis. Appendix is not definitively seen. Small fat filled umbilical hernia with diastases of 2.6 cm. No acute fracture i dentified. Severe degeneration of the pubic symphysis with coarse calcifications. Mixed attenuating soft tissue attenuating structure within the right inguinal tissues measures 5 cm. Hardware of the left proximal femur. Mild AVN of the right femoral head. IMPRESSION: 1. Nonspecific mild wall thickening of the rectum with adjacent inflammatory stranding and trace free pelvic fluid. Findings suggestive of a nonspecific proctitis however could be further evaluated with colonoscopy. 2. Colonic diverticulosis. 3. No bowel obstruction or pneumoperitoneum. 4. Large hiatal hernia. 5. Indeterminate 5 cm soft tissue attenuating structure within the right inguinal tissues, possibly postsurgical. Correlate with physical exam findings and surgical history. ACT 112: Negative or not required by law. The above report was generated using voice recognition software. It may contain grammatical, syntax or spelling errors. Electronically signed by: Hilario Boyd M.D. 10/21/2022 7:02 AM Chest X-Ray 10/21/22 07:47 XR chest 1V portable HISTORY: 82 years-old Female sob acute shortness breath COMPARISON: 05/15/2018 TECHNIQUE: AP view of the chest. FINDINGS: Cardiomegaly. Atherosclerosis of the aorta. Hiatal hernia. Small left pleural effusion. Mild subsegmental bibasilar atelectasis versus scarring. No pneumothorax or overt pulmonary edema. Degenerative changes of the shoulders and spine. Cholecystectomy. IMPRESSION: 1. Cardiomegaly without pulmonary edema. 2. Small left pleural effusion. 3. Hiatal hernia. ACT 112: Negative or not required by law. The above report was generated using voice recognition software. It may contain grammatical, syntax or spelling errors. Electronically signed by: Hilario Boyd M.D. 10/21/2022 9:00 AM Code Status & VTE Plan VTE Prophylaxis Plan VTE Prophylaxis will be ordered: Yes
--- NOTE | 2022-10-21 09:47 | Gastrointestinal Consultation ---
Date of Consultation October 21, 2022 Assessment & Plan (1) Anemia: 82 year old female with history of hypertension, CHF, atrial fibrillation on Eliquis (currently held), uncontrolled diabetes (A1C 14), asthma/COPD, iron deficiency anemia, osteoarthritis, admitted to [facility] 10/07 with altered mental status thought secondary to urinary tract infection and anemia with decision to hold Eliquis. 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 No answer. Trend H&H Transfuse PRN Monitor and document GI output Given recent MCA stroke she is higher risk for endoscopy Would continue conservative management for now Consider aspirating PEG to rule out UGI bleed Check stool cultures, c.diff We appreciate assistance in the management of any serological abnormality and corrections to include: hemoglobin >7, INR <2, platelets >50,000, potassium levels >3.5 but <5.3, and sodium levels within 5 points of the reference range prior to endoscopic evaluation. Thank you for allowing us to participate in the care of this patient. Please call with any acute changes, questions or concerns. Please see addendum below with additional recommendation from my supervising physician. Supervising Physician Co-Signing Physician Notes Attending attestation I have seen, examined this patient, and agree with the findings and above by our mid-level provider ROSARIO Angel, with the following additions: Patient admitted from rehab facility and was participating with stable hemodynamics after acute MCA stroke 1 week ago since she had thrombectomy as well as tPA. She is having bright red blood per rectum extremely down about a gram from discharge from [place]. Blood pressures remained stable, this is to be read mildly elevated with clots noted in there. C. difficile checked was negative. CT scans reviewed and shows inflammation of the rectosigmoid area with nonspecific proctitis. The differential for that would include ischemic, infectious, or diverticular in origin. Fortunately right now she is very hemodynamic. I had a long conversation with her son Dex as well as her [id number] Alexander who is a nurse here. At this time, given her acute on chronic issues they do not want to pursue any invasive treatments including procedures including endoscopy regardless of clinical status. This time and supportive hemodynamics, agree with transfusion as necessary, agree with PPI, call with questions or concerns History of Present Illness Reason for Consultation: rectal bleeding Requesting Physician: Femi Attending Physician: Femi History of Present Illness 82 year old female with history of hypertension, CHF, atrial fibrillation on Eliquis (currently held), uncontrolled diabetes (A1C 14), asthma/COPD, iron deficiency anemia, osteoarthritis, admitted to [facility] 10/07 with altered mental status thought secondary to urinary tract infection and anemia with decission to hold Eliquis. 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 She was discharged to a rehab facility on 10/14 w/ PEG tube placement. GI was asked to evaluate for rectal bleeding. Pt was seen and evaluated, chart reviewed. Poor historian. Denies any abd pain, nausea, vomi ting, GERD, dysphagia. has reported increase in stool frequency and being told she is passing marroon colored/BRBPR. HGB 2018 13 HGB 10/2022 8 --> 7.2 --> 8 --> 7.6 --> 8.7 --> 7.7 --> 6.3 BUN 27 CTAP 2022: . Nonspecific mild wall thickening of the rectum with adjacent inflammatory stranding and trace free pelvic fluid. Findings suggestive of a nonspecific proctitis however could be further evaluated with colonoscopy. Colonic diverticulosis.. No bowel obstruction or pneumoperitoneum.Large hiatal hernia. CTAP 2022: There is limited evaluation of the bowel without oral contrast. There is a large hiatal hernia with distal esophageal wall thickening. All of the stomach besides the very distal body is contained within the hernia. There is mild lipomatosis surrounding the intrathoracic stomach within the diaphragmatic hernia. The small and large bowel are normal caliber. There are diverticula without acute diverticulitis. There is bowel wall thickening of the sigmoid colon likely due to muscular hypertrophy EGD 2018: The esophagus was normal. Findings: - A small hiatal hernia was present. - The examined duodenum was normal. - The cardia and gastric fundus were normal on retroflexion. Colonoscopy 2019: diverticulosis. The examination was otherwise normal on direct and retroflexion views. - No specimens collected. - No bleeding seen. Allergies Allergy/AdvReac Type Severity Reaction Status Date / Time No Known Allergies Allergy Unverified 12/03/18 10:47 Home Medications Medication Instructions Recorded Confirmed Type blood-glucose meter (FreeStyle #1 ea 10/09/18 12/03/18 Rx [place] Lite kit) ferrous sulfate 325 mg (65 mg 325 mg PO BID 11/13/18 10/21/22 History iron) tablet Pen needles for Insuline Glargine #30 ea 12/03/18 12/03/18 Rx insulin glargine 100 unit/mL (3 30 units subcut QAM 12/03/18 10/21/22 History mL) subcutaneous pen sertraline 50 mg tablet 50 mg PO DAILY #30 tabs 12/03/18 10/21/22 Rx blood sugar diagnostic (FreeStyle #100 ea 12/17/18 Rx Lite Strips) albuterol sulfate 90 mcg/actuation 2 puff inhalation Q6H PRN 02/14/19 10/21/22 Rx aerosol inhaler (ProAir HFA) Shortness Of Breath #18 grams acetaminophen 325 mg tablet 650 mg PO Q4H PRN Pain 10/21/22 10/21/22 History aspirin 81 mg chewable tablet 81 mg PO DAILY 10/21/22 10/21/22 History atorvastatin 40 mg tablet 40 mg PO PM 10/21/22 10/21/22 History bisacodyl 10 mg rectal suppository 10 mg NM DAILY PRN Constipation 10/21/22 10/21/22 History dextrose 15 gram/32 mL oral gel 15 g PO DAILY PRN Hypoglycemia 10/21/22 10/21/22 History packet diltiazem HCl 30 mg tablet 30 mg PO QID 10/21/22 10/21/22 History docusate sodium 50 mg/5 mL oral 100 mg PO BID PRN Constipation 10/21/22 10/21/22 History liquid fluticasone furoate 100 1 inh inhalation DAILY 10/21/22 10/21/22 History mcg-vilanterol 25 mcg/dose inhalation powder (Breo Ellipta) heparin (bovine) 5,000 unit/mL See Rx Instructions .Route .COMPLEX 10/21/22 10/21/22 History injection solution insulin regular human 100 unit/mL 1 sliding scale dose subcut 10/21/22 10/21/22 History injection solution (Humulin R USEASDIRECTD Regular U-100 Insulin) lansoprazole 15 mg delayed 15 mg PO QAM 10/21/22 10/21/22 History release,disintegrating tablet magnesium hydroxide 2,400 mg/10 mL 30 ml PO DAILY PRN Constipation 10/21/22 10/21/22 History oral suspension (Milk Of Magnesia Concentrated) ondansetron 4 mg disintegrating 4 mg PO Q4H PRN nausea or vomiting 10/21/22 10/21/22 History tablet polyethylene glycol 3350 17 gram 17 g feeding tube DAILY PRN 10/21/22 10/21/22 History oral powder packet (Miralax) Constipation sennosides 8.6 mg-docusate sodium 1 tab-cap PO DAILY 10/21/22 10/21/22 History 50 mg tablet (Senokot-S) sitagliptin phosphate 100 mg 100 mg PO DAILY 10/21/22 10/21/22 History tablet (Januvia) sodium phosphates 19 gram-7 118 ml NM DAILY PRN Constipation 10/21/22 10/21/22 History gram/118 mL enema (Fleet Enema) Patient History Medical History Anemia Hgb 5.6 on admission s/p 3units PRBCs. Stable last hgb 10.9 Asthma No h/o hospitalization or intubation Atrial fibrillation Bronchitis Diabetes Heart disease Hypertension Pneumonia Rheumatic fever Surgical History H/O esophagogastroduodenoscopy Hx of total knee arthroplasty Bilateral S/P cholecystectomy S/P hysterectomy S/P lumbar laminectomy S/P tonsillectomy Family History Mother Diabetes Brother Diabetes Sister Lung cancer Denies family history of Ovarian cancer Prostate cancer Myocardial infarction Breast cancer Colorectal cancer Social History Smoking Status: Never smoker Second Hand Exposure: No; Do You Dip or Chew Tobacco: No; Hx Alcohol Use: No Hx Substance Use: No Preferred Language: Tajik Communication Ability: Effective Medical Technicians Required: No Beliefs That Will Affect Care: None marital status: / Current Living Situation: Rehab Feels Safe at Home: Yes Safety Concerns: Feels Safe At This Time Seatbelt Use: always Assistive Devices: None Review of Systems Review of Systems: All systems reviewed & are unremarkable except as noted in HPI & below Physical Exam Constitutional: Elderly appearing female, in the ED Respiratory: normal respiratory effort, lungs clear to auscultation Cardiovascular: Rate/Rhythm: regular rate and regular rhythm Gastrointestinal (Abdomen): Inspection/Auscultation: normal bowel sounds Percussion/Palpation: abdomen soft; abdomen nontender, no guarding and abdomen not rigid Skin: no rashes, warm and dry Results & Data Vital Signs (Past 12 Hours) Vital Signs Temp Pulse Pulse Resp BP BP Pulse Ox 10/21/22 08:02 103 H 16 132/66 100 10/21/22 07:00 91 H 16 119/68 100 10/21/22 05:33 96 H 10/21/22 05:30 97 H 14 112/63 97 10/21/22 04:24 36.9 C 114 H 20 131/60 94 O2 Del Method O2 Flow Rate 10/21/22 08:02 Nasal Cannula 2 10/21/22 07:00 Nasal Cannula 2 10/21/22 05:33 10/21/22 05:30 Nasal Cannula 2 10/21/22 04:24 Room Air Laboratory Results 10/21/22 10/21/22 10/21/22 Range/Units 07:51 05:36 04:50 WBC (4.8-10.8) K/ul RBC (4.20-5.40) M/uL Hgb 6.3 L* (12.0-16.0) g/dl POC Hgb (12.0-16.0) g/dl Hct 21.7 L (37.0-47.0) % POC Hct (37-47) % MCV (80.0-100.0) fL MCH (25.0-34.0) pg MCHC (32.0-36.0) g/dL RDW Std Deviation (36.4-46.3) fL RDW Coeff of Zaria (11.5-14.5) % Plt Count (130-400) K/uL MPV (9.4-12.4) fL Absolute Nucleated RBC (0-0.12) K/uL Nucleated RBC % (auto) % Neutrophils % (Manual) % Lymphocytes % (Manual) % Monocytes % (Manual) % Eosinophils % (Manual) % Myelocytes % (Man) % Neutrophils # (Manual) (1.40-6.50) K/uL Total Absolute Neuts (1.4-6.5) K/uL Lymphocytes # (Manual) (1.2-3.4) K/uL Total Abs Lymphocytes (1.2-3.4) K/uL Monocytes # (Manual) (0.11-0.59) K/uL Eosinophils # (Manual) (0-0.50) K/uL Myelocytes # (Manual) (0-0) K/uL Polychromasia Poikilocytosis Anisocytosis Microcytosis PT (9.0-12.0) Seconds INR (0.9-1.1) POC Sodium (135-144) mmol/L Sodium (136-145) mmol/L POC Potassium (3.3-5.0) mmol/L Potassium (3.5-5.1) mmol/L POC Chloride (101-112) mmol/L Chloride (98-107) mmol/L Carbon Dioxide (21-32) mmol/L POC Total CO2 (24-31) mmol/L Anion Gap (3-11) POC Anion Gap (16-25) mmol/L POC BUN (7-18) mg/dl BUN (6-23) mg/dl Creatinine (0.6-1.2) mg/dl POC Creatinine (0.6-1.3) mg/dl Est Cr Clr Drug Dosing ml/min Est GFR ( Amer) ml/min Est GFR (Non-Af Amer) ml/min BUN/Creatinine Ratio (10-20) Glucose (70-99(Fasting)) mg/dl POC Glucose (other) (70-99) mg/dl Calcium (8.6-10.3) mg/dl POC Ioniz Calcium Jose (1.12-1.32) mmol/l Magnesium (1.7-2.4) mg/dl Total Bilirubin (0.2-1.0) mg/dl AST (13-39) U/L ALT (7-52) U/L Alkaline Phosphatase (34-104) U/L Total Protein (6.0-8.3) gm/dl Albumin (3.4-5.0) gm/dl Globulin (2.5-4.0) gm/dl Albumin/Globulin Ratio (0.9-2) Lipase (11-82) U/L SARS-CoV-2, RNA, NAAT NEGATIVE (NEGATIVE) Blood Type O Positive Antibody Screen POSITIVE A Antibody Identification Anti-K Antibody ID Comment Pending Crossmatch See Detail 10/21/22 10/21/22 10/21/22 Range/Units 04:45 04:41 04:30 WBC (4.8-10.8) K/ul RBC (4.20-5.40) M/uL Hgb (12.0-16.0) g/dl POC Hgb 8.8 L (12.0-16.0) g/dl Hct (37.0-47.0) % POC Hct 26 L (37-47) % MCV (80.0-100.0) fL MCH (25.0-34.0) pg MCHC (32.0-36.0) g/dL RDW Std Deviation (36.4-46.3) fL RDW Coeff of Zaria (11.5-14.5) % Plt Count (130-400) K/uL MPV (9.4-12.4) fL Absolute Nucleated RBC (0-0.12) K/uL Nucleated RBC % (auto) % Neutrophils % (Manual) % Lymphocytes % (Manual) % Monocytes % (Manual) % Eosinophils % (Manual) % Myelocytes % (Man) % Neutrophils # (Manual) (1.40-6.50) K/uL Total Absolute Neuts (1.4-6.5) K/uL Lymphocytes # (Manual) (1.2-3.4) K/uL Total Abs Lymphocytes (1.2-3.4) K/uL Monocytes # (Manual) (0.11-0.59) K/uL Eosinophils # (Manual) (0-0.50) K/uL Myelocytes # (Manual) (0-0) K/uL Polychromasia Poikilocytosis Anisocytosis Microcytosis PT 10.8 (9.0-12.0) Seconds INR 1.0 (0.9-1.1) POC Sodium 136 (135-144) mmol/L Sodium 136 (136-145) mmol/L POC Potassium 4.9 (3.3-5.0) mmol/L Potassium 4.9 (3.5-5.1) mmol/L POC Chloride 97 L (101-112) mmol/L Chloride 100 (98-107) mmol/L Carbon Dioxide 31 (21-32) mmol/L POC Total CO2 30 (24-31) mmol/L Anion Gap 5 (3-11) POC Anion Gap 15.0 L (16-25) mmol/L POC BUN 32 H (7-18) mg/dl BUN 27 H (6-23) mg/dl Creatinine 0.67 (0.6-1.2) mg/dl POC Creatinine 0.7 (0.6-1.3) mg/dl Est Cr Clr Drug Dosing 54.2 ml/min Est GFR ( Amer) 93.6 ml/min Est GFR (Non-Af Amer) 80.7 ml/min BUN/Creatinine Ratio 40.3 H (10-20) Glucose 220 H (70-99(Fasting)) mg/dl POC Glucose (other) 220 H (70-99) mg/dl Calcium 9.1 (8.6-10.3) mg/dl POC Ioniz Calcium Jose 1.21 (1.12-1.32) mmol/l Magnesium 1.6 L (1.7-2.4) mg/dl Total Bilirubin 0.3 (0.2-1.0) mg/dl AST 32 (13-39) U/L ALT 12 (7-52) U/L Alkaline Phosphatase 98 (34-104) U/L Total Protein 5.7 L (6.0-8.3) gm/dl Albumin 2.7 L (3.4-5.0) gm/dl Globulin 3.0 (2.5-4.0) gm/dl Albumin/Globulin Ratio 0.9 (0.9-2) Lipase 39 (11-82) U/L SARS-CoV-2, RNA, NAAT (NEGATIVE) Blood Type Antibody Screen Antibody Identification Antibody ID Comment Crossmatch 06/16/23 Range/Units 04:30 WBC 12.11 H (4.8-10.8) K/ul RBC 3.91 L (4.20-5.40) M/uL Hgb 7.7 L (12.0-16.0) g/dl POC Hgb (12.0-16.0) g/dl Hct 26.7 L (37.0-47.0) % POC Hct (37-47) % MCV 68.3 L (80.0-100.0) fL MCH 19.7 L (25.0-34.0) pg MCHC 28.8 L (32.0-36.0) g/dL RDW Std Deviation 64.0 H (36.4-46.3) fL RDW Coeff of Zaria 28.0 H (11.5-14.5) % Plt Count 446 H (130-400) K/uL MPV 10.1 (9.4-12.4) fL Absolute Nucleated RBC 0.02 (0-0.12) K/uL Nucleated RBC % (auto) 0.2 % Neutrophils % (Manual) 74 % Lymphocytes % (Manual) 14 % Monocytes % (Manual) 10 % Eosinophils % (Manual) 1 % Myelocytes % (Man) 1 % Neutrophils # (Manual) 8.96 H (1.40-6.50) K/uL Total Absolute Neuts 8.96 H (1.4-6.5) K/uL Lymphocytes # (Manual) 1.70 (1.2-3.4) K/uL Total Abs Lymphocytes 1.70 (1.2-3.4) K/uL Monocytes # (Manual) 1.21 H (0.11-0.59) K/uL Eosinophils # (Manual) 0.12 (0-0.50) K/uL Myelocytes # (Manual) 0.12 H (0-0) K/uL Polychromasia 2+ Poikilocytosis Present Anisocytosis Present Microcytosis Present PT (9.0-12.0) Seconds INR (0.9-1.1) POC Sodium (135-144) mmol/L Sodium (136-145) mmol/L POC Potassium (3.3-5.0) mmol/L Potassium (3.5-5.1) mmol/L POC Chloride (101-112) mmol/L Chloride (98-107) mmol/L Carbon Dioxide (21-32) mmol/L POC Total CO2 (24-31) mmol/L Anion Gap (3-11) POC Anion Gap (16-25) mmol/L POC BUN (7-18) mg/dl BUN (6-23) mg/dl Creatinine (0.6-1.2) mg/dl POC Creatinine (0.6-1.3) mg/dl Est Cr Clr Drug Dosing ml/min Est GFR ( Amer) ml/min Est GFR (Non-Af Amer) ml/min BUN/Creatinine Ratio (10-20) Glucose (70-99(Fasting)) mg/dl POC Glucose (other) (70-99) mg/dl Calcium (8.6-10.3) mg/dl POC Ioniz Calcium Jose (1.12-1.32) mmol/l Magnesium (1.7-2.4) mg/dl Total Bilirubin (0.2-1.0) mg/dl AST (13-39) U/L ALT (7-52) U/L Alkaline Phosphatase (34-104) U/L Total Protein (6.0-8.3) gm/dl Albumin (3.4-5.0) gm/dl Globulin (2.5-4.0) gm/dl Albumin/Globulin Ratio (0.9-2) Lipase (11-82) U/L SARS-CoV-2, RNA, NAAT (NEGATIVE) Blood Type Antibody Screen Antibody Identification Antibody ID Comment Crossmatch
[2022-10-21] MEDS ORDERED: PANTOPRAZOLE BOLUS/DRIP 1 EACH IV STA (10:49)
[2022-10-21] MEDS ORDERED: PANTOprazole 80 MG in DEXTROSE 5% 100 ML IV STA (10:55)
--- NOTE | 2022-10-21 10:56 | Electrocardiogram Report ---
Test Reason : Blood Pressure : / mmHG Vent. Rate : 121 BPM Atrial Rate : 000 BPM P-R Int : 000 ms QRS Dur : 064 ms QT Int : 296 ms P-R-T Axes : 000 013 047 degrees QTc Int : 420 ms Atrial fibrillation with rapid ventricular response Abnormal ECG When compared with ECG of 13-MAY-2018 11:50, Nonspecific T wave abnormality no longer evident in Inferior leads Confirmed by Stan Little [id number]) on 10/21/2022 10:56:32 AM Referred By: [facility] Confirmed By:Paul Little
[2022-10-21] MEDS ORDERED: PANTOprazole 40 MG in DEXTROSE 5% 100 ML IV SCH ×2 (11:00→11:54)
[2022-10-21] MEDS: PANTOprazole 40 MG in DEXTROSE 5% 100 ML IV SCH ×3 (11:24→20:25)
[2022-10-21] MEDS ORDERED: CARBOHYDRATES FOR HYPOGLYCEMIA PO PRN (11:54)
[2022-10-21] MEDS ORDERED: METOPROLOL TARTRATE 1 MG/ML VIAL IV STA (11:54)
[2022-10-21] MEDS ORDERED: DEXTROSE 50% 50 ML SYRINGE IV PRN (11:54)
[2022-10-21] MEDS ORDERED: GLUCOSE 10 TAB/TUBE PO PRN (11:54)
[2022-10-21] MEDS ORDERED: ACETAMINOPHEN 1,000 MG/100 ML VIAL IV PRN (11:54)
[2022-10-21] MEDS ORDERED: GLUCOSE 40% GEL 15 GM TUBE PO PRN (11:54)
[2022-10-21] MEDS ORDERED: SODIUM CHLORIDE 0.9% 1000ML 1,000 ML IV SCH (11:54)
[2022-10-21] MEDS ORDERED: GLUCAGON FOR INJ 1 MG VIAL SQ PRN (11:54)
[2022-10-21] MEDS: INSULIN ASPART PER UNIT CHARGE SC SCH ×3 (13:16→18:01)
[2022-10-21 13:41] LABS: Adenovirus F 40/41 PCR Not Detected (NotDetected); Astrovirus PCR Not Detected (NotDetected); Campylobacter PCR Not Detected (NotDetected); Cryptosporidium PCR Not Detected (NotDetected); Cyclospora cayetanensis PCR Not Detected (NotDetected); Entamoeba histolytica PCR Not Detected (NotDetected); Enteroaggregative E.coli(EAEC) Not Detected (NotDetected); Enteropathogenic E.coli (EPEC) Not Detected (NotDetected); Enterotoxigenic E.coli (ETEC) Not Detected (NotDetected); Giardia lamblia PCR Not Detected (NotDetected); Norovirus GI/GII PCR Not Detected (NotDetected); Plesiomonas shigelloides PCR Not Detected (NotDetected); Rotavirus A PCR Not Detected (NotDetected); Salmonella PCR Not Detected (NotDetected); Sapovirus PCR Not Detected (NotDetected); Shiga-like Toxin E.coli (STEC) Not Detected (NotDetected); Shigella/Enteroinvasive E.coli Not Detected (NotDetected); Vibrio cholerae PCR Not Detected (NotDetected); Vibrio species PCR Not Detected (NotDetected); Yersinia enterocolitica PCR Not Detected (NotDetected)
[2022-10-21 14:35] LABS: Estimated Average Glucose 243 mg/dl; Hemoglobin A1C 10.1 % (4.5-5.6)
[2022-10-21 14:39] LABS: Hematocrit (blood only) 27.2 % (37.0-47.0); Hemoglobin 8.4 g/dl (12.0-16.0)
[2022-10-21] MEDS: MoRPHine SULFATE 2 MG/ML CARP IV PRN ×2 (14:57→21:08)
[2022-10-21] MEDS ORDERED: SODIUM CHLORIDE 0.9% 1000ML 1,000 ML IV ONE (15:57)
[2022-10-21] MEDS ORDERED: METOPROLOL TARTRATE 1 MG/ML VIAL IV SCH (18:00)
--- NOTE | 2022-10-21 19:40 | Communication Note ---
Date of Service: October 21, 2022 Patient family requested for patient to be transitioned to comfort measures as per RN.
[2022-10-21] MEDS ORDERED: cefTRIAXone SODIUM 2,000 MG in DEXTROSE 5% 50 ML IV SCH (20:00)
[2022-10-21] MEDS ORDERED: metroNIDAZOLE 500 MG/100 ML BAG IV SCH (20:00)
[2022-10-21] MEDS ORDERED: LANTUS PER UNIT CHARGE SQ SCH (21:00)
[2022-10-22] MEDS ORDERED: LORazepam 2 MG/1 ML VIAL IV PRN (00:20)
[2022-10-22] MEDS: INSULIN ASPART PER UNIT CHARGE SC SCH (00:45)
[2022-10-22] MEDS: MoRPHine SULFATE 4 MG/ML 1 ML CARP\\VIAL IV PRN ×4 (03:15→14:34)
[2022-10-22] MEDS ORDERED: LOPERAMIDE HCL 2 MG CAP PO PRN (04:32)
--- NOTE | 2022-10-22 10:52 | Hospitalist Progress Note ---
Date of Service October 22, 2022 Assessment & Plan (1) Anemia: (2) GI bleeding: (3) Rapid atrial fibrillation: (4) Diabetes: (5) Acute right MCA stroke: (6) S/P percutaneous endoscopic gastrostomy (PEG) tube placement: Plan 82yoF with PMhx of recent R MCA stroke, atrial fibrillation, DMII, asthma/COPD, iron Deficiency anemia, OA, Hx of rheumatic fever and with current PEG tube who was admitted with an acute GI bleed. Pt was alert and oriented x1. Family declined aggressive treatment or invasive GI procedures and pt was transitioned to comfort measures overnight. Bloody Stools/Acute GI Bleed/Acute Blood loss anemia Pt was recently discharged from [facility] on October 14 where she was treated for an acute R MCA stroke. Per son who was called, she was transfused blood there as well for hgb under 7. He states that the bleed could not be found. Discharge records show she was discharged to [facility] on heparin for anticoagulation. However, was on aspirin only at [facility]. Bloody stools were noted at [facility] and in the ED. H/H of 6.3/21.7, transfused one unit with repeat hgb of 8.4. Per nursing, pt continued to bleed rectally with blood clots, requiring frequent changes. CT abd/pelvis with noted nonspecific proctitis, no acute diverticulitis. Pt was on a PPI drip and GI was consulted. They advised that she was high risk for any procedure and family decided to make her comfort care. Pt currently has comfort measures ordered. Atrial fibrillation On PO diltiazem at home, oral meds were held in the setting of a GI bleed comfort measures as above R MCA stroke Discussion with son about her baseline Pt oriented only to self when examined Stable, residual left sided weakness comfort measures as above DMII Was not controlled at the last [place] [facility] [place] on ISS with basal glargine while hospitalized Transitioned to comfort measures as kevin PEG Tube in place Has been receiving Nutren 1.5 liq 55ml/hr continuous with transition to bolus tube feeds 250ml five times a day via PEG. Per son has also been receiving pureed food and thickened water Asthma/COPD Previously on inhalers comfort measures as above Iron Deficiency Anemia currently with acute blood loss anemia OA Pt states that she has "pain all over" Requesting pain medications comfort measures as above CODE STATUS: discussed with family, transitioned to DNR/DNI DVT prophylaxis: None in setting of GI bleed Dispo: comfort measures, hospice Admission and Anticipated Discharge Date Admission Date: October 21, 2022 Subjective Pt seen this AM with family members at bedside. Conversant though oriented to self only. States that her "hinny" hurts. Review of Systems Review of Systems: Unobtainable due to cognitive status Physical Exam Physical Exam: General: Alert, orientedx1. No acute distress Skin: No noted rashes or bruises Neuro: Left sided motor deficits HEENT: NC/AT CV: Irregular rate and rhythm Resp: Breath sounds clear bilaterally, no increased effort of breathing. Abdomen: Soft, diffusely tender, nondistended. Extremities: No edema in lower extremities bilaterally. Results & Data Results & Data Vital Signs (Past 12 Hours) Vital Signs Temp Pulse Resp BP Pulse Ox 10/22/22 00:30 121 H 16 100 10/22/22 00:00 130 H 21 100 10/22/22 00:00 36.9 C 123/70 10/21/22 23:47 107/67 10/21/22 23:47 121 H 17 100 10/21/22 23:30 115 H 9 L 100 10/21/22 23:20 120 H 10 L 100 10/21/22 23:10 112 H 13 100 10/21/22 23:00 103 H 15 100 10/21/22 23:37 124 H
[2022-10-22] MEDS ORDERED: MoRPHine SULFATE 10 MG/0.5 ML UDP PO PRN ×2 (14:59→15:02)
[2022-10-22] MEDS ORDERED: ONDANSETRON 4 MG OD TAB PO PRN (15:46)
[2022-10-22] MEDS ORDERED: LORazepam 1 MG TAB SL PRN (15:47)
[2022-10-22] MEDS ORDERED: MoRPHine SULFATE 4 MG/ML 1 ML CARP\\VIAL IV PRN (22:55)
[2022-10-22] MEDS ORDERED: MoRPHine SULFATE 4 MG/ML 1 ML CARP\\VIAL IM STA (22:57)
[2022-10-23] MEDS: LORazepam 2 MG/1 ML VIAL IV PRN ×2 (12:22→19:35)
--- NOTE | 2022-10-23 21:39 | Hospitalist Progress Note ---
Date of Service October 23, 2022 Assessment & Plan (1) Anemia: (2) GI bleeding: (3) Rapid atrial fibrillation: (4) Diabetes: (5) Acute right MCA stroke: (6) S/P percutaneous endoscopic gastrostomy (PEG) tube placement: Plan 82yoF with PMhx of recent R MCA stroke, atrial fibrillation, DMII, asthma/COPD, iron Deficiency anemia, OA, Hx of rheumatic fever and with current PEG tube who was admitted with an acute GI bleed. . Family declined aggressive treatment or invasive GI procedures and pt was transitioned to comfort measures. Bloody Stools/Acute GI Bleed/Acute Blood loss anemia Pt was recently discharged from [facility] on October 14 where she was treated for an acute R MCA stroke. Per son who was called, she was transfused blood there as well for hgb under 7. He states that the bleed could not be found. Discharge records show she was discharged to [facility] on heparin for anticoagulation. However, was on aspirin only at [facility]. Bloody stools were noted at [facility] and in the ED. H/H of 6.3/21.7, transfused one unit with repeat hgb of 8.4. Per nursing, pt continued to bleed rectally with blood clots, requiring frequent changes. CT abd/pelvis with noted nonspecific proctitis, no acute diverticulitis. Pt was on a PPI drip and GI was consulted. They advised that she was high risk for any procedure and family decided to make her comfort care. Pt currently has comfort measures ordered. Atrial fibrillation On PO diltiazem at home, oral meds were held in the setting of a GI bleed comfort measures as above R MCA stroke Discussion with son about her baseline Pt oriented only to self when examined Stable, residual left sided weakness comfort measures as above DMII Was not controlled [place] [facility] [place] on ISS with basal glargine while hospitalized Transitioned to comfort measures as kevin PEG Tube in place Has been receiving Nutren 1.5 liq 55ml/hr continuous with transition to bolus tube feeds 250ml five times a day via PEG. Per son has also been receiving pureed food and thickened water Asthma/COPD Previously on inhalers comfort measures as above Iron Deficiency Anemia currently with acute blood loss anemia OA comfort measures as above CODE STATUS: discussed with family, transitioned to DNR/DNI DVT prophylaxis: None in setting of GI bleed Dispo: comfort measures, hospice Admission and Anticipated Discharge Date Admission Date: October 21, 2022 Subjective Pt seen this AM. Was resting comfortably. Pulling at her gown occasionally. Review of Systems Review of Systems: Unobtainable due to cognitive status Physical Exam Physical Exam: General: No acute distress Skin: No noted rashes or bruises HEENT: NC/AT CV: Irregular rate and rhythm Resp: Breath sounds clear bilaterally, no increased effort of breathing. Abdomen: Soft, diffusely tender, nondistended. Extremities: No edema in lower extremities bilaterally.
[2022-10-24] MEDS: LORazepam 2 MG/1 ML VIAL IV PRN ×3 (03:09→09:48)
--- NOTE | 2022-10-24 11:54 | Palliative Care Consultation ---
Date of Consultation October 24, 2022 Assessment & Plan (1) Pain: When she was able, she had complained of pain and with restlessness, furrowed brow and prolonged immobility, she appears to have pain. Discussed use of morphine as first line for her agitation with her family and with RN. Will adjust dosing for moderate to severe pain. Monitor dosing needed to control her pain adequately. Ideally, she would benefit from routine dosing when we have better understanding of how much medication she needs. (2) Palliative care encounter: I spoke with her son, daughter, and [id number] at bedside. They tell me that she has had a difficult time since the of her 15 years ago. She had not been compliant with her medications and talked frequently about wanting to be with her . After transfer to [facility], they asked her if she wanted transfer for more aggressive management of GI bleeding or to go be with her and she said that she was ready to go be with him now. They would like focus of care to be comfort and symptom management. They had initially c onsidered transfer to a facility near her home in [facility] but are concerned about how she would tolerate that. She has not had any po intake in four days and remains in Afib with RVR. She is likely to within the next several days. At this time, family has decided to look at SNF facitlities in this area, where some of her family lives. Case management is working with them on this. We discussed monitoring her for adequate symptom management over the next day or two and if she remains reasonably stable at that time, would transfer to SNF. I do think it is entirely possible that she will before that can be arranged. Family understands that if she is actively dying, we would not transfer her. Discussed with case management. History of Present Illness Reason for Consultation: goals of care Requesting Physician: Dr. Farrar Attending Physician: Chu Farrar MD History of Present Illness 82 yo lady who resides in [facility]. She has history of afib with RVR, diabetes and COPD. Her son tells me that she has a history of not being particularly compliant with her medications. She has had variable mental status at times with UTIs and history of anemia with GI bleeding. 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 She was then transferred to [facility] and subsequently to [facility] for rehab. She was transferred from [facility] with rectal bleeding. Her son notes that she has had progressive functional decline even prior to CVA. She had been receiving nutrition via PEG tube but was able to take po. She self-removed PEG tube during this admission. She has had periods of agitation and received IV lorazepam x in the last 24 hours. On admission, she had been complaining of pain "all over". Allergies Allergy/AdvReac Type Severity Reaction Status Date / Time No Known Allergies Allergy Unverified 12/03/18 10:47 Home Medications Medication Instructions Recorded Confirmed Type blood-glucose meter (FreeStyle #1 ea 10/09/18 12/03/18 Rx [place] Lite kit) ferrous sulfate 325 mg (65 mg 325 mg PO BID 11/13/18 10/21/22 History iron) tablet Pen needles for Insuline Glargine #30 ea 12/03/18 12/03/18 Rx insulin glargine 100 unit/mL (3 30 units subcut QAM 12/03/18 10/21/22 History mL) subcutaneous pen sertraline 50 mg tablet 50 mg PO DAILY #30 tabs 12/03/18 10/21/22 Rx blood sugar diagnostic (FreeStyle #100 ea 12/17/18 Rx Lite Strips) albuterol sulfate 90 mcg/actuation 2 puff inhalation Q6H PRN 02/14/19 10/21/22 Rx aerosol inhaler (ProAir HFA) Shortness Of Breath #18 grams acetaminophen 325 mg tablet 650 mg PO Q4H PRN Pain 10/21/22 10/21/22 History aspirin 81 mg chewable tablet 81 mg PO DAILY 10/21/22 10/21/22 History atorvastatin 40 mg tablet 40 mg PO PM 10/21/22 10/21/22 History bisacodyl 10 mg rectal suppository 10 mg MA DAILY PRN Constipation 10/21/22 10/21/22 History dextrose 15 gram/32 mL oral gel 15 g PO DAILY PRN Hypoglycemia 10/21/22 10/21/22 History packet diltiazem HCl 30 mg tablet 30 mg PO QID 10/21/22 10/21/22 History docusate sodium 50 mg/5 mL oral 100 mg PO BID PRN Constipation 10/21/22 10/21/22 History liquid fluticasone furoate 100 1 inh inhalation DAILY 10/21/22 10/21/22 History mcg-vilanterol 25 mcg/dose inhalation powder (Breo Ellipta) heparin (bovine) 5,000 unit/mL See Rx Instructions .Route .COMPLEX 10/21/22 10/21/22 History injection solution insulin regular human 100 unit/mL 1 sliding scale dose subcut 10/21/22 10/21/22 History injection solution (Humulin R USEASDIRECTD Regular U-100 Insulin) lansoprazole 15 mg delayed 15 mg PO QAM 10/21/22 10/21/22 History release,disintegrating tablet magnesium hydroxide 2,400 mg/10 mL 30 ml PO DAILY PRN Constipation 10/21/22 10/21/22 History oral suspension (Milk Of Magnesia Concentrated) ondansetron 4 mg disintegrating 4 mg PO Q4H PRN nausea or vomiting 10/21/22 10/21/22 History tablet polyethylene glycol 3350 17 gram 17 g feeding tube DAILY PRN 10/21/22 10/21/22 History oral powder packet (Miralax) Constipation sennosides 8.6 mg-docusate sodium 1 tab-cap PO DAILY 10/21/22 10/21/22 History 50 mg tablet (Senokot-S) sitagliptin phosphate 100 mg 100 mg PO DAILY 10/21/22 10/21/22 History tablet (Januvia) sodium phosphates 19 gram-7 118 ml MA DAILY PRN Constipation 10/21/22 10/21/22 History gram/118 mL enema (Fleet Enema) Patient History Medical History Anemia Hgb 5.6 on admission s/p 3units PRBCs. Stable last hgb 10.9 Asthma No h/o hospitalization or intubation Atrial fibrillation Bronchitis Diabetes Heart disease Hypertension Pneumonia Rheumatic fever Surgical History H/O esophagogastroduodenoscopy Hx of total knee arthroplasty Bilateral S/P cholecystectomy S/P hysterectomy S/P lumbar laminectomy S/P tonsillectomy Family History Mother Diabetes Brother Diabetes Sister Lung cancer Denies family history of Ovarian cancer Prostate cancer Myocardial infarction Breast cancer Colorectal cancer Social History Smoking Status: Never smoker Second Hand Exposure: No; Do You Dip or Chew Tobacco: No; Hx Alcohol Use: No Hx Substance Use: No Preferred Language: Urdu Communication Ability: Impaired Arch Pad Cementer Required: No Beliefs That Will Affect Care: None marital status: / Current Living Situation: Rehab Feels Safe at Home: Yes Safety Concerns: Feels Safe At This Time Seatbelt Use: always Assistive Devices: Walker Review of Systems Review of Systems: Unobtainable due to reduced consciousness Physical Exam Constitutional: + ill appearing restless furrowed brow ENMT: Mouth: + dry oral mucous membranes Respiratory: normal respiratory effort; no labored breathing Cardiovascular: Rate/Rhythm: + tachycardic and + irregularly irregular Skin: warm and dry, no mottling Neurologic: left hemiparesis Results & Data Vital Signs (Past 12 Hours) Vital Signs Temp Pulse BP Pulse Ox O2 Del Method 10/24/22 10:37 99.7 F H 134 H 119/72 94 Room Air 10/24/22 07:30 Room Air PG Care Time/CCT Total # of Minutes Spent Total Time Spent with Patient: Total time spent is greater than 50% in coordination of care (as documented) at patient's floor/unit and/or counseling patient: Coding Level of Care Code 25314 INT INP/OBS CARE 3/75MIN Diagnoses Pain R52 Palliative care encounter Z51.5
[2022-10-24] MEDS ORDERED: MoRPHine SULFATE 4 MG/ML 1 ML CARP\\VIAL IV PRN (11:56)
[2022-10-24] MEDS: MoRPHine SULFATE 2 MG/ML CARP IV PRN ×3 (13:06→23:00)
--- NOTE | 2022-10-24 16:28 | Hospitalist Progress Note ---
Date of Service October 24, 2022 Assessment & Plan (1) Anemia: (2) GI bleeding: (3) Rapid atrial fibrillation: (4) Diabetes: (5) Acute right MCA stroke: (6) S/P percutaneous endoscopic gastrostomy (PEG) tube placement: Plan Patient is an 82yoF with PMhx of recent R MCA stroke, atrial fibrillation, DMII, asthma/COPD, iron Deficiency anemia, OA, Hx of rheumatic fever and with current PEG tube who was admitted with an acute GI bleed. . Family declined aggressive treatment or invasive GI procedures and pt was transitioned to comfort measures. Acute GI Bleed/Acute Blood loss anemia Rectal bleed Pt was recently discharged from [facility] on October 14 where she wa s treated for an acute R MCA stroke. H/O recent blood transfusion Discharge records show she was discharged to [facility] on heparin for anticoagulation. However, was on aspirin only at [facility]. Bloody stools were noted at [facility] and in the ED. H/H of 6.3/21.7, transfused one unit with repeat hgb of 8.4. CT abd/pelvis with noted nonspecific proctitis, no acute diverticulitis. Was on PPI drip and GI was consulted. They advised that she was high risk for any procedure and family decided to make her comfort care. Currently on comfort measures only Appreciate palliative care input Atrial fibrillation with RVR On PO diltiazem at home, oral meds were held in the setting of a GI bleed comfort measures only per wishes of patient and family. R MCA stroke Stable, residual left sided weakness On comfort measures DM II Dysphagia S/P PEG Tube Asthma/COPD Iron Deficiency Anemia OA CODE STATUS DNI DNR On comfort measures only Deteriorating Palliative care on board Admission and Anticipated Discharge Date Admission Date: October 21, 2022 Subjective Patient is seen and examined at bedside Lethargic during my encounter Poor historian Discussed with patient's family at bedside Patient accidentally pulled PEG tube overnight Currently on comfort measures only Review of Systems Review of Systems: Unobtainable due to reduced consciousness Physical Exam Physical Exam: Physical Exam: Vitals signs as noted above General Appearance: Elderly, mild distress, ill-appearing Head: normocephalic, Atraumatic Eyes: normal inspection, EOMI Neck: supple, Trachea midline Respiratory/Chest: Normal breath sounds, CTA, No accessory muscle use Cardiovascular: S1, S2, No murmur,+ tachycardic Abdomen/GI:Soft, Non tender, Bowel sounds present Extremities/Musculoskeletal:normal inspection, + pedal edema Neurologic/Psych: Lethargic, complete neuro exam could not be performed Skin: normal color, warm Results & Data Results & Data Vital Signs (Past 12 Hours) Vital Signs Temp Pulse BP Pulse Ox O2 Del Method 10/24/22 10:37 37.6 C H 134 H 119/72 94 Room Air 10/24/22 07:30 Room Air
[2022-10-25] MEDS: LORazepam 2 MG/1 ML VIAL IV PRN (00:23)
[2022-10-25] MEDS: MoRPHine SULFATE 2 MG/ML CARP IV PRN ×4 (06:09→17:03)
[2022-10-25] MEDS ORDERED: MoRPHine SULFATE 4 MG/ML 1 ML CARP\\VIAL IV SCH ×2 (10:30)
--- NOTE | 2022-10-25 10:37 | Palliative Care Progress Note ---
Date of Service October 25, 2022 Assessment & Plan (1) Pain: Plan: Spoke with Mrs. Buckner's daughter at bedside. Family has noticed that she does well with morphine but can tell when it wears off. Discussed routine dosing of morphine for more consistent analgesia. Daughter agrees. (2) Palliative care encounter: Plan: Plan of care is comfort and symptom management per Mrs. Buckner's and family's wishes. She has not had any significant po intake in five days. She is likely to within the next few days. Case management is working with family on options for placement if her condition were to plateau. Daughter denies any questions or concerns at this time. Admission and Anticipated Discharge Date Admission Date: October 21, 2022 Subjective Had good day yesterday with morphine dosing. Does get restless a few hours later. She has had 45 mg OME in last 24 hours. She also had one dose of lorazepam. Review of Systems Review of Systems: Unobtainable due to reduced consciousness Physical Exam Constitutional: no acute distress ENMT: no furrowed brow Respiratory: normal respiratory effort; no labored breathing Cardiovascular: Rate/Rhythm: + tachycardic and + irregularly irregular Skin: warm and dry, no mottling Results & Data Vital Signs (Past 12 Hours) Vital Signs Temp Pulse Resp BP Pulse Ox O2 Del Method 10/25/22 07:09 97.5 F L 145 H 20 145/84 H 94 Room Air PG Care Time/CCT Total # of Minutes Spent Total Time Spent: 36 Total Time Spent with Patient: Total time spent is greater than 50% in coordination of care (as documented) at patient's floor/unit and/or counseling patient: [id number] symptom management, family education and support Coding Level of Care Code 91823 SUB INP/OBS CARE 2/35MIN Diagnoses Pain R52 Palliative care encounter Z51.5
[2022-10-25] MEDS: MoRPHine SULFATE 4 MG/ML 1 ML CARP\\VIAL IV SCH ×3 (14:13→21:06)
--- NOTE | 2022-10-25 17:34 | Hospitalist Progress Note ---
Date of Service October 25, 2022 Assessment & Plan (1) Anemia: (2) GI bleeding: (3) Rapid atrial fibrillation: (4) Diabetes: (5) Acute right MCA stroke: (6) S/P percutaneous endoscopic gastrostomy (PEG) tube placement: Plan Patient is an 82yoF with PMhx of recent R MCA stroke, atrial fibrillation, DMII, asthma/COPD, iron Deficiency anemia, OA, Hx of rheumatic fever and with current PEG tube who was admitted with an acute GI bleed. . Family declined aggressive treatment or invasive GI procedures and pt was transitioned to comfort measures. Acute GI Bleed/Acute Blood loss anemia Rectal bleed Pt was recently discharged from [facility] on October 14 where she wa s treated for an acute R MCA stroke. H/O recent blood transfusion Discharge records show she was discharged to [facility] on heparin for anticoagulation. However, was on aspirin only at [facility]. Bloody stools were noted at [facility] and in the ED. H/H of 6.3/21.7, transfused one unit with repeat hgb of 8.4. CT abd/pelvis with noted nonspecific proctitis, no acute diverticulitis. Was on PPI drip and GI was consulted. They advised that she was high risk for any procedure and family decided to make her comfort care. Currently on comfort measures only Appreciate palliative care input Continue current management Palliative care following Atrial fibrillation with RVR On PO diltiazem at home, oral meds were held in the setting of a GI bleed comfort measures only per wishes of patient and family. R MCA stroke Stable, residual left sided weakness On comfort measures DM II Dysphagia S/P PEG Tube Asthma/COPD Iron Deficiency Anemia OA CODE STATUS DNI DNR On comfort measures only Deteriorating Palliative care on board Admission and Anticipated Discharge Date Admission Date: October 21, 2022 Subjective Patient is seen and examined at bedside Obtunded during my encounter Discussed with patient's family at bedside On comfort measures only Review of Systems Review of Systems: Unobtainable due to reduced consciousness Physical Exam Physical Exam: Physical Exam: Vitals signs as noted above General Appearance: Elderly, mild distress, ill-appearing Head: normocephalic, Atraumatic Eyes: normal inspection, EOMI Neck: supple, Trachea midline Respiratory/Chest: Normal breath sounds, CTA, No accessory muscle use Cardiovascular: S1, S2, No murmur,+ tachycardic Abdomen/GI:Soft, Non tender, Bowel sounds present Extremities/Musculoskeletal:normal inspection, + pedal edema Neurologic/Psych: Lethargic, complete neuro exam could not be performed Skin: normal color, warm Results & Data Results & Data Vital Signs (Past 12 Hours) Vital Signs Temp Pulse Resp BP Pulse Ox O2 Del Method 10/25/22 07:16 Room Air 10/25/22 07:09 36.4 C L 145 H 20 145/84 H 94 Room Air
[2022-10-26] MEDS: MoRPHine SULFATE 4 MG/ML 1 ML CARP\\VIAL IV SCH ×8 (02:04→23:39)
[2022-10-26] MEDS: MoRPHine SULFATE 2 MG/ML CARP IV PRN (15:36)
--- NOTE | 2022-10-26 16:25 | Hospitalist Progress Note ---
Date of Service October 26, 2022 Assessment & Plan (1) Anemia: (2) GI bleeding: (3) Rapid atrial fibrillation: (4) Diabetes: (5) Acute right MCA stroke: (6) S/P percutaneous endoscopic gastrostomy (PEG) tube placement: Plan Patient is an 82yoF with PMhx of recent R MCA stroke, atrial fibrillation, DMII, asthma/COPD, iron Deficiency anemia, OA, Hx of rheumatic fever and with current PEG tube who was admitted with an acute GI bleed. . Family declined aggressive treatment or invasive GI procedures and pt was transitioned to comfort measures. Acute GI Bleed/Acute Blood loss anemia Rectal bleed Pt was recently discharged from [facility] on October 14 where she wa s treated for an acute R MCA stroke. H/O recent blood transfusion Discharge records show she was discharged to [facility] on heparin for anticoagulation. However, was on aspirin only at [facility]. Bloody stools were noted at [facility] and in the ED. H/H of 6.3/21.7, transfused one unit with repeat hgb of 8.4. CT abd/pelvis with noted nonspecific proctitis, no acute diverticulitis. Was on PPI drip and GI was consulted. They advised that she was high risk for any procedure and family decided to make her comfort care. Appreciate palliative care input Palliative care following We will adjust medications as needed if patient develops recurrence of distress On comfort measures only Atrial fibrillation with RVR On PO diltiazem at home, oral meds were held in the setting of a GI bleed comfort measures only per wishes of patient and family. R MCA stroke Stable, residual left sided weakness On comfort measures DM II Dysphagia S/P PEG Tube Asthma/COPD Iron Deficiency Anemia OA CODE STATUS DNI DNR On comfort measures only Deteriorating Palliative care on board Admission and Anticipated Discharge Date Admission Date: October 21, 2022 Subjective Patient is seen and examined at bedside Remains obtunded No distress during my encounter Patient's family noted patient to have intermittent distress Review of Systems Review of Systems: Unobtainable due to reduced consciousness Physical Exam Physical Exam: Physical Exam: Vitals signs as noted above General Appearance: Elderly, mild distress, ill-appearing Head: normocephalic, Atraumatic Eyes: normal inspection, EOMI Neck: supple, Trachea midline Respiratory/Chest: Normal breath sounds, CTA, No accessory muscle use Cardiovascular: S1, S2, No murmur,+ tachycardic Abdomen/GI:Soft, Non tender, Bowel sounds present Extremities/Musculoskeletal:normal inspection, + pedal edema Neurologic/Psych: Lethargic, complete neuro exam could not be performed Skin: normal color, warm Results & Data Results & Data Vital Signs (Past 12 Hours) Vital Signs Temp Pulse Resp BP Pulse Ox O2 Del Method 10/26/22 07:59 37.2 C 156 H 21 165/83 H 95 Room Air
[2022-10-26] MEDS: LORazepam 2 MG/1 ML VIAL IV PRN (21:00)
[2022-10-26] MEDS ORDERED: GLYCOPYRROLATE 0.2 MG/ML VIAL IV PRN (22:34)
--- NOTE | 2022-10-27 01:38 | Communication Note ---
Date of Service: October 27, 2022 Patient was seen at bedside. Heart and lung sounds are absent. No spontaneous cardiac or respiratory activity. Patient is not responsive/nonreactive to v erbal or painful stimuli. No corneal or pupillary reflex present. Pupil fixed and dilated. She was pronounced at 1:34 am on October 27, 2022.
--- NOTE | 2022-10-27 07:22 | Discharge Summary ---
Date of Service October 27, 2022 Admission HPI Per Admitting Provider 82yoF with PMhx of recent R MCA stroke, atrial fibrillation, DMII, asthma/COPD, iron Deficiency anemia, OA, Hx of rheumatic fever and with current PEG tube who was admitted with an acute GI bleed. Pt was oriented to self only. Stated that she was in [place] (son states that is a town near where she lives) and did not know the year, stated the month was May. Per son who was called, was recently discharged from [facility] on October 14 where she was treated for an acute R MCA stroke. She was transfused blood there as well for hgb under 7. He states that the bleed could not be found. Discharge records show she was discharged to [facility] on heparin for anticoagulation. However, was on aspirin only at [facility] Bloody stools were noted at [facility] and she was brought in to the ED where it was noted as well. Admission Exam Per Admitting Provider General: Alert, orientedx1. No acute distress Skin: No noted rashes or bruises Neuro: Left sided motor deficits HEENT: NC/AT CV: Irregular rate and rhythm Resp: Breath sounds clear bilaterally, no increased effort of breathing. Abdomen: Soft, diffusely tender, nondistended. Extremities: No edema in lower extremities bilaterally. Principal Diagnosis Acute GI Bleed/Acute Blood loss anemia Rectal bleed Atrial fibrillation with RVR Dysphagia Recent CVA Discharge Data Allergies Allergy/AdvReac Type Severity Reaction Status Date / Time No Known Allergies Allergy Unverified 12/03/18 10:47 Consultations 10/21/22 07:14 ED Decision to Admit Stat 10/21/22 08:12 Consult Gastroenterology Routine 10/24/22 09:57 Consult Palliative Care Routine Procedures Performed Laboratory Results WBC 12.11 K/ul (4.8-10.8) H 10/21/22 04:30 RBC 3.91 M/uL (4.20-5.40) L 10/21/22 04:30 Hgb 8.4 g/dl (12.0-16.0) L 10/21/22 14:03 POC Hgb 8.8 g/dl (12.0-16.0) L 10/21/22 04:41 Hct 27.2 % (37.0-47.0) L 10/21/22 14:03 POC Hct 26 % (37-47) L 10/21/22 04:41 MCV 68.3 fL (80.0-100.0) L 10/21/22 04:30 MCH 19.7 pg (25.0-34.0) L 10/21/22 04:30 MCHC 28.8 g/dL (32.0-36.0) L 10/21/22 04:30 RDW Std Deviation 64.0 fL (36.4-46.3) H 10/21/22 04:30 RDW Coeff of Zaria 28.0 % (11.5-14.5) H 10/21/22 04:30 Plt Count 446 K/uL (130-400) H 10/21/22 04:30 MPV 10.1 fL (9.4-12.4) 10/21/22 04:30 Absolute Nucleated RBC 0.02 K/uL (0-0.12) 10/21/22 04:30 Nucleated RBC % (auto) 0.2 % 10/21/22 04:30 Neutrophils % (Manual) 74 % 10/21/22 04:30 Lymphocytes % (Manual) 14 % 10/21/22 04:30 Monocytes % (Manual) 10 % 10/21/22 04:30 Eosinophils % (Manual) 1 % 10/21/22 04:30 Myelocytes % (Man) 1 % 10/21/22 04:30 Neutrophils # (Manual) 8.96 K/uL (1.40-6.50) H 10/21/22 04:30 Total Absolute Neuts 8.96 K/uL (1.4-6.5) H 10/21/22 04:30 Lymphocytes # (Manual) 1.70 K/uL (1.2-3.4) 10/21/22 04:30 Total Abs Lymphocytes 1.70 K/uL (1.2-3.4) 10/21/22 04:30 Monocytes # (Manual) 1.21 K/uL (0.11-0.59) H 10/21/22 04:30 Eosinophils # (Manual) 0.12 K/uL (0-0.50) 10/21/22 04:30 Myelocytes # (Manual) 0.12 K/uL (0-0) H 10/21/22 04:30 Polychromasia 2+ 10/21/22 04:30 Poikilocytosis Present 10/21/22 04:30 Anisocytosis Present 10/21/22 04:30 Microcytosis Present 10/21/22 04:30 PT 10.8 Seconds (9.0-12.0) 10/21/22 04:45 INR 1.0 (0.9-1.1) 10/21/22 04:45 POC Sodium 136 mmol/L (135-144) 10/21/22 04:41 Sodium 136 mmol/L (136-145) 10/21/22 04:30 POC Potassium 4.9 mmol/L (3.3-5.0) 10/21/22 04:41 Potassium 4.9 mmol/L (3.5-5.1) 10/21/22 04:30 POC Chloride 97 mmol/L (101-112) L 10/21/22 04:41 Chloride 100 mmol/L (98-107) 10/21/22 04:30 Carbon Dioxide 31 mmol/L (21-32) 10/21/22 04:30 POC Total CO2 30 mmol/L (24-31) 10/21/22 04:41 Anion Gap 5 (3-11) 10/21/22 04:30 POC Anion Gap 15.0 mmol/L (16-25) L 10/21/22 04:41 POC BUN 32 mg/dl (7-18) H 10/21/22 04:41 BUN 27 mg/dl (6-23) H 10/21/22 04:30 Creatinine 0.67 mg/dl (0.6-1.2) 10/21/22 04:30 POC Creatinine 0.7 mg/dl (0.6-1.3) 10/21/22 04:41 Est Cr Clr Drug Dosing 54.2 ml/min 10/21/22 04:30 Est GFR ( Amer) 93.6 ml/min 10/21/22 04:30 Est GFR (Non-Af Amer) 80.7 ml/min 10/21/22 04:30 BUN/Creatinine Ratio 40.3 (10-20) H 10/21/22 04:30 Glucose 220 mg/dl (70-99(Fasting)) H 10/21/22 04:30 POC Glucose 311 mg/dl (70-99) H* 10/22/22 00:01 POC Glucose (other) 220 mg/dl (70-99) H 10/21/22 04:41 Estimat Average Glucose 243 mg/dl 10/21/22 07:51 Hemoglobin A1c 10.1 % (4.5-5.6) H 10/21/22 07:51 Calcium 9.1 mg/dl (8.6-10.3) 10/21/22 04:30 POC Ioniz Calcium Jose 1.21 mmol/l (1.12-1.32) 10/21/22 04:41 Magnesium 1.6 mg/dl (1.7-2.4) L 10/21/22 04:30 Total Bilirubin 0.3 mg/dl (0.2-1.0) 10/21/22 04:30 AST 32 U/L (13-39) 10/21/22 04:30 ALT 12 U/L (7-52) 10/21/22 04:30 Alkaline Phosphatase 98 U/L (34-104) 10/21/22 04:30 Total Protein 5.7 gm/dl (6.0-8.3) L 10/21/22 04:30 Albumin 2.7 gm/dl (3.4-5.0) L 10/21/22 04:30 Globulin 3.0 gm/dl (2.5-4.0) 10/21/22 04:30 Albumin/Globulin Ratio 0.9 (0.9-2) 10/21/22 04:30 Lipase 39 U/L (11-82) 10/21/22 04:30 Nasal Screen MRSA (PCR) Negative (Negative) 10/21/22 12:01 Stl C. cayetanensis PCR Not Detected (NotDetected) 10/21/22 10:35 Stool Rotavirus A PCR Not Detected (NotDetected) 10/21/22 10:35 Stl Adenov F 40/41 PCR Not Detected (NotDetected) 10/21/22 10:35 Stool Astrovirus (PCR) Not Detected (NotDetected) 10/21/22 10:35 Stool Campylobacter PCR Not Detected (NotDetected) 10/21/22 10:35 Stl C. diff Tox B Gene Negative Cdiff Gene (Neg) 10/21/22 10:35 Stool Cryptosporidium PCR Not Detected (NotDetected) 10/21/22 10:35 Stl E.coli Shiga Tox PCR Not Detected (NotDetected) 10/21/22 10:35 Stl Enterotoxigenic E PCR Not Detected (NotDetected) 10/21/22 10:35 Stool EPEC (PCR) Not Detected (NotDetected) 10/21/22 10:35 Stool EAEC (PCR) Not Detected (NotDetected) 10/21/22 10:35 Stl E. histolytica PCR Not Detected (NotDetected) 10/21/22 10:35 Stool Giardia Lamblia PCR Not Detected (NotDetected) 10/21/22 10:35 Stool Salmonella PCR Not Detected (NotDetected) 10/21/22 10:35 Stool Sapovirus (PCR) Not Detected (NotDetected) 10/21/22 10:35 Stl P. shigelloides PCR Not Detected (NotDetected) 10/21/22 10:35 Stl Shigella/EIEC PCR Not Detected (NotDetected) 10/21/22 10:35 St Y.enterocolitica PCR Not Detected (NotDetected) 10/21/22 10:35 Stool Vibrio (PCR) Not Detected (NotDetected) 10/21/22 10:35 Stl Vibrio cholerae PCR Not Detected (NotDetected) 10/21/22 10:35 Stl Norovirus GI/GII PCR Not Detected (NotDetected) 10/21/22 10:35 SARS-CoV-2, RNA, NAAT NEGATIVE (NEGATIVE) 10/21/22 05:36 Blood Type O Positive 10/21/22 04:50 Antibody Screen POSITIVE A 10/21/22 04:50 Antibody Identification Anti-K 10/21/22 04:50 Antibody ID Comment 10/21/22 04:50 Crossmatch See Detail 10/21/22 04:50 Impressions Abdomen/Pelvis CT 10/21/22 04:[address] WITH IV CONTRAST CT DOSE: 1201.67 mGy.cm HISTORY: Acute onset abdominal pain with GI bleed Gi bleed TECHNIQUE: Multiaxial CT images of the abdomen and pelvis were performed following the IV administration of 95 cc of Optiray, A dose lowering technique was utilized adhering to the principles of ALARA. COMPARISON STUDY: None. FINDINGS: Cardiomegaly with extensive coronary artery calcifications. Study is degraded by respiratory motion artifact. Trace right and small left pleural effusions. Mild subsegmental bibasilar atelectasis. No pneumatosis or pneumoperitoneum. Unremarkable spleen, moderately atrophic pancreas and adrenal glands. Cholecystectomy. Unremarkable liver with ill-defined 2.4 cm area of decreased attenuation within the jose hepatis, possibly focal fatty infiltration. Patent portal vein. Cortical thinning of the kidneys without hydronephrosis. Delayed phase of postcontrast imaging demonstrates no definite filling defects in the opacified renal collecting systems. There are a few subcentimeter renal hypodensities which are too small to characterize, favoring cysts. Contrast noted within the dependent urinary bladder lumen. Atherosclerosis of the aorta and branch vessels. No lymphadenopathy. Large hiatal hernia with distal esophageal wall thickening. A gastrostomy tube appears to be in [employer] positioning. Mild adjacent stranding. Moderate fecal retention. Nonspecific circumferential rectal wall thickening with adjacent inflammatory stranding and trace free pelvic fluid. Extensive colonic diverticulosis without acute diverticulitis. Appendix is not definitively seen. Small fat filled umbilical hernia with diastases of 2.6 cm. No acute fracture identified. Severe degeneration of the pubic symphysis with coarse calcifications. Mixed attenuating soft tissue attenuating structure within the right inguinal tissues measures 5 cm. Hardware of the left proximal femur. Mild AVN of the right femoral head. IMPRESSION: 1. Nonspecific mild wall thickening of the rectum with adjacent inflammatory stranding and trace free pelvic fluid. Findings suggestive of a nonspecific proctitis however could be further evaluated with colonoscopy. 2. Colonic diverticulosis. 3. No bowel obstruction or pneumoperitoneum. 4. Large hiatal hernia. 5. Indeterminate 5 cm soft tissue attenuating structure within the right inguinal tissues, possibly postsurgical. Correlate with physical exam findings and surgical history. ACT 112: Negative or not required by law. The above report was generated using voice recognition software. It may contain grammatical, syntax or spelling errors. Electronically signed by: Hilario Boyd M.D. 10/21/2022 7:02 AM Chest X-Ray 10/21/22 07:47 XR chest 1V portable HISTORY: 82 years-old Female sob acute shortness breath COMPARISON: 05/15/2018 TECHNIQUE: AP view of the chest. FINDINGS: Cardiomegaly. Atherosclerosis of the aorta. Hiatal hernia. Small left pleural effusion. Mild subsegmental bibasilar atelectasis versus scarring. No pneumothorax or overt pulmonary edema. Degenerative changes of the shoulders and spine. Cholecystectomy. IMPRESSION: 1. Cardiomegaly without pulmonary edema. 2. Small left pleural effusion. 3. Hiatal hernia. ACT 112: Negative or not required by law. The above report was generated using voice recognition software. It may contain grammatical, syntax or spelling errors. Electronically signed by: Hilario Boyd M.D. 10/21/2022 9:00 AM Ordered Studies 10/21/22 04:40 CT abd pelvis IV con only Stat Hospital Course (1) Anemia: (2) GI bleeding: (3) Rapid atrial fibrillation: (4) Diabetes: (5) Acute right MCA stroke: (6) S/P percutaneous endoscopic gastrostomy (PEG) tube placement: Plan Patient is an 82yoF with PMhx of recent R MCA stroke, atrial fibrillation, DMII, asthma/COPD, iron Deficiency anemia, OA, Hx of rheumatic fever and with current PEG tube who was admitted with an acute GI bleed. . Family declined aggressive treatment or invasive GI procedures and pt was transitioned to comfort measures. Acute GI Bleed/Acute Blood loss anemia Rectal bleed Pt was recently discharged from [facility] on October 14 where she was treated for an acute R MCA stroke. H/O recent blood transfusion Discharge records show she was discharged to [facility] on heparin for anticoagulation. However, was on aspirin only at [facility] Bloody stools were noted at [facility] and in the ED. H/H of 6.3/21.7, transfused one unit with repeat hgb of 8.4. CT abd/pelvis with noted nonspecific proctitis, no acute diverticulitis. Was on PPI drip and GI was consulted. They advised that she was high risk for any procedure and family decided to make her comfort care. Appreciate palliative care input Palliative care following We will adjust medications as needed if patient develops recurrence of distress On comfort measures only Atrial fibrillation with RVR On PO diltiazem at home, oral meds were held in the setting of a GI bleed comfort measures only per wishes of patient and family. R MCA stroke Stable, residual left sided weakness On comfort measures DM II Dysphagia S/P PEG Tube Asthma/COPD Iron Deficiency Anemia OA CODE STATUS DNI DNR On comfort measures only Deteriorating Palliative care on board Patient on October 27, 2022 at 1:34 AM while on comfort measures. Total Time Total Time Spent Total Time Spent (In Minutes): 25 minutes Discharge Plan Discharge Items Patient Disposition: Other Date/Time: 10/27/22 01:34
== END 2022-10-27 02:35 | disposition expired | DRG 378 ==
LOC: ED 04:23 → SUATTDRO 08:12 → 1E 08:12 → 3N 10-22 04:20